=== PATIENT | female | born 1940 | race Caucasian/White ===

== ENCOUNTER 2019-02-08 10:03 | Inpatient (IN) | payer MEDICARE ==
--- NOTE | 2019-02-08 10:44 | ED ---
Abdominal Pain HPI - General Chief Complaint: Abdominal Pain Stated Complaint: Stomach pain Time Seen by Provider: 02/08/19 10:20 Source: patient, family, RN notes reviewed Mode of arrival: wheelchair Limitations: no limitations - History of Present Illness Initial Comments: 78 yo female history of hypertension diabetes presenting with 6 month history of generalized abdominal pain, fluid overload and mild dyspnea Patient has a general discomfort which is constant in nature throughout her entire abdomen. She also reports abdominal distention and bloating. She's had decreased appetite. She's had nausea without vomiting. She's had intermittent solid stool and diarrhea for the past 6 months. Denies any rectal bleeding. Denies generalized weight loss. Denies fever or chills. Denies chest pain. Denies flank pain or dysuria. - Related Data Home Medications Medication Instructions Recorded Confirmed Cholecalciferol (Vitamin D3) 2,000 unit PO DAILY 02/08/19 02/08/19 [Vitamin D3] Lisinopril [Zestril] 10 mg PO DAILY 02/08/19 02/08/19 Pioglitazone [Actos] 30 mg PO DAILY 02/08/19 02/08/19 Sertraline [Zoloft] 50 mg PO DAILY 02/08/19 02/08/19 metFORMIN HCL 1,000 mg PO BID 02/08/19 02/08/19 sitaGLIPtin PHOSPHATE [Januvia] 100 mg PO DAILY 02/08/19 02/08/19 Allergies Allergy/AdvReac Type Severity Reaction Status Date / Time No Known Allergies Allergy Verified 02/08/19 12:51 Review of Systems ROS Statement: Those systems with pertinent positive or pertinent negative responses have been documented in the HPI. ROS Other: All systems not noted in ROS Statement are negative. Past Medical History Past Medical History: Cancer, Diabetes Mellitus, Hypertension Additional Past Medical History / Comment(s): breast ca, History of Any Multi-Drug Resistant Organisms: None Reported Past Surgical History: Breast Surgery, Cholecystectomy Past Psychological History: Depression Smoking Status: Never smoker Past Alcohol Use History: None Reported Past Drug Use History: None Reported General Exam Limitations: no limitations General appearance: alert, in no apparent distress Head exam: Present: atraumatic, normocephalic Eye exam: Present: normal appearance, PERRL ENT exam: Present: normal exam, normal oropharynx Neck exam: Present: normal inspection. Absent: tenderness, meningismus Respiratory exam: Present: normal lung sounds bilaterally. Absent: respiratory distress, wheezes, rales, rhonchi Cardiovascular Exam: Present: tachycardia, irregular rhythm GI/Abdominal exam: Present: soft, distended, tenderness (Very mild generalized tenderness palpation). Absent: guarding, rebound Extremities exam: Present: pedal edema (1+ pedal bilaterally) Neurological exam: Present: alert, oriented X3, CN II-XII intact. Absent: motor sensory deficit Psychiatric exam: Present: normal affect, normal mood Skin exam: Present: warm, dry, intact. Absent: cyanosis, diaphoretic Course Vital Signs 02/08/19 10:11 Temperature 98.1 F Pulse Rate 112 H Respiratory 18 Rate Blood Pressure 141/66 O2 Sat by Pulse 98 Oximetry - Reevaluation(s) Reevaluation #1: 02/08/19 1028 EKG: Sinus tachycardia with PAC no ST segment elevation, rate of 122, MT interval 160, QRS duration 72, QTC 493 Medical Decision Making - Medical Decision Making 78 -year-old female with abdominal distention, peripheral edema, mild dyspnea. On exam patient does appear fluid overloaded. She has no focal abdominal tenderness. She has bilateral peripheral edema. Chest x-rays obtained which is consistent with fluid overload, bilateral effusions. CT the abdomen is performed which does show ascites, no other acute findings. Laboratory studies reveal hypomagnesemia, mild hypoalbuminemia. Patient will be admitted for diuresis, echo will be obtained to evaluate for cardiogenic edema and congestive heart failure. Patient and family agreeable with plan. Case discussed with admitting physician. - Lab Data Result diagrams: 02/08/19 11:02/08/19 11:03 Lab Results 02/08/19 02/08/19 02/08/19 Range/Units 11:03 11: 11:03 WBC 4.0 (3.8-10.6) k/uL RBC 4.59 (3.80-5.40) m/uL Hgb 11.4 (11.4-16.0) gm/dL Hct 36.2 (34.0-46.0) % MCV 78.9 L (80.0-100.0) fL MCH 24.9 L (25.0-35.0) pg MCHC 31.6 (31.0-37.0) g/dL RDW 15.2 (11.5-15.5) % Plt Count 101 L (150-450) k/uL Neutrophils % 76 % Lymphocytes % 13 % Monocytes % 8 % Eosinophils % 2 % Basophils % 0 % Neutrophils # 3.0 (1.3-7.7) k/uL Lymphocytes # 0.5 L (1.0-4.8) k/uL Monocytes # 0.3 (0-1.0) k/uL Eosinophils # 0.1 (0-0.7) k/uL Basophils # 0.0 (0-0.2) k/uL Hypochromasia Slight PT (9.0-12.0) sec INR (<1.2) APTT (22.0-30.0) sec Sodium 140 (137-145) mmol/L Potassium 3.6 (3.5-5.1) mmol/L Chloride 102 (98-107) mmol/L Carbon Dioxide 32 H (22-30) mmol/L Anion Gap 6 mmol/L BUN 9 (7-17) mg/dL Creatinine 0.57 (0.52-1.04) mg/dL Est GFR (CKD-EPI)AfAm >90 (>60 ml/min/1.73 sqM) Est GFR (CKD-EPI)NonAf >90 (>60 ml/min/1.73 sqM) Glucose 178 H (74-99) mg/dL Calcium 9.4 (8.4-10.2) mg/dL Magnesium 1.1 L (1.6-2.3) mg/dL Total Bilirubin 1.1 (0.2-1.3) mg/dL AST 30 (14-36) U/L ALT 28 (9-52) U/L Alkaline Phosphatase 63 (38-126) U/L Troponin I (0.000-0.034) ng/mL NT-Pro-B Natriuret Pep 778 pg/mL Total Protein 5.8 L (6.3-8.2) g/dL Albumin 3.2 L (3.5-5.0) g/dL Lipase 108 (23-300) U/L 02/08/19 02/08/19 Range/Units 11:03 11:03 WBC (3.8-10.6) k/uL RBC (3.80-5.40) m/uL Hgb (11.4-16.0) gm/dL Hct (34.0-46.0) % MCV (80.0-100.0) fL MCH (25.0-35.0) pg MCHC (31.0-37.0) g/dL RDW (11.5-15.5) % Plt Count (150-450) k/uL Neutrophils % % Lymphocytes % % Monocytes % % Eosinophils % % Basophils % % Neutrophils # (1.3-7.7) k/uL Lymphocytes # (1.0-4.8) k/uL Monocytes # (0-1.0) k/uL Eosinophils # (0-0.7) k/uL Basophils # (0-0.2) k/uL Hypochromasia PT 12.7 H (9.0-12.0) sec INR 1.2 H (<1.2) APTT 25.1 (22.0-30.0) sec Sodium (137-145) mmol/L Potassium (3.5-5.1) mmol/L Chloride (98-107) mmol/L Carbon Dioxide (22-30) mmol/L Anion Gap mmol/L BUN (7-17) mg/dL Creatinine (0.52-1.04) mg/dL Est GFR (CKD-EPI)AfAm (>60 ml/min/1.73 sqM) Est GFR (CKD-EPI)NonAf (>60 ml/min/1.73 sqM) Glucose (74-99) mg/dL Calcium (8.4-10.2) mg/dL Magnesium (1.6-2.3) mg/dL Total Bilirubin (0.2-1.3) mg/dL AST (14-36) U/L ALT (9-52) U/L Alkaline Phosphatase (38-126) U/L Troponin I <0.012 (0.000-0.034) ng/mL NT-Pro-B Natriuret Pep pg/mL Total Protein (6.3-8.2) g/dL Albumin (3.5-5.0) g/dL Lipase (23-300) U/L Disposition Clinical Impression: Abdominal pain, Liver cirrhosis, Fluid overload Disposition: ADMITTED IP TO THIS HOSP Condition: Stable Is patient prescribed a controlled substance at d/c from ED?: No Referrals: Garcia Snyder MD [Primary Care Provider] - 1-2 days Decision to Admit Reason: Admit from EC Decision Date: 02/08/19 Decision Time: 13:42
[2019-02-08 11:27] LABS: Basophils % (A) 0 %; Eosinophils # (A) 0.1 k/uL (0-0.7); Eosinophils % (A) 2 %; HCT 36.2 % (34.0-46.0); HGB 11.4 gm/dL (11.4-16.0); Hypochromasia Slight; Lymphocytes # (A) 0.5 k/uL (1.0-4.8); Lymphocytes % (A) 13 %; MCH 24.9 pg (25.0-35.0); MCHC 31.6 g/dL (31.0-37.0); MCV 78.9 fL (80.0-100.0); Monocytes # (A) 0.3 k/uL (0-1.0); Monocytes % (A) 8 %; Neutrophils % (A) 76 %; Platelet Count 101 k/uL (150-450); RBC 4.59 m/uL (3.80-5.40); RDW 15.2 % (11.5-15.5)
[2019-02-08 11:28] LABS: ALT 28 U/L (9-52); AST 30 U/L (14-36); African American GFR (CKD) >90 (>60 ml/min/1.73 sqM); Albumin 3.2 g/dL (3.5-5.0); Alkaline Phosphatase 63 U/L (38-126); Anion Gap 6 mmol/L; Blood Urea Nitrogen 9 mg/dL (7-17); Calcium 9.4 mg/dL (8.4-10.2); Carbon Dioxide 32 mmol/L (22-30); Chloride 102 mmol/L (98-107); Glucose 178 mg/dL (74-99); Magnesium 1.1 mg/dL (1.6-2.3); Potassium 3.6 mmol/L (3.5-5.1); Sodium 140 mmol/L (137-145); Total Bilirubin 1.1 mg/dL (0.2-1.3); Total Protein 5.8 g/dL (6.3-8.2)
--- NOTE | 2019-02-08 11:44 | XR ---
EXAMINATION TYPE: XR chest 2V DATE OF EXAM: 02/08/2019 HISTORY: Chest Pain. REFERENCE: NONE. FINDINGS: Heart size is upper limits of normal. There is bibasilar airspace disease. There are bilateral effusions, greater on the left than the righ t. IMPRESSION: 1. BORDERLINE CARDIOMEGALY. 2. BIBASILAR AIRSPACE DISEASE. 3. BILATERAL EFFUSIONS, GREATER ON THE LEFT THAN THE RIGHT.
[2019-02-08 11:51] LABS: INR 1.2 (<1.2); Partial Thromboplastin Time 25.1 sec (22.0-30.0); Prothrombin Time 12.7 sec (9.0-12.0)
[2019-02-08] MEDS: MAGNESIUM SULFATE-D5W PMX 1 GM in DEXTROSE/WATER 1 100ML.BAG IVPB SCH ×2 (12:59→14:09)
--- NOTE | 2019-02-08 12:59 | CT ---
EXAMINATION TYPE: CT abdomen pelvis w con DATE OF EXAM: 02/08/2019 REFERENCE: NONE HISTORY: gen. pain/distention HISTORY: General pain and distention CT DLP: 2005.6 mGy Automated exposure control for dose reduction was used. TECHNIQUE: Helical acquisition through the abdomen and pelvis was obtained following the oral ingesti on of without Oral Contrast and following intravenous administration of 100 mL of Isovue 300. The rosario a was reformatted in axial, coronal and sagittal projections. FINDINGS: There are bilateral pleural effusions, greater on the left than the right. There is relaxa tion atelectasis both lung bases, greater on the left than the right. The heart is mildly enlarged. T here is no pericardial fluid. There is coronary artery calcification as well as other vascular calcif ications. There is diffuse anasarca throughout the study but most marked in the lower abdomen and pelvis. There are umbilical varices. There are also gastrosplenic varices. There are small paraesophageal emiliano ices. There is moderate ascites. The gallbladder is been removed. The liver is nodule in keeping with cirrhosis. The spleen is upper l imits of normal in size measuring 14 cm the liver is normal in size. Both adrenal glands are normal. Both kidneys demonstrate function and appear morphologically normal. The pancreas is unremarkable. There is no significant retroperitoneal, iliac or inguinal adenopathy. The bladder is unremarkable. There are calcifications associated with the uterus. The ovaries are not seen with certainty. There is no significant diverticular change and there is no radiographic evidence of diverticulitis. The appendix is not seen with certainty. Small bowel loops are normal in caliber. No free air is seen. There is degenerative disc disease at L5-S1. There is mild facet arthropathy and hypertrophic spondyl osis in the lower dorsal spine. IMPRESSION: 1. EVIDENCE OF CIRRHOSIS AND MARKED ASCITES. 2. UMBILICAL VARICES WELL GASTROSPLENIC VARICES. 3. MILD CARDIOMEGALY. 4. BILATERAL PLEURAL EFFUSIONS, GREATER ON THE LEFT THAN THE RIGHT. 5. DIFFUSE ANASARCA. 6. DEGENERATIVE CHANGES WITHIN THE SPINE.
[2019-02-08] MEDS ORDERED: FUROSEMIDE 10 MG/ML 4 ML VIAL IV STA (13:18)
[2019-02-08] MEDS ORDERED: NALOXONE 0.4 MG/ML 1 ML VIAL IV PRN (13:38)
[2019-02-08] MEDS ORDERED: ASPIRIN 325 MG TAB PO STA (13:39)
--- NOTE | 2019-02-08 14:32 | ECHOF ---
Referral Reason:CHF MEASUREMENTS -------- HEIGHT: 167.6 cm WEIGHT: 104.3 kg BP: RVIDd: 3.5 cm (< 3.3) IVSd: 1.3 cm (0.6 - 1.1) LVIDd: 4.1 cm (3.9 - 5.3) LVPWd: 1.1 cm (0.6 - 1.1) IVSs: 2.0 cm LVIDs: 1.6 cm LVPWs: 1.6 cm Ao Diam: 2.9 cm (2.0 - 3.7) AV Cusp: 1.3 cm (1.5 - 2.6) LA Diam: 4.1 cm (2.7 - 3.8) MV EXCURSION: 7.495 mm (> 18.000) MV EF SLOPE: 48 mm/s (70 - 150) EPSS: 0.6 cm MV E Rajendra: 1.01 m/s MV DecT: 153 ms MV A Rajendra: 1.49 m/s MV E/A Ratio: 0.68 AV maxP.34 mmHg AV meanP.65 mmHg RAP: 5.00 mmHg RVSP: 46.31 mmHg FINDINGS -------- Resting tachycardia (HR>100bpm). This was a technically difficult study with suboptimal views. The left ventricular size is normal. There is mild concentric left ventricular hypertrophy. Overa ll left ventricular systolic function is normal with, an EF between 55 - 60 %. The right ventricle is mildly enlarged. The left atrium is mildly dilated. The right atrial size is normal. 5.0mg of Lumason was utilized for enhancement of images Aortic valve is trileaflet and is mildly thickened. There is mild aortic stenosis present. Peak/m anibal gradient across the Aortic Valve is 25.34mmHg / 14.65mmHg. The mitral valve was not well visualized. Mild mitral regurgitation is present. The tricuspid valve was not well visualized. Mild tricuspid regurgitation present. There is mild pulmonary hypertension. There is no pulmonic regurgitation present. The aortic root size is normal. IVC Not well visulized. There is no pericardial effusion. CONCLUSIONS -------- 1. Resting tachycardia (HR>100bpm). 2. This was a technically difficult study with suboptimal views. 3. The left ventricular size is normal. 4. There is mild concentric left ventricular hypertrophy. 5. Overall left ventricular systolic function is normal with, an EF between 55 - 60 %. 6. The right ventricle is mildly enlarged. 7. The left atrium is mildly dilated. 8. The right atrial size is normal. 9. 5.0mg of Lumason was utilized for enhancement of images 10. Aortic valve is trileaflet and is mildly thickened. 11. There is mild aortic stenosis present. 12. Peak/mean gradient across the Aortic Valve is 25.34mmHg / 14.65mmHg. 13. The mitral valve was not well visualized. 14. Mild mitral regurgitation is present. 15. The tricuspid valve was not well visualized. 16. Mild tricuspid regurgitation present. 17. There is mild pulmonary hypertension. 18. There is no pulmonic regurgitation present. 19. The aortic root size is normal. 20. IVC Not well visulized. 21. There is no pericardial effusion. DETAIL SERGEANT: Joelle Collins RDCS
[2019-02-08] MEDS ORDERED: Magnesium Replacement Protocol 1 EACH MISC MISCELLANE PRN (15:35)
[2019-02-08 16:59] LABS: Glucose,Whole Blood 161 mg/dL (75-99)
[2019-02-08] MEDS: metFORMIN 500 MG TAB PO SCH (17:45)
--- NOTE | 2019-02-08 19:34 | P.HPIM ---
History of Present Illness This is a pleasant 78 years old female with past medical history of diabetes mellitus, hypertension, breast cancer status post right breast lump removal. Presents because of abdominal pain, fluid overload and mild dyspnea, pt states she is coming because of worsening abd pain , central radiating on both sides , non specific, about 8/10 , now 2/10 in severity , associated with nausea but not vomiting , and some dyspnea , no fever she has regular bowel movement compared to yesterday which was more loose. pt denies chest pain or dyspnea pt has no known liver , kidney or heart disease before Vital showing tachycardia with heart rate 100 to 112, blood pressure 125/52, patient is afebrile and she is saturating 92 on room air. Labs showing unremarkable CBC, INR and BMP. Magnesium is low at 1.1 CT of the abdomen and pelvis: Anasarca with bilateral pleural effusion and ascites. Echo showed ejection fraction of 55-60%. EKG showed sinus tachycardia at [address]-T changes. Q-wave in the inferior leads III and aVF. Chest x-ray showed bilateral pleural effusion more on the left side Review of Systems CONSTITUTIONAL: No fever, no malaise, no fatigue. HEENT: No recent visual problems or hearing problems. Denied any sore throat. CARDIOVASCULAR: No orthopnea, PND, no palpitations, no syncope. PULMONARY: No shortness of breath, no cough, no hemoptysis. GASTROINTESTINAL: No diarrhea, no nausea, no vomiting, no abdominal pain. Normoactive bowel sounds. NEUROLOGICAL: No headaches, no weakness, no numbness. HEMATOLOGICAL: Denies any bleeding or petechiae. GENITOURINARY: Denies any burning micturition, frequency, or urgency. MUSCULOSKELETAL/RHEUMATOLOGICAL: Denies any joint pain, swelling, or any muscle pain. ENDOCRINE: Denies any polyuria or polydipsia. Past Medical History Past Medical History: Cancer, Diabetes Mellitus, Hypertension Additional Past Medical History / Comment(s): breast ca, History of Any Multi-Drug Resistant Organisms: None Reported Past Surgical History: Breast Surgery, Cholecystectomy Additional Past Surgical History / Comment(s): Right breast lump removal Past Anesthesia/Blood Transfusion Reactions: No Reported Reaction Past Psychological History: Depression Smoking Status: Never smoker Past Alcohol Use History: None Reported Past Drug Use History: None Reported - Past Family History Father Family Medical History: Cancer Additional Family Medical History / Comment(s): Colon cancer Brother(s) Family Medical History: Myocardial Infarction (HI) Additional Family Medical History / Comment(s): stents, another brother from an HI Medications and Allergies Home Medications Medication Instructions Recorded Confirmed Type Cholecalciferol (Vitamin D3) 2,000 unit PO DAILY 02/08/19 02/08/19 History [Vitamin D3] Lisinopril [Zestril] 10 mg PO DAILY 02/08/19 02/08/19 History Pioglitazone [Actos] 30 mg PO DAILY 02/08/19 02/08/19 History Sertraline [Zoloft] 50 mg PO DAILY 02/08/19 02/08/19 History metFORMIN HCL 1,000 mg PO BID 02/08/19 02/08/19 History sitaGLIPtin PHOSPHATE [Januvia] 100 mg PO DAILY 02/08/19 02/08/19 History Allergies Allergy/AdvReac Type Severity Reaction Status Date / Time No Known Allergies Allergy Verified 02/08/19 12:51 Physical Exam Vitals: Vital Signs Temp Pulse Resp BP Pulse Ox 02/08/19 14:00 100 18 125/52 92 L 02/08/19 13:30 106 H 18 108/51 94 L 02/08/19 13:00 105 H 18 160/67 91 L 02/08/19 12:30 104 H 20 162/69 92 L 02/08/19 10:11 98.1 F 112 H 18 141/66 98 Intake and Output 02/08/19 02/08/19 02/08/19 06:59 14:59 22:59 Other: Voiding Method Toilet Weight 100.561 kg GENERAL: The patient is alert and oriented x3, not in any acute distress. obese HEENT: Pupils are round and equally reacting to light. EOMI. No scleral icterus. No conjunctival pallor. Normocephalic, atraumatic. No pharyngeal erythema. No thyromegaly. CARDIOVASCULAR: S1 and S2 present. No murmurs, rubs, or gallops. PULMONARY: Chest is clear to auscultation, no wheezing or crackles. -ABDOMEN: Soft, mild RUQ tenderness, nondistended, normoactive bowel sounds. No palpable organomegaly. MUSCULOSKELETAL: No joint swelling or deformity. EXTREMITIES: No cyanosis, clubbing, or pedal edema. NEUROLOGICAL: Gross neurological examination did not reveal any focal deficits. SKIN: No rashes. No petechiae Results CBC & Chem 7: 02/08/19 11:03 02/08/19 11:03 Labs: Abnormal Lab Results - Last 24 Hours (Table) 02/08/19 02/08/19 02/08/19 Range/Units 11:03 11: 11:03 MCV 78.9 L (80.0-100.0) fL MCH 24.9 L (25.0-35.0) pg Plt Count 101 L (150-450) k/uL Lymphocytes # 0.5 L (1.0-4.8) k/uL PT 12.7 H (9.0-12.0) sec INR 1.2 H (<1.2) Carbon Dioxide 32 H (22-30) mmol/L Glucose 178 H (74-99) mg/dL Magnesium 1.1 L (1.6-2.3) mg/dL Total Protein 5.8 L (6.3-8.2) g/dL Albumin 3.2 L (3.5-5.0) g/dL Thrombosis Risk Factor Assmnt - Choose All That Apply Each Risk Factor Represents 3 Points: Age 75 years or older Other congenital or acquired thrombophilia - If yes, enter type in comment: No Thrombosis Risk Factor Assessment Total Risk Factor Score: 3 Thrombosis Risk Factor Assessment Level: Moderate Risk Assessment and Plan Assessment: Diffuse anasarca With bilateral pleural effusion, more on the left,moderate ascites Liver cirrhosis Hypomagnesemia Borderline Enlarged spleen diabetes mellitus Hypertension History of breast cancer status post lumpectomy Plan: This is a pleasant 78 years old female who presents with anasarca, with pleural effusion and ascites mostly secondary to liver cirrhosis with normal ejection fraction and creatinine. Continue with diuretics. Monitor electrolytes. Con sult GI team Labs and medication were reviewed.. Continue same treatment. Continue with symptomatic treatment. Resume home medication. Monitor lytes and vitals. DVT and GI prophylaxis. Further recommendations of the clinical course of the patient DVT prophylaxis: Subcutaneous heparin GI Prophylaxis: Pepcid PT/OT: Pending Prognosis is guarded
[2019-02-08] MEDS: FAMOTIDINE 20 MG/2 ML VIAL IV SCH (20:10)
[2019-02-08] MEDS: FUROSEMIDE 10 MG/ML 4 ML VIAL IV SCH (20:10)
[2019-02-08] MEDS: HEPARIN SODIUM,PORCINE 5,000 UNIT/ML 1 ML VIAL SQ SCH (20:10)
[2019-02-08 21:03] LABS: Glucose,Whole Blood 161 mg/dL (75-99)
[2019-02-09 06:03] LABS: Glucose,Whole Blood 149 mg/dL (75-99)
[2019-02-09] MEDS: metFORMIN 500 MG TAB PO SCH ×2 (06:32→16:52)
[2019-02-09 06:33] LABS: HCT 31.1 % (34.0-46.0); HGB 10.1 gm/dL (11.4-16.0); Hypochromasia Moderate; MCH 25.6 pg (25.0-35.0); MCHC 32.4 g/dL (31.0-37.0); MCV 79.1 fL (80.0-100.0); Mean Platelet Volume 6.8; RBC 3.93 m/uL (3.80-5.40); RDW 15.3 % (11.5-15.5); WBC 2.8 k/uL (3.8-10.6)
[2019-02-09 06:35] LABS: African American GFR (CKD) >90 (>60 ml/min/1.73 sqM); Anion Gap 4 mmol/L; Blood Urea Nitrogen 9 mg/dL (7-17); Calcium 8.6 mg/dL (8.4-10.2); Carbon Dioxide 36 mmol/L (22-30); Chloride 100 mmol/L (98-107); Glucose 146 mg/dL (74-99); Magnesium 1.3 mg/dL (1.6-2.3); Potassium 3.5 mmol/L (3.5-5.1); Sodium 140 mmol/L (137-145)
[2019-02-09 06:59] LABS: Eosinophils # (M) 0.08 k/uL (0-0.7); Lymphocytes # (M) 0.28 k/uL (1.0-4.8); Neutrophils % (M) 80 %; Nucleated Red Blood Cells 0 /100 WBC (0-0); Platelet Count 78 k/uL (150-450); Total Cells Counted 100
[2019-02-09] MEDS ORDERED: Magnesium Replacement Protocol 1 EACH MISC MISCELLANE PRN (07:35)
[2019-02-09] MEDS: MAGNESIUM SULFATE-D5W PMX 1 GM in DEXTROSE/WATER 1 100ML.BAG IVPB SCH ×3 (09:13→13:29)
[2019-02-09] MEDS: HEPARIN SODIUM,PORCINE 5,000 UNIT/ML 1 ML VIAL SQ SCH ×2 (09:14→20:18)
[2019-02-09] MEDS: CHOLECALCIFEROL 1,000 UNIT TAB PO SCH (09:14)
[2019-02-09] MEDS: LISINOPRIL 10 MG TAB PO SCH (09:14)
[2019-02-09] MEDS: FUROSEMIDE 10 MG/ML 4 ML VIAL IV SCH ×2 (09:14→20:18)
[2019-02-09] MEDS: FAMOTIDINE 20 MG/2 ML VIAL IV SCH ×2 (09:14→20:18)
[2019-02-09] MEDS: LINAGLIPTIN 5 MG TABLET PO SCH (09:14)
[2019-02-09] MEDS: PIOGLITAZONE 30 MG TAB PO SCH (09:14)
[2019-02-09] MEDS: SERTRALINE 50 MG TAB PO SCH (09:14)
[2019-02-09] MEDS ORDERED: POTASSIUM CHLORIDE ER 20 MEQ TAB.ER PO STA (10:14)
--- NOTE | 2019-02-09 11:31 | P.PN ---
Subjective This is a pleasant 78 years old female with past medical history of diabetes mellitus, hypertension, breast cancer status post right breast lump removal. Presents because of abdominal pain, fluid overload and mild dyspnea, pt states she is coming because of worsening abd pain , central radiating on both sides , non specific, about 8/10 , now 2/10 in severity , associated with nausea but not vomiting , and some dyspnea , no fever she has regular bowel movement compared to yesterday which was more loose. pt denies chest pain or dyspnea pt has no known liver , kidney or heart disease before Vital showing tachycardia with heart rate 100 to 112, blood pressure 125/52, patient is afebrile and she is saturating 92 on room air. Labs showing unremarkable CBC, INR and BMP. Magnesium is low at 1.1 CT of the abdomen and pelvis: Anasarca with bilateral pleural effusion and ascites. Echo showed ejection fraction of 55-60%. EKG showed sinus tachycardia at [address]-T changes. Q-wave in the inferior leads III and aVF. Chest x-ray showed bilateral pleural effusion more on the left side 02/09/2019 Patient is awake and oriented. No new complaints. No chest pain or dyspnea. She feels better and better presents with easier mobility. Her abdominal pain is improving, occasional nausea but no vomiting. Vitals are stable, her CBC showing mild pancytopenia with WBC of 2.8, hemoglobin 10.1, platelets at 78, magnesium still low with 1.3 which is being replaced, sugar is controlled and BMP is unremarkable. Discussed the case with GI team, plan to add spironolactone and paracentesis tomorrow. Patient was instructed to follow up with her PCP and GI within 1 week after discharge, she agrees however she does not want to follow up with her PCP Dr. Snyder and she wants to be switched to another PCP, several doctors were suggested Review of systems CONSTITUTIONAL: No fever, no malaise, no fatigue. HEENT: No recent visual problems or hearing problems. Denied any sore throat. CARDIOVASCULAR: No orthopnea, PND, no palpitations, no syncope. PULMONARY: No shortness of breath, no cough, no hemoptysis. GASTROINTESTINAL: No diarrhea, no nausea, no vomiting, no abdominal pain. Normoactive bowel sounds. NEUROLOGICAL: No headaches, no weakness, no numbness. HEMATOLOGICAL: Denies any bleeding or petechiae. GENITOURINARY: Denies any burning micturition, frequency, or urgency. MUSCULOSKELETAL/RHEUMATOLOGICAL: Denies any joint pain, swelling, or any muscle pain. ENDOCRINE: Denies any polyuria or polydipsia. Active Medications Generic Name Dose Route Start Last Admin Trade Name Freq PRN Reason Stop Dose Admin Cholecalciferol 2,000 unit 02/09/19 09:00 02/09/19 09:14 Vitamin D3 (25 Mcg = 1000 Iu) PO 2,000 unit DAILY ANUPAM Administration Famotidine 20 mg 02/08/19 21:00 02/09/19 09:14 Pepcid IV 20 mg Q12HR ANUPAM Administration Furosemide 40 mg 02/08/19 21:00 02/09/19 09:14 Lasix IV 40 mg Q12HR ANUPAM Administration Heparin Sodium (Porcine) 5,000 unit 02/08/19 21:00 02/09/19 09:14 Heparin SQ 5,000 unit Q12HR ANUPAM Administration Linagliptin 5 mg 02/09/19 09:00 02/09/19 09:14 Tradjenta PO 5 mg DAILY ANUPAM Administration Lisinopril 10 mg 02/09/19 09:00 02/09/19 09:14 Zestril PO 10 mg DAILY ANUPAM Administration Metformin HCl 1,000 mg 02/08/19 17:30 02/09/19 06:32 Glucophage PO 1,000 mg AC-BID ANUPAM Administration Miscellaneous Information 1 each 02/09/19 07:35 Magnesium Per Protocol MISCELLANE DAILY PRN Per Protocol Protocol Naloxone HCl 0.2 mg 02/08/19 13:38 Narcan IV Q2M PRN Opioid Reversal Pioglitazone HCl 30 mg 02/09/19 09:00 02/09/19 09:14 Actos PO 30 mg DAILY ANUPAM Administration Sertraline HCl 50 mg 02/09/19 09:00 02/09/19 09:14 Zoloft PO 50 mg DAILY ANUPAM Administration Objective - Vital Signs Vital signs: Vital Signs Temp 98.3 F 02/09/19 08:20 Pulse 96 02/09/19 08:20 Resp 16 02/09/19 08:20 BP 108/53 02/09/19 08:20 Pulse Ox 94 L 02/09/19 08:20 Intake & Output 02/08/19 02/09/19 02/09/19 18:59 06:59 18:59 Output Total 3400 Balance -3400 Weight 100.561 kg 93.9 kg Output: Urine 3400 Other: Voiding Method Toilet # Voids 1 2 # Bowel Movements 1 - Exam GENERAL: The patient is alert and oriented x3, not in any acute distress. obese HEENT: Pupils are round and equally reacting to light. EOMI. No scleral icterus. No conjunctival pallor. Normocephalic, atraumatic. No pharyngeal erythema. No thyromegaly. CARDIOVASCULAR: S1 and S2 present. No murmurs, rubs, or gallops. PULMONARY: Chest is clear to auscultation, no wheezing or crackles. -ABDOMEN: Soft, mild RUQ tenderness, nondistended, normoactive bowel sounds. No palpable organomegaly. MUSCULOSKELETAL: No joint swelling or deformity. -EXTREMITIES: No cyanosis, clubbing. Bilateral leg edema NEUROLOGICAL: Gross neurological examination did not reveal any focal deficits. SKIN: No rashes. No petechiae - Labs CBC & Chem 7: 02/09/19 05:46 02/09/19 05:46 Labs: Abnormal Lab Results - Last 24 Hours (Table) 02/08/19 02/08/19 02/08/19 Range/Units 11:03 11:03 11:03 WBC (3.8-10.6) k/uL Hgb (11.4-16.0) gm/dL Hct (34.0-46.0) % MCV 78.9 L (80.0-100.0) fL MCH 24.9 L (25.0-35.0) pg Plt Count 101 L (150-450) k/uL Lymphocytes # 0.5 L (1.0-4.8) k/uL Lymphocytes # (Manual) (1.0-4.8) k/uL PT 12.7 H (9.0-12.0) sec INR 1.2 H (<1.2) Carbon Dioxide 32 H (22-30) mmol/L Glucose 178 H (74-99) mg/dL POC Glucose (mg/dL) (75-99) mg/dL Magnesium 1.1 L (1.6-2.3) mg/dL Total Protein 5.8 L (6.3-8.2) g/dL Albumin 3.2 L (3.5-5.0) g/dL 02/08/19 02/08/19 02/09/19 Range/Units 16:57 20:32 05:46 WBC (3.8-10.6) k/uL Hgb (11.4-16.0) gm/dL Hct (34.0-46.0) % MCV (80.0-100.0) fL MCH (25.0-35.0) pg Plt Count (150-450) k/uL Lymphocytes # (1.0-4.8) k/uL Lymphocytes # (Manual) (1.0-4.8) k/uL PT (9.0-12.0) sec INR (<1.2) Carbon Dioxide 36 H (22-30) mmol/L Glucose 146 H (74-99) mg/dL POC Glucose (mg/dL) 161 H 161 H (75-99) mg/dL Magnesium 1.3 L (1.6-2.3) mg/dL Total Protein (6.3-8.2) g/dL Albumin (3.5-5.0) g/dL 02/09/19 02/09/19 Range/Units 05:46 06:02 WBC 2.8 L (3.8-10.6) k/uL Hgb 10.1 L (11.4-16.0) gm/dL Hct 31.1 L (34.0-46.0) % MCV 79.1 L (80.0-100.0) fL MCH (25.0-35.0) pg Plt Count 78 L (150-450) k/uL Lymphocytes # (1.0-4.8) k/uL Lymphocytes # (Manual) 0.28 L (1.0-4.8) k/uL PT (9.0-12.0) sec INR (<1.2) Carbon Dioxide (22-30) mmol/L Glucose (74-99) mg/dL POC Glucose (mg/dL) 149 H (75-99) mg/dL Magnesium (1.6-2.3) mg/dL Total Protein (6.3-8.2) g/dL Albumin (3.5-5.0) g/dL Assessment and Plan Assessment: Liver cirrhosis Diffuse anasarca With bilateral pleural effusion, more on the left,moderate ascites. Secondary to above Hypomagnesemia Borderline Enlarged spleen diabetes mellitus Hypertension History of breast cancer status post lumpectomy Plan: This is a pleasant 78 years old female who presents with anasarca, with pleural effusion and ascites mostly secondary to liver cirrhosis with normal ejection fraction and creatinine. Continue with diuretics. At spironolactone. Monitor electrolytes. Follow-up recommendation by GI team Labs and medication were reviewed.. Continue same treatment. Continue with symptomatic treatment. Resume home medication. Monitor lytes and vitals. DVT and GI prophylaxis. Further recommendations of the clinical course of the patient DVT prophylaxis: Subcutaneous heparin GI Prophylaxis: Pepcid PT/OT: Pending Prognosis is guarded
[2019-02-09 11:40] LABS: Glucose,Whole Blood 178 mg/dL (75-99)
[2019-02-09] MEDS: SPIRONOLACTONE 25 MG TAB PO SCH (13:30)
--- NOTE | 2019-02-09 13:30 | P.CONS ---
History of Present Illness - Reason for Consult Consult date: 02/09/19 Cirrhosis Requesting physician: Quentin Massey - Chief Complaint Abdominal pain - History of Present Illness 78-year-old female with medical history significant for diabetes mellitus, hypertension, prior right breast lumpectomy presents to the hospital due to complaints of abdominal pain. The patient reports abdominal pain which has been present with associated distention which is present for months now. However over the past few weeks this has increased. She describes symptoms of abdominal distention and fluid overload. She also reports associated shortness of breath. No fevers chills or other symptoms reported. She did have some associated nausea. No prior history of liver disease. She denies any excessive alcohol use. She does suffer from diabetes mellitus and hypertension as stated. Computed tomography scan of the abdomen on presentation was significant for cirrhosis, ascites as well as umbilical and gastrosplenic varices. Laboratory evaluation significant for hemoglobin 10.1 from 11.4 with microcytic indices, platelet count 70,000, WBC 2.8 with a total bilirubin 1.1, alkaline phosphatase 69, AST 30 and ALT 28. Currently she is lying in bed reporting improvement in abdominal symptoms after starting Lasix IV 40 mg twice daily. Review of Systems REVIEW OF SYSTEMS: CONSTITUTIONAL: Denies any fevers, chills, weight change or fatigue. CARDIOVASCULAR: Denies any chest pain, palpitations high or low blood pressures RESPIRATORY: Denies any hemoptysis or cough, but did have some shortness of breath associated with her abdominal distention. GENITOURINARY: No dysuria or hematuria. MUSCULOSKELETAL: No weakness reported. SKIN: Denies any new rashes or lesions, jaundice or pallor. PSYCHIATRIC: Denies any depression or anxiety. NEUROLOGY: Denies headache, denies any new focal deficits. EARS/NOSE/THROAT: No recent hearing change, congestion, nasal discharge or sore throat. EYES: No pain in eyes, discharge or change in vision. GASTROINTESTINAL: As per HPI. Past Medical History Past Medical History: Cancer, Diabetes Mellitus, Hypertension Additional Past Medical History / Comment(s): breast ca, History of Any Multi-Drug Resistant Organisms: None Reported Past Surgical History: Breast Surgery, Cholecystectomy Additional Past Surgical History / Comment(s): Right breast lump removal Past Anesthesia/Blood Transfusion Reactions: No Reported Reaction Past Psychological History: Depression Smoking Status: Never smoker Past Alcohol Use History: None Reported Past Drug Use History: None Reported - Past Family History Father Family Medical History: Cancer Additional Family Medical History / Comment(s): Colon cancer Brother(s) Family Medical History: Myocardial Infarction ([place]) Additional Family Medical History / Comment(s): stents, another brother from an [place] Medications and Allergies Home Medications Medication Instructions Recorded Confirmed Type Cholecalciferol (Vitamin D3) 2,000 unit PO DAILY 02/08/19 02/08/19 History [Vitamin D3] Lisinopril [Zestril] 10 mg PO DAILY 02/08/19 02/08/19 History Pioglitazone [Actos] 30 mg PO DAILY 02/08/19 02/08/19 History Sertraline [Zoloft] 50 mg PO DAILY 02/08/19 02/08/19 History metFORMIN HCL 1,000 mg PO BID 02/08/19 02/08/19 History sitaGLIPtin PHOSPHATE [Januvia] 100 mg PO DAILY 02/08/19 02/08/19 History Allergies Allergy/AdvReac Type Severity Reaction Status Date / Time No Known Allergies Allergy Verified 02/08/19 12:51 Physical Exam Vitals: Vital Signs Temp Pulse Pulse Resp BP BP BP 02/09/19 08:20 98.3 F 96 16 108/53 02/09/19 03:57 103 H 17 154/74 02/08/19 23:48 91 17 127/59 02/08/19 20:00 98.2 F 106 H 17 127/60 02/08/19 14:45 98.5 F 100 16 121/57 02/08/19 14:00 100 18 125/52 02/08/19 13:30 106 H 18 108/51 02/08/19 13:00 105 H 18 160/67 02/08/19 12:30 104 H 20 162/69 02/08/19 10:11 98.1 F 112 H 18 141/66 Pulse Ox 02/09/19 08:20 94 L 02/09/19 03:57 95 02/08/19 23:48 95 02/08/19 20:00 97 02/08/19 14:45 94 L 02/08/19 14:00 92 L 02/08/19 13:30 94 L 02/08/19 13:00 91 L 02/08/19 12:30 92 L 02/08/19 10:11 98 Intake and Output 02/08/19 02/09/19 02/09/19 22:59 06:59 14:59 Output Total 1200 2200 Balance -1200 -2200 Output: Urine 1200 2200 Other: # Voids 1 2 # Bowel Movements 1 Weight 93.9 kg On physical examination, patient appears comfortable in no apparent distress. HEAD: Normocephalic, atraumatic. EYES: No scleral icterus. No conjunctival injection. MOUTH: No lesions, tongue midline. NECK: Trachea midline, no gross abnormalities. CHEST: Clear to auscultation with no wheezing or rhonchi appreciated. HEART: S1-S2 appreciated. ABDOMEN: Soft, moderately distended with positive fluid wave. Bowel sounds are p ositive. No organomegaly. No guarding or rigidity. EXTREMITIES: No pedal edema. SKIN: No rashes, no jaundice. NEUROLOGIC: Alert and oriented x3. No focal deficits. Results CBC & Chem 7: 02/09/19 05:46 02/09/19 05:46 Labs: Abnormal Lab Results - Last 24 Hours (Table) 02/08/19 02/08/19 02/08/19 Range/Units 11:03 11:03 11:03 WBC (3.8-10.6) k/uL Hgb (11.4-16.0) gm/dL Hct (34.0-46.0) % MCV 78.9 L (80.0-100.0) fL MCH 24.9 L (25.0-35.0) pg Plt Count 101 L (150-450) k/uL Lymphocytes # 0.5 L (1.0-4.8) k/uL Lymphocytes # (Manual) (1.0-4.8) k/uL PT 12.7 H (9.0-12.0) sec INR 1.2 H (<1.2) Carbon Dioxide 32 H (22-30) mmol/L Glucose 178 H (74-99) mg/dL POC Glucose (mg/dL) (75-99) mg/dL Magnesium 1.1 L (1.6-2.3) mg/dL Total Protein 5.8 L (6.3-8.2) g/dL Albumin 3.2 L (3.5-5.0) g/dL 02/08/19 02/08/19 02/09/19 Range/Units 16:57 20:32 05:46 WBC (3.8-10.6) k/uL Hgb (11.4-16.0) gm/dL Hct (34.0-46.0) % MCV (80.0-100.0) fL MCH (25.0-35.0) pg Plt Count (150-450) k/uL Lymphocytes # (1.0-4.8) k/uL Lymphocytes # (Manual) (1.0-4.8) k/uL PT (9.0-12.0) sec INR (<1.2) Carbon Dioxide 36 H (22-30) mmol/L Glucose 146 H (74-99) mg/dL POC Glucose (mg/dL) 161 H 161 H (75-99) mg/dL Magnesium 1.3 L (1.6-2.3) mg/dL Total Protein (6.3-8.2) g/dL Albumin (3.5-5.0) g/dL 02/09/19 02/09/19 Range/Units 05:46 06:02 WBC 2.8 L (3.8-10.6) k/uL Hgb 10.1 L (11.4-16.0) gm/dL Hct 31.1 L (34.0-46.0) % MCV 79.1 L (80.0-100.0) fL MCH (25.0-35.0) pg Plt Count 78 L (150-450) k/uL Lymphocytes # (1.0-4.8) k/uL Lymphocytes # (Manual) 0.28 L (1.0-4.8) k/uL PT (9.0-12.0) sec INR (<1.2) Carbon Dioxide (22-30) mmol/L Glucose (74-99) mg/dL POC Glucose (mg/dL) 149 H (75-99) mg/dL Magnesium (1.6-2.3) mg/dL Total Protein (6.3-8.2) g/dL Albumin (3.5-5.0) g/dL CT scan - abdomen: report reviewed (Findings of ascites and cirrhosis on computed tomography scan abdomen) Assessment and Plan (1) Liver cirrhosis Narrative/Plan: 78-year-old female presenting due to abdominal pain with no findings of liver cirrhosis and ascites on computed tomography scan of the abdomen. No prior history of liver disease. No history of viral hepatitis or decompensated liver disease reported. The patient reports increasing abdominal distention over the past few months of unknown etiology. She is currently not on any home diuresis but has been started on Lasix 40 mg twice daily in the hospital. 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
[2019-02-09 14:02] VITALS: BMI 33.4
[2019-02-09 16:27] LABS: Glucose,Whole Blood 171 mg/dL (75-99)
[2019-02-09 20:38] LABS: Glucose,Whole Blood 154 mg/dL (75-99)
[2019-02-10 06:33] LABS: Glucose,Whole Blood 148 mg/dL (75-99)
[2019-02-10 06:43] LABS: Basophils % (A) 1 %; Eosinophils # (A) 0.1 k/uL (0-0.7); Eosinophils % (A) 3 %; HCT 33.3 % (34.0-46.0); HGB 10.5 gm/dL (11.4-16.0); Lymphocytes # (A) 0.6 k/uL (1.0-4.8); Lymphocytes % (A) 18 %; MCH 24.9 pg (25.0-35.0); MCHC 31.6 g/dL (31.0-37.0); MCV 78.8 fL (80.0-100.0); Mean Platelet Volume 7.8; Monocytes # (A) 0.3 k/uL (0-1.0); Monocytes % (A) 9 %; Neutrophils # (A) 2.3 k/uL (1.3-7.7); Neutrophils % (A) 67 %; RBC 4.23 m/uL (3.80-5.40); RDW 15.6 % (11.5-15.5); WBC 3.4 k/uL (3.8-10.6)
[2019-02-10] MEDS: metFORMIN 500 MG TAB PO SCH ×2 (06:43→17:17)
[2019-02-10 06:44] LABS: Platelet Count 97 k/uL (150-450)
[2019-02-10 06:54] LABS: African American GFR (CKD) >90 (>60 ml/min/1.73 sqM); Anion Gap 5 mmol/L; Blood Urea Nitrogen 12 mg/dL (7-17); Calcium 8.7 mg/dL (8.4-10.2); Carbon Dioxide 37 mmol/L (22-30); Chloride 98 mmol/L (98-107); Glucose 145 mg/dL (74-99); Magnesium 1.6 mg/dL (1.6-2.3); Potassium 3.8 mmol/L (3.5-5.1); Sodium 140 mmol/L (137-145)
--- NOTE | 2019-02-10 07:43 | P.PN ---
Subjective This is a pleasant 78 years old female with past medical history of diabetes mellitus, hypertension, breast cancer status post right breast lump removal. Presents because of abdominal pain, fluid overload and mild dyspnea, pt states she is coming because of worsening abd pain , central radiating on both sides , non specific, about 8/10 , now 2/10 in severity , associated with nausea but not vomiting , and some dyspnea , no fever she has regular bowel movement compared to yesterday which was more loose. pt denies chest pain or dyspnea pt has no known liver , kidney or heart disease before Vital showing tachycardia with heart rate 100 to 112, blood pressure 125/52, patient is afebrile and she is saturating 92 on room air. Labs showing unremarkable CBC, INR and BMP. Magnesium is low at 1.1 CT of the abdomen and pelvis: Anasarca with bilateral pleural effusion and ascites. Echo showed ejection fraction of 55-60%. EKG showed sinus tachycardia at [address]-T changes. Q-wave in the inferior leads III and aVF. Chest x-ray showed bilateral pleural effusion more on the left side 02/09/2019 Patient is awake and oriented. No new complaints. No chest pain or dyspnea. She feels better and better presents with easier mobility. Her abdominal pain is improving, occasional nausea but no vomiting. Vitals are stable, her CBC showing mild pancytopenia with WBC of 2.8, hemoglobin 10.1, platelets at 78, magnesium still low with 1.3 which is being replaced, sugar is controlled and BMP is unremarkable. Discussed the case with GI team, plan to add spironolactone and paracentesis tomorrow. Patient was instructed to follow up with her PCP and GI within 1 week after discharge, she agrees however she does not want to follow up with her PCP Dr. Snyder and she wants to be switched to another PCP, several doctors were suggested 02/10/2019 Patient is improving and she feels better with no more abdominal pain, her movement is better. She has better appetite. She is happy with her progress. Patient planned for thoracocentesis. Discussed with the patient the discharge plan and the need for close outpatient follow-up and she agrees. She wants to find new PCP Objective - Vital Signs Vital signs: Vital Signs Temp 98.3 F 02/10/19 03:18 Pulse 99 02/10/19 03:18 Resp 17 02/10/19 03:18 BP 130/72 02/10/19 03:18 Pulse Ox 94 L 02/10/19 03:18 Intake & Output 02/09/19 02/10/19 02/10/19 18:59 06:59 18:59 Intake Total 730 Output Total 1100 Balance 730 -1100 Weight 93.9 kg 94.2 kg Intake: Oral 730 Output: Urine 1100 Other: Voiding Method Toilet Toilet # Voids 4 # Bowel Movements 1 - Exam GENERAL: The patient is alert and oriented x3, not in any acute distress. obese HEENT: Pupils are round and equally reacting to light. EOMI. No scleral icterus. No conjunctival pallor. Normocephalic, atraumatic. No pharyngeal erythema. No thyromegaly. CARDIOVASCULAR: S1 and S2 present. No murmurs, rubs, or gallops. PULMONARY: Chest is clear to auscultation, no wheezing or crackles. -ABDOMEN: Soft, mild RUQ tenderness, nondistended, normoactive bowel sounds. No palpable organomegaly. MUSCULOSKELETAL: No joint swelling or deformity. -EXTREMITIES: No cyanosis, clubbing. Bilateral leg edema NEUROLOGICAL: Gross neurological examination did not reveal any focal deficits. SKIN: No rashes. No petechiae - Labs CBC & Chem 7: 02/10/19 05:52 02/10/19 05:52 Labs: Abnormal Lab Results - Last 24 Hours (Table) 02/09/19 02/09/19 02/09/19 Range/Units 11:39 16:26 20:32 WBC (3.8-10.6) k/uL Hgb (11.4-16.0) gm/dL Hct (34.0-46.0) % MCV (80.0-100.0) fL MCH (25.0-35.0) pg RDW (11.5-15.5) % Plt Count (150-450) k/uL Lymphocytes # (1.0-4.8) k/uL Carbon Dioxide (22-30) mmol/L Glucose (74-99) mg/dL POC Glucose (mg/dL) 178 H 171 H 154 H (75-99) mg/dL 02/10/19 02/10/19 02/10/19 Range/Units 05:52 05:52 06:24 WBC 3.4 L (3.8-10.6) k/uL Hgb 10.5 L (11.4-16.0) gm/dL Hct 33.3 L (34.0-46.0) % MCV 78.8 L (80.0-100.0) fL MCH 24.9 L (25.0-35.0) pg RDW 15.6 H (11.5-15.5) % Plt Count 97 L (150-450) k/uL Lymphocytes # 0.6 L (1.0-4.8) k/uL Carbon Dioxide 37 H (22-30) mmol/L Glucose 145 H (74-99) mg/dL POC Glucose (mg/dL) 148 H (75-99) mg/dL Assessment and Plan Assessment: Liver cirrhosis Diffuse anasarca With bilateral pleural effusion, more on the left,moderate ascites. Secondary to above Hypomagnesemia Borderline Enlarged spleen diabetes mellitus Hypertension History of breast cancer status post lumpectomy Plan: This is a pleasant 78 years old female who presents with anasarca, with pleural effusion and ascites mostly secondary to liver cirrhosis with normal ejection fraction and creatinine. Continue with diuretics. At spironolactone. Monitor electrolytes. Follow-up recommendation by GI team Labs and medication were reviewed.. Continue same treatment. Continue with symptomatic treatment. Resume home medication. Monitor lytes and vitals. DVT and GI prophylaxis. Further recommendations of the clinical course of the patient DVT prophylaxis: Subcutaneous heparin GI Prophylaxis: Pepcid PT/OT: Pending Prognosis is guarded
[2019-02-10] MEDS: HEPARIN SODIUM,PORCINE 5,000 UNIT/ML 1 ML VIAL SQ SCH ×2 (08:59→22:02)
[2019-02-10] MEDS: CHOLECALCIFEROL 1,000 UNIT TAB PO SCH (09:25)
[2019-02-10] MEDS: PIOGLITAZONE 30 MG TAB PO SCH (09:25)
[2019-02-10] MEDS: SERTRALINE 50 MG TAB PO SCH (09:26)
[2019-02-10] MEDS: SPIRONOLACTONE 25 MG TAB PO SCH (09:26)
[2019-02-10] MEDS: FAMOTIDINE 20 MG/2 ML VIAL IV SCH ×2 (09:26→22:02)
[2019-02-10] MEDS: LINAGLIPTIN 5 MG TABLET PO SCH (09:26)
[2019-02-10] MEDS: LISINOPRIL 10 MG TAB PO SCH (09:26)
[2019-02-10] MEDS: FUROSEMIDE 10 MG/ML 4 ML VIAL IV SCH ×2 (09:26→22:02)
[2019-02-10 11:46] LABS: Glucose,Whole Blood 174 mg/dL (75-99)
[2019-02-10 13:02] LABS: % Iron Saturation 6.08 (12.00-45.00); Alpha Fetoprotein, Tumor Mkr <2.5 ng/mL (0.0-7.9); Iron 22 ug/dL (50-170); Total Iron Binding Capacity 362 ug/dL (228-460)
[2019-02-10 13:16] LABS: Ceruloplasmin 24.4 mg/dL (20.0-60.0)
--- NOTE | 2019-02-10 15:43 | US ---
EXAMINATION TYPE: US paracentesis abd w/image DATE OF EXAM: 02/10/2019 COMPARISON: NONE HISTORY: Ascites. PROCEDURE: Maximal barrier technique was utilized. The skin overlying a suitable pocket of fluid was localized with ultrasound and the overlying skin was prepped and draped. Ultrasound was utilized with sterile technique. Lidocaine was used for local anesthesia and a skin asya made with a scalpel. Catheter was advanced under direct ultrasound guidance into a suitable pocket of fluid and approximately 4.2 liter s of serous fluid were removed. Catheter was withdrawn and hemostasis achieved. There is no immedia te complication; the patient is discharged in stable condition. IMPRESSION: STATUS POST ULTRASOUND GUIDED PARACENTESIS FOR PALLIATION OF ASCITES. THIS PROCEDURE WA S PERFORMED BY THE UNDERSIGNED. Specimen obtained for laboratory analysis.
[2019-02-10 16:04] LABS: Appearance,BF Clear; Color,BF Yellow; Nucleated Cells, Body Fluid 700 /uL; RBC, Body Fluid 130 /uL
[2019-02-10 16:05] LABS: Mononuclear WBC,Body Fluid 99 %; Polynuclear WBC,Body Fluid 1 %; Total Cells Counted,Body Fluid 100
[2019-02-10] MEDS ORDERED: POTASSIUM CHLORIDE ER 20 MEQ TAB.ER PO STA (16:44)
[2019-02-10 16:46] LABS: Glucose,Whole Blood 188 mg/dL (75-99)
[2019-02-10] MEDS ORDERED: MAGNESIUM SULFATE-D5W PMX 1 GM in DEXTROSE/WATER 1 100ML.BAG IVPB ONE (17:00)
[2019-02-10] MEDS ORDERED: CYANOCOBALAMIN 1,000 MCG/ML 1 ML VIAL IM ONE (17:00)
[2019-02-10 20:38] LABS: Glucose,Whole Blood 166 mg/dL (75-99)
[2019-02-10 22:17] VITALS: RESP 18
[2019-02-11 06:10] LABS: Glucose,Whole Blood 146 mg/dL (75-99)
[2019-02-11 06:21] LABS: Basophils % (A) 0 %; Eosinophils # (A) 0.1 k/uL (0-0.7); Eosinophils % (A) 2 %; HCT 31.9 % (34.0-46.0); HGB 10.2 gm/dL (11.4-16.0); Hypochromasia Slight; Lymphocytes # (A) 0.6 k/uL (1.0-4.8); Lymphocytes % (A) 22 %; MCH 25.4 pg (25.0-35.0); MCV 79.3 fL (80.0-100.0); Mean Platelet Volume 6.3; Monocytes # (A) 0.2 k/uL (0-1.0); Monocytes % (A) 9 %; Neutrophils # (A) 1.7 k/uL (1.3-7.7); Neutrophils % (A) 63 %; RBC 4.03 m/uL (3.80-5.40); RDW 15.2 % (11.5-15.5); WBC 2.7 k/uL (3.8-10.6)
[2019-02-11 06:22] LABS: Platelet Count 77 k/uL (150-450)
[2019-02-11 06:36] LABS: African American GFR (CKD) >90 (>60 ml/min/1.73 sqM); Anion Gap 5 mmol/L; Blood Urea Nitrogen 13 mg/dL (7-17); Calcium 8.3 mg/dL (8.4-10.2); Carbon Dioxide 37 mmol/L (22-30); Chloride 98 mmol/L (98-107); Glucose 138 mg/dL (74-99); Potassium 3.4 mmol/L (3.5-5.1); Sodium 140 mmol/L (137-145)
[2019-02-11] MEDS: metFORMIN 500 MG TAB PO SCH (06:56)
[2019-02-11 08:01] LABS: Protein, Total 4.9 g/dL (6.2-8.2)
[2019-02-11 08:22] LABS: Albumin, Fluid Source Ascites
[2019-02-11] MEDS: CHOLECALCIFEROL 1,000 UNIT TAB PO SCH (09:24)
[2019-02-11] MEDS: SERTRALINE 50 MG TAB PO SCH (09:24)
[2019-02-11] MEDS: LINAGLIPTIN 5 MG TABLET PO SCH (09:24)
[2019-02-11] MEDS: SPIRONOLACTONE 25 MG TAB PO SCH (09:24)
[2019-02-11] MEDS: LISINOPRIL 10 MG TAB PO SCH (09:24)
[2019-02-11] MEDS: FAMOTIDINE 20 MG/2 ML VIAL IV SCH (09:25)
[2019-02-11] MEDS: HEPARIN SODIUM,PORCINE 5,000 UNIT/ML 1 ML VIAL SQ SCH (09:25)
[2019-02-11] MEDS: PIOGLITAZONE 30 MG TAB PO SCH (09:25)
[2019-02-11] MEDS: FUROSEMIDE 10 MG/ML 4 ML VIAL IV SCH (09:25)
[2019-02-11 10:55] LABS: Albumin 2.59 g/dL (3.80-4.90)
[2019-02-11 11:21] VITALS: BP 117/60; PULSE 83; TEMP 98.2
--- NOTE | 2019-02-11 11:29 | P.PN ---
Subjective Progress Note Date: 02/10/19 Principal diagnosis: Decompensated cirrhosis Patient seen sitting bedside with . Status post paracentesis she is feeling less abdominal distention. Objective - Vital Signs Vital signs: Vital Signs Temp 98.5 F 02/10/19 20:00 Pulse 95 02/10/19 20:00 Resp 18 02/10/19 20:00 BP 117/57 02/10/19 20:00 Pulse Ox 96 02/10/19 20:00 Intake & Output 02/10/19 02/10/19 02/11/19 06:59 18:59 06:59 Intake Total 500 30 Output Total 1100 200 Balance -1100 500 -170 Weight 94.2 kg Intake: IV 30 Invasive Line 1 30 Oral 500 Output: Urine 1100 200 Other: Voiding Method Toilet Toilet # Voids 4 1 # Bowel Movements 1 - Exam On physical examination, patient appears comfortable in no apparent distress. HEAD: Normocephalic, atraumatic. EYES: No scleral icterus. No conjunctival injection. MOUTH: No lesions, tongue midline. NECK: Trachea midline, no gross abnormalities. CHEST: Decreased air entry bilaterally. ABDOMEN: Soft, obese. Bowel sounds are positive. No organomegaly. No guarding or rigidity. EXTREMITIES: No pedal edema. SKIN: No rashes, no jaundice. NEUROLOGIC: Alert and oriented x3. No focal deficits. - Labs CBC & Chem 7: 02/11/19 05:57 02/11/19 05:57 Labs: Abnormal Lab Results - Last 24 Hours (Table) 02/10/19 02/10/19 02/10/19 Range/Units 05:52 05:52 05:52 WBC 3.4 L (3.8-10.6) k/uL Hgb 10.5 L (11.4-16.0) gm/dL Hct 33.3 L (34.0-46.0) % MCV 78.8 L (80.0-100.0) fL MCH 24.9 L (25.0-35.0) pg RDW 15.6 H (11.5-15.5) % Plt Count 97 L (150-450) k/uL Lymphocytes # 0.6 L (1.0-4.8) k/uL Carbon Dioxide 37 H (22-30) mmol/L Glucose 145 H (74-99) mg/dL POC Glucose (mg/dL) (75-99) mg/dL Iron 22 L (50-170) ug/dL % Saturation 6.08 L (12.00-45.00) PEBBLES Screen POSITIVE H (NEGATIVE) 02/10/19 02/10/19 02/10/19 Range/Units 06:24 11:44 16:45 WBC (3.8-10.6) k/uL Hgb (11.4-16.0) gm/dL Hct (34.0-46.0) % MCV (80.0-100.0) fL MCH (25.0-35.0) pg RDW (11.5-15.5) % Plt Count (150-450) k/uL Lymphocytes # (1.0-4.8) k/uL Carbon Dioxide (22-30) mmol/L Glucose (74-99) mg/dL POC Glucose (mg/dL) 148 H 174 H 188 H (75-99) mg/dL Iron (50-170) ug/dL % Saturation (12.00-45.00) PEBBLES Screen (NEGATIVE) 02/10/19 Range/Units 20:37 WBC (3.8-10.6) k/uL Hgb (11.4-16.0) gm/dL Hct (34.0-46.0) % MCV (80.0-100.0) fL MCH (25.0-35.0) pg RDW (11.5-15.5) % Plt Count (150-450) k/uL Lymphocytes # (1.0-4.8) k/uL Carbon Dioxide (22-30) mmol/L Glucose (74-99) mg/dL POC Glucose (mg/dL) 166 H (75-99) mg/dL Iron (50-170) ug/dL % Saturation (12.00-45.00) PEBBLES Screen (NEGATIVE) Assessment and Plan (1) Liver cirrhosis Narrative/Plan: 78-year-old female presenting due to abdominal pain with no findings of liver cirrhosis and ascites on computed tomography scan of the abdomen. No prior history of liver disease. No history of viral hepatitis or decompensated liver disease reported. The patient reports increasing abdominal distention over the past few months of unknown etiology. She is currently not on any home diuresis but has been started on Lasix 40 mg twice daily in the hospital and Aldactone. Paracentesis significant for over 4 L of ascitic fluid. Fluid studies co nsistent with liver etiology of the ascites. Suspicion is for nonalcoholic steatohepatitis leading to cirrhosis. Current Visit: Yes Status: Acute Code(s): K74.60 - UNSPECIFIED CIRRHOSIS OF LIVER SNOMED Code(s): 90558767 (2) Abdominal pain Current Visit: Yes Status: Acute Code(s): R10.9 - UNSPECIFIED ABDOMINAL PAIN SNOMED Code(s): 83361443 (3) Fluid overload Current Visit: Yes Status: Acute Code(s): E87.70 - FLUID OVERLOAD, UNSPECIFIED SNOMED Code(s): 71461934 Plan: Supportive care Sodium restricted diet Lasix 40 mg twice a day Aldactone increased to 50 mg daily Would plan on discharge with Lasix 40 mg daily and Aldactone to 50 mg daily Paracentesis with fluid studies consistent with liver etiology of the ascites Will order full liver serology which has been negative to date Continue to monitor CBC, CMP and INR Follow-up in gastroenterology clinic after discharge Thank you for allowing us to participate in the care of this patient we will continue to follow
[2019-02-11 11:54] LABS: Glucose,Whole Blood 152 mg/dL (75-99)
[2019-02-11] MEDS ORDERED: CYANOCOBALAMIN 1,000 MCG/ML 1 ML VIAL IM ONE (12:00)
[2019-02-11 12:10] LABS: ANA Pattern Speckled
[2019-02-11] MEDS ORDERED: POTASSIUM CHLORIDE ER 20 MEQ TAB.ER PO STA (14:23)
--- NOTE | 2019-02-11 17:24 | P.CONS ---
History of Present Illness - Reason for Consult Consult date: 02/11/19 pancytopenia Requesting physician: Quentin E Sheet - Chief Complaint abd pain - History of Present Illness Mrs. Gordon is a very pleasant female patient who had seen Dr. Brooks back in January 2016 due to pancytopenia. Patient had no history of blood problems, she had a history of an early stage left breast cancer treated with lumpectomy and sentinel node biopsy in 1998 followed by radiation and tamoxifen, switched to Femara, discontinued in 2016 by her Surgeon. Patient had full workup for her pancytopenia including Carlos 2 status, epo levels, with no identif ied pathology, with observation recommended. She was seen again in 2017 as she did not follow-up, ultrasound of the liver and spleen was requested, she did not get it done when previously ordered, patient was referred to gastroenterology, she did not do that. In September 2017 ultrasound showed splenomegaly and probable varices suggestive of portal hypertension. Patient had remained stable overall, hemoglobin in the high 10/low 11 range, platelets ranging in the 70-90,000 range, white blood cells low normal with normal absolute neutrophil counts. She had not followed up since, patient was checked on an stated that she was going to be seeing a "Dr. Figueredo". Patient states she came to the hospital because of increased abdominal distention leading to early CT, she's had some weight loss over the last year, she denied any fevers, night sweats, lymph node swellings, difficulty swallowing, new or unusual cough, chest pain, shortness of breath, abdominal cramping, changes in bowel or bladder habits, swelling in the legs, bleeding, unusual bruising for new or unusual pain. On admission she was found to have ascites, she had this fluid removed with resolution of her abdominal complaints, her white blood cell count was 2.7, hemoglobin 10.2, platelet count 77,000, B12 was in the low 200 range and this is been supplemented, she was noted also to have iron deficiency. Patient states feeling very well after paracentesis, she ate almost all of her food, she is ready to go home. Review of Systems 14 point review of systems is negative except as stated in HPI Past Medical History Past Medical History: Cancer, Diabetes Mellitus, Hypertension Additional Past Medical History / Comment(s): breast ca, History of Any Multi-Drug Resistant Organisms: None Reported Past Surgical History: Breast Surgery, Cholecystectomy Additional Past Surgical History / Comment(s): Right breast lump removal Past Anesthesia/Blood Transfusion Reactions: No Reported Reaction Past Psychological History: Depression Smoking Status: Never smoker Past Alcohol Use History: None Reported Past Drug Use History: None Reported - Past Family History Father Family Medical History: Cancer Additional Family Medical History / Comment(s): Colon cancer Brother(s) Family Medical History: Myocardial Infarction (ID) Additional Family Medical History / Comment(s): stents, another brother from an ID Medications and Allergies Home Medications Medication Instructions Recorded Confirmed Type Cholecalciferol (Vitamin D3) 2,000 unit PO DAILY 02/08/19 02/08/19 History [Vitamin D3] Lisinopril [Zestril] 10 mg PO DAILY 02/08/19 02/08/19 History Pioglitazone [Actos] 30 mg PO DAILY 02/08/19 02/08/19 History Sertraline [Zoloft] 50 mg PO DAILY 02/08/19 02/08/19 History metFORMIN HCL 1,000 mg PO BID 02/08/19 02/08/19 History sitaGLIPtin PHOSPHATE [Januvia] 100 mg PO DAILY 02/08/19 02/08/19 History Cyanocobalamin [Vitamin B-12] 1,000 mcg PO DAILY #60 tab 02/11/19 Rx Famotidine [Pepcid] 20 mg PO DAILY #10 tablet 02/11/19 Rx Furosemide [Lasix] 40 mg PO DAILY #30 tablet 02/11/19 Rx Magnesium Oxide [Mag-Ox] 400 mg PO DAILY 7 Days #7 tablet 02/11/19 Rx Spironolactone [Aldactone] 50 mg PO DAILY #60 tab 02/11/19 Rx Allergies Allergy/AdvReac Type Severity Reaction Status Date / Time No Known Allergies Allergy Verified 02/08/19 12:51 Physical Exam Vitals: Vital Signs Temp Pulse Resp BP BP Pulse Ox 02/11/19 11:18 98.2 F 83 18 117/60 97 02/11/19 09:32 97.8 F 93 16 125/53 97 02/11/19 04:00 98.7 F 95 15 116/67 94 L 02/11/19 00:00 83 17 106/50 94 L 02/10/19 20:00 98.5 F 95 18 117/57 96 02/10/19 15:22 105 H 16 153/86 94 L 02/10/19 14:37 96 16 137/66 94 L 02/10/19 14:19 97 16 147/76 95 Intake and Output 02/10/19 02/11/19 02/11/19 22:59 06:59 14:59 Intake Total 280 20 462 Output Total 200 900 550 Balance 80 -880 -88 Intake: IV 30 20 Invasive Line 1 30 20 Oral 250 462 Output: Urine 200 900 550 Other: Voiding Method Toilet Toilet Toilet # Voids 1 1 1 Weight 88.5 kg - Constitutional General appearance: cooperative, no acute distress, obese - EENT Eyes: anicteric sclerae, edentulous, poor dentition ENT: hearing grossly normal, normal oropharynx - Neck Neck: no lymphadenopathy - Respiratory Respiratory: bilateral: CTA - Cardiovascular Rhythm: regular Heart sounds: normal: S1, S2 Abnormal Heart Sounds: no systolic murmur, no diastolic murmur, no rub, no S3 Gallop, no S4 Gallop, no click, no other leg Peripheral Edema: bilateral: None - Gastrointestinal General gastrointestinal: no absent bowel sounds, no decreased bowel sounds, no distended, no hepatomegaly, no hyperactive bowel sounds, normal bowel sounds, no organomegaly, no rigid, scaphoid, no soft, no splenomegaly, no tenderness, no umbilical hernia, no ventral hernia - Neurologic Neurologic: CNII-XII intact - Musculoskeletal Musculoskeletal: strength equal bilaterally - Psychiatric Psychiatric: A&O x's 3, appropriate affect, intact judgment & insight Results CBC & Chem 7: 02/11/19 05:57 02/11/19 05:57 Labs: Abnormal Lab Results - Last 24 Hours (Table) 02/10/19 02/10/19 02/10/19 Range/Units 05:52 16:45 20:37 WBC (3.8-10.6) k/uL Hgb (11.4-16.0) gm/dL Hct (34.0-46.0) % MCV (80.0-100.0) fL Plt Count (150-450) k/uL Lymphocytes # (1.0-4.8) k/uL Potassium (3.5-5.1) mmol/L Carbon Dioxide (22-30) mmol/L Glucose (74-99) mg/dL POC Glucose (mg/dL) 188 H 166 H (75-99) mg/dL Calcium (8.4-10.2) mg/dL Total Protein (PEP) 4.9 L (6.2-8.2) g/dL Albumin (PEP) 2.59 L (3.80-4.90) g/dL Gamma Globulins 0.60 L (0.70-1.50) g/dL 02/11/19 02/11/19 02/11/19 Range/Units 05:57 05:57 06:09 WBC 2.7 L (3.8-10.6) k/uL Hgb 10.2 L (11.4-16.0) gm/dL Hct 31.9 L (34.0-46.0) % MCV 79.3 L (80.0-100.0) fL Plt Count 77 L (150-450) k/uL Lymphocytes # 0.6 L (1.0-4.8) k/uL Potassium 3.4 L (3.5-5.1) mmol/L Carbon Dioxide 37 H (22-30) mmol/L Glucose 138 H (74-99) mg/dL POC Glucose (mg/dL) 146 H (75-99) mg/dL Calcium 8.3 L (8.4-10.2) mg/dL Total Protein (PEP) (6.2-8.2) g/dL Albumin (PEP) (3.80-4.90) g/dL Gamma Globulins (0.70-1.50) g/dL 02/11/19 Range/Units 11:52 WBC (3.8-10.6) k/uL Hgb (11.4-16.0) gm/dL Hct (34.0-46.0) % MCV (80.0-100.0) fL Plt Count (150-450) k/uL Lymphocytes # (1.0-4.8) k/uL Potassium (3.5-5.1) mmol/L Carbon Dioxide (22-30) mmol/L Glucose (74-99) mg/dL POC Glucose (mg/dL) 152 H (75-99) mg/dL Calcium (8.4-10.2) mg/dL Total Protein (PEP) (6.2-8.2) g/dL Albumin (PEP) (3.80-4.90) g/dL Gamma Globulins (0.70-1.50) g/dL Microbiology - Last 24 Hours (Table) 02/10/19 14:28 Gram Stain - Preliminary Peritoneal Fluid Body Fluid Culture - Preliminary 02/10/19 14:00 Anaerobic Culture - Preliminary Ascites Fluid US - abdomen: report reviewed Assessment and Plan (1) Pancytopenia Narrative/Plan: Previous workup and current workup is not suggestive of a paraproteinemia. She does have B12 and iron deficiency to be corrected. Patient also has non-alcoh olic cirrhosis of the liver that is likely causing splenic sequestration and some of her low counts as well. We will remain available for patient if further workup is needed after correction of other underlying conditions. She verbalized understanding Status: Acute Priority: High Code(s): D61.818 - OTHER PANCYTOPENIA SNOMED Code(s): 679220005 (2) Ascites Narrative/Plan: Status post paracentesis of greater than 4 L of fluid with significant relief to the patient. Cytology is pending. AFP level evaluated that is within normal limits Status: Acute Code(s): R18.8 - OTHER ASCITES SNOMED Code(s): 170896140 (3) Liver cirrhosis Narrative/Plan: Patient encouraged to continue appropriate follow-up with gastroenterology Status: Chronic Priority: High Code(s): K74.60 - UNSPECIFIED CIRRHOSIS OF LIVER SNOMED Code(s): 72010724 (4) Iron deficiency anemia Narrative/Plan: Did recommend the patient an OTC iron supplementation Status: Acute Priority: Medium Code(s): D50.9 - IRON DEFICIENCY ANEMIA, U NSPECIFIED SNOMED Code(s): 77615375
[2019-02-11] MEDS ORDERED: FAMOTIDINE 20 MG TAB PO SCH (21:00)
[2019-02-12] MEDS ORDERED: CYANOCOBALAMIN 500 MCG TAB PO SCH (09:00)
[2019-02-12] MEDS ORDERED: SPIRONOLACTONE 25 MG TAB PO SCH (09:00)
--- NOTE | 2019-02-18 22:11 | P.DS ---
Providers Date of admission: 02/08/19 13:38 Attending physician: Fab Garibay Consults: 02/08/19 15:40 Consult Physician Urgent Consulting Provider: Ophelia Ugarte Consult Reason/Comments: Cirrhosis with ascites and anasarca Do you want consulting provider notified?: Yes 02/11/19 10:33 Consult Physician Urgent Consulting Provider: Marco Brooks Consult Reason/Comments: pancytopenia Do you want consulting provider notified?: Yes Primary care physician: [facility] Hospital Course: Dx: Liver cirrhosis, new onset Diffuse anasarca With bilateral pleural effusion, more on the left,moderate ascites. Secondary to above Mild pancytopenia B12 deficiency Hypomagnesemia, improved Borderline Enlarged spleen diabetes mellitus Hypertension History of breast cancer status post lumpectomy Hospital course: This is a pleasant 78 years old female with past medical history of diabetes mellitus, hypertension, breast cancer status post right breast lump removal. Presents because of abdominal pain, fluid overload and mild dyspnea, pt states she is coming because of worsening abd pain and some dyspnea , no fever . Patient was found to have anasarca with ascites and some pleural effusion. Abdominal CT on admission showed liver cirrhosis. Mathematical Engineer evaluated the patient and patient was started on Lasix and Aldactone, also patient underwent paracentesis. Patient's symptoms are improved significantly with no more dyspnea or abdominal pain. Patient can move more easily and today she was smiling stating that " I could take off My socks again". Several blood tests were sent as workup for her liver cirrhosis ordered by plate colorer, including negative alpha-fetoprotein with 2.5 which is at reference range. Lipase is negative. However other blood tests like a ball mean PEEP, alpha-1 globulin and L4 to globulins and better globulins, gamma globulins and PEEP interpretation are pending. Ceruloplasmin is negative at 24.4. Lipase is negative. B12 is low at 276. Patient was given 2 doses of IM cyanocobalaime 1000 g, and started on oral vitamin B12. She has mild pancytopenia with WBC of 2.7, hemoglobin 10.2, platelets at 77 K. billboard poster helper evaluated pt ,but pt did not want to f/u with hematology service as outpt but rather she will talk to her pcp first. Prescription for vitamin B12 is provided for the patient and instructed to recheck her vitamin B12 and complete blood count with her doctor, risks , benefits and alterantive are explained for the pt Patient was cleared for discharge by plate colorer Problems and management plan were discussed with the patient and he verbalized understanding and acceptance. family was at bed side Patient was found stable and can be discharged home however he needs follow-up as an outpatient. Patient was instructed to follow up with PCP within one week and patient agrees. Also patient wants to switch her PCP to a new doctor in [place]. She agrees to see Dr. Hair as an outpatient.Patient agrees with the appointments made for her with GI team and she stated she will follow-up as well as with her PCP Dr. Hair, whom I discussed the case with including the above recommendation for recheck in B12 and GI referral and he kindly took note of these. Gen: patient is a AAOx3, no distress CVS: S1-S2, RRR, no murmur Lungs: B/L CTA, no wheezing Abdomen: soft, no distention, no tenderness, positive bowel sounds Extremity: no leg edema or induration Time spent more than 35 minutes Patient Condition at Discharge: Stable Plan - Discharge Summary Discharge Rx Participant: No New Discharge Prescriptions: New Famotidine [Pepcid] 20 mg PO DAILY #10 tablet Cyanocobalamin [Vitamin B-12] 1,000 mcg PO DAILY #60 tab Magnesium Oxide [Mag-Ox] 400 mg PO DAILY 7 Days #7 tablet Spironolactone [Aldactone] 50 mg PO DAILY #60 tab Furosemide [Lasix] 40 mg PO DAILY #30 tablet Continue sitaGLIPtin PHOSPHATE [Januvia] 100 mg PO DAILY Sertraline [Zoloft] 50 mg PO DAILY Pioglitazone [Actos] 30 mg PO DAILY Lisinopril [Zestril] 10 mg PO DAILY Cholecalciferol (Vitamin D3) [Vitamin D3] 2,000 unit PO DAILY metFORMIN HCL 1,000 mg PO BID Discharge Medication List Cholecalciferol (Vitamin D3) [Vitamin D3] 2,000 unit PO DAILY 02/08/19 [History] Lisinopril [Zestril] 10 mg PO DAILY 02/08/19 [History] Pioglitazone [Actos] 30 mg PO DAILY 02/08/19 [History] Sertraline [Zoloft] 50 mg PO DAILY 02/08/19 [History] metFORMIN HCL 1,000 mg PO BID 02/08/19 [History] sitaGLIPtin PHOSPHATE [Januvia] 100 mg PO DAILY 02/08/19 [History] Cyanocobalamin [Vitamin B-12] 1,000 mcg PO DAILY #60 tab 02/11/19 [Rx] Famotidine [Pepcid] 20 mg PO DAILY #10 tablet 02/11/19 [Rx] Furosemide [Lasix] 40 mg PO DAILY #30 tablet 02/11/19 [Rx] Magnesium Oxide [Mag-Ox] 400 mg PO DAILY 7 Days #7 tablet 02/11/19 [Rx] Spironolactone [Aldactone] 50 mg PO DAILY #60 tab 02/11/19 [Rx] Follow up Appointment(s)/Referral(s): Paola Duckworth MD [REFERRING] - 02/18/19 1:00 pm (please recheck your vitamin B12 and complete blood count with her doctor) Nikolay Ma MD [STAFF PHYSICIAN] - 03/06/19 10:00 am (Lacie Kennedy NP ) Patient Instructions/Handouts: Cirrhosis (DC) Activity/Diet/Wound Care/Special Instructions: Requires walker upon discharge for unsteady gait Discharge Disposition: HOME SELF-CARE
== END 2019-02-11 16:02 | disposition home or self-care (01) | DRG 433 ==
LOC: EC 10:03 → 3SCARD 13:38
PROVIDERS: ADMIT Hospitalist; ATTEND Hospitalist
PROC: 0W9G3ZX Drainage of Peritoneal Cavity, Percutaneous Approach, Diagnostic (ICD-10-PCS; principal; 2019-02-10)
DX: K74.60 Unspecified cirrhosis of liver (principal); R18.8 Other ascites; J91.8 Pleural effusion in other conditions classified elsewhere; D61.818 Other pancytopenia; E87.70 Fluid overload, unspecified; E88.09 Other disorders of plasma-protein metabolism, not elsewhere classified; E83.42 Hypomagnesemia; R16.1 Splenomegaly, not elsewhere classified; E11.9 Type 2 diabetes mellitus without complications; D50.9 Iron deficiency anemia, unspecified; F32.9 Major depressive disorder, single episode, unspecified; I10 Essential (primary) hypertension; E66.9 Obesity, unspecified; Z68.31 Body mass index [BMI] 31.0-31.9, adult; Z79.84 Long term (current) use of oral hypoglycemic drugs; Z79.899 Other long term (current) drug therapy; Z90.49 Acquired absence of other specified parts of digestive tract; Z90.12 Acquired absence of left breast and nipple; Z92.3 Personal history of irradiation; Z90.11 Acquired absence of right breast and nipple; Z92.21 Personal history of antineoplastic chemotherapy; Z71.3 Dietary counseling and surveillance; Z80.0 Family history of malignant neoplasm of digestive organs; Z82.49 Family history of ischemic heart disease and other diseases of the circulatory system
CPT/HCPCS: 36415; 49083; 71046; 74177; 80048; 80053; 82042; 82103; 82105; 82390; 82607; 82728; 83516; 83540; 83550; 83690; 83735; 83880; 84157; 84165; 84484; 85025; 85610; 85730; 86038; 86039; 86376; 87070; 87075; 87205; 88108; 88305; 88341; 88342; 89050; 93005; 93306; 96365; 96366; 96375; 99285

== ENCOUNTER 2019-03-20 12:26 | Day surgery (SDC) | payer MEDICARE ==
[2019-03-20 13:17] LABS: African American GFR (CKD) >90 (>60 ml/min/1.73 sqM); Non-African American GFR(CKD) 87 (>60 ml/min/1.73 sqM)
[2019-03-20 13:18] LABS: Mean Platelet Volume 8.8; Platelet Count 105 k/uL (150-450)
[2019-03-20 13:24] LABS: INR 1.2 (<1.2); Prothrombin Time 12.1 sec (9.0-12.0)
[2019-03-20 13:25] VITALS: TEMP 98.7
[2019-03-20 13:35] LABS: Glucose,Whole Blood 176 mg/dL (75-99)
[2019-03-20 16:04] VITALS: BP 144/76; PULSE 94; RESP 16
--- NOTE | 2019-03-21 07:45 | US ---
EXAMINATION TYPE: US paracentesis abd w/image DATE OF EXAM: 03/20/2019 COMPARISON: NONE HISTORY: Ascites. PROCEDURE: Maximal barrier technique was utilized. The skin overlying a suitable pocket of fluid was localized with ultrasound and the overlying skin was prepped and draped. Ultrasound was utilized with sterile technique. Lidocaine was used for local anesthesia and a skin asya made with a scalpel. Catheter was advanced under direct ultrasound guidance into a suitable pocket of fluid and approximately 4.1 liter s of serous fluid were removed. Catheter was withdrawn and hemostasis achieved. There is no immedia te complication; the patient is discharged in stable condition. IMPRESSION: STATUS POST ULTRASOUND GUIDED PARACENTESIS FOR PALLIATION OF ASCITES. THIS PROCEDURE WA S PERFORMED BY THE UNDERSIGNED.
== END 2019-03-20 15:55 | disposition home or self-care (01) ==
LOC: RADPROMAIN 12:26
PROVIDERS: ATTEND Family Medicine
DX: R18.8 Other ascites (principal); E11.9 Type 2 diabetes mellitus without complications
CPT/HCPCS: 36415; 49083; 82565; 85049; 85610

== ENCOUNTER 2019-04-15 09:20 | Emergency (ER) | payer MEDICARE ==
[2019-04-15] MEDS ORDERED: PANTOPRAZOLE 40 MG/10 ML VIAL IVP STA (09:47)
--- NOTE | 2019-04-15 09:52 | ED ---
General Adult HPI - General Chief complaint: Abdominal Pain Stated complaint: Abdominal distention Time Seen by Provider: 04/15/19 09:39 Source: patient, RN notes reviewed Mode of arrival: wheelchair Limitations: no limitations - History of Present Illness Initial comments: Patient is a pleasant 79-year-old female presenting to the emergency department with concerns for abdominal distention. Patient has known cirrhosis. Unclear why she developed cirrhosis. Patient is a nondrinker. Patient has had similar symptoms twice previously of ascites. Patient has been drinking twice. Symptoms started a couple of weeks ago. Patient has gained 10 pounds in the past week. Patient feels like her abdomen is full and distended. Patient does have some abdominal discomfort. Patient is tolerating oral intake. No constipation or diarrhea. No fevers. - Related Data Home Medications Medication Instructions Recorded Confirmed Cholecalciferol (Vitamin D3) 2,000 unit PO DAILY 02/08/19 04/15/19 [Vitamin D3] Lisinopril [Zestril] 10 mg PO DAILY 02/08/19 04/15/19 Pioglitazone [Actos] 30 mg PO DAILY 02/08/19 04/15/19 Sertraline [Zoloft] 50 mg PO DAILY 02/08/19 04/15/19 metFORMIN HCL 1,000 mg PO BID 02/08/19 04/15/19 sitaGLIPtin PHOSPHATE [Januvia] 100 mg PO DAILY 02/08/19 04/15/19 Spironolactone [Aldactone] 25 mg PO DAILY 04/15/19 04/15/19 Previous Rx's Medication Instructions Recorded Cyanocobalamin [Vitamin B-12] 1,000 mcg PO DAILY #60 tab 02/11/19 Furosemide [Lasix] 40 mg PO DAILY #30 tablet 02/11/19 Allergies Allergy/AdvReac Type Severity Reaction Status Date / Time No Known Allergies Allergy Verified 04/15/19 09:59 Review of Systems ROS Statement: Those systems with pertinent positive or pertinent negative responses have been documented in the HPI. ROS Other: All systems not noted in ROS Statement are negative. Constitutional: Denies: fever Eyes: Denies: eye pain ENT: Denies: ear pain Respiratory: Denies: cough, dyspnea Cardiovascular: Denies: chest pain Endocrine: Denies: fatigue Gastrointestinal: Reports: as per HPI Genitourinary: Denies: dysuria Musculoskeletal: Denies: back pain Skin: Denies: rash Neurological: Denies: weakness Past Medical History Past Medical History: Cancer, Diabetes Mellitus, Hypertension, Liver Disease, Skin Disorder Additional Past Medical History / Comment(s): breast ca left ,psorias, ascites History of Any Multi-Drug Resistant Organisms: None Reported Past Surgical History: Breast Surgery, Cholecystectomy Additional Past Surgical History / Comment(s): Right breast lump removal, para centesis Past Anesthesia/Blood Transfusion Reactions: No Reported Reaction Past Psychological History: Depression Smoking Status: Never smoker Past Alcohol Use History: None Reported Past Drug Use History: None Reported - Past Family History Father Family Medical History: Cancer Additional Family Medical History / Comment(s): Colon cancer Brother(s) Family Medical History: Myocardial Infarction ([place]) Additional Family Medical History / Comment(s): stents, another brother from an [place] General Exam Limitations: no limitations General appearance: alert, in no apparent distress Head exam: Present: normocephalic Eye exam: Present: normal appearance, PERRL ENT exam: Present: normal oropharynx Neck exam: Present: normal inspection Respiratory exam: Present: normal lung sounds bilaterally Cardiovascular Exam: Present: regular rate, normal rhythm GI/Abdominal exam: Present: soft, distended (Moderate distention), tenderness (Minimal diffuse discomfort), normal bowel sounds. Absent: guarding, rebound, rigid Extremities exam: Present: pedal edema (+1 bilateral). Absent: calf tenderness Neurological exam: Present: alert Psychiatric exam: Present: normal affect, normal mood Skin exam: Present: normal color Course Vital Signs 04/15/19 04/15/19 04/15/19 09:23 12:00 12:10 Temperature 97.9 F Pulse Rate 103 H 96 92 Pulse Rate [ Pulse Oximetery ] Respiratory 18 Rate Blood Pressure 116/54 125/54 123/58 Blood Pressure [Right Arm] O2 Sat by Pulse 97 97 98 Oximetry 04/15/19 04/15/19 04/15/19 12:30 13:00 13:45 Temperature 98.2 F Pulse Rate Pulse Rate [ 94 Pulse Oximetery ] Respiratory 14 Rate Blood Pressure 123/58 116/61 Blood Pressure 144/71 [Right Arm] O2 Sat by Pulse 98 94 L 98 Oximetry 04/15/19 04/15/19 04/15/19 14:08 14:20 14:32 Temperature Pulse Rate Pulse Rate [ 95 95 93 Pulse Oximetery ] Respiratory 14 14 15 Rate Blood Pressure Blood Pressure 133/65 131/71 134/67 [Right Arm] O2 Sat by Pulse 100 100 98 Oximetry 04/15/19 04/15/19 04/15/19 14:40 14:50 15:00 Temperature Pulse Rate Pulse Rate [ 92 91 92 Pulse Oximetery ] Respiratory 16 14 14 Rate Blood Pressure Blood Pressure 128/69 136/62 135/68 [Right Arm] O2 Sat by Pulse 98 98 99 Oximetry 04/15/19 04/15/19 04/15/19 15:10 15:17 15:30 Temperature Pulse Rate Pulse Rate [ 91 92 94 Pulse Oximetery ] Respiratory 16 16 16 Rate Blood Pressure Blood Pressure 123/64 125/65 115/63 [Right Arm] O2 Sat by Pulse 99 99 99 Oximetry 04/15/19 16:00 Temperature Pulse Rate Pulse Rate [ Pulse Oximetery ] Respiratory Rate Blood Pressure 131/56 Blood Pressure [Right Arm] O2 Sat by Pulse 98 Oximetry Medical Decision Making - Medical Decision Making Patient reevaluated and symptom-free following paracentesis. Patient requesting discharge. Patient is being given albumin hysterectomy by interventional radiology. - Lab Data Result diagrams: 04/15/19 10:20 04/15/19 10:20 Lab Results 04/15/19 04/15/19 04/15/19 Range/Units 10:20 10:20 10:20 WBC 3.4 L (3.8-10.6) k/uL RBC 4.03 (3.80-5.40) m/uL Hgb 10.4 L (11.4-16.0) gm/dL Hct 32.0 L (34.0-46.0) % MCV 79.3 L (80.0-100.0) fL MCH 25.8 (25.0-35.0) pg MCHC 32.5 (31.0-37.0) g/dL RDW 16.5 H (11.5-15.5) % Plt Count 97 L (150-450) k/uL Neutrophils % 72 % Lymphocytes % 15 % Monocytes % 9 % Eosinophils % 1 % Basophils % 0 % Neutrophils # 2.5 (1.3-7.7) k/uL Lymphocytes # 0.5 L (1.0-4.8) k/uL Monocytes # 0.3 (0-1.0) k/uL Eosinophils # 0.1 (0-0.7) k/uL Basophils # 0.0 (0-0.2) k/uL Manual Slide Review Performed Hypochromasia Slight Anisocytosis Slight Microcytosis Slight PT 12.4 H (9.0-12.0) sec INR 1.2 H (<1.2) APTT 24.4 (22.0-30.0) sec Sodium 137 (137-145) mmol/L Potassium 3.8 (3.5-5.1) mmol/L Chloride 96 L (98-107) mmol/L Carbon Dioxide 34 H (22-30) mmol/L Anion Gap 7 mmol/L BUN 16 (7-17) mg/dL Creatinine 0.84 (0.52-1.04) mg/dL Est GFR (CKD-EPI)AfAm 78 (>60 ml/min/1.73 sqM) Est GFR (CKD-EPI)NonAf 67 (>60 ml/min/1.73 sqM) Glucose 178 H (74-99) mg/dL Calcium 9.3 (8.4-10.2) mg/dL Total Bilirubin 1.2 (0.2-1.3) mg/dL AST 33 (14-36) U/L ALT 14 (4-34) U/L Alkaline Phosphatase 55 (38-126) U/L Total Protein 5.8 L (6.3-8.2) g/dL Albumin 3.1 L (3.5-5.0) g/dL Amylase <30 L (30-110) U/L Lipase 187 (23-300) U/L Urine Color Urine Appearance (Clear) Urine pH (5.0-8.0) Ur Specific Erwin (1.001-1.035) Urine Protein (Negative) Urine Glucose (UA) (Negative) Urine Ketones (Negative) Urine Blood (Negative) Urine Nitrite (Negative) Urine Bilirubin (Negative) Urine Urobilinogen (<2.0) mg/dL Ur Leukocyte Esterase (Negative) Urine WBC (0-5) /hpf Ur Squamous Epith Cells (0-4) /hpf Hyaline Casts (0-2) /lpf Urine Mucus (None) /hpf Hepatitis A IgM Ab 01/14/20 01/14/20 Range/Units 11:30 11:57 WBC (3.8-10.6) k/uL RBC (3.80-5.40) m/uL Hgb (11.4-16.0) gm/dL Hct (34.0-46.0) % MCV (80.0-100.0) fL MCH (25.0-35.0) pg MCHC (31.0-37.0) g/dL RDW (11.5-15.5) % Plt Count (150-450) k/uL Neutrophils % % Lymphocytes % % Monocytes % % Eosinophils % % Basophils % % Neutrophils # (1.3-7.7) k/uL Lymphocytes # (1.0-4.8) k/uL Monocytes # (0-1.0) k/uL Eosinophils # (0-0.7) k/uL Basophils # (0-0.2) k/uL Manual Slide Review Hypochromasia Anisocytosis Microcytosis PT (9.0-12.0) sec INR (<1.2) APTT (22.0-30.0) sec Sodium (137-145) mmol/L Potassium (3.5-5.1) mmol/L Chloride (98-107) mmol/L Carbon Dioxide (22-30) mmol/L Anion Gap mmol/L BUN (7-17) mg/dL Creatinine (0.52-1.04) mg/dL Est GFR (CKD-EPI)AfAm (>60 ml/min/1.73 sqM) Est GFR (CKD-EPI)NonAf (>60 ml/min/1.73 sqM) Glucose (74-99) mg/dL Calcium (8.4-10.2) mg/dL Total Bilirubin (0.2-1.3) mg/dL AST (14-36) U/L ALT (4-34) U/L Alkaline Phosphatase (38-126) U/L Total Protein (6.3-8.2) g/dL Albumin (3.5-5.0) g/dL Amylase (30-110) U/L Lipase (23-300) U/L Urine Color Yellow Urine Appearance Clear (Clear) Urine pH 8.0 (5.0-8.0) Ur Specific Erwin 1.010 (1.001-1.035) Urine Protein Negative (Negative) Urine Glucose (UA) Negative (Negative) Urine Ketones Negative (Negative) Urine Blood Negative (Negative) Urine Nitrite Negative (Negative) Urine Bilirubin Negative (Negative) Urine Urobilinogen 2.0 (<2.0) mg/dL Ur Leukocyte Esterase Trace H (Negative) Urine WBC 3 (0-5) /hpf Ur Squamous Epith Cells 6 H (0-4) /hpf Hyaline Casts 1 (0-2) /lpf Urine Mucus Rare H (None) /hpf Hepatitis A IgM Ab NEGATIVE - Radiology Data Radiology results: image reviewed (Abdominal x-ray shows possible underlying ascites. Postoperative change. Nonobstructive bowel gas pattern. Left pleural effusion.) Disposition Clinical Impression: Ascites Disposition: HOME SELF-CARE Condition: Stable Instructions (If sedation given, give patient instructions): Ascites (ED) Additional Instructions: Please follow-up with primary care physician and your gastrologist in the next day or 2 for recheck. Return for increased pain, fever, worsening or change in symptoms or other concerns. Is patient prescribed a controlled substance at d/c from ED?: No Referrals: Paola Duckworth MD [Primary Care Provider] - 1-2 days Time of Disposition: 16:22
[2019-04-15 11:02] LABS: ALT 14 U/L (4-34); AST 33 U/L (14-36); African American GFR (CKD) 78 (>60 ml/min/1.73 sqM); Albumin 3.1 g/dL (3.5-5.0); Alkaline Phosphatase 55 U/L (38-126); Amylase <30 U/L (30-110); Anion Gap 7 mmol/L; Blood Urea Nitrogen 16 mg/dL (7-17); Calcium 9.3 mg/dL (8.4-10.2); Carbon Dioxide 34 mmol/L (22-30); Chloride 96 mmol/L (98-107); Glucose 178 mg/dL (74-99); Non-African American GFR(CKD) 67 (>60 ml/min/1.73 sqM); Potassium 3.8 mmol/L (3.5-5.1); Sodium 137 mmol/L (137-145); Total Bilirubin 1.2 mg/dL (0.2-1.3); Total Protein 5.8 g/dL (6.3-8.2)
[2019-04-15 11:03] LABS: INR 1.2 (<1.2); Partial Thromboplastin Time 24.4 sec (22.0-30.0); Prothrombin Time 12.4 sec (9.0-12.0)
--- NOTE | 2019-04-15 11:06 | XR ---
KUB HISTORY: Abdominal pain Frontal KUB submitted on 2 images. Comparison to prior CT 02/08/2019 Left pleural effusion is again noted. Surgical clips are present in the right upper quadrant. Air-flu id levels are present without bowel distention. No evident pneumoperitoneum. No pathologic calcificat ion. Diffuse increased attenuation within the abdomen may be indicative of underlying ascites. Calcif ications in the pelvis may be vascular. impression: Left pleural effusion. Possible underlying ascites. Postop changes. Nonobstructive bowel gas pattern, follow-up as indicated.
[2019-04-15 11:18] LABS: Anisocytosis Slight; Basophils % (A) 0 %; Eosinophils # (A) 0.1 k/uL (0-0.7); Eosinophils % (A) 1 %; HGB 10.4 gm/dL (11.4-16.0); Hypochromasia Slight; Lymphocytes # (A) 0.5 k/uL (1.0-4.8); Lymphocytes % (A) 15 %; MCH 25.8 pg (25.0-35.0); MCHC 32.5 g/dL (31.0-37.0); MCV 79.3 fL (80.0-100.0); Mean Platelet Volume 8.4; Microcytosis Slight; Monocytes # (A) 0.3 k/uL (0-1.0); Monocytes % (A) 9 %; Neutrophils # (A) 2.5 k/uL (1.3-7.7); Neutrophils % (A) 72 %; RBC 4.03 m/uL (3.80-5.40); RDW 16.5 % (11.5-15.5); WBC 3.4 k/uL (3.8-10.6)
[2019-04-15 12:16] LABS: Appearance,Urine Clear (Clear); Bilirubin,Urine Negative (Negative); Blood,Urine Negative (Negative); Color,Urine Yellow; Glucose,Urine (UA) Negative (Negative); Hyaline Casts,Urine 1 /lpf (0-2); Ketones,Urine Negative (Negative); Leukocyte Esterase,Urine Trace (Negative); Mucus,Urine Rare /hpf; Nitrite,Urine Negative (Negative); Protein,Urine Negative (Negative); Squamous Epithelial Cell,Urine 6 /hpf (0-4); WBC,Urine 3 /hpf (0-5)
[2019-04-15 12:17] LABS: Platelet Count 97 k/uL (150-450)
[2019-04-15 12:43] LABS: Hepatitis A Antibody IgM NEGATIVE
[2019-04-15] MEDS: ALBUMIN HUMAN 25% 50 ML in EMPTY BAG 1 BAG IVPB SCH ×2 (16:03→16:49)
--- NOTE | 2019-04-15 16:22 | US ---
EXAMINATION TYPE: US paracentesis abd w/image DATE OF EXAM: 04/15/2019 COMPARISON: NONE HISTORY: Ascites. PROCEDURE: Maximal barrier technique was utilized. The skin overlying a suitable pocket of fluid was localized with ultrasound and the overlying skin was prepped and draped. Ultrasound was utilized with sterile technique. Lidocaine was used for local anesthesia and a skin asya made with a scalpel. Catheter was advanced under direct ultrasound guidance into a suitable pocket of fluid and approximately 4.6 liter s of serous fluid were removed. Catheter was withdrawn and hemostasis achieved. There is no immedia te complication; the patient is discharged in stable condition. IMPRESSION: STATUS POST ULTRASOUND GUIDED PARACENTESIS FOR PALLIATION OF ASCITES. THIS PROCEDURE WA S PERFORMED BY THE UNDERSIGNED.
[2019-04-15 17:58] VITALS: BP 123/56; PULSE 89; RESP 18; TEMP 98.7
[2019-04-15 20:12] LABS: Hepatitis B Core IgM Non-Reactive (Non-Reactive); Hepatitis B Surface Antigen Non-Reactive (Non-Reactive); Hepatitis C IgG Antibody Non-Reactive (Non-Reactive)
== END 2019-04-15 18:06 | disposition home or self-care (01) ==
LOC: EC 09:20
DX: R18.8 Other ascites (principal); R14.0 Abdominal distension (gaseous); R60.0 Localized edema; K74.60 Unspecified cirrhosis of liver; E11.9 Type 2 diabetes mellitus without complications; I10 Essential (primary) hypertension; F32.9 Major depressive disorder, single episode, unspecified; Z79.84 Long term (current) use of oral hypoglycemic drugs; Z79.899 Other long term (current) drug therapy; Z85.3 Personal history of malignant neoplasm of breast; Z90.49 Acquired absence of other specified parts of digestive tract; Z80.0 Family history of malignant neoplasm of digestive organs; Z98.890 Other specified postprocedural states
CPT/HCPCS: 36415; 80053; 80074; 82150; 83690; 85025; 85610; 85730; 81001; 74018; 49083; 99284; 96365; 96375; P9047; C9113

== ENCOUNTER 2019-05-21 05:27 | Inpatient (IN) | payer MEDICARE ==
[2019-05-21] MEDS ORDERED: ONDANSETRON ODT 4 MG TAB PO STA (06:11)
[2019-05-21] MEDS ORDERED: MORPHINE SULFATE 4 MG/ML SYRINGE IV STA (06:21)
[2019-05-21] MEDS ORDERED: SODIUM CHLORIDE 0.9% 500 ML 500 ML IV STA (06:32)
--- NOTE | 2019-05-21 06:33 | ED ---
General Adult HPI - General Chief complaint: Abdominal Pain Stated complaint: Fluid Retention Time Seen by Provider: 05/21/19 06:05 Source: patient, family, RN notes reviewed Mode of arrival: wheelchair Limitations: physical limitation - History of Present Illness Initial comments: 79-year-old female with a past medical history of hypertension, liver disease, diabetes mellitus, breast cancer, ascites presents to the emergency department for a chief complaint of abdominal pain. Patient states she feels she needs a paracentesis performed. Patient had an appointment for this Sunday but was having diarrhea so did not go to her appointment. Patient states the pain is getting worse. States it is now causing shortness of breath. Patient is also not having associated nausea vomiting. Patient has no other complaints at this time including shortness of breath, chest pain, headache, or visual changes. - Related Data Home Medications Medication Instructions Recorded Confirmed Cholecalciferol (Vitamin D3) 2,000 unit PO DAILY 02/08/19 05/21/19 [Vitamin D3] Lisinopril [Zestril] 10 mg PO DAILY 02/08/19 05/21/19 Pioglitazone [Actos] 30 mg PO DAILY 02/08/19 05/21/19 Sertraline [Zoloft] 50 mg PO DAILY 02/08/19 05/21/19 metFORMIN HCL 1,000 mg PO BID 02/08/19 05/21/19 sitaGLIPtin PHOSPHATE [Januvia] 100 mg PO DAILY 02/08/19 05/21/19 Spironolactone [Aldactone] 50 mg PO DAILY 04/15/19 05/21/19 Vitamin B Complex 1 cap PO DAILY 05/09/19 05/21/19 Previous Rx's Medication Instructions Recorded Cyanocobalamin [Vitamin B-12] 1,000 mcg PO DAILY #60 tab 02/11/19 Furosemide [Lasix] 40 mg PO DAILY #30 tablet 02/11/19 Allergies Allergy/AdvReac Type Severity Reaction Status Date / Time No Known Allergies Allergy Verified 05/21/19 08:16 Review of Systems ROS Statement: Those systems with pertinent positive or pertinent negative responses have been documented in the HPI. ROS Other: All systems not noted in ROS Statement are negative. Past Medical History Past Medical History: Cancer, Diabetes Mellitus, Hypertension, Liver Disease, Skin Disorder Additional Past Medical History / Comment(s): breast ca left ,psorias, ascites History of Any Multi-Drug Resistant Organisms: None Reported Past Surgical History: Breast Surgery, Cholecystectomy Additional Past Surgical History / Comment(s): Right breast lump removal, paracentesis Past Anesthesia/Blood Transfusion Reactions: No Reported Reaction Past Psychological History: Depression Smoking Status: Never smoker Past Alcohol Use History: None Reported Past Drug Use History: None Reported - Past Family History Father Family Medical History: Cancer Additional Family Medical History / Comment(s): Colon cancer Brother(s) Family Medical History: Myocardial Infarction ([place]) Additional Family Medical History / Comment(s): stents, another brother from an [place] General Exam Limitations: physical limitation Course Vital Signs 05/21/19 05/21/19 05:29 08:00 Temperature 98.1 F Pulse Rate 118 H 105 H Respiratory 20 16 Rate Blood Pressure 177/67 114/65 O2 Sat by Pulse 100 97 Oximetry EKG Findings - EKG Comments: EKG Findings:: Sinus tachycardia, multifocal atrial tachycardia, ventricular rate 109, HI 144, QTC 452 Medical Decision Making - Medical Decision Making Vitals are stable. Patient initially tachycardic this did improve somewhat. EKG shows evidence of multifocal atrial tachycardia with PACs. Also reviewed by Dr. Zamarripa. Patient is complaining of abdominal pain which feels consistent with previous ascites. Patient missed her appointment for a paracentesis 2 days ago because of diarrhea. Patient states she feels she needs a paracentesis at this time. Denies fevers or chills. Abdominal exam revealed very minimal generalized abdominal tenderness. No leukocytosis on CBC. Hemoglobin is stable as well as stable thrombocytopenia. CMP shows minimal elevation in creatinine, patient was given a 500 mL fluid bolus given history of recent diarrhea. X-ray KUB did show possible abdominal ascites without bowel obstruction. Chest x-ray revealed a probable small left pleural effusion on the basis of an increased basilar density. Dr. Zamarripa spoke with Dr. Garibay who will admit this patient. Interventional radiology will be consulted for paracentesis. - Lab Data Result diagrams: 05/21/19 06:56 05/21/19 06:56 Lab Results 05/21/19 05/21/19 Range/Units 06:56 06:56 WBC 3.5 L (3.8-10.6) k/uL RBC 4.35 (3.80-5.40) m/uL Hgb 10.8 L (11.4-16.0) gm/dL Hct 34.4 (34.0-46.0) % MCV 79.0 L (80.0-100.0) fL MCH 24.8 L (25.0-35.0) pg MCHC 31.4 (31.0-37.0) g/dL RDW 16.1 H (11.5-15.5) % Plt Count 91 L (150-450) k/uL Neutrophils % 80 % Lymphocytes % 10 % Monocytes % 7 % Eosinophils % 1 % Basophils % 0 % Neutrophils # 2.8 (1.3-7.7) k/uL Lymphocytes # 0.3 L (1.0-4.8) k/uL Monocytes # 0.3 (0-1.0) k/uL Eosinophils # 0.0 (0-0.7) k/uL Basophils # 0.0 (0-0.2) k/uL Manual Slide Review Performed Hypochromasia Slight Anisocytosis Slight Microcytosis Slight Sodium 139 (137-145) mmol/L Potassium 3.9 (3.5-5.1) mmol/L Chloride 100 (98-107) mmol/L Carbon Dioxide 25 (22-30) mmol/L Anion Gap 14 mmol/L BUN 21 H (7-17) mg/dL Creatinine 1.24 H (0.52-1.04) mg/dL Est GFR (CKD-EPI)AfAm 48 (>60 ml/min/1.73 sqM) Est GFR (CKD-EPI)NonAf 42 (>60 ml/min/1.73 sqM) Glucose 186 H (74-99) mg/dL Calcium 9.4 (8.4-10.2) mg/dL Total Bilirubin 1.4 H (0.2-1.3) mg/dL AST 30 (14-36) U/L ALT 15 (4-34) U/L Alkaline Phosphatase 56 (38-126) U/L Total Protein 6.6 (6.3-8.2) g/dL Albumin 3.6 (3.5-5.0) g/dL Amylase <30 L (30-110) U/L Lipase 229 (23-300) U/L Disposition Clinical Impression: Pancytopenia, Abdominal pain, Ascites, Fluid overload, Pleural effusion Disposition: ADMITTED IP TO THIS HOSP Condition: Fair Is patient prescribed a controlled substance at d/c from ED?: No Referrals: Paola Duckworth MD [Primary Care Provider] - 1-2 days Time of Disposition: 08:38
--- NOTE | 2019-05-21 06:37 | XR ---
EXAMINATION TYPE: XR KUB DATE OF EXAM: 05/21/2019 COMPARISON: 04/15/2019 HISTORY: Abdominal pain TECHNIQUE: 2 views upright FINDINGS: There is no sign of intestinal obstruction or pneumoperitoneum. Fecal pattern is normal. Th ere are clips from cholecystectomy. There is increased density over the abdomen that could relate to ascites. There are no pathologic calcifications over the kidneys. IMPRESSION: Possible abdominal ascites. No bowel obstruction. No significant change compared to last exam.
[2019-05-21 07:11] LABS: Anisocytosis Slight; Basophils % (A) 0 %; Eosinophils % (A) 1 %; HCT 34.4 % (34.0-46.0); HGB 10.8 gm/dL (11.4-16.0); Hypochromasia Slight; Lymphocytes # (A) 0.3 k/uL (1.0-4.8); Lymphocytes % (A) 10 %; MCH 24.8 pg (25.0-35.0); MCHC 31.4 g/dL (31.0-37.0); Mean Platelet Volume 8.3; Microcytosis Slight; Monocytes # (A) 0.3 k/uL (0-1.0); Monocytes % (A) 7 %; Neutrophils # (A) 2.8 k/uL (1.3-7.7); Neutrophils % (A) 80 %; RBC 4.35 m/uL (3.80-5.40); RDW 16.1 % (11.5-15.5); WBC 3.5 k/uL (3.8-10.6)
[2019-05-21 07:27] LABS: ALT 15 U/L (4-34); AST 30 U/L (14-36); African American GFR (CKD) 48 (>60 ml/min/1.73 sqM); Albumin 3.6 g/dL (3.5-5.0); Alkaline Phosphatase 56 U/L (38-126); Amylase <30 U/L (30-110); Anion Gap 14 mmol/L; Blood Urea Nitrogen 21 mg/dL (7-17); Calcium 9.4 mg/dL (8.4-10.2); Carbon Dioxide 25 mmol/L (22-30); Chloride 100 mmol/L (98-107); Glucose 186 mg/dL (74-99); Non-African American GFR(CKD) 42 (>60 ml/min/1.73 sqM); Potassium 3.9 mmol/L (3.5-5.1); Sodium 139 mmol/L (137-145); Total Bilirubin 1.4 mg/dL (0.2-1.3); Total Protein 6.6 g/dL (6.3-8.2)
[2019-05-21 08:10] LABS: Platelet Count 91 k/uL (150-450)
--- NOTE | 2019-05-21 08:11 | XR ---
EXAMINATION TYPE: XR chest 1V portable DATE OF EXAM: 05/21/2019 COMPARISON: Chest x-ray 02/08/2019 HISTORY: Fluid overload TECHNIQUE: Single frontal view of the chest is obtained. FINDINGS: There is persistent blunting the left costophrenic angle, improved visualization of the ri ght costophrenic angle. Patient is rotated. Heart size is likely stable. No evident pneumothorax. The re are overlying cardiac leads. Basilar increased density is noted. IMPRESSION: Rotated exam. Probable basilar atelectatic changes probable small left pleural effusion
[2019-05-21] MEDS ORDERED: NALOXONE 0.4 MG/ML 1 ML VIAL IV PRN (08:39)
[2019-05-21] MEDS ORDERED: ONDANSETRON 4 MG/2 ML VIAL IVP PRN (08:39)
[2019-05-21] MEDS ORDERED: HYDROmorphone 0.5 MG/0.5 ML SYRINGE IVP PRN (08:39)
[2019-05-21] MEDS ORDERED: SODIUM CHLORIDE 0.9% 1,000 ML IV SCH (08:45)
[2019-05-21] MEDS ORDERED: FUROSEMIDE 40 MG TAB PO SCH (09:00)
[2019-05-21] MEDS ORDERED: metFORMIN 500 MG TAB PO SCH (09:00)
[2019-05-21] MEDS ORDERED: LISINOPRIL 10 MG TAB PO SCH (09:00)
[2019-05-21] MEDS: SPIRONOLACTONE 25 MG TAB PO SCH (09:31)
[2019-05-21] MEDS: PIOGLITAZONE 30 MG TAB PO SCH (09:31)
[2019-05-21] MEDS: LINAGLIPTIN 5 MG TABLET PO SCH (09:31)
[2019-05-21] MEDS: SERTRALINE 50 MG TAB PO SCH (10:17)
[2019-05-21] MEDS ORDERED: traMADol 50 MG TAB PO PRN (10:36)
--- NOTE | 2019-05-21 11:02 | US ---
EXAMINATION TYPE: US abdomen limited DATE OF EXAM: 05/21/2019 COMPARISON: US CLINICAL HISTORY: Ascites. Ascites is noted in all 4 abdominal quadrants with largest ascites noted in LLQ = 7.1cm A/P. IMPRESSION: 1. Ascites
[2019-05-21] MEDS: PANTOPRAZOLE 40 MG/10 ML VIAL IVP SCH (12:30)
[2019-05-21 12:49] LABS: INR 1.4 (<1.2); Prothrombin Time 13.6 sec (9.0-12.0)
--- NOTE | 2019-05-21 14:57 | P.HPIM ---
History of Present Illness This is a pleasant 79-year-old female with known history of nonalcoholic cirrhosis given with complaints of increasing abdominal distention denied any abdominal pain but some pressure in the chest because of his had abdominal distention clinically patient didn't have significant ascites noted denied any significant abdominal pain no tenderness of and on exam my suspicion is low for spontaneous Bactrim bronchitis clinically. Although clinically there is no significant ascites upon doing an ultrasound patient appears to have significant ascites because of which I ordered an ultrasound-guided paracentesis meantime patient will be started on IV Lasix and Aldactone, patient's serum creatinine is bit elevated to 1.24 baseline is around 0.8 patient on 40 mg of oral Lasix at home along with Aldactone., Patient was extensively evaluated for etiology of cirrhosis was told because of the medications unsure which medication she is started about. There is a small left-sided pleural effusion on the chest x-ray Review of Systems REVIEW OF SYSTEMS: CONSTITUTIONAL: No fever, no malaise, no fatigue. HEENT: No recent visual problems or hearing problems. Denied any sore throat. CARDIOVASCULAR: No chest pain, orthopnea, PND, no palpitations, no syncope. PULMONARY: No shortness of breath, no cough, no hemoptysis. GASTROINTESTINAL: No diarrhea, no nausea, no vomiting. NEUROLOGICAL: No headaches, no weakness, no numbness. HEMATOLOGICAL: Denies any bleeding or petechiae. GENITOURINARY: Denies any burning micturition, frequency, or urgency. MUSCULOSKELETAL/RHEUMATOLOGICAL: Denies any joint pain, swelling, or any muscle pain. ENDOCRINE: Denies any polyuria or polydipsia. The rest of the 14-point review of systems is negative. Past Medical History Past Medical History: Cancer, Diabetes Mellitus, Hypertension, Liver Disease, Skin Disorder Additional Past Medical History / Comment(s): breast ca left ,psorias, ascites History of Any Multi-Drug Resistant Organisms: None Reported Past Surgical History: Breast Surgery, Cholecystectomy Additional Past Surgical History / Comment(s): Right breast lump removal, paracentesis Past Anesthesia/Blood Transfusion Reactions: No Reported Reaction Smoking Status: Never smoker - Past Family History Father Family Medical History: Cancer Additional Family Medical History / Comment(s): Colon cancer Brother(s) Family Medical History: Myocardial Infarction ([place]) Additional Family Medical History / Comment(s): stents, another brother from an [place] Medications and Allergies Home Medications Medication Instructions Recorded Confirmed Type Cholecalciferol (Vitamin D3) 2,000 unit PO DAILY 02/08/19 05/21/19 History [Vitamin D3] Lisinopril [Zestril] 10 mg PO DAILY 02/08/19 05/21/19 History Pioglitazone [Actos] 30 mg PO DAILY 02/08/19 05/21/19 History Sertraline [Zoloft] 50 mg PO DAILY 02/08/19 05/21/19 History metFORMIN HCL 1,000 mg PO BID 02/08/19 05/21/19 History sitaGLIPtin PHOSPHATE [Januvia] 100 mg PO DAILY 02/08/19 05/21/19 History Cyanocobalamin [Vitamin B-12] 1,000 mcg PO DAILY #60 tab 02/11/19 05/21/19 Rx Furosemide [Lasix] 40 mg PO DAILY #30 tablet 02/11/19 05/21/19 Rx Spironolactone [Aldactone] 50 mg PO DAILY 04/15/19 05/21/19 History Vitamin B Complex 1 cap PO DAILY 05/09/19 05/21/19 History Allergies Allergy/AdvReac Type Severity Reaction Status Date / Time No Known Allergies Allergy Verified 05/21/19 08:16 Physical Exam Vitals: Vital Signs Temp Pulse Resp BP Pulse Ox 05/21/19 14:44 18 05/21/19 11:13 16 97 05/21/19 10:00 16 97 05/21/19 09:00 16 97 05/21/19 08:00 105 H 16 114/65 97 05/21/19 05:29 98.1 F 118 H 20 177/67 100 Intake and Output 05/20/19 05/21/19 05/21/19 22:59 06:59 14:59 Other: Weight 89.811 kg 89.811 kg PHYSICAL EXAMINATION: GENERAL: The patient is alert and oriented x3, not in any acute distress. Well d eveloped, well nourished. HEENT: Pupils are round and equally reacting to light. EOMI. No scleral icterus. No conjunctival pallor. Normocephalic, atraumatic. No pharyngeal erythema. No thyromegaly. CARDIOVASCULAR: S1 and S2 present. No murmurs, rubs, or gallops. PULMONARY: Chest is clear to auscultation, no wheezing or crackles. ABDOMEN: Soft, distended with some shifting dullness but no significant ascites clinically MUSCULOSKELETAL: No joint swelling or deformity. EXTREMITIES: No cyanosis, clubbing, or pedal edema. NEUROLOGICAL: Gross neurological examination did not reveal any focal deficits. SKIN: No rashes. Results CBC & Chem 7: 05/21/19 06:56 05/21/19 06:56 Labs: Abnormal Lab Results - Last 24 Hours (Table) 05/21/19 05/21/19 05/21/19 Range/Units 06:56 06:56 06:56 WBC 3.5 L (3.8-10.6) k/uL Hgb 10.8 L (11.4-16.0) gm/dL MCV 79.0 L (80.0-100.0) fL MCH 24.8 L (25.0-35.0) pg RDW 16.1 H (11.5-15.5) % Plt Count 91 L (150-450) k/uL Lymphocytes # 0.3 L (1.0-4.8) k/uL PT 13.6 H (9.0-12.0) sec INR 1.4 H (<1.2) BUN 21 H (7-17) mg/dL Creatinine 1.24 H (0.52-1.04) mg/dL Glucose 186 H (74-99) mg/dL Total Bilirubin 1.4 H (0.2-1.3) mg/dL Amylase <30 L (30-110) U/L Assessment and Plan Plan: -Symptomatic ascites: Secondary to nonalcoholic cirrhosis, patient will be started on IV Lasix instead of oral and ultrasound-guided paracentesis will be ordered possibly of discharge tomorrow after the paracentesis and will decide on the dose of Lasix upon discharge. 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 linagliptan Will be continued patient will be on sliding scale insulin -Hypertension -Depression -Acute renal failure: Secondary to prerenal azotemia from cirrhosis and expecting this to improve with Lasix and gentle diuresis DVT prophylaxis with subcutaneous heparin
[2019-05-21] MEDS: HEPARIN SODIUM,PORCINE 5,000 UNIT/ML 1 ML VIAL SQ SCH ×3 (18:17→23:45)
[2019-05-21 21:51] LABS: Glucose,Whole Blood 145 mg/dL (75-99)
[2019-05-22 07:35] LABS: Glucose,Whole Blood 147 mg/dL (75-99)
[2019-05-22 08:45] LABS: Calcium 8.5 mg/dL (8.4-10.2); Potassium 4.2 mmol/L (3.5-5.1); Total Bilirubin 1.1 mg/dL (0.2-1.3); Total Protein 5.6 g/dL (6.3-8.2)
[2019-05-22] MEDS ORDERED: FUROSEMIDE 10 MG/ML 4 ML VIAL IV SCH (09:00)
[2019-05-22] MEDS: SPIRONOLACTONE 25 MG TAB PO SCH (09:29)
[2019-05-22] MEDS: PIOGLITAZONE 30 MG TAB PO SCH (09:29)
[2019-05-22] MEDS: LINAGLIPTIN 5 MG TABLET PO SCH (09:30)
[2019-05-22] MEDS: SERTRALINE 50 MG TAB PO SCH (09:30)
[2019-05-22] MEDS: PANTOPRAZOLE 40 MG/10 ML VIAL IVP SCH (12:14)
[2019-05-22 12:20] LABS: Glucose,Whole Blood 148 mg/dL (75-99)
--- NOTE | 2019-05-22 13:05 | US ---
EXAMINATION TYPE: US paracentesis abd w/image DATE OF EXAM: 05/22/2019 COMPARISON: NONE HISTORY: Ascites. PROCEDURE: Maximal barrier technique was utilized. The skin overlying a suitable pocket of fluid was localized with ultrasound and the overlying skin was prepped and draped. Ultrasound was utilized with sterile technique. Lidocaine was used for local anesthesia and a skin asya made with a scalpel. Catheter was advanced under direct ultrasound guidance into a suitable pocket of fluid and approximately 5.1 liter s of serous fluid were removed. Catheter was withdrawn and hemostasis achieved. There is no immedia te complication; the patient is discharged in stable condition. IMPRESSION: STATUS POST ULTRASOUND GUIDED PARACENTESIS FOR PALLIATION OF ASCITES. THIS PROCEDURE WA S PERFORMED BY THE UNDERSIGNED.
--- NOTE | 2019-05-22 14:00 | P.DS ---
Providers Date of admission: 05/21/19 08:39 Attending physician: Fab Garibay Primary care physician: Gucci Franco [facility] Course: 79-year-old female with known history of nonalcoholic cirrhosis given with complaints of increasing abdominal distention denied any abdominal pain but some pressure in the chest because of his had abdominal distention clinically patient didn't have significant ascites noted denied any significant abdominal pain no tenderness of and on exam my suspicion is low for spontaneous Bactrim bronchitis clinically. Although clinically there is no significant ascites upon doing an ultrasound patient appears to have significant ascites because of which I ordered an ultrasound-guided paracentesis meantime patient will be started on IV Lasix and Aldactone, patient's serum creatinine is bit elevated to 1.24 baseline is around 0.8 patient on 40 mg of oral Lasix at home along with Aldactone., Patient was extensively evaluated for etiology of cirrhosis was told because of the medications unsure which medication she is started about. There is a small left-sided pleural effusion on the chest x-ray. 05/22/2019 Patient underwent paracentesis with removal of around 5 L of fluid. And patient is feeling much better, patient's Lasix will be increased to 40 mg twice a day will cut down the dose of lisinopril because of hypotension patient is probably on lisinopril as nephro protective agent because of her diabetes mellitus. Metformin will be discontinued because of concerns of lactic acidosis because of her cirrhosis have blood sugars are okay without metformin. Patient will be given potassium supplementation along with Aldactone and repeat basic metabolic profile in 3 days. PHYSICAL EXAMINATION: GENERAL: The patient is alert and oriented x3, not in any acute distress. Well developed, well nourished. HEENT: Pupils are round and equally reacting to light. EOMI. No scleral icterus. No conjunctival pallor. Normocephalic, atraumatic. No pharyngeal erythema. No thyromegaly. CARDIOVASCULAR: S1 and S2 present. No murmurs, rubs, or gallops. PULMONARY: Chest is clear to auscultation, no wheezing or crackles. ABDOMEN: Soft, nontender, nondistended, significant improvement in ascites MUSCULOSKELETAL: No joint swelling or deformity. EXTREMITIES: No cyanosis, clubbing, or pedal edema. NEUROLOGICAL: Gross neurological examination did not reveal any focal deficits. SKIN: No rashes. Assessment and Plan Plan: -Symptomatic ascites: Secondary to nonalcoholic cirrhosis, status post paracentesis no evidence of for spontaneous bacterial peritonitis patient will be discharged with the above-mentioned the Thrombocytopenia: Secondary to cirrhosis and splenic sequestration and portal hypertension -Type 2 diabetes mellitus: Foreign will be discontinued because of cirrhosis. linagliptan Will be continued -Hypertension -Depression -Acute renal failure: Secondary to prerenal azotemia from cirrhosis Patient Condition at Discharge: Fair Plan - Discharge Summary Discharge Rx Participant: No New Discharge Prescriptions: Continue sitaGLIPtin PHOSPHATE [Januvia] 100 mg PO DAILY Sertraline [Zoloft] 50 mg PO DAILY Pioglitazone [Actos] 30 mg PO DAILY Cholecalciferol (Vitamin D3) [Vitamin D3] 2,000 unit PO DAILY Cyanocobalamin [Vitamin B-12] 1,000 mcg PO DAILY #60 tab Spironolactone [Aldactone] 50 mg PO DAILY Vitamin B Complex 1 cap PO DAILY Changed Furosemide [Lasix] 40 mg PO BID #30 tablet Lisinopril [Zestril] 5 mg PO DAILY #0 Discontinued metFORMIN HCL 1,000 mg PO BID Discharge Medication List Cholecalciferol (Vitamin D3) [Vitamin D3] 2,000 unit PO DAILY 02/08/19 [History] Pioglitazone [Actos] 30 mg PO DAILY 02/08/19 [History] Sertraline [Zoloft] 50 mg PO DAILY 02/08/19 [History] sitaGLIPtin PHOSPHATE [Januvia] 100 mg PO DAILY 02/08/19 [History] Cyanocobalamin [Vitamin B-12] 1,000 mcg PO DAILY #60 tab 02/11/19 [Rx] Spironolactone [Aldactone] 50 mg PO DAILY 04/15/19 [History] Vitamin B Complex 1 cap PO DAILY 05/09/19 [History] Furosemide [Lasix] 40 mg PO BID #30 tablet 05/22/19 [Rx] Lisinopril [Zestril] 5 mg PO DAILY #0 05/22/19 [Rx] Follow up Appointment(s)/Referral(s): Paola Duckworth MD [Primary Care Provider] - 3 Days Ambulatory/Diagnostic Orders: Basic Metabolic Panel [LAB.AMB] Time Frame: 3 Days, Location: None Selected Discharge Disposition: HOME SELF-CARE
[2019-05-22 15:50] VITALS: BP 107/57; PULSE 87; RESP 18; TEMP 98
[2019-05-23] MEDS ORDERED: PANTOPRAZOLE 40 MG TABLET PO SCH (07:30)
== END 2019-05-22 17:52 | disposition home or self-care (01) | DRG 433 ==
LOC: EC 05:27 → 5NMEDONC 08:39 → 6NMEDSUR 14:00
PROVIDERS: ADMIT Internal Medicine; ATTEND Internal Medicine
PROC: 0W9G3ZZ Drainage of Peritoneal Cavity, Percutaneous Approach (ICD-10-PCS; principal; 2019-05-22)
DX: K74.60 Unspecified cirrhosis of liver (principal); R18.8 Other ascites; N17.9 Acute kidney failure, unspecified; K76.6 Portal hypertension; E11.9 Type 2 diabetes mellitus without complications; I10 Essential (primary) hypertension; F32.9 Major depressive disorder, single episode, unspecified; D69.59 Other secondary thrombocytopenia; Z85.3 Personal history of malignant neoplasm of breast; Z82.49 Family history of ischemic heart disease and other diseases of the circulatory system; Z80.0 Family history of malignant neoplasm of digestive organs; Z79.899 Other long term (current) drug therapy; Z79.84 Long term (current) use of oral hypoglycemic drugs; Z90.49 Acquired absence of other specified parts of digestive tract; Z98.890 Other specified postprocedural states
CPT/HCPCS: 36415; 49083; 71045; 74018; 76705; 80053; 82140; 82150; 83690; 85025; 85610; 93005; 96361; 96374; 96375; 99285

== ENCOUNTER 2019-06-09 23:37 | Inpatient (IN) | payer MEDICARE ==
[2019-06-10] MEDS ORDERED: ONDANSETRON 4 MG/2 ML VIAL IVP STA
[2019-06-10] MEDS ORDERED: MORPHINE SULFATE 4 MG/ML SYRINGE IV STA
--- NOTE | 2019-06-10 00:06 | ED ---
General Adult HPI - General Chief complaint: Chest Pain Stated complaint: Abd pain Time Seen by Provider: 06/09/19 23:47 Source: patient, family, RN notes reviewed, old records reviewed Mode of arrival: ambulatory - History of Present Illness Initial comments: 79-year-old female with liver cirrhosis, recurrent ascites presenting for evaluation of dyspnea, chest discomfort, abdominal distention. She's had a poor appetite over the past several days. Pain complaints have been worsening over the past several days to one week. She's had some nausea and several episodes of vomiting. No known history of coronary artery disease. No history of DVT or PE. She has some mild bilateral lower extremity swelling. She states her last paracentesis was May 22. She's had increased abdominal distention since that time. - Related Data Home Medications Medication Instructions Recorded Confirmed Cholecalciferol (Vitamin D3) 2,000 unit PO DAILY 02/08/19 05/21/19 [Vitamin D3] Pioglitazone [Actos] 30 mg PO DAILY 02/08/19 05/21/19 Sertraline [Zoloft] 50 mg PO DAILY 02/08/19 05/21/19 sitaGLIPtin PHOSPHATE [Januvia] 100 mg PO DAILY 02/08/19 05/21/19 Spironolactone [Aldactone] 50 mg PO DAILY 04/15/19 05/21/19 Vitamin B Complex 1 cap PO DAILY 05/09/19 05/21/19 Previous Rx's Medication Instructions Recorded Cyanocobalamin [Vitamin B-12] 1,000 mcg PO DAILY #60 tab 02/11/19 Furosemide [Lasix] 40 mg PO BID #30 tablet 05/22/19 Lisinopril [Zestril] 5 mg PO DAILY #0 05/22/19 Allergies Allergy/AdvReac Type Severity Reaction Status Date / Time No Known Allergies Allergy Verified 06/09/19 23:47 Review of Systems ROS Statement: Those systems with pertinent positive or pertinent negative responses have been documented in the HPI. ROS Other: All systems not noted in ROS Statement are negative. Past Medical History Past Medical History: Cancer, Diabetes Mellitus, Hypertension, Liver Disease, Skin Disorder Additional Past Medical History / Comment(s): breast ca left ,psorias, ascites History of Any Multi-Drug Resistant Organisms: None Reported Past Surgical History: Breast Surgery, Cholecystectomy Additional Past Surgical History / Comment(s): Right breast lump removal, paracentesis Past Anesthesia/Blood Transfusion Reactions: No Reported Reaction Past Psychological History: Depression Smoking Status: Never smoker Past Alcohol Use History: None Reported Past Drug Use History: None Reported - Past Family History Father Family Medical History: Cancer Additional Family Medical History / Comment(s): Colon cancer Brother(s) Family Medical History: Myocardial Infarction ([place]) Additional Family Medical History / Comment(s): stents, another brother from an [place] General Exam General appearance: alert, in no apparent distress Head exam: Present: atraumatic, normocephalic Eye exam: Present: normal appearance, PERRL. Absent: scleral icterus ENT exam: Present: normal exam Neck exam: Present: normal inspection. Absent: tenderness, meningismus Respiratory exam: Present: decreased breath sounds. Absent: respiratory distress Cardiovascular Exam: Present: regular rate, normal rhythm, JVD GI/Abdominal exam: Present: soft, distended, tenderness (Minimal abdominal tenderness, diffuse). Absent: guarding, rebound Extremities exam: Present: pedal edema Neurological exam: Present: alert, oriented X3, CN II-XII intact. Absent: motor sensory deficit Psychiatric exam: Present: normal affect, normal mood Skin exam: Present: warm, dry, pallor. Absent: cyanosis, diaphoretic Course Vital Signs 06/09/19 06/10/19 06/10/19 23:42 00:30 01:30 Temperature 98.2 F Pulse Rate 96 87 91 Respiratory 21 18 17 Rate Blood Pressure 118/64 145/61 130/54 O2 Sat by Pulse 100 97 98 Oximetry EKG Findings - EKG Comments: EKG Findings:: EKG: Normal sinus rhythm, no ST segment elevation, rate of 90, AL interval 150, QRS duration 70, QTC 442 Medical Decision Making - Medical Decision Making 79-year-old female history of recurrent ascites requiring paracentesis, fluid overload secondary to liver cirrhosis. She is presenting with 1 week of increased abdominal distention and bloating. She's also had some mild chest discomfort over this week. Workup reveals EKG which is sinus rhythm with no ST segment elevation. Chest x-ray showing persistent left pleural effusion. She has mild anemia which is stable. No leukocytosis. Ammonia level is normal. She has an elevated BNP consistent with fluid overload purchase a minimal troponin elevation 0.05. Given her liver disease I suspect this is related to fluid overload rather than acute MA. This level will be trended. She will be admitted for symptom control, evaluation by interventional radiology regarding possible paracentesis. - Lab Data Result diagrams: 06/09/19 23:59 06/09/19 23:59 Lab Results 06/09/19 06/09/19 06/09/19 Range/Units 23:59 23:59 23:59 WBC 6.1 (3.8-10.6) k/uL RBC 4.43 (3.80-5.40) m/uL Hgb 11.2 L (11.4-16.0) gm/dL Hct 35.1 (34.0-46.0) % MCV 79.2 L (80.0-100.0) fL MCH 25.4 (25.0-35.0) pg MCHC 32.0 (31.0-37.0) g/dL RDW 16.3 H (11.5-15.5) % Plt Count 129 L (150-450) k/uL Neutrophils % 81 % Lymphocytes % 10 % Monocytes % 7 % Eosinophils % 1 % Basophils % 0 % Neutrophils # 4.9 (1.3-7.7) k/uL Lymphocytes # 0.6 L (1.0-4.8) k/uL Monocytes # 0.4 (0-1.0) k/uL Eosinophils # 0.1 (0-0.7) k/uL Basophils # 0.0 (0-0.2) k/uL Anisocytosis Slight Microcytosis Slight PT 12.1 H (9.0-12.0) sec INR 1.2 H (<1.2) APTT 24.1 (22.0-30.0) sec Sodium 132 L (137-145) mmol/L Potassium 5.1 (3.5-5.1) mmol/L Chloride 96 L (98-107) mmol/L Carbon Dioxide 27 (22-30) mmol/L Anion Gap 9 mmol/L BUN 33 H (7-17) mg/dL Creatinine 1.04 (0.52-1.04) mg/dL Est GFR (CKD-EPI)AfAm 60 (>60 ml/min/1.73 sqM) Est GFR (CKD-EPI)NonAf 52 (>60 ml/min/1.73 sqM) Glucose 339 H (74-99) mg/dL Calcium 9.3 (8.4-10.2) mg/dL Magnesium 1.6 (1.6-2.3) mg/dL Total Bilirubin 1.3 (0.2-1.3) mg/dL AST 26 (14-36) U/L ALT 18 (4-34) U/L Alkaline Phosphatase 75 (38-126) U/L Ammonia (<30) umol/L Troponin I (0.000-0.034) ng/mL NT-Pro-B Natriuret Pep pg/mL Total Protein 6.2 L (6.3-8.2) g/dL Albumin 3.3 L (3.5-5.0) g/dL Lipase 136 (23-300) U/L 06/09/19 06/09/19 06/09/19 Range/Units 23:59 23:59 23:59 WBC (3.8-10.6) k/uL RBC (3.80-5.40) m/uL Hgb (11.4-16.0) gm/dL Hct (34.0-46.0) % MCV (80.0-100.0) fL MCH (25.0-35.0) pg MCHC (31.0-37.0) g/dL RDW (11.5-15.5) % Plt Count (150-450) k/uL Neutrophils % % Lymphocytes % % Monocytes % % Eosinophils % % Basophils % % Neutrophils # (1.3-7.7) k/uL Lymphocytes # (1.0-4.8) k/uL Monocytes # (0-1.0) k/uL Eosinophils # (0-0.7) k/uL Basophils # (0-0.2) k/uL Anisocytosis Microcytosis PT (9.0-12.0) sec INR (<1.2) APTT (22.0-30.0) sec Sodium (137-145) mmol/L Potassium (3.5-5.1) mmol/L Chloride (98-107) mmol/L Carbon Dioxide (22-30) mmol/L Anion Gap mmol/L BUN (7-17) mg/dL Creatinine (0.52-1.04) mg/dL Est GFR (CKD-EPI)AfAm (>60 ml/min/1.73 sqM) Est GFR (CKD-EPI)NonAf (>60 ml/min/1.73 sqM) Glucose (74-99) mg/dL Calcium (8.4-10.2) mg/dL Magnesium (1.6-2.3) mg/dL Total Bilirubin (0.2-1.3) mg/dL AST (14-36) U/L ALT (4-34) U/L Alkaline Phosphatase (38-126) U/L Ammonia 12 (<30) umol/L Troponin I 0.050 H* (0.000-0.034) ng/mL NT-Pro-B Natriuret Pep 1870 pg/mL Total Protein (6.3-8.2) g/dL Albumin (3.5-5.0) g/dL Lipase (23-300) U/L Disposition Clinical Impression: Abdominal pain, Pleural effusion, Ascites, Liver cirrhosis Disposition: ADMITTED IP TO THIS [facility] Condition: Stable Is patient prescribed a controlled substance at d/c from ED?: No Decision to Admit Reason: Admit from EC Decision Date: 06/10/19 Decision Time: 00:53
[2019-06-10 00:25] LABS: Anisocytosis Slight; Basophils % (A) 0 %; Eosinophils # (A) 0.1 k/uL (0-0.7); Eosinophils % (A) 1 %; HCT 35.1 % (34.0-46.0); HGB 11.2 gm/dL (11.4-16.0); Lymphocytes # (A) 0.6 k/uL (1.0-4.8); Lymphocytes % (A) 10 %; MCH 25.4 pg (25.0-35.0); MCV 79.2 fL (80.0-100.0); Mean Platelet Volume 8.3; Microcytosis Slight; Monocytes # (A) 0.4 k/uL (0-1.0); Monocytes % (A) 7 %; Neutrophils # (A) 4.9 k/uL (1.3-7.7); Neutrophils % (A) 81 %; Platelet Count 129 k/uL (150-450); RBC 4.43 m/uL (3.80-5.40); RDW 16.3 % (11.5-15.5); WBC 6.1 k/uL (3.8-10.6)
[2019-06-10 00:36] LABS: Albumin 3.3 g/dL (3.5-5.0); Calcium 9.3 mg/dL (8.4-10.2); Magnesium 1.6 mg/dL (1.6-2.3); Potassium 5.1 mmol/L (3.5-5.1); Total Bilirubin 1.3 mg/dL (0.2-1.3); Total Protein 6.2 g/dL (6.3-8.2)
--- NOTE | 2019-06-10 00:37 | XR ---
EXAMINATION TYPE: XR chest 2V DATE OF EXAM: 06/10/2019 COMPARISON: 05/21/2019 HISTORY: Chest pain TECHNIQUE: 2 views FINDINGS: There is some blunting left costophrenic angle. Heart size is normal. There are no hilar ma sses. There are chest leads. Bony thorax is intact. IMPRESSION: Left pleural effusion and pleural diaphragmatic reaction unchanged compared to last exam. No heart failure seen. Small area of atelectasis right middle lobe. Unchanged.
[2019-06-10 00:39] LABS: INR 1.2 (<1.2); Partial Thromboplastin Time 24.1 sec (22.0-30.0); Prothrombin Time 12.1 sec (9.0-12.0)
[2019-06-10] MEDS ORDERED: NALOXONE 0.4 MG/ML 1 ML VIAL IV PRN (00:47)
[2019-06-10] MEDS ORDERED: ONDANSETRON 4 MG/2 ML VIAL IVP PRN (00:47)
[2019-06-10] MEDS ORDERED: HYDROmorphone 0.5 MG/0.5 ML SYRINGE IVP PRN (00:47)
[2019-06-10] MEDS ORDERED: INSULIN REGULAR 100 UNIT/ML VIAL IV ONE ×2 (00:50→05:38)
[2019-06-10 05:14] LABS: Glucose,Whole Blood 340 mg/dL (75-99)
[2019-06-10 06:17] LABS: Glucose,Whole Blood 298 mg/dL (75-99)
[2019-06-10] MEDS: SPIRONOLACTONE 25 MG TAB PO SCH (08:26)
[2019-06-10] MEDS: FUROSEMIDE 40 MG TAB PO SCH ×2 (08:26→21:21)
[2019-06-10] MEDS: LINAGLIPTIN 5 MG TABLET PO SCH (08:26)
[2019-06-10] MEDS: PANTOPRAZOLE 40 MG/10 ML VIAL IV SCH (08:26)
[2019-06-10] MEDS ORDERED: LISINOPRIL 10 MG TAB PO SCH (09:00)
--- NOTE | 2019-06-10 12:05 | US ---
EXAMINATION TYPE: US paracentesis abd w/image DATE OF EXAM: 06/10/2019 COMPARISON: NONE HISTORY: Ascites. PROCEDURE: Maximal barrier technique was utilized. The skin overlying a suitable pocket of fluid was localized with ultrasound and the overlying skin was prepped and draped. Ultrasound was utilized with sterile technique. Lidocaine was used for local anesthesia and a skin asya made with a scalpel. Catheter was advanced under direct ultrasound guidance into a suitable pocket of fluid and approximately 3.2 liter s of serous fluid were removed. Catheter was withdrawn and hemostasis achieved. There is no immedia te complication; the patient is discharged in stable condition. IMPRESSION: STATUS POST ULTRASOUND GUIDED PARACENTESIS FOR PALLIATION OF ASCITES. THIS PROCEDURE WA S PERFORMED BY THE UNDERSIGNED.
--- NOTE | 2019-06-10 15:20 | P.CRDCN ---
History of Present Illness History of present illness: HISTORY OF PRESENTING ILLNESS This is a pleasant 79-year-old female past medical history significant for liver cirrhosis, hypertension and diabetes mellitus. She denies prior hist ory of coronary artery disease and does not follow in the office with a deck hand. We have been asked to see in consultation for chest pain. Since January of last year she has been diagnosed with nonalcoholic liver cirrhosis and has undergone multiple therapeutic paracentesis. Over the previous week she has noticed an increase in abdominal distention associated with shortness of breath, chest pain, nausea and vomiting. She underwent a paracentesis this morning with removal of 3.2 L of serous fluid. In the past cytology has been obtained revealing liver as the source of her ascites with no malignancy. Since undergoing a paracentesis she states her symptoms have improved however are not completely gone. She still feels a little discomfort in the chest and abdomen associated with some mild nausea. She is seen and examined resting comfortably laying flat in bed with at the bedside in no acute distress. DIAGNOSTICS EKG reveals sinus mechanism heart rate of 90 with no acute ischemic changes. Chest xray left pleural effusion and pleural diaphragmatic reaction unchanged from previous exam, no heart failure noted. Laboratory reviewed, WBC 6.1, hemoglobin 11.2, platelets 129, sodium 132, potassium 5.1, creatinine 1.04, magnesium 1.6, troponin 0.050 and 0.038, NT proBNP 1870. Current cardiac medications include Lasix 40 mg twice a day, lisinopril 5 mg daily and Aldactone 50 mg daily. Most recent echocardiogram in January 2019 revealed preserved LV systolic function with ejection fraction 55-60% with mild aortic stenosis with a mean gradient 14 mmHg. REVIEW OF SYSTEMS At the time of my exam: CONSTITUTIONAL: Denies fever or chills. CARDIOVASCULAR: Denies chest pain, shortness of breath, orthopnea, PND or palpitations. RESPIRATORY: Denies cough. GASTROINTESTINAL: Denies abdominal pain, diarrhea, constipation, nausea or vomiting. MUSCULOSKELETAL: Denies myalgias. NEUROLOGIC: Denies numbness, tingling or weakness. ENDOCRINE: Denies fatigue, weight change, polydipsia or polyurina. GENITOURINARY: Denies burning, hematuria or urgency with micturation. HEMATOLOGIC: Denies history of anemia or bleeding. PHYSICAL EXAMINATION Blood pressure 118/50 heart rate 93 afebrile and maintaining oxygen saturation on room air. CONSTITUTIONAL: No apparent distress. HEENT: Head is normocephalic. Pupils are equal, round. Sclerae anicteric. Mucous membranes of the mouth are moist. No JVD. No carotid bruit. CHEST EXAMINATION: Lungs are clear to auscultation. No chest wall tenderness is noted on palpation or with deep breathing. HEART EXAMINATION: Regular rate and rhythm. S1, S2 heard. Systolic ejection murmur at the base, no gallops or rub. ABDOMEN: Soft, nontender. Positive bowel sounds. EXTREMITIES: 2+ peripheral pulses, no lower extremity edema and no calf tenderness. NEUROLOGIC EXAMINATION: Patient is awake, alert and oriented x3. ASSESSMENT Ascites secondary to liver cirrhosis Nonalcoholic liver cirrhosis Chest pain, atypical. Seems to be related to ascites. Has improved since paracentesis. Elevated troponin of unclear etiology, not indicative of an acute coronary event without typical rise and fall. Hypertension Diabetes mellitus Thrombocytopenia History of breast cancer status post lumpectomy PLAN Obtain third troponin. Repeat 2D echocardiogram and doppler study to assess cardiac structure and function. Troponin elevation of unclear etiology. Check lipid profile. We will continue to follow and make recommendations accordingly. Thank you kindly for this consultation. Nurse Practitioner note has been reviewed, I agree with a documented findings and plan of care. Patient was seen and examined. Past Medical History Past Medical History: Cancer, Diabetes Mellitus, Hypertension, Liver Disease Additional Past Medical History / Comment(s): Pt recently admitted to [facility] on 05/21/19 with symptomatic ascities/had paracentesis 5 L removed, thrombocytopenia 2ndary to cirrhosis/splenic sequestration and portal HTN. Other: Nonalcoholic cirrhosis-thought d/t rx, ascities/paracentesis, L breast cancer with lumpectomy, NIDDM type II, neuropathy bilateral legs/feet, History of Any Multi-Drug Resistant Organisms: None Reported Past Surgical History: Breast Surgery, Cholecystectomy Additional Past Surgical History / Comment(s): L breast lumpectomy for cancer, right breast lump removal-benign, paracentesis-several, Past Anesthesia/Blood Transfusion Reactions: No Reported Reaction Smoking Status: Never smoker - Past Family History Father Family Medical History: Cancer Additional Family Medical History / Comment(s): Colon cancer Brother(s) Family Medical History: Myocardial Infarction ([place]) Additional Family Medical History / Comment(s): One brother with stents, another brother from an [place] Mother Family Medical History: Neurologic Disorder Additional Family Medical History / Comment(s): Parkinsons Medications and Allergies Home Medications Medication Instructions Recorded Confirmed Type Cholecalciferol (Vitamin D3) 2,000 unit PO DAILY 02/08/19 06/10/19 History [Vitamin D3] Pioglitazone [Actos] 30 mg PO DAILY 02/08/19 06/10/19 History Sertraline [Zoloft] 50 mg PO DAILY 02/08/19 06/10/19 History sitaGLIPtin PHOSPHATE [Januvia] 100 mg PO DAILY 02/08/19 06/10/19 History Cyanocobalamin [Vitamin B-12] 1,000 mcg PO DAILY #60 tab 02/11/19 06/10/19 Rx Furosemide [Lasix] 40 mg PO BID #30 tablet 05/22/19 06/10/19 Rx Lisinopril [Zestril] 5 mg PO DAILY #0 05/22/19 06/10/19 Rx Niacin 2,000 mg PO DAILY 06/10/19 06/10/19 History Spironolactone 50 mg PO DAILY 06/10/19 06/10/19 History Allergies Allergy/AdvReac Type Severity Reaction Status Date / Time No Known Allergies Allergy Verified 06/10/19 10:16 Physical Exam Vitals: Vital Signs Temp Pulse Pulse Resp BP BP Pulse Ox 06/10/19 11:30 93 20 114/52 98 06/10/19 11:00 98 96 16 113/45 113/47 99 06/10/19 10:33 92 16 125/52 100 06/10/19 10:30 98 20 102/60 06/10/19 10:10 100 16 102/60 99 06/10/19 10:00 93 20 127/55 06/10/19 09:30 91 20 127/55 06/10/19 09:00 93 20 127/55 98 06/10/19 08:31 98.2 F 90 16 127/55 98 06/10/19 08:30 96 20 127/55 06/10/19 08:00 92 20 100/46 98 06/10/19 07:30 93 20 100/46 98 06/10/19 07:00 90 100/46 98 06/10/19 06:30 92 100/46 97 03/10/20 06:00 93 127/60 97 03/10/20 05:30 88 17 127/60 98 06/10/19 04:30 92 18 127/54 97 06/10/19 03:00 85 18 132/55 98 06/10/19 01:30 91 17 130/54 98 06/10/19 00:30 87 18 145/61 97 06/09/19 23:42 98.2 F 96 21 118/64 100 Intake and Output 06/09/19 06/10/19 06/10/19 22:59 06:59 14:59 Other: Weight 83.325 kg 83.325 kg Results 06/11/19 08:51 06/11/19 08:51 Cardiac Enzymes 06/09/19 06/09/19 06/10/19 Range/Units 23:59 23:59 06:30 AST 26 (14-36) U/L Troponin I 0.050 H* 0.038 H* (0.000-0.034) ng/mL Coagulation 06/09/19 Range/Units 23:59 PT 12.1 H (9.0-12.0) sec APTT 24.1 (22.0-30.0) sec CBC 06/09/19 Range/Units 23:59 WBC 6.1 (3.8-10.6) k/uL RBC 4.43 (3.80-5.40) m/uL Hgb 11.2 L (11.4-16.0) gm/dL Hct 35.1 (34.0-46.0) % Plt Count 129 L (150-450) k/uL Comprehensive Metabolic Panel 06/09/19 Range/Units 23:59 Sodium 132 L (137-145) mmol/L Potassium 5.1 (3.5-5.1) mmol/L Chloride 96 L (98-107) mmol/L Carbon Dioxide 27 (22-30) mmol/L BUN 33 H (7-17) mg/dL Creatinine 1.04 (0.52-1.04) mg/dL Glucose 339 H (74-99) mg/dL Calcium 9.3 (8.4-10.2) mg/dL AST 26 (14-36) U/L ALT 18 (4-34) U/L Alkaline Phosphatase 75 (38-126) U/L Total Protein 6.2 L (6.3-8.2) g/dL Albumin 3.3 L (3.5-5.0) g/dL Current Medications Generic Name Dose Route Start Last Admin Trade Name Freq PRN Reason Stop Dose Admin Furosemide 40 mg 06/10/19 09:00 06/10/19 08:26 Lasix PO 40 mg BID ANUPAM Administration Hydromorphone HCl 0.5 mg 06/10/19 00:47 Dilaudid IVP Q3HR PRN Moderate Pain Linagliptin 5 mg 06/10/19 09:00 06/10/19 08:26 Tradjenta PO 5 mg DAILY ANUPAM Administration Lisinopril 5 mg 06/11/19 09:00 Zestril PO DAILY ANUPAM Naloxone HCl 0.2 mg 06/10/19 00:47 Narcan IV Q2M PRN Opioid Reversal Ondansetron HCl 4 mg 06/10/19 00:47 06/10/19 05:11 Zofran IVP 4 mg Q8HR PRN Administration Nausea And Vomiting Pantoprazole Sodium 40 mg 06/10/19 09:00 06/10/19 08:26 Protonix IV 40 mg DAILY ANUPAM Administration Spironolactone 50 mg 06/10/19 09:00 06/10/19 08:26 Aldactone PO 50 mg DAILY ANUPAM Administration Intake and Output 06/09/19 06/10/19 06/10/19 22:59 06:59 14:59 Other: Weight 83.325 kg 83.325 kg Patient Weight 06/11/19 06:59 Weight 83.325 kg 06/09/19 23:59 06/09/19 23:59
[2019-06-10] MEDS ORDERED: REGADENOSON 0.4 MG/5 ML SYRINGE IV ONE (16:59)
[2019-06-10] MEDS ORDERED: TEMAZEPAM 15 MG CAP PO PRN (17:33)
[2019-06-10] MEDS ORDERED: ACETAMINOPHEN TAB 500 MG TAB PO PRN (17:33)
[2019-06-10] MEDS ORDERED: ALPRAZolam 0.25 MG TAB PO PRN (17:33)
--- NOTE | 2019-06-10 19:35 | HP ---
HISTORY AND PHYSICAL DATE OF SERVICE: 06/10/2019 CHIEF COMPLAINTS: Chest and abdominal pain. HISTORY OF PRESENT ILLNESS: This 79-year-old woman who had nonalcoholic cirrhosis of liver, history of diabetes, hypertension, history of chronic liver disease, history of thrombocytopenia, recurrent aspiration, being followed by Dr. Duckworth in the outpatient setting came to [facility] with complaints of abdominal distention, some chest pain. The patient also had some difficulty in breathing and the symptoms were worsening over the past several days. Patient had increasing ascites. Patient was evaluated and was found to have indeterminate troponin 0.05. Subsequently 0.038 and subsequently came back to high normal range at 0.029. Blood sugar is elevated. The patient underwent abdominal paracentesis by Interventional Radiology. About 3.2 L of serous fluid was removed. The patient being closely monitored at this time. There is no history of fever, rigors or chills. No history of headache, loss of consciousness, seizures. Cardiology has seen the patient and recommended a 2D echo with Doppler and continue monitoring also. Patient being closely monitored at this time. There is no history of headache, loss of consciousness, seizures at this time. PAST MEDICAL HISTORY: History of diabetes, hypertension, chronic liver disease, cirrhosis liver, splenic sequestration, alcoholic hepatic steatosis, breast surgery and depression. MEDICATIONS: Home medications are: 1. Niacin 2000 mg p.o. daily. 2. Aldactone 50 mg p.o. daily. 3. Vitamin D3 2000 daily. 4. Januvia 100 mg p.o. daily. 5. Zoloft 50 mg p.o. daily. 6. Actos 30 mg p.o. daily. 7. Zestril 5 mg p.o. daily. 8. Lasix 40 mg p.o. b.i.d. 9. B12 1000 mcg p.o. daily. ALLERGIES: None. FAMILY HISTORY: History of colon cancer in the family. SOCIAL HISTORY: No history of smoking. No history of alcohol intake. REVIEW OF SYSTEMS: ENT: Diminished vision. Diminished hearing. Cardiovascular system: As mentioned earlier. Respiration as mentioned earlier. GASTROINTESTINAL: As mentioned earlier. mentioned earlier. Nervous systems: No numbness or weakness. Allergies/Immunology: No asthma or hayfever. MUSCULOSKELETAL as mentioned earlier. Hematology/Oncology: No history of anemia. Endocrine: No history of diabetes or hypothyroidism. CONSTITUTIONAL: As mentioned earlier. DERMATOLOGY: Negative. RHEUMATOLOGY: Negative. PSYCHIATRY: As mentioned earlier. PHYSICAL EXAMINATION: The patient is alert, oriented x3. Pulse is 93, blood pressure 114/52 respiration 20, temperature 98.4, pulse ox 97% on room air. HEENT: Conjunctivae normal. Oral mucosa moist. NECK: No JVD. CARDIOVASCULAR: S1, S2 muffled. RESPIRATORY: Breath sounds diminished in the bases. Scattered rhonchi and crackles. ABDOMEN: Soft, obese. Ascites present. Nontender. No mass palpable. LEGS: No edema. No swelling. NERVOUS SYSTEM: Higher functions as mentioned earlier. Moves all four limbs. No focal motor or sensory deficits. SKIN: No ulcer, no rashes and no bleeding. JOINTS: No active deforming arthropathy. LAB STUDIES: Shows WBC 6.2, hemoglobin 11.2, platelets 129. Sodium 132, troponin noted. ASSESSMENT: 1. Ascites exacerbation secondary to non-alcoholic cirrhosis, status post abdominal paracentesis. 2. Chest discomfort with troponin 0.050. Rule out type 2 myocardial infarction or coronary disease. 3. Anemia, microcytic. 4. Mild coagulopathy secondary to chronic liver disease. 5. Hyponatremia. 6. Diabetes mellitus type 2 uncontrolled with hyperglycemia. 7. Obesity. 8. History of hypertension. 9. History of chronic liver disease. 10.History of thrombocytopenia. 11.History of left breast cancer with lumpectomy. 12.History of peripheral neuropathy. 13.History of breast surgery. 14.History of cholecystectomy. 15.History of depression. 16.FULL CODE. RECOMMENDATIONS AND DISCUSSION: In this 79-year-old woman who presented with multiple complex medical issues. We will monitor the patient closely. Continue the current medications, management and symptomatic treatment. Ascitic aspiration has been done. We will initiate diuretics closely. Otherwise cardiology is going to evaluate the elevated troponin. Two-D echo has been ordered. Prognosis guarded because of multiple complex medical issues. Further recommendations to follow. A copy of this dictation being forwarded to Dr. Duckworth who is the primary physician. MMODL / IJN: [id number] /
[2019-06-10 20:48] LABS: Glucose,Whole Blood 304 mg/dL (75-99)
[2019-06-10] MEDS ORDERED: SPIRONOLACTONE 25 MG TAB PO SCH (21:00)
[2019-06-10] MEDS: INSULIN ASPART (NovoLOG) 100 UNIT/ML VIAL SQ SCH (21:23)
[2019-06-10] MEDS: GABAPENTIN 100 MG CAP PO SCH (22:24)
[2019-06-11 04:27] LABS: Appearance,Urine Cloudy (Clear); Bacteria,Urine Moderate /hpf; Bilirubin,Urine Negative (Negative); Blood,Urine Small (Negative); Color,Urine Yellow; Glucose,Urine (UA) Negative (Negative); Hyaline Casts,Urine 265 /lpf (0-2); Ketones,Urine Negative (Negative); Leukocyte Esterase,Urine Large (Negative); Mucus,Urine Rare /hpf; Nitrite,Urine Negative (Negative); Protein,Urine Negative (Negative); RBC,Urine 4 /hpf (0-5); Specific Gravity,Urine 1.011 (1.001-1.035); Squamous Epithelial Cell,Urine 5 /hpf (0-4); Urobilinogen,Urine <2.0 mg/dL (<2.0); WBC,Urine 31 /hpf (0-5)
[2019-06-11] MEDS ORDERED: DIPYRIDAMOLE IV ONE (06:00)
[2019-06-11] MEDS ORDERED: AMINOPHYLLINE 500 MG/20 ML VIAL IV PRN (06:00)
[2019-06-11] MEDS ORDERED: CAFFEINE CITRATE 60 MG/3 ML VIAL IV PRN (06:00)
[2019-06-11] MEDS ORDERED: SODIUM CHLORIDE 0.9% IV ONE (06:00)
[2019-06-11 07:40] LABS: Glucose,Whole Blood 227 mg/dL (75-99)
[2019-06-11] MEDS: NIACIN TR 500 MG CAPLET PO SCH (08:39)
[2019-06-11] MEDS: CYANOCOBALAMIN 500 MCG TAB PO SCH (08:40)
[2019-06-11] MEDS: INSULIN ASPART (NovoLOG) 100 UNIT/ML VIAL SQ SCH ×4 (08:40→20:23)
[2019-06-11] MEDS: CHOLECALCIFEROL 1,000 UNIT TAB PO SCH (08:40)
[2019-06-11] MEDS: SPIRONOLACTONE 25 MG TAB PO SCH (08:40)
[2019-06-11] MEDS: GABAPENTIN 100 MG CAP PO SCH ×3 (08:40→20:54)
[2019-06-11] MEDS: FUROSEMIDE 40 MG TAB PO SCH ×2 (08:40→17:44)
[2019-06-11] MEDS: LINAGLIPTIN 5 MG TABLET PO SCH (08:40)
[2019-06-11] MEDS: PIOGLITAZONE 30 MG TAB PO SCH (08:40)
[2019-06-11] MEDS: PANTOPRAZOLE 40 MG/10 ML VIAL IV SCH (08:40)
[2019-06-11] MEDS: SERTRALINE 50 MG TAB PO SCH (08:42)
[2019-06-11] MEDS ORDERED: ASPIRIN 81 MG PO SCH (09:00)
[2019-06-11] MEDS ORDERED: LISINOPRIL 5 MG TAB PO SCH (09:00)
[2019-06-11 09:32] LABS: Anisocytosis Slight; Basophils % (A) 0 %; Eosinophils % (A) 1 %; Hypochromasia Slight; Lymphocytes % (A) 19 %; MCH 24.6 pg (25.0-35.0); MCV 81.9 fL (80.0-100.0); Mean Platelet Volume 8.1; Monocytes # (A) 0.4 k/uL (0-1.0); Monocytes % (A) 9 %; Neutrophils # (A) 3.3 k/uL (1.3-7.7); Neutrophils % (A) 68 %; Platelet Count 114 k/uL (150-450); RBC 4.88 m/uL (3.80-5.40); RDW 16.3 % (11.5-15.5); WBC 4.9 k/uL (3.8-10.6)
[2019-06-11 09:51] LABS: Calcium 9.4 mg/dL (8.4-10.2); Potassium 5.1 mmol/L (3.5-5.1)
--- NOTE | 2019-06-11 11:05 | ECHOF ---
Referral Reason:cp, elev trop MEASUREMENTS -------- HEIGHT: 165.1 cm WEIGHT: 83.0 kg BP: 113/67 RVIDd: 3.8 cm (< 3.3) IVSd: 1.2 cm (0.6 - 1.1) LVIDd: 4.4 cm (3.9 - 5.3) LVPWd: 1.3 cm (0.6 - 1.1) IVSs: 1.6 cm LVIDs: 2.9 cm LVPWs: 1.5 cm LA Diam: 4.0 cm (2.7 - 3.8) LAESV Index (A-L): 29.30 ml/m Ao Diam: 2.7 cm (2.0 - 3.7) AV Cusp: 1.7 cm (1.5 - 2.6) LA Diam: 4.1 cm (2.7 - 3.8) MV EXCURSION: 15.618 mm (> 18.000) MV EF SLOPE: 37 mm/s (70 - 150) EPSS: 0.6 cm MV E Rajendra: 0.94 m/s MV DecT: 234 ms MV A Rajendra: 1.49 m/s MV E/A Ratio: 0.63 AV maxP.10 mmHg AV meanP.61 mmHg RAP: 5.00 mmHg RVSP: 43.53 mmHg FINDINGS -------- Sinus rhythm. This was a technically adequate study. The left ventricular size is normal. There is mild concentric left ventricular hypertrophy. Overa ll left ventricular systolic function is normal with, an EF between 55 - 60 %. The diastolic fillin g pattern is normal for the age of the patient 18.79. The right ventricle is normal in size. The left atrial size is normal. LA is midly dilated 29-33ml/m2. The right atrial size is normal. There is mild aortic stenosis present. Peak/mean gradient across the Aortic Valve is 24.10mmHg / 11 .61mmHg. Mild mitral annular calcification present. Mild mitral regurgitation is present. Mild tricuspid regurgitation present. There is mild pulmonary hypertension. The right ventricular systolic pressure, as measured by Doppler, is 43.53mmHg. There is no pulmonic regurgitation present. The aortic root size is normal. There is no pericardial effusion. CONCLUSIONS -------- 1. Sinus rhythm. 2. This was a technically adequate study. 3. The left ventricular size is normal. 4. There is mild concentric left ventricular hypertrophy. 5. Overall left ventricular systolic function is normal with, an EF between 55 - 60 %. 6. The diastolic filling pattern is normal for the age of the patient 18.79 7. The right ventricle is normal in size. 8. The left atrial size is normal. 9. LA is midly dilated 29-33ml/m2. 10. The right atrial size is normal. 11. There is mild aortic stenosis present. 12. Peak/mean gradient across the Aortic Valve is 24.10mmHg / 11.61mmHg. 13. Mild mitral annular calcification present. 14. Mild mitral regurgitation is present. 15. Mild tricuspid regurgitation present. 16. There is mild pulmonary hypertension. 17. The right ventricular systolic pressure, as measured by Doppler, is 43.53mmHg. 18. There is no pulmonic regurgitation present. 19. The aortic root size is normal. 20. There is no pericardial effusion. RETAIL SALES ASSISTANT: Anisha Carmichael RDCS
--- NOTE | 2019-06-11 11:11 | NM ---
EXAMINATION TYPE: NM stress lexiscan cardiolite DATE OF EXAM: 06/11/2019 COMPARISON: NONE HISTORY: Elevated troponin, chest pain TECHNIQUE: After the intravenous administration of 9.8 mCi Tc 99m Sestamibi - Cardiolite resting SPE CT images acquired 55 minutes post injection. The patient received 0.4mg Lexiscan, 26 mCi Tc 99m Sestamibi - Stress images obtained 40 minutes post injection FINDINGS: Review of stress and rest SPECT images demonstrates decreased reaffirms of uptake along the lateral w all left ventricle extending to the anterior lateral and inferolateral and apical regions on stress a s compared to rest images, lateral wall uptake somewhat reduced even on rest images. Gated analysis shows normal wall motion with an estimated left ventricular ejection fraction of 69 %. IMPRESSION: Pharmacologically induced left ventricular myocardial ischemia, prior indeterminate age infarct may b e present along the lateral wall of the left ventricle, associated allan-infarct ischemia. Consider ec hocardiographic correlation for elevated ejection fraction.
[2019-06-11 11:44] LABS: Glucose,Whole Blood 184 mg/dL (75-99)
[2019-06-11] MEDS: SODIUM CHLORIDE 0.9% 250 ML IV SCH ×2 (12:41→13:22)
--- NOTE | 2019-06-11 12:47 | EST ---
EXERCISE STRESS AGE: 79 SEX: F HT: 5'6" WT: 183 PROTOCOL: Persantine Cardiolite Stress Test HEART RATE REST: 89 BLOOD PRESSURE REST: 135/57 MAXIMUM HEART RATE ACHIEVED: 89 MAXIMUM BLOOD PRESSURE: 135/57 85% MPHR: 122 100% MPHR: 143 INDICATIONS: Chest pain. CLINICAL INFORMATION: Baseline EKG shows sinus rhythm, normal axis, normal intervals. Patient was given intravenous Persantine as per protocol without chest pain or diagnostic ST-segment depression. CONCLUSION: 1. Negative stress test by EKG criteria. 2. Cardiolite portion of the stress test will be reported separately. MMODL / IJN: [id number] /
--- NOTE | 2019-06-11 14:00 | P.PN ---
Subjective HISTORY OF PRESENTING ILLNESS This is a pleasant 79-year-old female past medical history significant for liver cirrhosis, hypertension and diabetes mellitus. She denies prior history of coronary artery disease and does not follow in the office with a winch driver. She came to the hospital with symptoms of chest pain and recurrent ascites s/p thoracentesis. She had elevated troponins as well prompting us to order a stress test. Lexiscan stress test performed today revealed pharmocologically induced LV myocardial ischemia along the lateral wall extending to the anterior lateral and inferolateral apical regions. Blood pressure running on the low side at 88/47 heart rate 79 maintaining oxygen saturation on room air. Laboratory data reviewed, LDL 105, HDL 43, creatinine 1.43 with GFR 35, sodium 135, potassium 5.1. PHYSICAL EXAMINATION CONSTITUTIONAL: No apparent distress. HEENT: Head is normocephalic. Pupils are equal, round. Sclerae anicteric. Mucous membranes of the mouth are moist. No JVD. No carotid bruit. CHEST EXAMINATION: Lungs are clear to auscultation. No chest wall tenderness is noted on palpation or with deep breathing. HEART EXAMINATION: Regular rate and rhythm. S1, S2 heard. Systolic ejection murmur at the base, no gallops or rub. EXTREMITIES: 2+ peripheral pulses, no lower extremity edema and no calf tenderness. ASSESSMENT Ascites secondary to liver cirrhosis Nonalcoholic liver cirrhosis Chest pain, atypical. Seems to be related to ascites. Has improved since paracentesis. Elevated troponin of unclear etiology, not indicative of an acute coronary event. Lexiscan stress test abnormal. Hypertension Diabetes mellitus Thrombocytopenia History of breast cancer status post lumpectomy PLAN Recommend proceeding with coronary angiography to assess for coronary artery disease. I have discussed the risks, benefits and alternative therapies for the above-mentioned procedure and for both sedation/analgesia as well as necessary blood product administration, if indicated, as they pertain to this patient. The patient has indicated understanding and acceptance of the risks and procedures discussed. Questions have been answered appropriately. We will repeat the creatinine tomorrow morning. Nurse Practitioner note has been reviewed, I agree with a documented findings and plan of care. Patient was seen and examined. Objective - Vital Signs Vital signs: Vital Signs Temp 97.3 F L 06/11/19 12:20 Pulse 79 06/11/19 12:28 Resp 16 06/11/19 12:20 BP 88/47 06/11/19 12:28 Pulse Ox 99 06/11/19 12:28 Intake & Output 06/10/19 06/11/19 06/11/19 18:59 06:59 18:59 Intake Total 590 Balance 590 Weight 83.325 kg 83.32 kg Intake: Oral 590 Other: # Voids 4 # Bowel Movements 0 - Labs CBC & Chem 7: 06/11/19 08:51 06/11/19 08:51 Labs: Abnormal Lab Results - Last 24 Hours (Table) 06/10/19 06/11/19 06/11/19 Range/Units 20:47 03:59 07:17 MCH (25.0-35.0) pg MCHC (31.0-37.0) g/dL RDW (11.5-15.5) % Plt Count (150-450) k/uL Sodium (137-145) mmol/L BUN (7-17) mg/dL Creatinine (0.52-1.04) mg/dL Glucose (74-99) mg/dL POC Glucose (mg/dL) 304 H 227 H (75-99) mg/dL LDL Cholesterol, Calc (0-99) mg/dL Urine Appearance Cloudy H (Clear) Urine Blood Small H (Negative) Ur Leukocyte Esterase Large H (Negative) Urine WBC 31 H (0-5) /hpf Ur Squamous Epith Cells 5 H (0-4) /hpf Urine Bacteria Moderate H (None) /hpf Hyaline Casts 265 H (0-2) /lpf Urine Mucus Rare H (None) /hpf 06/11/19 06/11/19 06/11/19 Range/Units 08:51 08:51 11:30 MCH 24.6 L (25.0-35.0) pg MCHC 30.0 L (31.0-37.0) g/dL RDW 16.3 H (11.5-15.5) % Plt Count 114 L (150-450) k/uL Sodium 135 L (137-145) mmol/L BUN 39 H (7-17) mg/dL Creatinine 1.43 H (0.52-1.04) mg/dL Glucose 214 H (74-99) mg/dL POC Glucose (mg/dL) 184 H (75-99) mg/dL LDL Cholesterol, Calc 105 H (0-99) mg/dL Urine Appearance (Clear) Urine Blood (Negative) Ur Leukocyte Esterase (Negative) Urine WBC (0-5) /hpf Ur Squamous Epith Cells (0-4) /hpf Urine Bacteria (None) /hpf Hyaline Casts (0-2) /lpf Urine Mucus (None) /hpf
[2019-06-11] MEDS ORDERED: NITROGLYCERIN SL TABS 0.4 MG TAB SUBLINGUAL PRN (14:01)
[2019-06-11] MEDS ORDERED: SODIUM CHLORIDE 0.9% 1,000 ML in EMPTY BAG 1 BAG IV ONE (14:01)
[2019-06-11 17:11] LABS: Glucose,Whole Blood 228 mg/dL (75-99)
--- NOTE | 2019-06-11 19:29 | PN ---
PROGRESS NOTE DATE OF SERVICE: 06/11/2019 This 79-year-old woman who was admitted with chest pain and abdominal pain, had significant ascitic aspiration. Cardiology following the patient closely. Cardiology performed a Lexiscan stress test which showed induced left myocardial ischemia. Cardiology planning a stress test. Otherwise, lab sams, the patient is being closely monitored. Hemoglobin is 12 and creatinine is 1.43. PAST MEDICAL HISTORY: Reviewed. REVIEW OF SYSTEMS: Cardiovascular: As mentioned earlier. Respiratory: As mentioned earlier. GI as mentioned earlier. no dysuria. Nervous system: No numbness or weakness. CURRENT MEDICATIONS: Medications are reviewed and include: 1. Tylenol p.r.n. 2. Xanax 0.25 t.i.d. 3. Aminophylline 100 mg IV once. 4. Aspirin 320 mg once daily. 5. Aspirin 81 mg. 6. Caffeine. 7. Ceftin 1 g daily. 8. Vitamin B12 1000 mcg p.o. 9. Lasix 40 mg p.o. b.i.d. 10.Neurontin 100 mg p.o. t.i.d. 11.Dilaudid p.r.n. 12.Tradjenta. 13.Narcan. 14.Protonix. 15.Actos. 16.Zoloft. 17.Doses reviewed. PHYSICAL EXAMINATION: Alert and oriented x3. Pulse is 79. Blood pressure 91/52, respirations 20, temperature normal, pulse ox 99% on room air. HEENT: Conjunctivae normal. NECK: No JVD. CARDIOVASCULAR: S1, S2 muffled. RESPIRATION: Breath sounds diminished in the bases. Bilateral scattered rhonchi and crackles. ABDOMEN: Soft, obese, nontender. LEGS are no edema. No swelling. CENTRAL NERVOUS SYSTEM: No focal deficits. LABS: WBC 4.9, hemoglobin is 12, and platelets are 114. Sodium 135. UA noted. ASSESSMENT: 1. Ascites exacerbation secondary to known alcoholic cirrhosis, status post abdominal paracentesis and distention. 2. Chest pain with troponin 0.050, possibly acute non-ST segment elevation myocardial infarction with abnormal stress test for cardiac cath tomorrow. 3. Relative hypotension multifactorial. 4. Acute urinary tract infection, present on admission. 5. Anemia, microcytic. 6. Mild coagulopathy secondary to chronic liver disease, present on admission. 7. Hyponatremia. 8. Diabetes type 2 uncontrolled with hyperglycemia. 9. Obesity. 10.History of hypertension. 11.History of chronic liver disease. 12.History of thrombocytopenia. 13.History of left breast cancer with lumpectomy. 14.History of peripheral neuropathy. 15.History of breast surgery. 16.History of cholecystectomy. 17.History of depression. 18.FULL CODE. RECOMMENDATIONS AND DISCUSSION: Continue current medications, management and symptomatic treatment. Otherwise, I would recommend fluid bolus of 250.9 and adjust medications. Discussed with the patient. See orders for details. Otherwise, follow closely with Cardiology. Possible cardiac catheterization tomorrow. Monitor creatinine closely. Otherwise, prognosis guarded because of multiple complex medical issues. Further recommendations to follow. See orders for details. Continue with antibiotics for UTI. Cultures are pending. MMODL / IJN: [id number] / MTDD
[2019-06-11 19:58] LABS: Glucose,Whole Blood 308 mg/dL (75-99)
[2019-06-12] MEDS: LINAGLIPTIN 5 MG TABLET PO SCH (00:04)
[2019-06-12] MEDS: INSULIN ASPART (NovoLOG) 100 UNIT/ML VIAL SQ SCH ×4 (00:04→21:42)
[2019-06-12] MEDS: PIOGLITAZONE 30 MG TAB PO SCH (00:05)
[2019-06-12] MEDS ORDERED: ASPIRIN 325 MG TAB PO ONE (06:00)
[2019-06-12 07:22] LABS: Glucose,Whole Blood 205 mg/dL (75-99)
[2019-06-12] MEDS: CYANOCOBALAMIN 500 MCG TAB PO SCH (07:58)
[2019-06-12] MEDS: SPIRONOLACTONE 25 MG TAB PO SCH (07:59)
[2019-06-12] MEDS: CHOLECALCIFEROL 1,000 UNIT TAB PO SCH (07:59)
[2019-06-12] MEDS: GABAPENTIN 100 MG CAP PO SCH ×3 (07:59→21:43)
[2019-06-12] MEDS: FUROSEMIDE 40 MG TAB PO SCH (07:59)
[2019-06-12] MEDS: NIACIN TR 500 MG CAPLET PO SCH (07:59)
[2019-06-12] MEDS: SERTRALINE 50 MG TAB PO SCH (08:00)
[2019-06-12] MEDS: PANTOPRAZOLE 40 MG/10 ML VIAL IV SCH (08:00)
[2019-06-12 08:27] LABS: Basophils % (A) 0 %; Eosinophils # (A) 0.1 k/uL (0-0.7); Eosinophils % (A) 2 %; HCT 33.3 % (34.0-46.0); HGB 10.4 gm/dL (11.4-16.0); Hypochromasia Slight; Lymphocytes # (A) 0.8 k/uL (1.0-4.8); Lymphocytes % (A) 18 %; MCH 25.2 pg (25.0-35.0); MCHC 31.3 g/dL (31.0-37.0); MCV 80.6 fL (80.0-100.0); Mean Platelet Volume 8.6; Monocytes # (A) 0.3 k/uL (0-1.0); Monocytes % (A) 7 %; Neutrophils % (A) 71 %; RBC 4.13 m/uL (3.80-5.40); RDW 15.9 % (11.5-15.5); WBC 4.2 k/uL (3.8-10.6)
[2019-06-12 08:36] LABS: Glucose,Whole Blood 185 mg/dL (75-99)
[2019-06-12] MEDS ORDERED: HEPARIN SODIUM,PORCINE 5,000 UNIT/ML 1 ML VIAL IV PRN ×2 (08:38→12:17)
[2019-06-12] MEDS ORDERED: HEPARIN SODIUM,PORCINE 5,000 UNIT/ML 1 ML VIAL IV ONE ×2 (08:38→12:17)
[2019-06-12] MEDS ORDERED: HEPARIN SOD,PORK IN 0.45% NACL 25,000 UNIT in 0.45% NACL 1 250ML.BAG IV SCH (08:45)
[2019-06-12 09:02] LABS: Glucose,Whole Blood 203 mg/dL (75-99)
[2019-06-12 09:02] LABS: Platelet Count 84 k/uL (150-450)
[2019-06-12 09:04] LABS: Poikilocytosis (M) Present
[2019-06-12] MEDS ORDERED: METOPROLOL TARTRATE 50 MG TAB PO ONE (09:10)
--- NOTE | 2019-06-12 09:21 | P.PN ---
Subjective HISTORY OF PRESENTING ILLNESS This is a pleasant 79-year-old female past medical history significant for liver cirrhosis, hypertension and diabetes mellitus. 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 She came to the hospital with symptoms of chest pain and recurrent ascites s/p thoracentesis. This morning the nurse noted her heart rate and blood pressure were abnormal, 72/44 heart rate 136. EKG requested revealed atrial fibrillation with rapid ventricular rate. She is seen and examined laying flat resting comfortably in bed. She states she can feel her heart racing with some associated discomfort in the chest. She denies shortness of breath, dizziness, nausea, vomiting or diaphoresis. Laboratory data reviewed, WBC 4.2, hgb 10.4, plt 84, creatinine 1.85. Currently maintained on aspirin 81 m gdaily, lasix 40 mg daily and aldactone 50 mg daily. PHYSICAL EXAMINATION CONSTITUTIONAL: No apparent distress. Generalized pallor. HEENT: Head is normocephalic. Pupils are equal, round. Sclerae anicteric. Mucous membranes of the mouth are moist. No JVD. No carotid bruit. CHEST EXAMINATION: Lungs are clear to auscultation. No chest wall tenderness is noted on palpation or with deep breathing. HEART EXAMINATION: Irregular rate and rhythm, tachycardic. S1, S2 heard. Systolic ejection murmur at the base, no gallops or rub. EXTREMITIES: Faint peripheral pulses, no lower extremity edema and no calf tenderness. ASSESSMENT New onset paroxysmal atrial fibrillation with rapid ventricular response Acute kidney injury Ascites secondary to liver cirrhosis Nonalcoholic liver cirrhosis Chest pain, atypical. Seems to be related to ascites. Has improved since paracentesis. Elevated troponin of unclear etiology, not indicative of an acute coronary event. Lexiscan stress test abnormal. Hypertension Diabetes mellitus Thrombocytopenia History of breast cancer status post lumpectomy PLAN Transfer the patient to higher level of care. Give lopressor 50 mg PO now for heart rate, will hold on IV infusions at this point for low blood pressures. Check PT/INR/PTT. Hold on heparin infusion currently until clotting studies come back and evaluation by GI for dropping platelets and history of liver disease. Cardiac catheterization will be cancelled at this time pending clinical course. Further recommendations to follow based on clinical course. Nurse Practitioner note has been reviewed, I agree with a documented findings and plan of care. Patient was seen and examined. Objective - Vital Signs Vital signs: Vital Signs Temp 97.7 F 06/12/19 05:00 Pulse 136 H 06/12/19 07:51 Resp 18 06/12/19 05:00 BP 72/44 06/12/19 07:51 Pulse Ox 98 06/12/19 05:00 Intake & Output 06/11/19 06/12/19 06/12/19 18:59 06:59 18:59 Intake Total 50 666.56 Balance 50 666.56 Weight 83.32 kg Intake: Intake, IV Titration 50 666.56 Amount Sodium Chloride 0.9% 1, 666.56 000 ml In Empty Bag 1 bag @ 1 ML/KG/HR 83.32 mls/ hr IV .Q12H1M ONE Rx#: [id number] 1 gm In 50 Sodium Chloride 0.9% 50 ml @ 100 mls/hr IVPB Q24HR ANUPAM Rx#:[id number] Other: # Voids 2 # Bowel Movements 1 - Labs CBC & Chem 7: 06/12/19 07:31 06/12/19 07:31 Labs: Abnormal Lab Results - Last 24 Hours (Table) 06/11/19 06/11/19 06/11/19 Range/Units 08:51 08:51 11:30 Hgb (11.4-16.0) gm/dL Hct (34.0-46.0) % MCH 24.6 L (25.0-35.0) pg MCHC 30.0 L (31.0-37.0) g/dL RDW 16.3 H (11.5-15.5) % Plt Count 114 L (150-450) k/uL Lymphocytes # (1.0-4.8) k/uL Sodium 135 L (137-145) mmol/L BUN 39 H (7-17) mg/dL Creatinine 1.43 H (0.52-1.04) mg/dL Glucose 214 H (74-99) mg/dL POC Glucose (mg/dL) 184 H (75-99) mg/dL LDL Cholesterol, Calc 105 H (0-99) mg/dL 06/11/19 06/11/19 06/12/19 Range/Units 17:08 19:57 07:21 Hgb (11.4-16.0) gm/dL Hct (34.0-46.0) % MCH (25.0-35.0) pg MCHC (31.0-37.0) g/dL RDW (11.5-15.5) % Plt Count (150-450) k/uL Lymphocytes # (1.0-4.8) k/uL Sodium (137-145) mmol/L BUN (7-17) mg/dL Creatinine (0.52-1.04) mg/dL Glucose (74-99) mg/dL POC Glucose (mg/dL) 228 H 308 H 205 H (75-99) mg/dL LDL Cholesterol, Calc (0-99) mg/dL 06/12/19 06/12/19 06/12/19 Range/Units 07:31 07:31 08:35 Hgb 10.4 L (11.4-16.0) gm/dL Hct 33.3 L (34.0-46.0) % MCH (25.0-35.0) pg MCHC (31.0-37.0) g/dL RDW 15.9 H (11.5-15.5) % Plt Count 84 L (150-450) k/uL Lymphocytes # 0.8 L (1.0-4.8) k/uL Sodium (137-145) mmol/L BUN (7-17) mg/dL Creatinine 1.85 H (0.52-1.04) mg/dL Glucose (74-99) mg/dL POC Glucose (mg/dL) 185 H (75-99) mg/dL LDL Cholesterol, Calc (0-99) mg/dL 06/12/19 Range/Units 09:01 Hgb (11.4-16.0) gm/dL Hct (34.0-46.0) % MCH (25.0-35.0) pg MCHC (31.0-37.0) g/dL RDW (11.5-15.5) % Plt Count (150-450) k/uL Lymphocytes # (1.0-4.8) k/uL Sodium (137-145) mmol/L BUN (7-17) mg/dL Creatinine (0.52-1.04) mg/dL Glucose (74-99) mg/dL POC Glucose (mg/dL) 203 H (75-99) mg/dL LDL Cholesterol, Calc (0-99) mg/dL
[2019-06-12] MEDS ORDERED: METOPROLOL TARTRATE 5 MG/5 ML VIAL IVP ONE ×2 (09:22→15:11)
[2019-06-12] MEDS ORDERED: SODIUM CHLORIDE 0.9% 1,000 ML IV ONE (09:25)
[2019-06-12 10:52] LABS: Magnesium 1.6 mg/dL (1.6-2.3); Potassium 4.7 mmol/L (3.5-5.1)
[2019-06-12 10:57] LABS: INR 1.3 (<1.2); Partial Thromboplastin Time 24.8 sec (22.0-30.0); Prothrombin Time 12.7 sec (9.0-12.0)
[2019-06-12 12:06] LABS: Appearance,Urine Clear (Clear); Bilirubin,Urine Negative (Negative); Blood,Urine Negative (Negative); Color,Urine Yellow; Glucose,Urine (UA) Negative (Negative); Ketones,Urine Negative (Negative); Leukocyte Esterase,Urine Negative (Negative); Nitrite,Urine Negative (Negative); Protein,Urine Negative (Negative); Specific Gravity,Urine 1.011 (1.001-1.035); Urobilinogen,Urine <2.0 mg/dL (<2.0)
[2019-06-12 12:23] LABS: Glucose,Whole Blood 185 mg/dL (75-99)
[2019-06-12] MEDS: SODIUM CHLORIDE 0.9% 1,000 ML IV SCH ×2 (12:25→23:46)
[2019-06-12] MEDS: HEPARIN SOD,PORK IN 0.45% NACL 25,000 UNIT in 0.45% NACL 1 250ML.BAG IV SCH (13:00)
[2019-06-12] MEDS: NOREPINEPHRINE 4 MG in SODIUM CHLORIDE 0.9% 250 ML IV SCH ×2 (13:02→23:45)
[2019-06-12] MEDS ORDERED: Magnesium Replacement Protocol 1 EACH MISC MISCELLANE PRN (13:56)
[2019-06-12] MEDS ORDERED: PIOGLITAZONE 30 MG TAB PO ONE (14:02)
[2019-06-12] MEDS ORDERED: LINAGLIPTIN 5 MG TABLET PO ONE (14:06)
[2019-06-12] MEDS: MAGNESIUM SULFATE-D5W PMX 1 GM in DEXTROSE/WATER 1 100ML.BAG IVPB SCH ×2 (14:59→16:27)
--- NOTE | 2019-06-12 15:40 | XR ---
EXAMINATION TYPE: XR chest 1V portable DATE OF EXAM: 06/12/2019 COMPARISON: 06/10/2019 HISTORY: Shortness of breath TECHNIQUE: Single frontal view of the chest is obtained. FINDINGS: There is an interstitial pattern with bilateral consolidation and small effusion. Postsurg ical changes left axilla. Arthropathy of the shoulder. No sizable pneumothorax. IMPRESSION: 1. I lateral infiltrate and small effusion. Correlate for mild venous congestion versus pneumonia.
--- NOTE | 2019-06-12 16:43 | PN ---
PROGRESS NOTE DATE OF SERVICE: 06/12/2019 This 79-year-old woman who was admitted with significant ascites also had chest pain. The patient had an abnormal stress test. The patient was slated to have cardiac catheterization today, but the patient apparently developed palpitations and atrial fibrillation with a fast ventricular rate, probably related to hypotension. The patient was transferred to ICU after fluid boluses. The patient was started on Levophed drip at this time. The troponin level was found to be 0.050 and 0.029. Past medical history reviewed. REVIEW OF SYSTEMS: CARDIOVASCULAR SYSTEM: As mentioned earlier. RESPIRATORY SYSTEM: As mentioned earlier. GI: As mentioned earlier. : No dysuria or retention. NERVOUS SYSTEM: No numbness, weakness. CURRENT MEDICATIONS: Reviewed. They include: 1. Tylenol p.r.n. 2. Xanax 0.25 t.i.d. p.r.n. 3. Aspirin 81 mg daily. 4. Rocephin 1 gram daily. 5. Vitamin D3. 6. Vitamin B12 1000 mcg p.o. daily. 7. Lasix 40 mg p.o. daily. 8. Neurontin 100 mg p.o. t.i.d. 9. Heparin b.i.d. 10.Dilaudid 0.5 mg q.6 p.r.n. 11.Narcan. 12.Niacin. 13.Nitrostat. 14.Levophed drip. 15.Zofran. 16.Protonix. 17.Actos. 18.Aldactone. 19.Restoril. Doses are reviewed. PHYSICAL EXAMINATION: Patient is alert, oriented x3. Pulse is 118, irregular, blood pressure 107/85, respiration 12, temperature normal, pulse ox 97% on room air. HEENT: Conjunctivae normal. NECK: No jugular venous distention. CARDIOVASCULAR SYSTEM: S1, S2 irregular. RESPIRATORY SYSTEM: Breath sounds diminished at the bases. A few scattered rhonchi. No crackles. ABDOMEN: Soft, obese, non-tender. LEGS: No edema. No swelling. O NERVOUS SYSTEM: Diffusely weak. LABS: Labs at this time show WBC 4.2, hemoglobin 10.4. sodium 133. Chest x-ray is not available. ASSESSMENT: 1. Ascites exacerbation secondary to non-alcoholic cirrhosis, status post abdominal paracentesis and distention. 2. Chest pain with troponin 0.050, possibly acute zje-GR-yelmzwn-elevation myocardial infarction, with abnormal stress test. 3. Relative hypotension, multifactorial. Hypotension is possibly cardiogenic shock. 4. Atrial fibrillation with a fast ventricular rate. 5. Acute urinary tract infection, present on admission. 6. Anemia, microcytic. 7. Chronic coagulopathy secondary to chronic liver disease, present on admission. 8. Hyponatremia. 9. Diabetes mellitus, type 2, uncontrolled, with hyperglycemia. 10.Obesity. 11.Hypertension. 12.Chronic liver disease. 13.Thrombocytopenia. 14.History of left breast cancer with lumpectomy. 15.History of peripheral neuropathy. 16.History of breast surgery. 17.History of cholecystectomy. 18.History of depression. 19.FULL CODE. RECOMMENDATIONS AND DISCUSSION: In this 79-year-old woman who presented with multiple medical issues we will continue to monitor, continue with IV fluids, continue with empiric antibiotics, continue with heparin. Closely follow with Cardiology. Guarded prognosis. Further recommendations to follow. We will also consult Dr. Baldwin for ICU management as well. Guarded prognosis. See orders for further details. Gastroenterology also has been consulted. MMODL / IJN: [id number] / [id number]
[2019-06-12] MEDS ORDERED: ALBUMIN HUMAN 5% 250 ML in EMPTY BAG 1 BAG IVPB ONE ×2 (16:54→20:00)
--- NOTE | 2019-06-12 17:09 | P.CNPUL ---
History of Present Illness Consult date: 06/12/19 Chief complaint: Hypotension History of present illness: This is a 79-year-old female patient with known history of nonalcoholic liver cirrhosis. The patient also has history of diabetes and hypertension. She has had previous paracentesis on several occasions for abdominal distention and ascites. The patient came into the hospital and the patient was noted to have increased abdominal distention associated with some shortness of breath. She also had some limited chest pain. No nausea or vomiting. She underwent a paracentesis for a total of 3.2 L of ascitic fluid was removed and it was not sent for any cultures. The patient subsequently improved and she was doing well. Her troponins were positive at 0.5. The patient was given a cardiac stress test that came back positive for reversible ischemia and based on that and based on the positive stress test, the patient was being planned for a cardiac catheterization. Earlier this morning the patient went into atrial fibrillation with RVR. Her blood pressure dropped and she got transferred to the intensive care unit. Upon arrival her systolic blood pressure was in the 60s. The patient was started on IV fluids bolus and she was given 1.5 L. Subsequently she was given 2.5 mg of IV Lopressor. This afternoon she converted back to normal sinus rhythm. She is currently in normal sinus rhythm with a rate of 61. She is on IV heparin. She is doing well without any chest pain. She is on norepinephrine infusion running at 0.09 g per KG per minute. Her most recent blood pressure 95/44. Note that her creatinine came up to 1.8 and the patient is producing urine output in the order of 30 mL an hour. No abdominal distention. Chest x-ray shows some cardiomegaly. Echo of the heart showed EF of around 55-60%. Resume cardiac structures were all within normal limits. The patient had mild aortic stenosis. The right ventricular systolic pressure was 43. Review of Systems Constitutional: Reports fatigue, Reports weakness Eyes: denies as per HPI, denies blurred vision, denies bulging eye, denies decre ased vision, denies diplopia, denies discharge, denies dry eye, denies irritation, denies itching, denies pain, denies photophobia, denies loss of peripheral vision, denies loss of vision, denies tunnel vision/blind spots Ears: deny: decreased hearing, ear discharge, earache, tinnitus Ears, nose, mouth and throat: Denies headache, Denies sore throat Breasts: absent: as per HPI, change in shape, gynecomastia, masses, nipple discharge, pain, skin changes, swelling Cardiovascular: Reports decreased exercise tolerance, Reports dyspnea on exertion, Denies chest pain, Denies shortness of breath Respiratory: Reports as per HPI, Reports dyspnea Gastrointestinal: Reports bloating Genitourinary: Reports as per HPI Menstruation: Reports as per HPI Musculoskeletal: Reports as per HPI Musculoskeletal: absent: ankle pain, ankle stiffness, ankle swelling Psychiatric: Reports as per HPI Endocrine: Reports as per HPI, Reports flushing Hematologic/Lymphatic: Reports as per HPI Allergic/Immunologic: Reports as per HPI Past Medical History Past Medical History: Cancer, Diabetes Mellitus, Hypertension, Liver Disease Additional Past Medical History / Comment(s): Pt recently admitted to 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 Other: Nonalcoholic cirrhosis-thought d/t rx, ascities/paracentesis, L breast cancer with lumpectomy, NIDDM type II, neuropathy bilateral legs/feet, History of Any Multi-Drug Resistant Organisms: None Reported Past Surgical History: Breast Surgery, Cholecystectomy Additional Past Surgical History / Comment(s): L breast lumpectomy for cancer, right breast lump removal-benign, paracentesis-several, Past Anesthesia/Blood Transfusion Reactions: No Reported Reaction Smoking Status: Never smoker - Past Family History Father Family Medical History: Cancer Additional Family Medical History / Comment(s): Colon cancer Brother(s) Family Medical History: Myocardial Infarction (MA) Additional Family Medical History / Comment(s): One brother with stents, another brother from an MA Mother Family Medical History: Neurologic Disorder Additional Family Medical History / Comment(s): Parkinsons Medications and Allergies Home Medications Medication Instructions Recorded Confirmed Type Cholecalciferol (Vitamin D3) 2,000 unit PO DAILY 02/08/19 06/10/19 History [Vitamin D3] Pioglitazone [Actos] 30 mg PO DAILY 02/08/19 06/10/19 History Sertraline [Zoloft] 50 mg PO DAILY 02/08/19 06/10/19 History sitaGLIPtin PHOSPHATE [Januvia] 100 mg PO DAILY 02/08/19 06/10/19 History Cyanocobalamin [Vitamin B-12] 1,000 mcg PO DAILY #60 tab 02/11/19 06/10/19 Rx Furosemide [Lasix] 40 mg PO BID #30 tablet 05/22/19 06/10/19 Rx Lisinopril [Zestril] 5 mg PO DAILY #0 05/22/19 06/10/19 Rx Niacin 2,000 mg PO DAILY 06/10/19 06/10/19 History Spironolactone 50 mg PO DAILY 06/10/19 06/10/19 History Allergies Allergy/AdvReac Type Severity Reaction Status Date / Time No Known Allergies Allergy Verified 06/10/19 10:16 Physical Exam Vitals: Vital Signs Temp Pulse Pulse Resp BP BP BP 06/12/19 16:15 63 17 76/35 06/12/19 16:00 114 H 14 87/57 06/12/19 15:45 125 H 21 76/53 06/12/19 15:30 17 80/45 06/12/19 15:15 125 H 16 82/51 06/12/19 15:00 120 H 18 73/34 06/12/19 14:45 107 H 14 85/54 06/12/19 14:30 118 H 12 107/85 06/12/19 14:15 122 H 12 87/61 06/12/19 14:00 110 H 18 88/64 06/12/19 13:45 124 H 14 99/58 06/12/19 13:30 102 H 18 84/68 06/12/19 13:15 121 H 13 67/53 06/12/19 13:00 123 H 15 82/55 06/12/19 12:45 128 H 23 76/55 06/12/19 12:30 123 H 18 81/59 06/12/19 12:15 108 H 24 94/59 06/12/19 12:00 97.1 F L 110 H 19 84/58 06/12/19 11:45 123 H 22 81/56 06/12/19 11:30 114 H 14 84/58 06/12/19 11:15 108 H 13 86/59 06/12/19 11:00 117 H 12 94/53 06/12/19 10:45 125 H 15 94/64 06/12/19 10:30 130 H 12 93/57 06/12/19 10:15 111 H 12 84/57 06/12/19 10:00 120 H 15 89/50 06/12/19 09:45 113 H 12 76/44 06/12/19 09:30 124 H 17 79/39 06/12/19 09:15 97.6 F 141 H 21 109/89 06/12/19 07:51 136 H 72/44 06/12/19 05:00 97.7 F 85 18 103/59 06/11/19 19:37 97.6 F 94 12 98/47 Pulse Ox 06/12/19 16:15 92 L 06/12/19 16:00 98 06/12/19 15:45 99 06/12/19 15:30 100 06/12/19 15:15 97 06/12/19 15:00 98 06/12/19 14:45 94 L 06/12/19 14:30 97 06/12/19 14:15 98 06/12/19 14:00 99 06/12/19 13:45 99 06/12/19 13:30 99 06/12/19 13:15 98 06/12/19 13:00 98 06/12/19 12:45 97 06/12/19 12:30 99 06/12/19 12:15 100 06/12/19 12:00 98 06/12/19 11:45 98 06/12/19 11:30 99 06/12/19 11:15 98 06/12/19 11:00 100 06/12/19 10:45 99 06/12/19 10:30 99 06/12/19 10:15 98 06/12/19 10:00 96 06/12/19 09:45 98 06/12/19 09:30 97 06/12/19 09:15 97 06/12/19 07:51 06/12/19 05:00 98 06/11/19 19:37 100 Intake and Output 06/12/19 06/12/19 06/12/19 06:59 14:59 22:59 Intake Total 666.56 1420 419.627 Output Total 265 60 Balance 666.56 1155 359.627 Intake: IV 1300 250 Magnesium Sulfate-D5w Pmx 100 1 gm In Dextrose/Water 1 100ml.bag @ 100 mls/hr IVPB Q1H [facility] Rx#: [id number] Sodium Chloride 0.9% 1, 300 150 000 ml @ 75 mls/hr IV . [id number] [facility] Rx#:[id number] Sodium Chloride 0.9% 1, 1000 000 ml @ 999 mls/hr IV . Q1H1M [facility] Rx#:[id number] Intake, IV Titration 666.56 49.627 Amount Norepinephrine 4 mg In 49.627 Sodium Chloride 0.9% 250 ml @ 0.05 MCG/KG/MIN 15. 872 mls/hr IV .Q16H1M [facility] Rx#:[id number] Sodium Chloride 0.9% 1, 666.56 000 ml In Empty Bag 1 bag @ 1 ML/KG/HR 83.32 mls/ hr IV .Q12H1M [facility] Rx#: [id number] Oral 120 120 Output: Urine 265 60 Other: Voiding Method Indwelling Catheter Indwelling Catheter Gen. appearance, comfortable likely distress Head exam was generally normal. There was no scleral icterus or corneal arcus. M ucous membranes were moist. Neck was supple and without jugular venous distension, thyromegaly, or carotid bruits. Carotids were easily palpable bilaterally. There was no adenopathy. Lungs sounds are diminished in lung bases bilaterally. Cardiac exam revealed the PMI to be normally situated and sized. The rhythm was regular and no extrasystoles were noted during several minutes of auscultation. The first and second heart sounds were normal and physiologic splitting of the second heart sound was noted. There were no murmurs, rubs, clicks, or gallops. Abdomen is nondistended. There may be some minimal ascites. No direct tenderness or rebound tenderness or guarding. Extremities revealed trace edema and there is no cyanosis or clubbing. Neurologically the patient is awake and alert and is no focal neurological deficit. Results - Laboratory Findings CBC and BMP: 06/12/19 07:31 06/12/19 10:20 PT/INR, D-dimer PT 12.7 sec (9.0-12.0) H 06/12/19 10:20 INR 1.3 (<1.2) H 06/12/19 10:20 Abnormal lab findings: Abnormal Labs 03/09/20 03/09/20 03/09/20 23:59 23:59 23:59 Hgb 11.2 L Hct MCV 79.2 L MCH MCHC RDW 16.3 H Plt Count 129 L Lymphocytes # 0.6 L PT 12.1 H INR 1.2 H Sodium 132 L Chloride 96 L BUN 33 H Creatinine Glucose 339 H POC Glucose (mg/dL) Calcium Troponin I Total Protein 6.2 L Albumin 3.3 L LDL Cholesterol, Calc Urine Appearance Urine Blood Ur Leukocyte Esterase Urine WBC Ur Squamous Epith Cells Urine Bacteria Hyaline Casts Urine Mucus 06/09/19 06/10/19 06/10/19 23:59 05:09 06:16 Hgb Hct MCV MCH MCHC RDW Plt Count Lymphocytes # PT INR Sodium Chloride BUN Creatinine Glucose POC Glucose (mg/dL) 340 H 298 H Calcium Troponin I 0.050 H* Total Protein Albumin LDL Cholesterol, Calc Urine Appearance Urine Blood Ur Leukocyte Esterase Urine WBC Ur Squamous Epith Cells Urine Bacteria Hyaline Casts Urine Mucus 06/10/19 06/10/19 06/11/19 06:30 20:47 03:59 Hgb Hct MCV MCH MCHC RDW Plt Count Lymphocytes # PT INR Sodium Chloride BUN Creatinine Glucose POC Glucose (mg/dL) 304 H Calcium Troponin I 0.038 H* Total Protein Albumin LDL Cholesterol, Calc Urine Appearance Cloudy H Urine Blood Small H Ur Leukocyte Esterase Large H Urine WBC 31 H Ur Squamous Epith Cells 5 H Urine Bacteria Moderate H Hyaline Casts 265 H Urine Mucus Rare H 06/11/19 06/11/19 06/11/19 07:17 08:51 08:51 Hgb Hct MCV MCH 24.6 L MCHC 30.0 L RDW 16.3 H Plt Count 114 L Lymphocytes # PT INR Sodium 135 L Chloride BUN 39 H Creatinine 1.43 H Glucose 214 H POC Glucose (mg/dL) 227 H Calcium Troponin I Total Protein Albumin LDL Cholesterol, Calc 105 H Urine Appearance Urine Blood Ur Leukocyte Esterase Urine WBC Ur Squamous Epith Cells Urine Bacteria Hyaline Casts Urine Mucus 06/11/19 06/11/19 06/11/19 11:30 17:08 19:57 Hgb Hct MCV MCH MCHC RDW Plt Count Lymphocytes # PT INR Sodium Chloride BUN Creatinine Glucose POC Glucose (mg/dL) 184 H 228 H 308 H Calcium Troponin I Total Protein Albumin LDL Cholesterol, Calc Urine Appearance Urine Blood Ur Leukocyte Esterase Urine WBC Ur Squamous Epith Cells Urine Bacteria Hyaline Casts Urine Mucus 06/12/19 06/12/19 06/12/19 07:21 07:31 07:31 Hgb 10.4 L Hct 33.3 L MCV MCH MCHC RDW 15.9 H Plt Count 84 L Lymphocytes # 0.8 L PT INR Sodium Chloride BUN Creatinine 1.85 H Glucose POC Glucose (mg/dL) 205 H Calcium Troponin I Total Protein Albumin LDL Cholesterol, Calc Urine Appearance Urine Blood Ur Leukocyte Esterase Urine WBC Ur Squamous Epith Cells Urine Bacteria Hyaline Casts Urine Mucus 06/12/19 06/12/19 06/12/19 08:35 09:01 10:20 Hgb Hct MCV MCH MCHC RDW Plt Count Lymphocytes # PT 12.7 H INR 1.3 H Sodium Chloride BUN Creatinine Glucose POC Glucose (mg/dL) 185 H 203 H Calcium Troponin I Total Protein Albumin LDL Cholesterol, Calc Urine Appearance Urine Blood Ur Leukocyte Esterase Urine WBC Ur Squamous Epith Cells Urine Bacteria Hyaline Casts Urine Mucus 06/12/19 06/12/19 10:20 12:22 Hgb Hct MCV MCH MCHC RDW Plt Count Lymphocytes # PT INR Sodium 133 L Chloride BUN 44 H Creatinine 1.86 H Glucose 184 H POC Glucose (mg/dL) 185 H Calcium 8.0 L Troponin I Total Protein Albumin LDL Cholesterol, Calc Urine Appearance Urine Blood Ur Leukocyte Esterase Urine WBC Ur Squamous Epith Cells Urine Bacteria Hyaline Casts Urine Mucus - Diagnostic Findings Chest x-ray: image reviewed Assessment and Plan Plan: 1 acute hypotension accompanied by Smitha. susan RVR, currently converted back to normal sinus rhythm and the patient's blood pressure remains low and the patient's pressor dependent on norepinephrine infusion at 0.09 g per KG per minute. She does have abnormal stress test with induced left ventricular myocardial ischemia involving the lateral wall. Consider underlying coronary artery disease. 2 nonalcoholic liver cirrhosis and the patient is status post large volume paracentesis last paracentesis being done 06/10/2019 3 paroxysmal atrial fibrillation currently in normal sinus rhythm and the patient is on IV heparin 4 positive troponins. An underlying positive stress test about underlying coronary artery disease 5 liver cirrhosis with splenic sequestration and portal hypertension and mild coagulopathy 6 diabetes mellitus type 2 7 peripheral neuropathy 8 history of breast cancer with a previous lumpectomy on the left 9 mild thrombocytopenia 10 acute kidney injury, probably related to hypotension/large volume para centesis. Consider prerenal azotemia. The patient is nonoliguric at this point in time. Plan Give the patient 5% albumin 1 if needed 2 and monitor the blood pressure in the urine output and gradually wean off pressors Considered an arterial line for blood pressure monitoring Continue IV Rocephin Monitor the cardiac rhythm and echocardiogram has been noted IV heparin Monitor hematologic profile including the platelets Cardiac catheterization later stage, once the patient's renal function st abilizes. For now we'll going to hydrate this patient with normal state rate of 75 mL an hour. We'll also give IV albumin. Keep the patient ICU for further monitoring. We'll continue to follow.
[2019-06-12 17:26] LABS: Glucose,Whole Blood 316 mg/dL (75-99)
[2019-06-12] MEDS: METOPROLOL TARTRATE 25 MG TAB PO SCH ×2 (17:48→21:43)
[2019-06-12 21:37] LABS: Glucose,Whole Blood 201 mg/dL (75-99)
[2019-06-13] MEDS: NOREPINEPHRINE 4 MG in SODIUM CHLORIDE 0.9% 250 ML IV SCH ×3 (05:00→19:04)
[2019-06-13 05:07] LABS: Anisocytosis Slight; Basophils % (A) 0 %; Eosinophils # (A) 0.2 k/uL (0-0.7); Eosinophils % (A) 2 %; HCT 31.7 % (34.0-46.0); HGB 9.9 gm/dL (11.4-16.0); Hypochromasia Slight; Lymphocytes # (A) 1.5 k/uL (1.0-4.8); Lymphocytes % (A) 15 %; MCH 25.6 pg (25.0-35.0); MCHC 31.2 g/dL (31.0-37.0); Mean Platelet Volume 9.4; Monocytes % (A) 10 %; Neutrophils # (A) 7.4 k/uL (1.3-7.7); Neutrophils % (A) 71 %; RBC 3.87 m/uL (3.80-5.40); RDW 16.5 % (11.5-15.5); WBC 10.4 k/uL (3.8-10.6)
[2019-06-13 05:14] LABS: Platelet Count 181 k/uL (150-450)
[2019-06-13 05:38] LABS: Potassium 5.1 mmol/L (3.5-5.1)
--- NOTE | 2019-06-13 06:29 | CONS ---
CONSULTATION DATE OF DICTATION: 06/12/2019 REASON FOR CONSULTATION: Anemia and history of liver cirrhosis. HISTORY OF PRESENT ILLNESS: The patient is a 79-year-old pleasant white female with history of nonalcoholic liver cirrhosis diagnosed 6 months ago, longstanding history of diabetes mellitus and hypertension was admitted to the hospital because of abdominal distention and ascites as well as shortness of breath. She underwent large volume paracentesis 2 days ago and approximately 3.2 L of fluid was removed. In the meantime while in the hospital, she had slightly elevated troponin and hence she underwent a cardiac evaluation and had a stress test that showed positive for reversible ischemia and hence she is going for a cardiac catheterization tomorrow. In the meantime, she developed A Fib with rapid RVR and became hypotensive transferred to the intensive care unit. We are consulted to evaluate and recommendation regarding starting her on IV heparin. In the meantime, the patient denies any GI symptoms. She reports no abdominal pain. She denies any nausea, vomiting. No rectal bleeding. No melena. No prior history of EGD or colonoscopy in the past. Currently, she remains hemodynamically stable. PAST MEDICAL HISTORY: Past medical history is significant for longstanding history of diabetes mellitus, hypertension, liver cirrhosis diagnosed 6 months ago with ascites, status post large volume paracentesis 3 days ago, neuropathy, history of breast cancer. PAST SURGICAL HISTORY: Breast surgery, cholecystectomy, and paracentesis. MEDICATIONS: Medications at home include vitamin D3, Actos, Zoloft, Januvia, vitamin B12, Lasix, Zestril, Niacin, spironolactone. ALLERGIES: None. SOCIAL HISTORY: No smoking. No alcohol use. FAMILY HISTORY: Unremarkable. REVIEW OF SYSTEMS: CARDIOPULMONARY: Complains of some shortness of breath, but no chest pain. GENITOURINARY: No dysuria or hematuria. MUSCULOSKELETAL: Unremarkable. SKIN: Unremarkable. ENDOCRINE: Unremarkable. PSYCHIATRIC: History of anxiety. NEUROLOGY: Unremarkable. ENT/VISION: Unremarkable. CONSTITUTIONAL: No recent weight loss. No fever, chills, night sweats. PHYSICAL EXAMINATION: On physical examination, she appears comfortable in no apparent distress. Vital signs are stable. Blood pressure is a 107/85, pulse rate 63 and afebrile. HEENT: Examination unremarkable. Conjunctivae pink. Sclerae anicteric. Oral cavity, no lesions. NECK: No JVD or lymph node enlargement. CHEST: Clear to auscultation. HEART: Regular rate and rhythm. ABDOMEN: Soft. There was no free fluid noted. The liver and spleen were not palpable. EXTREMITIES: No pedal edema. SKIN: No rashes. NEURO: She is awake, alert, oriented x3. No focal deficits. LABS: Labs done today, WBC 4.2, hemoglobin 10.4, platelets are 84,000. At the time of admission to the hospital, hemoglobin was 11.2. INR is 1.3. AST and ALT 26 and 18 respectively. T-bilirubin and alkaline phosphatase are normal. Troponin was 0.050. IMPRESSION: 1. Non-alcoholic cirrhosis of the liver diagnosed a few months ago when she presented with new onset ascites. She is status post large volume paracentesis 3 days ago and doing much better. She has decompensated liver disease with preserved function. 2. Mild anemia, but clinically no evidence of active gastrointestinal bleed, most likely anemia is explained with of chronic underlying liver disease. 3. Atrial fibrillation with rapid ventricular response and hypotension. Patient presently in the ICU being monitored closely. 4. Mild elevation of troponin with reversible cardiac ischemia on recent stress test. Cardiology is evaluating the patient and for possible cardiac catheterization tomorrow. 5. Diabetes mellitus. 6. Hypertension. RECOMMENDATION: 1. Since there is no evidence of active bleeding, there is no contraindication to start her on anticoagulation with IV heparin. 2. Monitor CBC on a close basis. 3. If she has any evidence of active bleeding, will consider an endoscopy intervention at that time. For now, we will follow her closely and monitor her labs on a daily basis. Thank you for this consultation. MMODL / IJN: [id number] /
[2019-06-13 07:02] LABS: Glucose,Whole Blood 221 mg/dL (75-99)
[2019-06-13] MEDS: INSULIN ASPART (NovoLOG) 100 UNIT/ML VIAL SQ SCH ×5 (07:28→21:09)
[2019-06-13] MEDS: CHOLECALCIFEROL 1,000 UNIT TAB PO SCH (09:27)
[2019-06-13] MEDS: GABAPENTIN 100 MG CAP PO SCH ×3 (09:27→21:11)
[2019-06-13] MEDS: ASPIRIN 81 MG PO SCH (09:27)
[2019-06-13] MEDS: CYANOCOBALAMIN 500 MCG TAB PO SCH (09:27)
[2019-06-13] MEDS: PANTOPRAZOLE 40 MG/10 ML VIAL IV SCH (09:28)
[2019-06-13] MEDS: METOPROLOL TARTRATE 25 MG TAB PO SCH ×2 (09:28→21:12)
[2019-06-13] MEDS: NIACIN TR 500 MG CAPLET PO SCH (09:28)
[2019-06-13] MEDS: SERTRALINE 50 MG TAB PO SCH (09:29)
--- NOTE | 2019-06-13 09:30 | PCN ---
PROCEDURE NOTE PREOPERATIVE DIAGNOSIS: Hypovolemic, hypotension. POSTOPERATIVE DIAGNOSIS: Hypovolemic, hypotension. LEFT RADIAL ARTERIAL LINE PLACEMENT: Indications: Hemodynamic monitoring. A time-out was completed verifying correct patient, procedure, site, positioning, and implant(s) or special equipment if applicable. Tyler's test was performed to ensure adequate perfusion. The patient's left wrist was prepped and draped in sterile fashion. 1% Lidocaine was used to anesthetize the area. An 18G Arrow arterial line was introduced into the left radial artery. The catheter was threaded over the guide wire and the needle was removed with appropriate pulsatile blood return. Blood loss was minimal. The catheter was then sutured in place to the skin and a sterile dressing applied. Perfusion to the extremity distal to the point of catheter insertion was checked and found to be adequate. The patient tolerated the procedure well. The patient was awake for the procedure. The area was numbed with 1% lidocaine. The radial line was placed without any difficulty. Good waveform was noted. Line was sutured in place, flushed, sterile dressing was applied. MMODL / IJN: [id number] /
[2019-06-13] MEDS ORDERED: ALBUMIN HUMAN 5% 250 ML in EMPTY BAG 1 BAG IVPB ONE (10:23)
--- NOTE | 2019-06-13 10:26 | P.PN ---
Subjective Progress Note Date: 06/13/19 Principal diagnosis: Hypotension, A. fib RVR This is a 79-year-old female patient with known history of nonalcoholic liver cirrhosis. The patient also has history of diabetes and hypertension. She has had previous paracentesis on several occasions for abdominal distention and ascites. The patient came into the hospital and the patient was noted to have increased abdominal distention associated with some shortness of breath. She also had some limited chest pain. No nausea or vomiting. She underwent a paracentesis for a total of 3.2 L of ascitic fluid was removed and it was not sent for any cultures. The patient subsequently improved and she was doing well. Her troponins were positive at 0.5. The patient was given a cardiac stress test that came back positive for reversible ischemia and based on that and based on the positive stress test, the patient was being planned for a cardiac catheterization. Earlier this morning the patient went into atrial fibrillation with RVR. Her blood pressure dropped and she got transferred to the intensive care unit. Upon arrival her systolic blood pressure was in the 60s. The patient was started on IV fluids bolus and she was given 1.5 L. Subsequently she was given 2.5 mg of IV Lopressor. This afternoon she converted back to normal sinus rhythm. She is currently in normal sinus rhythm with a rate of 61. She is on IV heparin. She is doing well without any chest pain. She is on norepinephrine infusion running at 0.09 g per KG per minute. Her most recent blood pressure 95/44. Note that her creatinine came up to 1.8 and the patient is producing urine output in the order of 30 mL an hour. No abdominal distention. Chest x-ray shows some cardiomegaly. Echo of the heart showed EF of around 55-60%. Resume cardiac structures were all within normal limits. The patient had mild aortic stenosis. The right ventricular systolic pressure was 43. The patient is seen today in the intensive care unit. She is currently awake and alert in no acute distress. She remains hypotensive however. She is on norepinephrine at 0.16 mcg/kg/m. 0.9 normal saline at 75 ML's per hour. Heparin drip per weight base protocol. Currently in sinus rhythm. Maintaining O2 saturations in the 90s on 2 L/m per nasal cannula. White count 10.4. Hemoglobin 9.9. Platelet count 181,000. Sodium 129. Potassium 5.1. Bicarb 19. Creatinine 2.03. TSH 1.12. Objective - Vital Signs Vital signs: Vital Signs Temp 99.1 F 06/13/19 08:00 Pulse 67 06/13/19 10:00 Resp 18 06/13/19 10:00 BP 79/44 06/13/19 09:45 Pulse Ox 92 L 06/13/19 10:00 Intake & Output 06/12/19 06/13/19 06/13/19 18:59 06:59 18:59 Intake Total 2514.627 1662.773 601.896 Output Total 400 355 255 Balance 2114.627 1307.773 346.896 Weight 84.4 kg Intake: IV 1745 900 340 Magnesium Sulfate-D5w Pmx 200 1 gm In Dextrose/Water 1 100ml.bag @ 100 mls/hr IVPB Q1H [facility]UP[facility] Rx#: [id number] Sodium Chloride 0.9% 1, 545 900 290 000 ml @ 75 mls/hr IV . [id number] [facility]UPAM Rx#:[id number] Sodium Chloride 0.9% 1, 1000 000 ml @ 999 mls/hr IV . Q1H1M ONE Rx#:[id number] cefTRIAXone 1 gm In 50 Sodium Chloride 0.9% 50 ml @ 100 mls/hr IVPB Q24HR ANUPAM Rx#:[id number] Intake, IV Titration 49.627 512.773 261.896 Amount Heparin Sod,Pork in 0.45% 67.986 NaCl 25,000 unit In 0.45 % NaCl 1 250ml.bag @ 12 UNITS/KG/HR 9.998 mls/hr IV .Q24H ANUPAM Rx#: [id number] Norepinephrine 4 mg In 49.627 444.787 261.896 Sodium Chloride 0.9% 250 ml @ 0.05 MCG/KG/MIN 15. 872 mls/hr IV .Q16H1M [facility] Rx#:[id number] Oral 720 250 Output: Urine 400 355 255 Other: Voiding Method Indwelling Catheter Indwelling Catheter Indwelling Catheter ABP, PAP, CO, CI - Last Documented Arterial Blood Pressure 89/36 - Exam GENERAL EXAM: Alert, pleasant 79 yold female, on 2 L nasal cannula, comfortable in no apparent distress. HEAD: Normocephalic. EYES: Normal reaction of pupils, equal size. NOSE: Clear with pink turbinates. THROAT: No erythema or exudates. NECK: No masses, no JVD. CHEST: No chest wall deformity. LUNGS: Equal air entry with crackles in the bases. CVS: S1 and S2 normal with no audible murmur, regular rhythm. ABDOMEN: Soft, normal bowel sounds, no guarding or rigidity. SPINE: No scoliosis or deformity SKIN: No rashes CENTRAL NERVOUS SYSTEM: No focal deficits, tone is normal in all 4 extremities. EXTREMITIES: There is no peripheral edema. No clubbing, no cyanosis. Peripheral pulses are intact. - Labs CBC & Chem 7: 06/13/19 04:55 06/13/19 04:55 Labs: Abnormal Lab Results - Last 24 Hours (Table) 06/12/19 06/12/19 06/12/19 Range/Units 10:20 10:20 12:22 Hgb (11.4-16.0) gm/dL Hct (34.0-46.0) % RDW (11.5-15.5) % PT 12.7 H (9.0-12.0) sec INR 1.3 H (<1.2) APTT (22.0-30.0) sec Sodium 133 L (137-145) mmol/L Carbon Dioxide (22-30) mmol/L BUN 44 H (7-17) mg/dL Creatinine 1.86 H (0.52-1.04) mg/dL Glucose 184 H (74-99) mg/dL POC Glucose (mg/dL) 185 H (75-99) mg/dL Calcium 8.0 L (8.4-10.2) mg/dL 06/12/19 06/12/19 06/12/19 Range/Units 17:24 19:00 21:35 Hgb (11.4-16.0) gm/dL Hct (34.0-46.0) % RDW (11.5-15.5) % PT (9.0-12.0) sec INR (<1.2) APTT 164.2 H* (22.0-30.0) sec Sodium (137-145) mmol/L Carbon Dioxide (22-30) mmol/L BUN (7-17) mg/dL Creatinine (0.52-1.04) mg/dL Glucose (74-99) mg/dL POC Glucose (mg/dL) 316 H 201 H (75-99) mg/dL Calcium (8.4-10.2) mg/dL 06/13/19 06/13/19 06/13/19 Range/Units 04:55 04:55 04:55 Hgb 9.9 L (11.4-16.0) gm/dL Hct 31.7 L (34.0-46.0) % RDW 16.5 H (11.5-15.5) % PT (9.0-12.0) sec INR (<1.2) APTT 59.4 H (22.0-30.0) sec Sodium 129 L (137-145) mmol/L Carbon Dioxide 19 L (22-30) mmol/L BUN 48 H (7-17) mg/dL Creatinine 2.03 H (0.52-1.04) mg/dL Glucose 201 H (74-99) mg/dL POC Glucose (mg/dL) (75-99) mg/dL Calcium 8.0 L (8.4-10.2) mg/dL 06/13/19 Range/Units 07:00 Hgb (11.4-16.0) gm/dL Hct (34.0-46.0) % RDW (11.5-15.5) % PT (9.0-12.0) sec INR (<1.2) APTT (22.0-30.0) sec Sodium (137-145) mmol/L Carbon Dioxide (22-30) mmol/L BUN (7-17) mg/dL Creatinine (0.52-1.04) mg/dL Glucose (74-99) mg/dL POC Glucose (mg/dL) 221 H (75-99) mg/dL Calcium (8.4-10.2) mg/dL Assessment and Plan Assessment: 1 acute hypotension accompanied by A. fib RVR, currently converted back to normal sinus rhythm and the patient's blood pressure remains low and the patient's pressor dependent on norepinephrine infusion at 0.16 g per KG per minute. She does have abnormal stress test with induced left ventricular myocardial ischemia involving the lateral wall. Consider underlying coronary artery disease. 2 nonalcoholic liver cirrhosis and the patient is status post large volume paracentesis last paracentesis being done 06/10/2019 3 paroxysmal atrial fibrillation currently in normal sinus rhythm and the patient is on IV heparin 4 positive troponins. An underlying positive stress test about underlying coronary artery disease 5 liver cirrhosis with splenic sequestration and portal hypertension and mild coagulopathy 6 diabetes mellitus type 2 7 peripheral neuropathy 8 history of breast cancer with a previous lumpectomy on the left 9 mild thrombocytopenia 10 acute kidney injury, probably related to hypotension/large volume paracentesis. Consider prerenal azotemia. The patient is nonoliguric at this point in time. Plan The patient was seen and evaluated by Dr. Baldwin. DC Lasix and aldactone Give albumin x 1 Continue 0.9 saline at 75 mls/hr Continue heparin drip for now Continue to monitor blood pressure Continue ICU I, the cosigning physician, performed a history & physical examination of the patient. Lungs sounds with crackles in the bases. Maintaining good O2 saturations in the 90s on 2L/min per nasal canula. I discussed the assessment and plan of care with my nurse practitioner, Yulisa Vicente. I attest to the above note as dictated by her.
[2019-06-13] MEDS: SPIRONOLACTONE 25 MG TAB PO SCH (10:39)
[2019-06-13] MEDS: PIOGLITAZONE 30 MG TAB PO SCH (10:39)
[2019-06-13 12:15] LABS: Glucose,Whole Blood 213 mg/dL (75-99)
[2019-06-13] MEDS: HEPARIN SOD,PORK IN 0.45% NACL 25,000 UNIT in 0.45% NACL 1 250ML.BAG IV SCH ×2 (12:31→21:06)
[2019-06-13] MEDS: SODIUM CHLORIDE 0.9% 1,000 ML IV SCH (12:31)
--- NOTE | 2019-06-13 16:39 | PN ---
PROGRESS NOTE Mrs. Gordon is a 79-year-old female who has recurrent ascites, has been undergoing repeat paracentesis, was admitted after the paracentesis because of symptoms of chest discomfort and had mild troponin elevation. She had a stress test that was abnormal and was scheduled to undergo a cardiac catheterization when she had evidence of atrial fibrillation with rapid ventricular response and hypotension. The patient has a history of non-alcoholic liver cirrhosis. She is back in sinus mechanism at this time. She denies any symptoms of chest discomfort. She denies any dizziness or palpitations. She denies any nausea. She continues to be at this time on aspirin 81 mg daily. She is on IV heparin, Tradjenta, metoprolol tartrate 25 mg twice a day, Actos, sertraline, spironolactone. PHYSICAL EXAMINATION: Blood pressure running in the 100s with heart rate in the 60s. LUNGS: Clear. HEART: Regular rate and rhythm. S1, S2. No S3 with systolic murmur and diastolic murmur. ABDOMEN: Soft, mild tenderness. No organomegaly. EXTREMITIES: No edema. LAB DATA: Revealed BUN and creatinine 48 and 2.03, worse than yesterday, hemoglobin is 9.9. IMPRESSION: 1. Paroxysmal atrial fibrillation, back in sinus mechanism. 2. Mild troponin elevation with abnormal myocardial perfusion imaging. 3. Recurrent ascites. 4. Renal failure, worsening. 5. Non-alcoholic liver cirrhosis. 6. Diabetes mellitus. 7. Thrombocytopenia. RECOMMENDATIONS: From the cardiac standpoint, will continue on the present therapy. The decision will need to be made regarding prior anticoagulation and that depends on her progress and the need for further intervention. At this time, no indication for cardiac catheterization in view of the worsening renal function. MMODL / IJN: [id number] /
[2019-06-13 17:00] LABS: Glucose,Whole Blood 237 mg/dL (75-99)
--- NOTE | 2019-06-13 17:39 | PN ---
PROGRESS NOTE DATE OF DICTATION: 06/13/2019 This patient is a 79-year-old pleasant white female with liver cirrhosis and portal hypertension with ascites who underwent large-volume paracentesis 4 few days ago. She was transferred to the intensive care unit because of hypotension and atrial fibrillation with RVR. She is on Levophed for continued hypotension. She denies any symptoms. She reports no abdominal pain, reports no nausea, vomiting. Denies any rectal bleeding or melena. PHYSICAL EXAMINATION: She appears comfortable. No apparent distress. VITAL SIGNS: Stable. Blood pressure is 79/44, pulse rate 67, temperature 99.1. HEENT examination unremarkable. Conjunctivae pink. Sclerae anicteric. Oral cavity no lesions. NECK: No JVD or lymph node enlargement. CHEST: Clear to auscultation. HEART: Regular rate and rhythm. ABDOMEN: Soft. There was no fluid noted. No shifting dullness seen. EXTREMITIES: No pedal edema. SKIN: No rashes. NEUROLOGIC: She is alert and oriented x3. No focal deficits. LABS: Labs from today show WBC 10.4, hemoglobin 9.9, platelets 181,000. BUN 48, creatinine 2.03. Sodium 129, potassium 5.1, CO2 102 and chloride 19. IMPRESSION: 1. Cirrhosis of the liver secondary to nonalcoholic liver disease with portal hypertension and gradual decompensation. 2. Ascites, status post paracentesis 3 weeks ago. 3. Hypertension secondary to atrial fibrillation and rapid ventricular response. Remains on Levophed. 4. History of diabetes mellitus. 5. Elevated BUN and creatinine secondary to acute kidney injury. RECOMMENDATIONS: 1. Continue management as per ICU. 2. Agree with holding off on diuretics for now. 3. Monitor labs on a daily basis. 4. Will follow with you closely. Thank you for this consultation. MMODL / IJN: [id number] /
[2019-06-13] MEDS ORDERED: INSULIN DETEMIR (LEVEMIR) 100 UNIT/ML SYR SQ SCH (21:00)
[2019-06-13 21:02] LABS: Glucose,Whole Blood 257 mg/dL (75-99)
--- NOTE | 2019-06-13 21:45 | PN ---
PROGRESS NOTE DATE OF SERVICE: 06/13/2019 This 79-year-old woman who was admitted with ascites, acute exacerbation, also had abdominal paracentesis. Subsequently patient developed relative hypotension multifactorial with cardiogenic shock. The patient also had atrial fibrillation with fast ventricular rate. The patient is still on a small dose of Levophed. The patient being closely monitored by Cardiology at this time. Gastroenterology also following the patient closely. The patient was given IV Lopressor also. Past medical history reviewed. The current sodium is 129, hemoglobin is 9.9. PAST MEDICAL HISTORY: Reviewed. REVIEW OF SYSTEMS: Cardiovascular system is as mentioned earlier. RESPIRATORY: As mentioned earlier. GI: As mentioned earlier. no dysuria. NERVOUS SYSTEM: No numbness or weakness. CURRENT MEDICATIONS: Reviewed and include: 1. Tylenol p.r.n. 2. Xanax 0.5 t.i.d. 3. Aspirin 81 mg. 4. Rocephin 1 g daily. 5. Folic acid. 6. Vitamin B1. 7. Neurontin. 8. Heparin. 9. Dilaudid 0.5 mg q.3 p.r.n. 10.NovoLog scale. 11.Levemir. 12.Lopressor 25 mg p.o. b.i.d. 13.Narcan. 14.Nitrostat. 15.Actos. 16.Aldactone. 17.Restoril. PHYSICAL EXAMINATION: On physical exam, the patient alert and oriented times three. Pulse 69 and regular, blood pressure 88/33, respiration 20. Temperature normal. Pulse ox 94% on room air. HEENT: Conjunctivae normal. NECK: No JVD. CARDIOVASCULAR: S1, S2 muffled. RESPIRATIONS: Breath sounds diminished in the bases. A few scattered rhonchi and crackles. ABDOMEN: Soft, minimal ascites. LEGS no edema. No swelling. CENTRAL NERVOUS SYSTEM: Higher functions as mentioned earlier. Moves all 4 limbs. No focal motor or sensory deficits. LYMPHATICS: No lymph nodes palpable in the neck, axillae or groin. SKIN: No ulcer, rashes or bleeding. JOINTS: No active deforming arthropathy. LAB: Labs are at this time WBC 10.3, hemoglobin 10.9, APTT noted. Creatinine is 2.03. The baseline was normal. ASSESSMENT: 1. Ascites, acute exacerbation with secondary to nonalcoholic cirrhosis, status post abdominal paracentesis and distention. 2. Chest pain with troponin 0.050 possible acute ooz-WT-fwvitat-elevation myocardial infarction with abnormal stress test. 3. Relative hypotension multifactorial hypotension, possible cardiogenic shock. 4. Atrial fibrillation with fast ventricular rate. 5. Acute renal failure with acute tubular necrosis and prerenal factors. 6. Acute urinary tract infection present on admission. 7. Anemia, microcytic of undetermined etiology. 8. Chronic coagulopathy secondary to chronic liver disease, present on admission. 9. Hyponatremia, possibly SIADH. 10.Diabetes mellitus type 2, uncontrolled with hyperglycemia. 11.Obesity. 12.Hypertension. 13.Chronic liver disease. 14.Thrombocytopenia. 15.History of left breast cancer with lumpectomy. 16.History of peripheral neuropathy. 17.History of breast surgery. 18.History of cholecystectomy. 19.History of depression. 20.FULL CODE. RECOMMENDATIONS AND DISCUSSION: In this 79-year-old woman who presented with multiple complex medical issues, we will monitor the patient closely, continue the current medications, management and symptomatic treatment. The patient has multiple medical issues as mentioned earlier. The cardiac rhythm is normal sinus rhythm but still the patient is hypotensive and the most recent chest x-rays not available. I will repeat a chest x-ray tomorrow morning and follow with multiple consultants. Avoid nephrotoxic medications. Albumin has been given. The patient is on IV heparin as well. 2D echo with Doppler this admission was reviewed which showed ejection fraction about 50-60 percent and multiple mild valvular abnormalities also. Once again, the prognosis guarded because of multiple complex medical issues. Closely follow with Cardiology and multiple other consultants and continue to monitor. Further recommendations to follow. MMODL / IJN: [id number] /
[2019-06-14] MEDS: NOREPINEPHRINE 4 MG in SODIUM CHLORIDE 0.9% 250 ML IV SCH ×5 (02:04→19:10)
[2019-06-14] MEDS: SODIUM CHLORIDE 0.9% 1,000 ML IV SCH ×2 (03:46→12:20)
[2019-06-14 05:25] LABS: Anisocytosis Slight; Basophils % (A) 0 %; Eosinophils # (A) 0.2 k/uL (0-0.7); Eosinophils % (A) 2 %; HCT 33.4 % (34.0-46.0); HGB 10.2 gm/dL (11.4-16.0); Hypochromasia Slight; Lymphocytes # (A) 1.5 k/uL (1.0-4.8); Lymphocytes % (A) 14 %; MCH 25.3 pg (25.0-35.0); MCHC 30.4 g/dL (31.0-37.0); MCV 83.1 fL (80.0-100.0); Monocytes # (A) 0.9 k/uL (0-1.0); Monocytes % (A) 8 %; Neutrophils % (A) 73 %; Platelet Count 178 k/uL (150-450); RBC 4.01 m/uL (3.80-5.40); RDW 16.7 % (11.5-15.5); WBC 10.9 k/uL (3.8-10.6)
[2019-06-14 06:33] LABS: Calcium 8.1 mg/dL (8.4-10.2); Potassium 5.2 mmol/L (3.5-5.1)
[2019-06-14 06:49] LABS: Glucose,Whole Blood 266 mg/dL (75-99)
[2019-06-14] MEDS: INSULIN ASPART (NovoLOG) 100 UNIT/ML VIAL SQ SCH ×3 (07:09→12:09)
--- NOTE | 2019-06-14 08:26 | XR ---
EXAMINATION TYPE: XR chest 1V portable DATE OF EXAM: 06/14/2019 COMPARISON: 06/12/2019 HISTORY: Congestive heart failure and shortness of breath TECHNIQUE: Single frontal view of the chest is obtained. FINDINGS: Cardia mediastinal silhouette is enlarged. There is worsening central pulmonary vascular c ongestion and small bilateral layering pleural effusions with associated bibasilar airspace disease. No acute osseous pathology seen. Diffuse osseous demineralization. Surgical clips in the left breast/ axilla. IMPRESSION: Worsening fluid overload likely on the basis of decompensated congestive heart failure w ith new small pleural effusions.
[2019-06-14] MEDS: ASPIRIN 81 MG PO SCH (08:28)
[2019-06-14] MEDS: CHOLECALCIFEROL 1,000 UNIT TAB PO SCH (08:28)
[2019-06-14] MEDS: CYANOCOBALAMIN 500 MCG TAB PO SCH (08:29)
[2019-06-14] MEDS: GABAPENTIN 100 MG CAP PO SCH ×3 (08:30→21:20)
[2019-06-14] MEDS: SPIRONOLACTONE 25 MG TAB PO SCH (08:33)
[2019-06-14] MEDS: PIOGLITAZONE 30 MG TAB PO SCH (08:34)
[2019-06-14] MEDS: NIACIN TR 500 MG CAPLET PO SCH (08:34)
[2019-06-14] MEDS: SERTRALINE 50 MG TAB PO SCH (08:34)
[2019-06-14] MEDS: METOPROLOL TARTRATE 25 MG TAB PO SCH ×2 (08:35→21:20)
[2019-06-14] MEDS: PANTOPRAZOLE 40 MG/10 ML VIAL IV SCH (08:35)
--- NOTE | 2019-06-14 10:45 | PN ---
PROGRESS NOTE DATE OF SERVICE: June 14, 2019 Patient is a 79-year-old pleasant white female with history of non alcoholic cirrhosis of the liver and ascites who was admitted to the hospital and underwent paracentesis. While in the hospital, developed atrial fibrillation and hypertension and has been in the intensive care unit since. She is doing much better and remains on Levophed. Overall feeling good. She denies any symptoms. She reports no abdominal pain. No abdominal distention. On a regular diet tolerating well. She remains on IV heparin. PHYSICAL EXAMINATION: She appears comfortable. No apparent distress. VITAL SIGNS: Stable. Blood pressure is 93/34, pulse rate 73, and afebrile. HEENT: Examination unremarkable, conjunctivae are pink, sclerae anicteric. Oral cavity no lesions. NECK: No JVD or lymph node enlargement. CHEST: Clear to auscultation. HEART: Regular rate and rhythm. ABDOMEN: Soft. Bowel sounds are positive. No organomegaly. EXTREMITIES: No pedal edema. SKIN no rashes. NEURO: She is alert and oriented x3. No focal deficits. LABS: Labs from today: WBC 10.9, hemoglobin 10.2, platelets normal. Basic metabolic panel showed BUN of 48, creatinine 1.93. IMPRESSION: 1. Nonalcoholic cirrhosis of the liver with gradual decompensation. 2. Ascites requiring paracentesis every 3-4 weeks, last one was done 5 days ago and 3.1 L removed. Presently on low dose of diuretics. BUN and creatinine are 48 and 1.93 respectively. 3. Chronic kidney disease. 4. Atrial fibrillation with RVR, which is controlled. 5. Hypertension, on Levophed. RECOMMENDATION: 1. Continue with ICU management. 2. Continue with low-dose diuretics. 3. Monitor labs on a daily basis. 4. We will follow with you. Thank you for this consultation. MMODL / IJN: [id number] /
[2019-06-14 11:56] LABS: Glucose,Whole Blood 336 mg/dL (75-99)
[2019-06-14] MEDS ORDERED: INSULIN ASPART (NovoLOG) 100 UNIT/ML VIAL SQ SCH (12:30)
--- NOTE | 2019-06-14 13:30 | PN ---
PROGRESS NOTE This patient has a history of nonalcoholic cirrhosis of the liver. Patient developed atrial fibrillation with a rapid ventricular rate as well as progressive renal failure. Patient had some abnormal troponin and initial plan was to undergo cardiac catheterization, but because of the patient's worsening renal function at present, medical treatment is recommended. The patient is lying comfortably in bed. No respiratory distress is noted. Her respiratory rate is 28, blood pressure is 113/48 mmHg. First and second heart sounds are normal. Lungs are clear to auscultation and percussion. Patient's creatinine is 1.93. We will continue the current medications, and if it is okay with the GI service, we will start the patient on the Coumadin. MMODL / IJN: [id number] /
--- NOTE | 2019-06-14 16:16 | P.PN ---
Subjective Progress Note Date: 06/14/19 This is a 79-year-old female patient with known history of nonalcoholic liver cirrhosis. The patient also has history of diabetes and hypertension. She has had previous paracentesis on several occasions for abdominal distention and ascites. The patient came into the hospital and the patient was noted to have increased abdominal distention associated with some shortness of breath. She also had some limited chest pain. No nausea or vomiting. She underwent a paracentesis for a total of 3.2 L of ascitic fluid was removed and it was not sent for any cultures. The patient subsequently improved and she was doing well. Her troponins were positive at 0.5. The patient was given a cardiac stress test that came back positive for reversible ischemia and based on that and based on the positive stress test, the patient was being planned for a cardiac catheterization. Earlier this morning the patient went into atrial fibrillation with RVR. Her blood pressure dropped and she got transferred to [facility] intensive care unit. Upon arrival her systolic blood pressure was in the 60s. The patient was started on IV fluids bolus and she was given 1.5 L. Subsequently she was given 2.5 mg of IV Lopressor. This afternoon she converted back to normal sinus rhythm. She is currently in normal sinus rhythm with a rate of 61. She is on IV heparin. She is doing well without any chest pain. She is on norepinephrine infusion running at 0.09 g per KG per minute. Her most recent blood pressure 95/44. Note that her creatinine came up to 1.8 and the patient is producing urine output in the order of 30 mL an hour. No abdominal distention. Chest x-ray shows some cardiomegaly. Echo of the heart showed EF of around 55-60%. Resume cardiac structures were all within normal limits. The patient had mild aortic stenosis. The right ventricular systolic pressure was 43. The patient is seen today in the intensive care unit. She is currently awake and alert in no acute distress. She remains hypotensive however. She is on norepinephrine at 0.16 mcg/kg/m. 0.9 normal saline at 75 ML's per hour. Heparin drip per weight base protocol. Currently in sinus rhythm. Maintaining O2 saturations in the 90s on 2 L/m per nasal cannula. White count 10.4. Hemoglobin 9.9. Platelet count 181,000. Sodium 129. Potassium 5.1. Bicarb 19. Creatinine 2.03. TSH 1.12. On 06/14/2019 on seeing the patient for a follow-up. This is a follow-up this being done in the intensive care unit. The patient is looking quite comfortable. No altered mentation. His resting comfortably in bed. No tachy cardia. Her cardiac rhythm remains sinus. Nevertheless, the patient remains profoundly hypotensive. She is requiring pressors and currently norepinephrine infusion is running at 0.2 mcg/kg per minute. The exact cause is not clear. She is afebrile. No significant leukocytosis. No nausea vomiting. No abdominal distention. No diarrhea. No respiratory distress. She has an art line catheter and the blood pressure is being monitored for an outlying catheter for now. She is on empiric antibiotic coverage with IV Rocephin. Her white cell count is at 10.9. He has a 48 with a creatinine of 1.9. She received a total of 3 5% albumin for hemodynamic support. TPN is a 48 with a creatinine of 1.9. The serum cortisols at 13. No other significant issues for now. She is resting comfortably in bed. No signs of any encephalopathy. As stated cardiac rhythm is sinus and her LV ejection fraction is 55-60%. Objective - Vital Signs Vital signs: Vital Signs Temp 98.2 F 06/14/19 12:00 Pulse 60 06/14/19 15:00 Resp 20 06/14/19 15:00 BP 113/48 06/14/19 12:00 Pulse Ox 98 06/14/19 15:00 Intake & Output 06/13/19 06/14/19 06/14/19 18:59 06:59 18:59 Intake Total 2447.052 9287.107 0763.000 Output Total 505 440 595 Balance 1363.928 8152.398 1113.000 Weight 90.2 kg Intake: IV 1190 900 800 Albumin Human 5% 250 ml 250 In Empty Bag 1 bag @ 250 mls/hr IVPB ONCE ONE Rx#: [id number] Sodium Chloride 0.9% 1, 890 900 750 000 ml @ 75 mls/hr IV . [id number] [facility] Rx#:[id number] cefTRIAXone 1 gm In 50 50 Sodium Chloride 0.9% 50 ml @ 100 mls/hr IVPB Q24HR [facility] Rx#:[id number] Intake, IV Titration 537.052 641.398 508.000 Amount Heparin Sod,Pork in 0.45% 109.235 64.366 NaCl 25,000 unit In 0.45 % NaCl 1 250ml.bag @ 12 UNITS/KG/HR 9.998 mls/hr IV .Q24H [facility] Rx#: [id number] Norepinephrine 4 mg In 427.817 577.032 508.000 Sodium Chloride 0.9% 250 ml @ 0.05 MCG/KG/MIN 15. 872 mls/hr IV .Q16H1M [facility] Rx#:[id number] Oral 720 400 Output: Urine 505 440 595 Other: Voiding Method Indwelling Catheter Indwelling Catheter Indwelling Catheter # Voids 2 ABP, PAP, CO, CI - Last Documented Arterial Blood Pressure 99/34 - Exam GENERAL EXAM: Alert, pleasant 79 yold female, on 2 L nasal cannula, comfortable in no apparent distress. HEAD: Normocephalic. EYES: Normal reaction of pupils, equal size. NOSE: Clear with pink turbinates. THROAT: No erythema or exudates. NECK: No masses, no JVD. CHEST: No chest wall deformity. LUNGS: Equal air entry with crackles in the bases. CVS: S1 and S2 normal with no audible murmur, regular rhythm. ABDOMEN: Soft, normal bowel sounds, no guarding or rigidity. SPINE: No scoliosis or deformity SKIN: No rashes CENTRAL NERVOUS SYSTEM: No focal deficits, tone is normal in all 4 extremities. EXTREMITIES: There is no peripheral edema. - Labs CBC & Chem 7: 06/14/19 05:00 06/14/19 05:00 Labs: Abnormal Lab Results - Last 24 Hours (Table) 06/13/19 06/13/19 06/14/19 Range/Units 16:59 21:00 05:00 WBC 10.9 H (3.8-10.6) k/uL Hgb 10.2 L (11.4-16.0) gm/dL Hct 33.4 L (34.0-46.0) % MCHC 30.4 L (31.0-37.0) g/dL RDW 16.7 H (11.5-15.5) % Neutrophils # 8.0 H (1.3-7.7) k/uL APTT (22.0-30.0) sec Sodium (137-145) mmol/L Potassium (3.5-5.1) mmol/L Carbon Dioxide (22-30) mmol/L BUN (7-17) mg/dL Creatinine (0.52-1.04) mg/dL Glucose (74-99) mg/dL POC Glucose (mg/dL) 237 H 257 H (75-99) mg/dL Calcium (8.4-10.2) mg/dL 06/14/19 06/14/19 06/14/19 Range/Units 05:00 05:00 06:47 WBC (3.8-10.6) k/uL Hgb (11.4-16.0) gm/dL Hct (34.0-46.0) % MCHC (31.0-37.0) g/dL RDW (11.5-15.5) % Neutrophils # (1.3-7.7) k/uL APTT 67.9 H (22.0-30.0) sec Sodium 130 L (137-145) mmol/L Potassium 5.2 H (3.5-5.1) mmol/L Carbon Dioxide 18 L (22-30) mmol/L BUN 48 H (7-17) mg/dL Creatinine 1.93 H (0.52-1.04) mg/dL Glucose 251 H (74-99) mg/dL POC Glucose (mg/dL) 266 H (75-99) mg/dL Calcium 8.1 L (8.4-10.2) mg/dL 06/14/19 Range/Units 11:54 WBC (3.8-10.6) k/uL Hgb (11.4-16.0) gm/dL Hct (34.0-46.0) % MCHC (31.0-37.0) g/dL RDW (11.5-15.5) % Neutrophils # (1.3-7.7) k/uL APTT (22.0-30.0) sec Sodium (137-145) mmol/L Potassium (3.5-5.1) mmol/L Carbon Dioxide (22-30) mmol/L BUN (7-17) mg/dL Creatinine (0.52-1.04) mg/dL Glucose (74-99) mg/dL POC Glucose (mg/dL) 336 H (75-99) mg/dL Calcium (8.4-10.2) mg/dL Assessment and Plan Plan: 1 acute hypotension accompanied by Kiarra davis RVR, currently converted back to normal sinus rhythm and the patient's blood pressure remains low and the patient's pressor dependent on norepinephrine infusion at 0.20 g per KG per mi nute. She does have abnormal stress test with induced left ventricular myocardial ischemia involving the lateral wall. Consider underlying coronary artery disease. The patient continues to be pressor dependent. On today's evaluation she is still requiring high doses of pressors. She was given IV fluids and albumin and had improvement in the urine output. Nevertheless, there has been slowly recovering her blood pressure response. No clear signs of septicemia. Serum cortisol that 13. As such, consider low vascular tone/sepsis underlying to hypotension. Not sure if this is a cardiogenic source despite her having some abnormal stress test. LV ejection fraction is preserved. 2 nonalcoholic liver cirrhosis and the patient is status post large volume paracentesis last paracentesis being done 06/10/2019 3 paroxysmal atrial fibrillation currently in normal sinus rhythm and the patient is on IV heparin 4 positive troponins. An underlying positive stress test about underlying coronary artery disease 5 liver cirrhosis with splenic sequestration and portal hypertension and mild coagulopathy 6 diabetes mellitus type 2 7 peripheral neuropathy 8 history of breast cancer with a previous lumpectomy on the left 9 mild thrombocytopenia 10 acute kidney injury, probably related to hypotension/large volume paracentesis. Consider prerenal azotemia. The patient is nonoliguric at this point in time. Plan We'll try to achieve a lower norepinephrine infusion rate while maintaining a me an arterial pressure above 65 Continue pressors Continue empiric antibiotic coverage May need to repeat an echocardiogram the next 24-48 hours if she patient remains hypotensive Continue IV heparin Incidental triple-lumen catheter for IV access and pressors and CVP monitoring Monitor the renal function. We'll continue to follow. The patient be kept in ICU as long as she is pressor dependent.
[2019-06-14 16:40] LABS: Glucose,Whole Blood 318 mg/dL (75-99)
[2019-06-14] MEDS ORDERED: INSULIN REGULAR BOLUS (FROM DRIP BAG) IV PRN (16:58)
[2019-06-14 17:21] LABS: Glucose,Whole Blood 310 mg/dL (75-99)
[2019-06-14] MEDS ORDERED: ALBUMIN HUMAN 5% 250 ML in EMPTY BAG 1 BAG IVPB ONE ×2 (17:45→18:45)
[2019-06-14] MEDS: INSULIN REGULAR 100 UNIT in SODIUM CHLORIDE 0.9% 100 ML IV SCH (17:47)
[2019-06-14 18:37] LABS: Glucose,Whole Blood 290 mg/dL (75-99)
[2019-06-14 19:04] LABS: Glucose,Whole Blood 279 mg/dL (75-99)
[2019-06-14 20:04] LABS: Glucose,Whole Blood 272 mg/dL (75-99)
--- NOTE | 2019-06-14 20:24 | PN ---
PROGRESS NOTE DATE OF SERVICE: 06/14/2019 This 79-year-old woman is admitted with ascites also had multiple other medical problems including chest pain, atrial fibrillation, hypotension. The patient is needing Levophed small dose at this time. The random cortisol level is about 13 around which is done on the mid noon and mid day. The patient is also having fluctuating blood sugars more than 300 which has not been well controlled with insulin periodic injections. PAST MEDICAL HISTORY: Reviewed. REVIEW OF SYSTEMS: Cardiovascular system: No angina or palpitations. Respiratory: As mentioned earlier. GI: As mentioned earlier. : No dysuria. CENTRAL NERVOUS SYSTEM: No numbness or weakness. CURRENT MEDICATIONS: Reviewed and include: 1. Tylenol p.r.n. 2. Xanax 0.5 t.i.d. 3. Aspirin 81 mg. 4. Rocephin 1 g. 5. Vitamin B12. 6. Neurontin 100 mg q.h.s. 7. Heparin 5000 subcu b.i.d. 8. Heparin drip. 9. Humulin-N. 10.Lopressor. 11.Narcan. 12.Nitrostat. 13.Levophed. 14.Zofran. 15.Protonix. 16.Actos. 17.Zoloft. 18.Aldactone. 19.Restoril. PHYSICAL EXAM: Patient is alert, oriented times three. Pulse 62. Blood pressure 112/30, respirations 16, temp 98 degrees, pulse ox 97% on 2 L. HEENT: Conjunctivae normal. NECK: No JVD. CARDIOVASCULAR: S1, S2 muffled. RESPIRATION: Breath sounds diminished in the bases. A few scattered rhonchi. No crackles. ABDOMEN: Soft, nontender. LEGS no edema. No swelling. CENTRAL NERVOUS SYSTEM: No focal deficits. LABS: WBC 10.9, hemoglobin 10.2, and platelets are 178. Sodium 130, potassium 5.2, creatinine is 1.9, glucose noted, 251, 263, 336 and 318. Cortisol is 13. ASSESSMENT: 1. Ascites, acute exacerbation secondary to nonalcoholic cirrhosis of the liver, status post abdominal paracentesis on presentation. 2. Chest pain with troponin 0.050, possible acute nwn-IA-rcwrmcs-elevation myocardial infarction with abnormal stress test. 3. Relative hypotension multifactorial possibly cardiogenic shock as well. 4. Atrial fibrillation with fast ventricular rate. 5. Persistent hypotension on Levophed. 6. Acute renal failure, acute tubular necrosis and prerenal factors. 7. Acute urinary tract infection present on admission. 8. Anemia, microcytic anemia undetermined etiology. 9. Diabetes mellitus type 2, uncontrolled with hyperglycemia. 10.Chronic mild coagulopathy secondary to chronic liver disease possibly. 11.Severe hyponatremia, possibly Syndrome of inappropriate antidiuretic hormone. 12.Diabetes mellitus type 2, uncontrolled with hyperglycemia. 13.Obesity. 14.Hypertension. 15.Chronic liver disease. 16.Thrombocytopenia. 17.History of left breast cancer with lumpectomy. 18.History of peripheral neuropathy. 19.History of breast surgery. 20.History of cholecystectomy. 21.History of depression. 22.FULL CODE. RECOMMENDATIONS AND DISCUSSION: Recommend to continue current medications, continue to monitor. Symptomatic treatment. Otherwise, at this time, I recommend continue with current medications. I would recommend to use insulin drip to control the blood sugars. I would also recommend continue the Levophed and I would add Florinef to the current regimen for the persistent hypotension. The prognosis guarded because of multiple complex medical issues and further recommendations to follow. We will continue to monitor. The heart rate is better controlled and currently remains in sinus rhythm at this time. MMODL / IJN: [id number] / CHALO
[2019-06-14] MEDS ORDERED: INSULIN DETEMIR (LEVEMIR) 100 UNIT/ML SYR SQ SCH (21:00)
[2019-06-14 21:05] LABS: Glucose,Whole Blood 229 mg/dL (75-99)
[2019-06-14] MEDS: FLUDROCORTISONE 0.1 MG TAB PO SCH (21:21)
[2019-06-14 22:15] LABS: Glucose,Whole Blood 187 mg/dL (75-99)
[2019-06-14 22:58] LABS: Glucose,Whole Blood 224 mg/dL (75-99)
[2019-06-14 23:55] LABS: Glucose,Whole Blood 191 mg/dL (75-99)
[2019-06-15] MEDS: NOREPINEPHRINE 4 MG in SODIUM CHLORIDE 0.9% 250 ML IV SCH ×5 (00:10→20:10)
[2019-06-15 01:12] LABS: Glucose,Whole Blood 168 mg/dL (75-99)
[2019-06-15 01:59] LABS: Glucose,Whole Blood 171 mg/dL (75-99)
[2019-06-15 03:03] LABS: Glucose,Whole Blood 181 mg/dL (75-99)
[2019-06-15 03:52] LABS: Glucose,Whole Blood 168 mg/dL (75-99)
[2019-06-15 04:55] LABS: Glucose,Whole Blood 166 mg/dL (75-99)
[2019-06-15 05:01] LABS: Anisocytosis Slight; Basophils % (A) 0 %; Eosinophils # (A) 0.1 k/uL (0-0.7); Eosinophils % (A) 2 %; HCT 29.9 % (34.0-46.0); HGB 9.1 gm/dL (11.4-16.0); Hypochromasia Marked; Lymphocytes # (A) 0.9 k/uL (1.0-4.8); Lymphocytes % (A) 13 %; MCH 25.1 pg (25.0-35.0); MCHC 30.3 g/dL (31.0-37.0); MCV 82.9 fL (80.0-100.0); Mean Platelet Volume 8.8; Monocytes # (A) 0.5 k/uL (0-1.0); Monocytes % (A) 7 %; Neutrophils # (A) 5.3 k/uL (1.3-7.7); Neutrophils % (A) 76 %; Platelet Count 102 k/uL (150-450); RDW 16.7 % (11.5-15.5); WBC 6.9 k/uL (3.8-10.6)
[2019-06-15 05:09] LABS: Polychromasia Present
[2019-06-15] MEDS: INSULIN REGULAR 100 UNIT in SODIUM CHLORIDE 0.9% 100 ML IV SCH ×2 (05:26→22:54)
[2019-06-15 05:38] LABS: Calcium 8.1 mg/dL (8.4-10.2); Potassium 4.8 mmol/L (3.5-5.1)
[2019-06-15 06:09] LABS: Glucose,Whole Blood 186 mg/dL (75-99)
[2019-06-15] MEDS: HEPARIN SOD,PORK IN 0.45% NACL 25,000 UNIT in 0.45% NACL 1 250ML.BAG IV SCH (06:27)
[2019-06-15 07:11] LABS: Glucose,Whole Blood 182 mg/dL (75-99)
[2019-06-15 08:00] LABS: Glucose,Whole Blood 178 mg/dL (75-99)
[2019-06-15] MEDS ORDERED: SODIUM BICARB 8.4% 50 ML SYR (1 MEQ/ML) IV STA (08:21)
[2019-06-15 08:49] LABS: Glucose,Whole Blood 179 mg/dL (75-99)
[2019-06-15] MEDS: PANTOPRAZOLE 40 MG/10 ML VIAL IV SCH (08:57)
[2019-06-15] MEDS: NIACIN TR 500 MG CAPLET PO SCH (08:58)
[2019-06-15] MEDS: PIOGLITAZONE 30 MG TAB PO SCH (08:58)
[2019-06-15] MEDS: SPIRONOLACTONE 25 MG TAB PO SCH (08:58)
[2019-06-15] MEDS: CYANOCOBALAMIN 500 MCG TAB PO SCH (08:59)
[2019-06-15] MEDS: GABAPENTIN 100 MG CAP PO SCH ×3 (08:59→21:30)
[2019-06-15] MEDS: FLUDROCORTISONE 0.1 MG TAB PO SCH ×2 (08:59→21:30)
[2019-06-15] MEDS: CHOLECALCIFEROL 1,000 UNIT TAB PO SCH (08:59)
[2019-06-15] MEDS: METOPROLOL TARTRATE 25 MG TAB PO SCH ×2 (08:59→21:30)
[2019-06-15] MEDS: ASPIRIN 81 MG PO SCH (08:59)
[2019-06-15] MEDS: SERTRALINE 50 MG TAB PO SCH (08:59)
[2019-06-15 09:25] LABS: Lactic Acid, Venous 1.7 mmol/L (0.7-2.0)
[2019-06-15 09:26] LABS: ALT 13 U/L (4-34); AST 23 U/L (14-36)
--- NOTE | 2019-06-15 09:39 | P.NPCON ---
History of Present Illness - Reason for Consult Consult date: 06/15/19 acute renal failure - Chief Complaint Cirrhosis with acute kidney injury - History of Present Illness This is 79-year-old female seen in consultation because of acute kidney injury and chronic kidney disease. Her creatinine on admission on 06/09/2019 was 1.04. She had a ascites tap done on 06/10/2019, creatinine the next day was 1.43, dated 06/11/2019. Urinalysis showed on 06/11/2019 showed a negative protein small blood and large leukocyte esterase with 31 WBCs and moderate bacteria although she was asymptomatic. She does have Recinos catheter Her blood pressure post-tap was stable for a few hours but the day after the procedure on 06/11/2019 been down to the 70s and 80s for a few hours. She maintains her urine output but the last few hours has been little less than before he did have urine output is in the range of 700 mL to 1 L per day She known with nonalcoholic cirrhosis, presented with the chest discomfort abdominal distention and shortness of breath. Cardiology has seen her and her troponin was slightly high at 0.5 a stress test was performed and no diagnosis of acute PA has been made yet. Her chest x-ray shows some perihilar infiltrate and possibility of CHF. She is currently on levo fed and IV normal saline. Urine output has been maintained around 700 to a liter range per 24 hours. Her blood pressures and vital signs are stable on levo fed. She is awake alert oriented comfortable warm to touch. She is known with diabetes mellitus, history of breast cancer on the left psoriasis hypertension atrial fibrillation and remains in atrial fibrillation currently. Her previous tap was in May. Currently She denies any chest pain, has a minimal cough. No abdominal pain no dysuria frequency. No fever chills. Past Medical History Past Medical History: Cancer, Diabetes Mellitus, Hypertension, Liver Disease Additional Past Medical History / Comment(s): Pt recently admitted to [facility] on with symptomatic ascities/had paracentesis 5 L removed, thrombocytopenia 2ndary to cirrhosis/splenic sequestration and portal HTN. Other: Nonalcoholic cirrhosis-thought d/t rx, ascities/paracentesis, L breast cancer with lumpectomy, NIDDM type II, neuropathy bilateral legs/feet, History of Any Multi-Drug Resistant Organisms: None Reported Past Surgical History: Breast Surgery, Cholecystectomy Additional Past Surgical History / Comment(s): L breast lumpectomy for cancer, right breast lump removal-benign, paracentesis-several, Past Anesthesia/Blood Transfusion Reactions: No Reported Reaction Smoking Status: Never smoker - Past Family History Father Family Medical History: Cancer Additional Family Medical History / Comment(s): Colon cancer Brother(s) Family Medical History: Myocardial Infarction (PA) Additional Family Medical History / Comment(s): One brother with stents, another brother from an PA Mother Family Medical History: Neurologic Disorder Additional Family Medical History / Comment(s): Parkinsons Medications and Allergies Home Medications Medication Instructions Recorded Confirmed Type Cholecalciferol (Vitamin D3) 2,000 unit PO DAILY 02/08/19 06/10/19 History [Vitamin D3] Pioglitazone [Actos] 30 mg PO DAILY 02/08/19 06/10/19 History Sertraline [Zoloft] 50 mg PO DAILY 02/08/19 06/10/19 History sitaGLIPtin PHOSPHATE [Januvia] 100 mg PO DAILY 02/08/19 06/10/19 History Cyanocobalamin [Vitamin B-12] 1,000 mcg PO DAILY #60 tab 02/11/19 06/10/19 Rx Furosemide [Lasix] 40 mg PO BID #30 tablet 05/22/19 06/10/19 Rx Lisinopril [Zestril] 5 mg PO DAILY #0 05/22/19 06/10/19 Rx Niacin 2,000 mg PO DAILY 06/10/19 06/10/19 History Spironolactone 50 mg PO DAILY 06/10/19 06/10/19 History Allergies Allergy/AdvReac Type Severity Reaction Status Date / Time No Known Allergies Allergy Verified 06/10/19 10:16 Physical Exam Vitals: Vital Signs Temp Pulse Resp BP Pulse Ox 06/15/19 07:00 81 16 96 06/15/19 06:30 80 19 96 06/15/19 06:00 79 18 96 06/15/19 05:30 80 18 95 06/15/19 05:00 80 20 113/48 96 06/15/19 04:30 78 18 96 06/15/19 04:00 98.2 F 74 19 97 06/15/19 03:30 74 19 97 06/15/19 03:00 71 20 97 06/15/19 02:30 72 19 98 06/15/19 02:00 73 20 96 06/15/19 01:30 71 18 98 06/15/19 01:00 68 17 99 06/15/19 00:30 66 16 99 06/15/19 00:14 65 16 100 06/15/19 00:00 98 F 66 17 100 06/14/19 23:30 66 18 100 06/14/19 23:00 66 16 100 06/14/19 22:30 65 17 100 06/14/19 22:00 67 20 99 06/14/19 21:30 67 18 99 06/14/19 21:00 67 17 100 06/14/19 20:30 70 19 06/14/19 20:00 98.7 F 70 17 99 06/14/19 19:30 68 13 113/48 100 06/14/19 19:00 68 16 99 06/14/19 18:00 63 23 98 06/14/19 17:00 62 16 99 06/14/19 16:00 98.0 F 62 19 96 06/14/19 15:00 60 20 98 06/14/19 14:00 61 16 100 06/14/19 13:00 60 14 06/14/19 12:00 98.2 F 60 18 113/48 97 06/14/19 11:00 65 15 113/48 97 06/14/19 10:00 71 31 H 113/48 97 Intake and Output 06/14/19 06/15/19 06/15/19 22:59 06:59 14:59 Intake Total 2007.217 1007.609 335.254 Output Total 560 300 25 Balance 1447.217 707.609 310.254 Intake: IV 675 525 75 Sodium Chloride 0.9% 1, 675 525 75 000 ml @ 75 mls/hr IV . [id number] Rx#:[id number] Intake, IV Titration 1092.217 482.609 260.254 Amount Albumin Human 5% 250 ml 250 In Empty Bag 1 bag @ 250 mls/hr IVPB ONCE ONE Rx#: [id number] Albumin Human 5% 250 ml 250 In Empty Bag 1 bag @ 250 mls/hr IVPB ONCE ONE Rx#: [id number] Heparin Sod,Pork in 0.45% 152.105 90.363 NaCl 25,000 unit In 0.45 % NaCl 1 250ml.bag @ 12 UNITS/KG/HR 9.998 mls/hr IV .Q24H [facility] Rx#: [id number] Insulin Regular 100 unit 38.114 40.855 16.665 In Sodium Chloride 0.9% 100 ml @ Per Protocol IV .Q0M [facility] Rx#:[id number] Norepinephrine 4 mg In 401.998 351.391 243.589 Sodium Chloride 0.9% 250 ml @ 0.05 MCG/KG/MIN 15. 872 mls/hr IV .Q16H1M [facility] Rx#:[id number] Oral 240 Output: Urine 560 300 25 Other: Voiding Method Indwelling Catheter Indwelling Catheter Weight 93.6 kg ABP, PAP, CO, CI - Last 8 Hours Arterial Blood Pressure 117/46 Arterial Blood Pressure 113/46 Arterial Blood Pressure 109/45 Arterial Blood Pressure 114/46 Arterial Blood Pressure 119/46 Arterial Blood Pressure 118/46 Arterial Blood Pressure 114/42 Arterial Blood Pressure 118/44 Arterial Blood Pressure 108/41 Arterial Blood Pressure 103/42 Arterial Blood Pressure 119/41 Arterial Blood Pressure 114/37 On examination she is awake alert oriented comfortable She is on levo fed currently HEENT exam no JVP neck is supple no facial asymmetry should not jaundice clinically Heart sounds are unremarkable except for atrial fibrillation Lungs are clear to auscultation, good air entry bilaterally. Abdomen is soft nontender, no organomegaly ascites noted currently clinically Extremity exam was trace edema here Neurologically awake alert oriented Results - Lab Results Most recent lab results Calcium 8.1 mg/dL (8.4-10.2) L 06/15/19 04:35 Magnesium 2.0 mg/dL (1.6-2.3) 06/13/19 04:55 06/15/19 04:35 06/15/19 04:35 Assessment and Plan Assessment: Impression 1. Acute kidney injury secondary to low blood pressure in the 70s on 06/11/2019. Cause of this low blood pressure is not clear. It happened a few hours after it 3.2 L She may possibly explain it still. Troponin was slightly high at 0.5 but cardiology does not feel she had an PA. No clear-cut evidence of sepsis except a chest x-ray shows some perihilar infiltrate. Although it is read as CHF acting it's more likely not as in spite of being given IV fluid she is not deteriorating. 2. Hypotension cause not very clear normal TSH and cortisol. Echocardiogram does not show any pericardial tap and not or effusion and ejection fraction is maintained there is mild pulmonary hypertension with a right ventricular pressure of 43. Rule out sepsis 3. Pyuria rule out acute interstitial nephritis although doubt it. 3. Possibility of hepatorenal syndrome is still considered although unlikely given normal liver function tests, bilirubin is 1.3, but the ammonia level is significantly elevated at 158 although clinically she is not in encephalopathy. 4. New onset of metabolic acidosis with non-gap. This is from acute kidney injury. 5. Rule out sepsis as a cause of the low blood pressure Recommendation 1. Agree with the IV fluids. We'll give a bolus of 500 mL over 2 hours, and watch how she does careful monitoring for discharge failure 2. Check BNP. 3. Check urine sodium and creatinine. 4. Check urinalysis again and a urine culture 5. Check lactic acid and cover for any possible pneumonia. 6. If she does not respond we may have to treat her as hepatorenal syndrome in the next few hours. 7. Treat acidosis she can be started on by mouth bicarb 650 4 times a day
[2019-06-15] MEDS ORDERED: SODIUM CHLORIDE 0.9% 1,000 ML IV ONE (09:45)
[2019-06-15] MEDS: SODIUM BICARBONATE TAB 650 MG TAB PO SCH ×4 (09:57→21:31)
--- NOTE | 2019-06-15 10:41 | PN ---
PROGRESS NOTE DATE OF SERVICE: 06/15/2019 The patient is a 79 -year-old white female admitted to the hospital with history of non- alcoholic cirrhosis of the liver, with portal alcohol portal hypertension and ascites who was admitted to the hospital with abdominal distention and subsequently developed atrial fibrillation with RVR and hypertension and since then has been in the intensive care unit. She is doing much better. She denies any abdominal pain. No abdominal distention. No nausea, vomiting. PHYSICAL EXAMINATION: Appears comfortable. No apparent distress. VITAL SIGNS: Stable. Blood pressure 171/46, pulse 81, temperature 98.2. HEENT examination unremarkable. Conjunctivae pink. Sclerae anicteric. Oral cavity no lesions. NECK: No JVD or lymph node enlargement. CHEST: Clear to auscultation. HEART: Regular rate and rhythm. ABDOMEN: Obese, but it was very soft, nontender, nondistended. Liver and spleen were not palpable. Bowel sounds are positive. No organomegaly. EXTREMITIES: No pedal edema. SKIN: No rashes. NEURO: She is alert and oriented x3. No focal deficits. LABS: Today WBC 6.9, hemoglobin 9.1, platelets 102. Basic metabolic panel showed a BUN of 47 and creatinine 1.98. 60.1. IMPRESSION: 1. Non-alcoholic cirrhosis of the liver with portal hypertension and ascites status post large volume paracentesis five days ago. The patient remains stable. 2. Atrial fibrillation with RVR and hypotension still remains in the intensive care unit and being monitored closely. Remains on IV heparin drip. 3. Chronic kidney disease with stable BUN and creatinine. RECOMMENDATION: 1. Continue management as per ICU. 2. Continue low-dose diuretics. 3. We will monitor her closely. Thank you for this consultation. MMODL / IJN: [id number] /
[2019-06-15] MEDS: DEXTROSE 5% IN WATER 1,000 ML with SODIUM BICARB (1 MEQ/ML) 150 ML IV SCH (10:42)
[2019-06-15 10:56] LABS: Glucose,Whole Blood 137 mg/dL (75-99)
--- NOTE | 2019-06-15 11:05 | P.PN ---
Subjective Progress Note Date: 06/15/19 This is a 79-year-old female patient with known history of nonalcoholic liver cirrhosis. The patient also has history of diabetes and hypertension. She has had previous paracentesis on several occasions for abdominal distention and ascites. The patient came into the hospital and the patient was noted to have increased abdominal distention associated with some shortness of breath. She also had some limited chest pain. No nausea or vomiting. She underwent a paracentesis for a total of 3.2 L of ascitic fluid was removed and it was not sent for any cultures. The patient subsequently improved and she was doing well. Her troponins were positive at 0.5. The patient was given a cardiac stress test that came back positive for reversible ischemia and based on that and based on the positive stress test, the patient was being planned for a cardiac catheterization. Earlier this morning the patient went into atrial fibrillation with RVR. Her blood pressure dropped and she got transferred to [facility] intensive care unit. Upon arrival her systolic blood pressure was in the 60s. The patient was started on IV fluids bolus and she was given 1.5 L. Subsequently she was given 2.5 mg of IV Lopressor. This afternoon she converted back to normal sinus rhythm. She is currently in normal sinus rhythm with a rate of 61. She is on IV heparin. She is doing well without any chest pain. She is on norepinephrine infusion running at 0.09 g per KG per minute. Her most recent blood pressure 95/44. Note that her creatinine came up to 1.8 and the patient is producing urine output in the order of 30 mL an hour. No abdominal distention. Chest x-ray shows some cardiomegaly. Echo of the heart showed EF of around 55-60%. Resume cardiac structures were all within normal limits. The patient had mild aortic stenosis. The right ventricular systolic pressure was 43. The patient is seen today in the intensive care unit. She is currently awake and alert in no acute distress. She remains hypotensive however. She is on norepinephrine at 0.16 mcg/kg/m. 0.9 normal saline at 75 ML's per hour. Heparin drip per weight base protocol. Currently in sinus rhythm. Maintaining O2 saturations in the 90s on 2 L/m per nasal cannula. White count 10.4. Hemoglobin 9.9. Platelet count 181,000. Sodium 129. Potassium 5.1. Bicarb 19. Creatinine 2.03. TSH 1.12. On 06/14/2019 on seeing the patient for a follow-up. This is a follow-up this being done in the intensive care unit. The patient is looking quite comfortable. No altered mentation. His resting comfortably in bed. No tachy cardia. Her cardiac rhythm remains sinus. Nevertheless, the patient remains profoundly hypotensive. She is requiring pressors and currently norepinephrine infusion is running at 0.2 mcg/kg per minute. The exact cause is not clear. She is afebrile. No significant leukocytosis. No nausea vomiting. No abdominal distention. No diarrhea. No respiratory distress. She has an art line catheter and the blood pressure is being monitored for an outlying catheter for now. She is on empiric antibiotic coverage with IV Rocephin. Her white cell count is at 10.9. He has a 48 with a creatinine of 1.9. She received a total of 3 5% albumin for hemodynamic support. TPN is a 48 with a creatinine of 1.9. The serum cortisols at 13. No other significant issues for now. She is resting comfortably in bed. No signs of any encephalopathy. As stated cardiac rhythm is sinus and her LV ejection fraction is 55-60%. This patient is being seen in follow-up on 06/15/2019. The patient is laying down comfortably in bed. No significant complaints. The ongoing hypotension is still a concern. The patient has been requiring pressors at the higher dose of norepinephrine infusion at 20 g per KG per minute. The patient is also having a lower urine output. She has been in a positive fluid balance of at least 7-8 L over the past 48 hours. She was given IV albumin on multiple occasions in the urine output remains low. Her creatinine is up to 1.9. She also has developed a non-anion gap metabolic acidosis. Based on that, I requested a nephrology consultation. She was on empiric antibiotic coverage with IV Rocephin. There is being continued for now. Based on the ongoing changes, I started the patient on bicarb drip. I give the patient himself sodium bicarb when I requested the patient to be seen by nephrology. A triple lumen catheter be established today. She remains normal sinus rhythm. No fever. No chills. No abdominal distention. No nausea. No vomiting. No diarrhea. No abdominal pain. No other significant events overnight. Note that the patient has a lactic acid level from today of 1.7. ProBNP level is 5250. AST and ALT are both within normal limits and ammonia level is at 158. Serum cortisols at 18. Objective - Vital Signs Vital signs: Vital Signs Temp 98.6 F 06/15/19 08:00 Pulse 123 H 06/15/19 10:30 Resp 18 06/15/19 10:30 BP 113/48 06/15/19 10:30 Pulse Ox 96 06/15/19 10:30 Intake & Output 06/14/19 06/15/19 06/15/19 18:59 06:59 18:59 Intake Total 2684.652 1888.174 780.694 Output Total 720 640 75 Balance 3920.485 5918.174 705.694 Weight 93.6 kg Intake: IV 950 900 275 Sodium Chloride 0.9% 1, 900 900 225 000 ml @ 75 mls/hr IV . [id number] ANUPAM Rx#:[id number] cefTRIAXone 1 gm In 50 50 Sodium Chloride 0.9% 50 ml @ 100 mls/hr IVPB Q24HR ANUPAM Rx#:[id number] Intake, IV Titration 1094.652 988.174 385.694 Amount Albumin Human 5% 250 ml 250 In Empty Bag 1 bag @ 250 mls/hr IVPB ONCE ONE Rx#: [id number] Albumin Human 5% 250 ml 250 In Empty Bag 1 bag @ 250 mls/hr IVPB ONCE ONE Rx#: [id number] Heparin Sod,Pork in 0.45% 152.105 90.363 NaCl 25,000 unit In 0.45 % NaCl 1 250ml.bag @ 12 UNITS/KG/HR 9.998 mls/hr IV .Q24H ANUPAM Rx#: [id number] Insulin Regular 100 unit 5.717 73.252 26.765 In Sodium Chloride 0.9% 100 ml @ Per Protocol IV .Q0M ANUPAM Rx#:[id number] Norepinephrine 4 mg In 686.830 574.559 358.929 Sodium Chloride 0.9% 250 ml @ 0.05 MCG/KG/MIN 15. 872 mls/hr IV .Q16H1M ANUPAM Rx#:[id number] Oral 640 120 Output: Urine 720 640 75 Other: Voiding Method Indwelling Catheter Indwelling Catheter Indwelling Catheter # Voids 2 ABP, PAP, CO, CI - Last Documented Arterial Blood Pressure 114/53 - Exam GENERAL EXAM: Alert, pleasant 79 yold female, on 2 L nasal cannula, comfortable in no apparent distress. HEAD: Normocephalic. EYES: Normal reaction of pupils, equal size. NOSE: Clear with pink turbinates. THROAT: No erythema or exudates. NECK: No masses, no JVD. CHEST: No chest wall deformity. LUNGS: Equal air entry with crackles in the bases. CVS: S1 and S2 normal with no audible murmur, regular rhythm. ABDOMEN: Soft, normal bowel sounds, no guarding or rigidity. SPINE: No scoliosis or deformity SKIN: No rashes CENTRAL NERVOUS SYSTEM: No focal deficits, tone is normal in all 4 extremities. EXTREMITIES: There is no peripheral edema. - Labs CBC & Chem 7: 06/15/19 04:35 06/15/19 04:35 Labs: Abnormal Lab Results - Last 24 Hours (Table) 06/14/19 06/14/19 06/14/19 Range/Units 11:54 16:20 16:38 RBC (3.80-5.40) m/uL Hgb (11.4-16.0) gm/dL Hct (34.0-46.0) % MCHC (31.0-37.0) g/dL RDW (11.5-15.5) % Plt Count (150-450) k/uL Lymphocytes # (1.0-4.8) k/uL APTT 180.1 H* (22.0-30.0) sec Sodium (137-145) mmol/L Chloride (98-107) mmol/L Carbon Dioxide (22-30) mmol/L BUN (7-17) mg/dL Creatinine (0.52-1.04) mg/dL Glucose (74-99) mg/dL POC Glucose (mg/dL) 336 H 318 H (75-99) mg/dL Calcium (8.4-10.2) mg/dL Ammonia (<30) umol/L 06/14/19 06/14/19 06/14/19 Range/Units 17:20 17:25 18:36 RBC (3.80-5.40) m/uL Hgb (11.4-16.0) gm/dL Hct (34.0-46.0) % MCHC (31.0-37.0) g/dL RDW (11.5-15.5) % Plt Count (150-450) k/uL Lymphocytes # (1.0-4.8) k/uL APTT 62.4 H (22.0-30.0) sec Sodium (137-145) mmol/L Chloride (98-107) mmol/L Carbon Dioxide (22-30) mmol/L BUN (7-17) mg/dL Creatinine (0.52-1.04) mg/dL Glucose (74-99) mg/dL POC Glucose (mg/dL) 310 H 290 H (75-99) mg/dL Calcium (8.4-10.2) mg/dL Ammonia (<30) umol/L 06/14/19 06/14/19 06/14/19 Range/Units 19:04 20:02 21:04 RBC (3.80-5.40) m/uL Hgb (11.4-16.0) gm/dL Hct (34.0-46.0) % MCHC (31.0-37.0) g/dL RDW (11.5-15.5) % Plt Count (150-450) k/uL Lymphocytes # (1.0-4.8) k/uL APTT (22.0-30.0) sec Sodium (137-145) mmol/L Chloride (98-107) mmol/L Carbon Dioxide (22-30) mmol/L BUN (7-17) mg/dL Creatinine (0.52-1.04) mg/dL Glucose (74-99) mg/dL POC Glucose (mg/dL) 279 H 272 H 229 H (75-99) mg/dL Calcium (8.4-10.2) mg/dL Ammonia (<30) umol/L 06/14/19 06/14/19 06/14/19 Range/Units 22:03 22:56 23:54 RBC (3.80-5.40) m/uL Hgb (11.4-16.0) gm/dL Hct (34.0-46.0) % MCHC (31.0-37.0) g/dL RDW (11.5-15.5) % Plt Count (150-450) k/uL Lymphocytes # (1.0-4.8) k/uL APTT (22.0-30.0) sec Sodium (137-145) mmol/L Chloride (98-107) mmol/L Carbon Dioxide (22-30) mmol/L BUN (7-17) mg/dL Creatinine (0.52-1.04) mg/dL Glucose (74-99) mg/dL POC Glucose (mg/dL) 187 H 224 H 191 H (75-99) mg/dL Calcium (8.4-10.2) mg/dL Ammonia (<30) umol/L 06/15/19 06/15/19 06/15/19 Range/Units 01:10 01:57 03:01 RBC (3.80-5.40) m/uL Hgb (11.4-16.0) gm/dL Hct (34.0-46.0) % MCHC (31.0-37.0) g/dL RDW (11.5-15.5) % Plt Count (150-450) k/uL Lymphocytes # (1.0-4.8) k/uL APTT (22.0-30.0) sec Sodium (137-145) mmol/L Chloride (98-107) mmol/L Carbon Dioxide (22-30) mmol/L BUN (7-17) mg/dL Creatinine (0.52-1.04) mg/dL Glucose (74-99) mg/dL POC Glucose (mg/dL) 168 H 171 H 181 H (75-99) mg/dL Calcium (8.4-10.2) mg/dL Ammonia (<30) umol/L 06/15/19 06/15/19 06/15/19 Range/Units 03:50 04:35 04:35 RBC 3.60 L (3.80-5.40) m/uL Hgb 9.1 L (11.4-16.0) gm/dL Hct 29.9 L (34.0-46.0) % MCHC 30.3 L (31.0-37.0) g/dL RDW 16.7 H (11.5-15.5) % Plt Count 102 L (150-450) k/uL Lymphocytes # 0.9 L (1.0-4.8) k/uL APTT (22.0-30.0) sec Sodium 134 L (137-145) mmol/L Chloride 111 H (98-107) mmol/L Carbon Dioxide 15 L (22-30) mmol/L BUN 47 H (7-17) mg/dL Creatinine 1.98 H (0.52-1.04) mg/dL Glucose 174 H (74-99) mg/dL POC Glucose (mg/dL) 168 H (75-99) mg/dL Calcium 8.1 L (8.4-10.2) mg/dL Ammonia (<30) umol/L 06/15/19 06/15/19 06/15/19 Range/Units 04:35 04:53 06:08 RBC (3.80-5.40) m/uL Hgb (11.4-16.0) gm/dL Hct (34.0-46.0) % MCHC (31.0-37.0) g/dL RDW (11.5-15.5) % Plt Count (150-450) k/uL Lymphocytes # (1.0-4.8) k/uL APTT 60.1 H (22.0-30.0) sec Sodium (137-145) mmol/L Chloride (98-107) mmol/L Carbon Dioxide (22-30) mmol/L BUN (7-17) mg/dL Creatinine (0.52-1.04) mg/dL Glucose (74-99) mg/dL POC Glucose (mg/dL) 166 H 186 H (75-99) mg/dL Calcium (8.4-10.2) mg/dL Ammonia (<30) umol/L 06/15/19 06/15/19 06/15/19 Range/Units 07:10 07:59 08:45 RBC (3.80-5.40) m/uL Hgb (11.4-16.0) gm/dL Hct (34.0-46.0) % MCHC (31.0-37.0) g/dL RDW (11.5-15.5) % Plt Count (150-450) k/uL Lymphocytes # (1.0-4.8) k/uL APTT (22.0-30.0) sec Sodium (137-145) mmol/L Chloride (98-107) mmol/L Carbon Dioxide (22-30) mmol/L BUN (7-17) mg/dL Creatinine (0.52-1.04) mg/dL Glucose (74-99) mg/dL POC Glucose (mg/dL) 182 H 178 H (75-99) mg/dL Calcium (8.4-10.2) mg/dL Ammonia 158 H (<30) umol/L 06/15/19 06/15/19 Range/Units 08:47 10:54 RBC (3.80-5.40) m/uL Hgb (11.4-16.0) gm/dL Hct (34.0-46.0) % MCHC (31.0-37.0) g/dL RDW (11.5-15.5) % Plt Count (150-450) k/uL Lymphocytes # (1.0-4.8) k/uL APTT (22.0-30.0) sec Sodium (137-145) mmol/L Chloride (98-107) mmol/L Carbon Dioxide (22-30) mmol/L BUN (7-17) mg/dL Creatinine (0.52-1.04) mg/dL Glucose (74-99) mg/dL POC Glucose (mg/dL) 179 H 137 H (75-99) mg/dL Calcium (8.4-10.2) mg/dL Ammonia (<30) umol/L Assessment and Plan Plan: 1 acute hypotension in a patient remains pressor dependent. Lactic acid level is nonelevated. White cell count is at 6.9. Cortisol level is within normal limits. Cultures of been all negative. Echocardiogram at shown a preserved LV function. As such, the cause of her hypotension is not clear to me at this point in time. No evidence of any pericardial effusion. No significant ascites. No significant pulmonary hypertension. 2 nonalcoholic liver cirrhosis and the patient is status post large volume paracentesis last paracentesis being done 06/10/2019 3 paroxysmal atrial fibrillation currently in normal sinus rhythm and the patient is on IV heparin 4 positive troponins. An underlying positive stress test about underlying coronary artery disease 5 liver cirrhosis with splenic sequestration and portal hypertension and mild coagulopathy 6 diabetes mellitus type 2 7 peripheral neuropathy 8 history of breast cancer with a previous lumpectomy on the left 9 mild thrombocytopenia 10 acute kidney injury, probably related to hypotension/large volume paracent esis. Consider prerenal azotemia. Rule out underlying hepatorenal syndrome. The patient continues to be hypotensive which is probably not helping with her acute kidney injury. The patient is pressor dependent. I asked nephrology to evaluate the patient and the patient was getting into a volume overload situation. We have been giving her IV albumin. Nephrology saw the patient and she'll be given boluses of half a liter saline over 2 hours and she'll be monitored. Urine sodium and creatinine is still pending for now. Urine cultures are also pending for now. Lactic acid level was nonelevated. 11 fluids retention with a component of non-anion gap metabolic acidosis and the patient will be started on sodium bicarb infusion Plan We'll try to achieve a lower norepinephrine infusion rate while maintaining a mean arterial pressure above 65 Continue pressors We'll insert a triple lumen catheter and will monitor the CVP. Continue IV heparin Monitor the renal function. Check the urine sodium and creatinine Put the patient on lactulose 10 mL on a daily basis orally Continue the Florinef Put the patient a bicarb drip We'll continue to follow. The patient be kept in ICU as long as she is pressor dependent.
[2019-06-15] MEDS: LACTULOSE 20 GM/30 ML CUP PO SCH (11:57)
[2019-06-15 12:13] LABS: Glucose,Whole Blood 169 mg/dL (75-99)
[2019-06-15 12:26] LABS: Appearance,Urine Clear (Clear); Bilirubin,Urine Negative (Negative); Blood,Urine Negative (Negative); Color,Urine Yellow; Glucose,Urine (UA) Negative (Negative); Hyaline Casts,Urine 33 /lpf (0-2); Ketones,Urine Trace (Negative); Leukocyte Esterase,Urine Trace (Negative); Mucus,Urine Rare /hpf; Nitrite,Urine Negative (Negative); PH, Urine 5.5 (5.0-8.0); Protein,Urine 1+ (Negative); RBC,Urine 1 /hpf (0-5); Specific Gravity,Urine 1.016 (1.001-1.035); Urobilinogen,Urine <2.0 mg/dL (<2.0); WBC,Urine 3 /hpf (0-5)
[2019-06-15 15:22] LABS: Glucose,Whole Blood 162 mg/dL (75-99)
[2019-06-15 16:00] LABS: Glucose,Whole Blood 193 mg/dL (75-99)
--- NOTE | 2019-06-15 17:18 | PN ---
PROGRESS NOTE DATE OF SERVICE: 06/15/2019 This 78-year-old woman admitted with multiple medical problems including chest pain, also had ascites on admission. The patient also had hypertension, atrial fibrillation. Patient is on Levophed support. The patient being closely monitored at this time. Multiple consultants are following the patient closely. The patient is on IV heparin. The 2D echo showed an ejection fraction 55-60 percent with multiple valvular abnormalities. Patient being closely monitored. PAST MEDICAL HISTORY: Reviewed. REVIEW OF SYMPTOMS: Cardiovascular: No angina or palpitations. Respiration as mentioned earlier. GI: As mentioned earlier. : No dysuria or retention. CENTRAL NERVOUS SYSTEM: No numbness or weakness. CURRENT MEDICATIONS: Reviewed and include: 1. Tylenol p.r.n. 2. Xanax 0.5 t.i.d. 3. Aspirin 81 mg daily. 4. Rocephin 1 g daily. 5. Vitamin B12. 6. Florinef 0.2 b.i.d. 7. Neurontin 100 mg b.i.d. 8. Heparin. 9. Dilaudid. 10.Cephulac. 11.Lopressor 25 b.i.d. 12.Niacin. 13.Nitrostat. 14.Zofran. 15.Protonix. 16.Actos. PHYSICAL EXAMINATION: Alert and oriented times three. Pulse is 112. Blood pressure 139/40, respirations 17, temperature is normal. Pulse ox 97% on 2 L. HEENT: Conjunctivae normal. NECK: No JVD. CARDIOVASCULAR: S1, S2 muffled. RESPIRATORY: Breath sounds diminished in the bases. Bilateral scattered rhonchi and crackles. ABDOMEN is soft, nontender. LEGS are no edema, no swelling. CENTRAL NERVOUS SYSTEM: No focal deficits. LAB STUDIES: APTT noted. WBC 10.9, sodium 130, potassium 5.2. Creatinine 1.93. ASSESSMENT: 1. Ascites, acute exacerbation secondary to nonalcoholic cirrhosis of the liver status post abdominal paracentesis, present on admission. 2. Chest pain with troponin 0.050 possible acute ixl-XL-tliahar-elevation myocardial infarction with abnormal stress test. 3. Relative hypotension, multifactorial possibly cardiogenic shock as well. 4. Atrial fibrillation fast ventricular rate, paroxysmal. 5. Persistent hypotension on Levophed. 6. Acute renal failure, acute tubular necrosis and prerenal factors. 7. Acute urinary tract infection present on admission. 8. Anemia, microcytic anemia of undetermined etiology. 9. Diabetes mellitus type 2, uncontrolled with hyperglycemia. 10.Chronic mild coagulopathy secondary to chronic liver disease, possibly. 11.Severe hyponatremia, possibly Syndrome of inappropriate antidiuretic hormone. 12.Diabetes mellitus type 2, uncontrolled with hyperglycemia. 13.Mild metabolic acidosis. 14.Obesity. 15.Hypertension. 16.Chronic liver disease. 17.Thrombocytopenia. 18.History of left breast cancer with lumpectomy. 19.History of peripheral neuropathy. 20.History of breast surgery. 21.History of cholecystectomy. 22.History of depression. 23.FULL CODE. RECOMMENDATIONS AND DISCUSSION: Recommend to continue current medications, management, and symptomatic treatment. Otherwise, at this time, I recommend continue with current medications, continue with Levophed support. Closely follow with Cardiology. The patient is on empiric antibiotics as well. The most recent cultures are negative so far. Otherwise, we will continue to monitor. The patient is also on beta blockers. Monitor blood sugars closely. The patient also has some bicarb drip also. Otherwise the prognosis guarded because of multiple complex medical issues. Further recommendations to follow. See orders for details. Discussed with the patient who understands and agrees. MMODL / IJN: [id number] / CHALO
[2019-06-15 17:58] LABS: Glucose,Whole Blood 225 mg/dL (75-99)
[2019-06-15 18:54] LABS: Glucose,Whole Blood 162 mg/dL (75-99)
[2019-06-15 20:21] LABS: Glucose,Whole Blood 193 mg/dL (75-99)
[2019-06-15 21:08] LABS: Glucose,Whole Blood 215 mg/dL (75-99)
[2019-06-15 22:05] LABS: Glucose,Whole Blood 197 mg/dL (75-99)
[2019-06-15 22:57] LABS: Glucose,Whole Blood 176 mg/dL (75-99)
[2019-06-16 00:09] LABS: Glucose,Whole Blood 181 mg/dL (75-99)
[2019-06-16 00:59] LABS: Glucose,Whole Blood 174 mg/dL (75-99)
[2019-06-16 01:54] LABS: Glucose,Whole Blood 175 mg/dL (75-99)
[2019-06-16] MEDS: DEXTROSE 5% IN WATER 1,000 ML with SODIUM BICARB (1 MEQ/ML) 150 ML IV SCH (01:54)
[2019-06-16 02:59] LABS: Glucose,Whole Blood 239 mg/dL (75-99)
[2019-06-16 04:11] LABS: Glucose,Whole Blood 177 mg/dL (75-99)
[2019-06-16 04:54] LABS: Glucose,Whole Blood 165 mg/dL (75-99)
[2019-06-16 05:34] LABS: Anisocytosis Slight; Basophils % (A) 1 %; Eosinophils # (A) 0.1 k/uL (0-0.7); Eosinophils % (A) 2 %; Hypochromasia Slight; Lymphocytes # (A) 0.5 k/uL (1.0-4.8); Lymphocytes % (A) 12 %; MCH 25.5 pg (25.0-35.0); MCV 82.2 fL (80.0-100.0); Mean Platelet Volume 10.6; Monocytes # (A) 0.3 k/uL (0-1.0); Monocytes % (A) 7 %; Neutrophils # (A) 3.6 k/uL (1.3-7.7); Neutrophils % (A) 77 %; RBC 3.53 m/uL (3.80-5.40); RDW 17.5 % (11.5-15.5); WBC 4.7 k/uL (3.8-10.6)
[2019-06-16 05:46] LABS: Calcium 8.1 mg/dL (8.4-10.2); Potassium 3.6 mmol/L (3.5-5.1)
[2019-06-16 05:55] LABS: Platelet Count 68 k/uL (150-450)
[2019-06-16 06:06] LABS: Glucose,Whole Blood 165 mg/dL (75-99)
[2019-06-16 06:59] LABS: Glucose,Whole Blood 166 mg/dL (75-99)
--- NOTE | 2019-06-16 07:23 | XR ---
EXAMINATION TYPE: XR chest 1V portable DATE OF EXAM: 06/16/2019 COMPARISON: 06/14/2019 HISTORY: Shortness of breath FINDINGS: There are bilateral pleural effusions with cardiomegaly and bibasilar infiltrate. There is a diffuse interstitial pattern. Biapical pleural thickening. Arthropathy of the shoulders. Postsurgical change along the left axilla. IMPRESSION: 1. Stable findings most typical of CHF.
[2019-06-16] MEDS: CHOLECALCIFEROL 1,000 UNIT TAB PO SCH (08:03)
[2019-06-16] MEDS: SPIRONOLACTONE 25 MG TAB PO SCH (08:03)
[2019-06-16] MEDS: ASPIRIN 81 MG PO SCH (08:03)
[2019-06-16] MEDS: CYANOCOBALAMIN 500 MCG TAB PO SCH (08:03)
[2019-06-16] MEDS: FLUDROCORTISONE 0.1 MG TAB PO SCH ×2 (08:03→20:24)
[2019-06-16] MEDS: PANTOPRAZOLE 40 MG/10 ML VIAL IV SCH (08:04)
[2019-06-16] MEDS: GABAPENTIN 100 MG CAP PO SCH ×3 (08:04→20:24)
[2019-06-16] MEDS: LACTULOSE 20 GM/30 ML CUP PO SCH (08:04)
[2019-06-16] MEDS: METOPROLOL TARTRATE 25 MG TAB PO SCH ×2 (08:04→20:32)
[2019-06-16] MEDS: PIOGLITAZONE 30 MG TAB PO SCH (08:05)
[2019-06-16] MEDS: NIACIN TR 500 MG CAPLET PO SCH (08:05)
[2019-06-16] MEDS: SERTRALINE 50 MG TAB PO SCH (08:05)
[2019-06-16] MEDS: SODIUM BICARBONATE TAB 650 MG TAB PO SCH ×4 (08:07→20:24)
--- NOTE | 2019-06-16 08:22 | P.PN ---
Subjective Patient is seen in follow for acute kidney injury. Renal function is improved. She is currently maintained on normal saline at 75 mL an hour. Urine output about 40-50 mL an hour. Not on vasopressors at this time. Vital signs are stable. General: The patient appeared well nourished and normally developed. HEENT: Head exam is unremarkable. Neck is without jugular venous distension. LUNGS: Lungs are clear to auscultation and percussion. Breath sounds decreased. HEART: Rate and Rhythm are regular. First and second heart sounds normal. No mu rmurs, rubs or gallops. ABDOMEN: Bowel sounds present. Nontender. EXTREMITITES: Trace edema. Objective - Vital Signs Vital signs: Vital Signs Temp 97.9 F 06/16/19 04:00 Pulse 68 06/16/19 07:00 Resp 13 06/16/19 07:00 BP 113/48 06/15/19 21:30 Pulse Ox 97 06/16/19 07:00 Intake & Output 06/15/19 06/16/19 06/16/19 18:59 06:59 18:59 Intake Total 2744.942 1365.216 153.41 Output Total 450 515 45 Balance 2294.942 850.216 108.41 Weight 96.5 kg Intake: IV 275 825 75 Dextrose 5% in Water 1, 825 75 000 ml @ 75 mls/hr IV . [id number] ANUPAM with Sodium Bicarb (1 Meq/ml) 150 ml Rx#:[id number] Sodium Chloride 0.9% 1, 225 000 ml @ 75 mls/hr IV . [id number] ANUPAM Rx#:[id number] cefTRIAXone 1 gm In 50 Sodium Chloride 0.9% 50 ml @ 100 mls/hr IVPB Q24HR ANUPAM Rx#:[id number] Intake, IV Titration 1989.942 290.216 78.41 Amount Dextrose 5% in Water 1, 675 75 000 ml @ 75 mls/hr IV . [id number] ANUPAM with Sodium Bicarb (1 Meq/ml) 150 ml Rx#:[id number] Insulin Regular 100 unit 63.353 62.208 In Sodium Chloride 0.9% 100 ml @ Per Protocol IV .Q0M ANUPAM Rx#:[id number] Norepinephrine 4 mg In 751.589 153.008 78.41 Sodium Chloride 0.9% 250 ml @ 0.05 MCG/KG/MIN 15. 872 mls/hr IV .Q16H1M [facility] Rx#:[id number] Sodium Chloride 0.9% 1, 500 000 ml @ 500 mls/hr IV . Q2H ONE Rx#:[id number] Oral 480 250 Output: Urine 450 515 45 Other: Voiding Method Indwelling Catheter Indwelling Catheter # Bowel Movements 1 ABP, PAP, CO, CI - Last Documented Arterial Blood Pressure 145/44 - Labs CBC & Chem 7: 06/16/19 05:20 06/16/19 05:20 Labs: Abnormal Lab Results - Last 24 Hours (Table) 06/15/19 06/15/19 06/15/19 Range/Units 08:45 08:47 10:54 RBC (3.80-5.40) m/uL Hgb (11.4-16.0) gm/dL Hct (34.0-46.0) % RDW (11.5-15.5) % Plt Count (150-450) k/uL Lymphocytes # (1.0-4.8) k/uL APTT (22.0-30.0) sec Sodium (137-145) mmol/L Chloride (98-107) mmol/L Carbon Dioxide (22-30) mmol/L BUN (7-17) mg/dL Creatinine (0.52-1.04) mg/dL Glucose (74-99) mg/dL POC Glucose (mg/dL) 179 H 137 H (75-99) mg/dL Calcium (8.4-10.2) mg/dL Ammonia 158 H (<30) umol/L Urine Protein (Negative) Urine Ketones (Negative) Ur Leukocyte Esterase (Negative) Hyaline Casts (0-2) /lpf Urine Mucus (None) /hpf 06/15/19 06/15/19 06/15/19 Range/Units 12:00 12:12 15:20 RBC (3.80-5.40) m/uL Hgb (11.4-16.0) gm/dL Hct (34.0-46.0) % RDW (11.5-15.5) % Plt Count (150-450) k/uL Lymphocytes # (1.0-4.8) k/uL APTT (22.0-30.0) sec Sodium (137-145) mmol/L Chloride (98-107) mmol/L Carbon Dioxide (22-30) mmol/L BUN (7-17) mg/dL Creatinine (0.52-1.04) mg/dL Glucose (74-99) mg/dL POC Glucose (mg/dL) 169 H 162 H (75-99) mg/dL Calcium (8.4-10.2) mg/dL Ammonia (<30) umol/L Urine Protein 1+ H (Negative) Urine Ketones Trace H (Negative) Ur Leukocyte Esterase Trace H (Negative) Hyaline Casts 33 H (0-2) /lpf Urine Mucus Rare H (None) /hpf 06/15/19 06/15/19 06/15/19 Range/Units 15:57 17:57 18:53 RBC (3.80-5.40) m/uL Hgb (11.4-16.0) gm/dL Hct (34.0-46.0) % RDW (11.5-15.5) % Plt Count (150-450) k/uL Lymphocytes # (1.0-4.8) k/uL APTT (22.0-30.0) sec Sodium (137-145) mmol/L Chloride (98-107) mmol/L Carbon Dioxide (22-30) mmol/L BUN (7-17) mg/dL Creatinine (0.52-1.04) mg/dL Glucose (74-99) mg/dL POC Glucose (mg/dL) 193 H 225 H 162 H (75-99) mg/dL Calcium (8.4-10.2) mg/dL Ammonia (<30) umol/L Urine Protein (Negative) Urine Ketones (Negative) Ur Leukocyte Esterase (Negative) Hyaline Casts (0-2) /lpf Urine Mucus (None) /hpf 06/15/19 06/15/19 06/15/19 Range/Units 20:20 21:06 22:04 RBC (3.80-5.40) m/uL Hgb (11.4-16.0) gm/dL Hct (34.0-46.0) % RDW (11.5-15.5) % Plt Count (150-450) k/uL Lymphocytes # (1.0-4.8) k/uL APTT (22.0-30.0) sec Sodium (137-145) mmol/L Chloride (98-107) mmol/L Carbon Dioxide (22-30) mmol/L BUN (7-17) mg/dL Creatinine (0.52-1.04) mg/dL Glucose (74-99) mg/dL POC Glucose (mg/dL) 193 H 215 H 197 H (75-99) mg/dL Calcium (8.4-10.2) mg/dL Ammonia (<30) umol/L Urine Protein (Negative) Urine Ketones (Negative) Ur Leukocyte Esterase (Negative) Hyaline Casts (0-2) /lpf Urine Mucus (None) /hpf 06/15/19 06/16/19 06/16/19 Range/Units 22:56 00:07 00:58 RBC (3.80-5.40) m/uL Hgb (11.4-16.0) gm/dL Hct (34.0-46.0) % RDW (11.5-15.5) % Plt Count (150-450) k/uL Lymphocytes # (1.0-4.8) k/uL APTT (22.0-30.0) sec Sodium (137-145) mmol/L Chloride (98-107) mmol/L Carbon Dioxide (22-30) mmol/L BUN (7-17) mg/dL Creatinine (0.52-1.04) mg/dL Glucose (74-99) mg/dL POC Glucose (mg/dL) 176 H 181 H 174 H (75-99) mg/dL Calcium (8.4-10.2) mg/dL Ammonia (<30) umol/L Urine Protein (Negative) Urine Ketones (Negative) Ur Leukocyte Esterase (Negative) Hyaline Casts (0-2) /lpf Urine Mucus (None) /hpf 06/16/19 06/16/19 06/16/19 Range/Units 01:52 02:57 04:09 RBC (3.80-5.40) m/uL Hgb (11.4-16.0) gm/dL Hct (34.0-46.0) % RDW (11.5-15.5) % Plt Count (150-450) k/uL Lymphocytes # (1.0-4.8) k/uL APTT (22.0-30.0) sec Sodium (137-145) mmol/L Chloride (98-107) mmol/L Carbon Dioxide (22-30) mmol/L BUN (7-17) mg/dL Creatinine (0.52-1.04) mg/dL Glucose (74-99) mg/dL POC Glucose (mg/dL) 175 H 239 H 177 H (75-99) mg/dL Calcium (8.4-10.2) mg/dL Ammonia (<30) umol/L Urine Protein (Negative) Urine Ketones (Negative) Ur Leukocyte Esterase (Negative) Hyaline Casts (0-2) /lpf Urine Mucus (None) /hpf 06/16/19 06/16/19 06/16/19 Range/Units 04:53 05:20 05:20 RBC 3.53 L (3.80-5.40) m/uL Hgb 9.0 L (11.4-16.0) gm/dL Hct 29.0 L (34.0-46.0) % RDW 17.5 H (11.5-15.5) % Plt Count 68 L (150-450) k/uL Lymphocytes # 0.5 L (1.0-4.8) k/uL APTT (22.0-30.0) sec Sodium 136 L (137-145) mmol/L Chloride 108 H (98-107) mmol/L Carbon Dioxide 21 L (22-30) mmol/L BUN 43 H (7-17) mg/dL Creatinine 1.52 H (0.52-1.04) mg/dL Glucose 166 H (74-99) mg/dL POC Glucose (mg/dL) 165 H (75-99) mg/dL Calcium 8.1 L (8.4-10.2) mg/dL Ammonia (<30) umol/L Urine Protein (Negative) Urine Ketones (Negative) Ur Leukocyte Esterase (Negative) Hyaline Casts (0-2) /lpf Urine Mucus (None) /hpf 06/16/19 06/16/19 06/16/19 Range/Units 05:20 05:20 06:04 RBC (3.80-5.40) m/uL Hgb (11.4-16.0) gm/dL Hct (34.0-46.0) % RDW (11.5-15.5) % Plt Count (150-450) k/uL Lymphocytes # (1.0-4.8) k/uL APTT 55.6 H (22.0-30.0) sec Sodium (137-145) mmol/L Chloride (98-107) mmol/L Carbon Dioxide (22-30) mmol/L BUN (7-17) mg/dL Creatinine (0.52-1.04) mg/dL Glucose (74-99) mg/dL POC Glucose (mg/dL) 165 H (75-99) mg/dL Calcium (8.4-10.2) mg/dL Ammonia 58 H (<30) umol/L Urine Protein (Negative) Urine Ketones (Negative) Ur Leukocyte Esterase (Negative) Hyaline Casts (0-2) /lpf Urine Mucus (None) /hpf 06/16/19 Range/Units 06:58 RBC (3.80-5.40) m/uL Hgb (11.4-16.0) gm/dL Hct (34.0-46.0) % RDW (11.5-15.5) % Plt Count (150-450) k/uL Lymphocytes # (1.0-4.8) k/uL APTT (22.0-30.0) sec Sodium (137-145) mmol/L Chloride (98-107) mmol/L Carbon Dioxide (22-30) mmol/L BUN (7-17) mg/dL Creatinine (0.52-1.04) mg/dL Glucose (74-99) mg/dL POC Glucose (mg/dL) 166 H (75-99) mg/dL Calcium (8.4-10.2) mg/dL Ammonia (<30) umol/L Urine Protein (Negative) Urine Ketones (Negative) Ur Leukocyte Esterase (Negative) Hyaline Casts (0-2) /lpf Urine Mucus (None) /hpf Microbiology - Last 24 Hours (Table) 06/15/19 12:00 Urine Culture - Preliminary Urine,Catheterized Assessment and Plan Plan: Assessment: 1. Acute kidney injury secondary to ATN secondary to hypotension and hemodynamic instability. Renal function better. Creatinine 1.52 today. 2. Metabolic acidosis secondary to acute kidney injury. Status post bicarb drip. 3. 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 4. A. fib with RVR currently on heparin drip. Plan: Decrease rate of normal saline to 50 mL an hour - plan to Hep-Lock tomorrow. Encouraged oral intake. Avoid nephrotoxins. Maintain oral sodium bicarbonate. Continue Aldactone.
[2019-06-16 08:54] LABS: Glucose,Whole Blood 159 mg/dL (75-99)
[2019-06-16] MEDS: SODIUM CHLORIDE 0.9% 1,000 ML IV SCH (09:39)
--- NOTE | 2019-06-16 10:57 | P.PN ---
Subjective Progress Note Date: 06/16/19 Principal diagnosis: Hypotension, most likely secondary to hypovolemia and possible non-ST elevation myocardial infarction. This is a 79-year-old female patient with known history of nonalcoholic liver cirrhosis. The patient also has history of diabetes and hypertension. She has had previous paracentesis on several occasions for abdominal distention and ascites. The patient came into the hospital and the patient was noted to have increased abdominal distention associated with some shortness of breath. She also had some limited chest pain. No nausea or vomiting. She underwent a paracentesis for a total of 3.2 L of ascitic fluid was removed and it was not sent for any cultures. The patient subsequently improved and she was doing well. Her troponins were positive at 0.5. The patient was given a cardiac stress test that came back positive for reversible ischemia and based on that and based on the positive stress test, the patient was being planned for a cardiac catheterization. Earlier this morning the patient went into atrial fibrillation with RVR. Her blood pressure dropped and she got transferred to the intensive care unit. Upon arrival her systolic blood pressure was in the 60s. The patient was started on IV fluids bolus and she was given 1.5 L. Subsequently she was given 2.5 mg of IV Lopressor. This afternoon she converted back to normal sinus rhythm. She is currently in normal sinus rhythm with a rate of 61. She is on IV heparin. She is doing well without any chest pain. She is on norepinephrine infusion running at 0.09 g per KG per minute. Her most recent blood pressure 95/44. Note that her creatinine came up to 1.8 and the patient is producing urine output in the order of 30 mL an hour. No abdominal distention. Chest x-ray shows some cardiomegaly. Echo of the heart showed EF of around 55-60%. Resume cardiac structures were all within normal limits. The patient had mild aortic stenosis. The right ventricular systolic pressure was 43. The patient is seen today in the intensive care unit. She is currently awake and alert in no acute distress. She remains hypotensive however. She is on norepinephrine at 0.16 mcg/kg/m. 0.9 normal saline at 75 ML's per hour. Heparin drip per weight base protocol. Currently in sinus rhythm. Maintaining O2 saturations in the 90s on 2 L/m per nasal cannula. White count 10.4. Hemoglobin 9.9. Platelet count 181,000. Sodium 129. Potassium 5.1. Bicarb 19. Creatinine 2.03. TSH 1.12. On 06/14/2019 on seeing the patient for a follow-up. This is a follow-up this being done in the intensive care unit. The patient is looking quite comfortable. No altered mentation. His resting comfortably in bed. No tachycardia. Her cardiac rhythm remains sinus. Nevertheless, the patient remains profoundly hypotensive. She is requiring pressors and currently norepin ephrine infusion is running at 0.2 mcg/kg per minute. The exact cause is not clear. She is afebrile. No significant leukocytosis. No nausea vomiting. No abdominal distention. No diarrhea. No respiratory distress. She has an art line catheter and the blood pressure is being monitored for an outlying catheter for now. She is on empiric antibiotic coverage with IV Rocephin. Her white cell count is at 10.9. He has a 48 with a creatinine of 1.9. She received a total of 3 5% albumin for hemodynamic support. TPN is a 48 with a creatinine of 1.9. The serum cortisols at 13. No other significant issues for now. She is resting comfortably in bed. No signs of any encephalopathy. As stated cardiac rhythm is sinus and her LV ejection fraction is 55-60%. This patient is being seen in follow-up on 06/15/2019. The patient is laying down comfortably in bed. No significant complaints. The ongoing hypotension is still a concern. The patient has been requiring pressors at the higher dose of norepinephrine infusion at 20 g per KG per minute. The patient is also having a lower urine output. She has been in a positive fluid balance of at least 7-8 L over the past 48 hours. She was given IV albumin on multiple occasions in the urine output remains low. Her creatinine is up to 1.9. She also has developed a non-anion gap metabolic acidosis. Based on that, I requested a nephrology consultation. She was on empiric antibiotic coverage with IV Rocephin. There is being continued for now. Based on the ongoing changes, I started the patient on bicarb drip. I give the patient himself sodium bicarb when I requested the patient to be seen by nephrology. A triple lumen catheter be established today. She remains normal sinus rhythm. No fever. No chills. No abdominal dis tention. No nausea. No vomiting. No diarrhea. No abdominal pain. No other significant events overnight. Note that the patient has a lactic acid level from today of 1.7. ProBNP level is 5250. AST and ALT are both within normal limits and ammonia level is at 158. Serum cortisols at 18. Reevaluated today on 06/16/19, patient is resting in bed, very comfortable, in no distress, remains relatively hypotensive requiring norepinephrine at 0.03 mcg/kg/m. Mean arterial pressure is ranging between 60 and 65. Patient received albumin. And she is off IV bicarb, presently on oral bicarb. Patient denies being in any distress. And I plan to continue the tapering of the norepinephrine, I believe her hypotension is mostly secondary to high volume paracentesis. So it is probably hypovolemic in nature. Labs today showed relatively normal CBC and normal electrolytes BUN is 43 creatinine is 1.52, improving compared to creatinine of 1.98 yesterday. Ammonia level remains high, patient remains on lactulose. Objective - Vital Signs Vital signs: Vital Signs Temp 97.4 F L 06/16/19 08:00 Pulse 67 06/16/19 09:00 Resp 17 06/16/19 09:00 BP 113/48 06/15/19 21:30 Pulse Ox 96 06/16/19 08:00 Intake & Output 06/15/19 06/16/19 06/16/19 18:59 06:59 18:59 Intake Total 2744.942 1365.216 611.124 Output Total 450 515 120 Balance 2294.942 850.216 491.124 Weight 96.5 kg Intake: IV 275 825 275 Dextrose 5% in Water 1, 825 225 000 ml @ 75 mls/hr IV . [id number] ANUPAM with Sodium Bicarb (1 Meq/ml) 150 ml Rx#:[id number] Sodium Chloride 0.9% 1, 225 000 ml @ 75 mls/hr IV . [id number] [facility] Rx#:[id number] cefTRIAXone 1 gm In 50 50 Sodium Chloride 0.9% 50 ml @ 100 mls/hr IVPB Q24HR [facility] Rx#:[id number] Intake, IV Titration 1989.942 290.216 336.124 Amount Dextrose 5% in Water 1, 675 75 000 ml @ 75 mls/hr IV . [id number] ANUPAM with Sodium Bicarb (1 Meq/ml) 150 ml Rx#:[id number] Heparin Sod,Pork in 0.45% 206.347 NaCl 25,000 unit In 0.45 % NaCl 1 250ml.bag @ 12 UNITS/KG/HR 9.998 mls/hr IV .Q24H [facility] Rx#: [id number] Insulin Regular 100 unit 63.353 62.208 28.785 In Sodium Chloride 0.9% 100 ml @ Per Protocol IV .Q0M [facility] Rx#:[id number] Norepinephrine 4 mg In 751.589 153.008 100.992 Sodium Chloride 0.9% 250 ml @ 0.05 MCG/KG/MIN 15. 872 mls/hr IV .Q16H1M [facility] Rx#:[id number] Sodium Chloride 0.9% 1, 500 000 ml @ 500 mls/hr IV . Q2H ONE Rx#:[id number] Oral 480 250 Output: Urine 450 515 120 Other: Voiding Method Indwelling Catheter Indwelling Catheter Indwelling Catheter # Bowel Movements 1 ABP, PAP, CO, CI - Last Documented Arterial Blood Pressure 149/54 - Exam GENERAL EXAM: Revealed 79-year-old female on room air, in no distress. HEENT: PERRLA, EOMI, neck, dry mucous membranes. Throat is clear. CHEST: No chest wall deformity. LUNGS: Diminished breath sounds at the bases no crackles or rhonchi or wheezes. CVS: S1 and S2 normal with no audible murmur, regular rhythm. ABDOMEN: Obese, Soft, normal bowel sounds, no guarding or rigidity. SPINE: No scoliosis or deformity SKIN: No rashes CENTRAL NERVOUS SYSTEM: Alert and oriented 3, no gross focal neurologic deficits. EXTREMITIES: There is no peripheral edema. Psychiatric: Normal mood, affect and normal mental status examination. - Labs CBC & Chem 7: 06/16/19 05:20 06/16/19 05:20 Labs: Abnormal Lab Results - Last 24 Hours (Table) 06/15/19 06/15/19 06/15/19 Range/Units 10:54 12:00 12:12 RBC (3.80-5.40) m/uL Hgb (11.4-16.0) gm/dL Hct (34.0-46.0) % RDW (11.5-15.5) % Plt Count (150-450) k/uL Lymphocytes # (1.0-4.8) k/uL APTT (22.0-30.0) sec Sodium (137-145) mmol/L Chloride (98-107) mmol/L Carbon Dioxide (22-30) mmol/L BUN (7-17) mg/dL Creatinine (0.52-1.04) mg/dL Glucose (74-99) mg/dL POC Glucose (mg/dL) 137 H 169 H (75-99) mg/dL Calcium (8.4-10.2) mg/dL Ammonia (<30) umol/L Urine Protein 1+ H (Negative) Urine Ketones Trace H (Negative) Ur Leukocyte Esterase Trace H (Negative) Hyaline Casts 33 H (0-2) /lpf Urine Mucus Rare H (None) /hpf 06/15/19 06/15/19 06/15/19 Range/Units 15:20 15:57 17:57 RBC (3.80-5.40) m/uL Hgb (11.4-16.0) gm/dL Hct (34.0-46.0) % RDW (11.5-15.5) % Plt Count (150-450) k/uL Lymphocytes # (1.0-4.8) k/uL APTT (22.0-30.0) sec Sodium (137-145) mmol/L Chloride (98-107) mmol/L Carbon Dioxide (22-30) mmol/L BUN (7-17) mg/dL Creatinine (0.52-1.04) mg/dL Glucose (74-99) mg/dL POC Glucose (mg/dL) 162 H 193 H 225 H (75-99) mg/dL Calcium (8.4-10.2) mg/dL Ammonia (<30) umol/L Urine Protein (Negative) Urine Ketones (Negative) Ur Leukocyte Esterase (Negative) Hyaline Casts (0-2) /lpf Urine Mucus (None) /hpf 06/15/19 06/15/19 06/15/19 Range/Units 18:53 20:20 21:06 RBC (3.80-5.40) m/uL Hgb (11.4-16.0) gm/dL Hct (34.0-46.0) % RDW (11.5-15.5) % Plt Count (150-450) k/uL Lymphocytes # (1.0-4.8) k/uL APTT (22.0-30.0) sec Sodium (137-145) mmol/L Chloride (98-107) mmol/L Carbon Dioxide (22-30) mmol/L BUN (7-17) mg/dL Creatinine (0.52-1.04) mg/dL Glucose (74-99) mg/dL POC Glucose (mg/dL) 162 H 193 H 215 H (75-99) mg/dL Calcium (8.4-10.2) mg/dL Ammonia (<30) umol/L Urine Protein (Negative) Urine Ketones (Negative) Ur Leukocyte Esterase (Negative) Hyaline Casts (0-2) /lpf Urine Mucus (None) /hpf 06/15/19 06/15/19 06/16/19 Range/Units 22:04 22:56 00:07 RBC (3.80-5.40) m/uL Hgb (11.4-16.0) gm/dL Hct (34.0-46.0) % RDW (11.5-15.5) % Plt Count (150-450) k/uL Lymphocytes # (1.0-4.8) k/uL APTT (22.0-30.0) sec Sodium (137-145) mmol/L Chloride (98-107) mmol/L Carbon Dioxide (22-30) mmol/L BUN (7-17) mg/dL Creatinine (0.52-1.04) mg/dL Glucose (74-99) mg/dL POC Glucose (mg/dL) 197 H 176 H 181 H (75-99) mg/dL Calcium (8.4-10.2) mg/dL Ammonia (<30) umol/L Urine Protein (Negative) Urine Ketones (Negative) Ur Leukocyte Esterase (Negative) Hyaline Casts (0-2) /lpf Urine Mucus (None) /hpf 06/16/19 06/16/19 06/16/19 Range/Units 00:58 01:52 02:57 RBC (3.80-5.40) m/uL Hgb (11.4-16.0) gm/dL Hct (34.0-46.0) % RDW (11.5-15.5) % Plt Count (150-450) k/uL Lymphocytes # (1.0-4.8) k/uL APTT (22.0-30.0) sec Sodium (137-145) mmol/L Chloride (98-107) mmol/L Carbon Dioxide (22-30) mmol/L BUN (7-17) mg/dL Creatinine (0.52-1.04) mg/dL Glucose (74-99) mg/dL POC Glucose (mg/dL) 174 H 175 H 239 H (75-99) mg/dL Calcium (8.4-10.2) mg/dL Ammonia (<30) umol/L Urine Protein (Negative) Urine Ketones (Negative) Ur Leukocyte Esterase (Negative) Hyaline Casts (0-2) /lpf Urine Mucus (None) /hpf 06/16/19 06/16/19 06/16/19 Range/Units 04:09 04:53 05:20 RBC 3.53 L (3.80-5.40) m/uL Hgb 9.0 L (11.4-16.0) gm/dL Hct 29.0 L (34.0-46.0) % RDW 17.5 H (11.5-15.5) % Plt Count 68 L (150-450) k/uL Lymphocytes # 0.5 L (1.0-4.8) k/uL APTT (22.0-30.0) sec Sodium (137-145) mmol/L Chloride (98-107) mmol/L Carbon Dioxide (22-30) mmol/L BUN (7-17) mg/dL Creatinine (0.52-1.04) mg/dL Glucose (74-99) mg/dL POC Glucose (mg/dL) 177 H 165 H (75-99) mg/dL Calcium (8.4-10.2) mg/dL Ammonia (<30) umol/L Urine Protein (Negative) Urine Ketones (Negative) Ur Leukocyte Esterase (Negative) Hyaline Casts (0-2) /lpf Urine Mucus (None) /hpf 06/16/19 06/16/19 06/16/19 Range/Units 05:20 05:20 05:20 RBC (3.80-5.40) m/uL Hgb (11.4-16.0) gm/dL Hct (34.0-46.0) % RDW (11.5-15.5) % Plt Count (150-450) k/uL Lymphocytes # (1.0-4.8) k/uL APTT 55.6 H (22.0-30.0) sec Sodium 136 L (137-145) mmol/L Chloride 108 H (98-107) mmol/L Carbon Dioxide 21 L (22-30) mmol/L BUN 43 H (7-17) mg/dL Creatinine 1.52 H (0.52-1.04) mg/dL Glucose 166 H (74-99) mg/dL POC Glucose (mg/dL) (75-99) mg/dL Calcium 8.1 L (8.4-10.2) mg/dL Ammonia 58 H (<30) umol/L Urine Protein (Negative) Urine Ketones (Negative) Ur Leukocyte Esterase (Negative) Hyaline Casts (0-2) /lpf Urine Mucus (None) /hpf 06/16/19 06/16/19 06/16/19 Range/Units 06:04 06:58 08:53 RBC (3.80-5.40) m/uL Hgb (11.4-16.0) gm/dL Hct (34.0-46.0) % RDW (11.5-15.5) % Plt Count (150-450) k/uL Lymphocytes # (1.0-4.8) k/uL APTT (22.0-30.0) sec Sodium (137-145) mmol/L Chloride (98-107) mmol/L Carbon Dioxide (22-30) mmol/L BUN (7-17) mg/dL Creatinine (0.52-1.04) mg/dL Glucose (74-99) mg/dL POC Glucose (mg/dL) 165 H 166 H 159 H (75-99) mg/dL Calcium (8.4-10.2) mg/dL Ammonia (<30) umol/L Urine Protein (Negative) Urine Ketones (Negative) Ur Leukocyte Esterase (Negative) Hyaline Casts (0-2) /lpf Urine Mucus (None) /hpf Microbiology - Last 24 Hours (Table) 06/15/19 12:00 Urine Culture - Preliminary Urine,Catheterized Assessment and Plan Assessment: Impression: Hypertension, most likely hypovolemic in nature. Related to high volume paracentesis. Nonalcoholic liver cirrhosis, status post high-volume paracentesis on 06/10/19. Paroxysmal atrial fibrillation presently in normal sinus rhythm. Positive troponins, possible non-ST elevation myocardial infarction. Liver cirrhosis and portal hypertension with mild coagulopathy. Type 2 diabetes. History of breast cancer and previous left lumpectomy Peripheral neuropathy recommended 2 diabetes. Acute kidney injury most likely secondary to hypotension and acute tubular necrosis. Improving slowly. Recommendation: Titrate norepinephrine gradually and possibly discontinue. Continue IV heparin. Continue lactulose. Continue Florinef. Continue oral bicarb. We will continue to monitor in the ICU as long as she is on norepinephrine, possibly transfer out of the ICU in the next 24 hours was norepinephrine is discontinued. We'll continue to follow. Time with Patient: Less than 30
[2019-06-16 10:59] LABS: Glucose,Whole Blood 175 mg/dL (75-99)
[2019-06-16 11:53] LABS: Glucose,Whole Blood 162 mg/dL (75-99)
[2019-06-16] MEDS: INSULIN REGULAR 100 UNIT in SODIUM CHLORIDE 0.9% 100 ML IV SCH (13:02)
[2019-06-16 13:09] LABS: Glucose,Whole Blood 119 mg/dL (75-99)
[2019-06-16 14:05] LABS: Glucose,Whole Blood 113 mg/dL (75-99)
[2019-06-16 16:34] LABS: Glucose,Whole Blood 203 mg/dL (75-99)
[2019-06-16] MEDS: INSULIN ASPART (NovoLOG) 100 UNIT/ML VIAL SQ SCH ×3 (16:45→20:30)
--- NOTE | 2019-06-16 19:22 | PN ---
PROGRESS NOTE DATE OF SERVICE: 06/16/2019 This 79-year-old woman is admitted with ascites also had multiple other medical problems including chest pain, acute non ST elevation myocardial infarction, relative hypotension, atrial fibrillation, fast ventricular rate. The patient is off Levophed drip at this time. maintained at 60. The most recent chest x-ray was reviewed personally by me showed fluid overload. The patient is being closely monitored at this time. The patient's BNP was elevated 5250 and the most recent 2D echocardiogram done a few days ago showed ejection fraction about 50-60 percent and multiple valvular abnormalities. No chest pain. No palpitations. PAST MEDICAL HISTORY: Reviewed. REVIEW OF SYSTEMS: Cardiovascular system: As mentioned earlier. RESPIRATORY: As mentioned earlier. GI: No nausea or vomiting. no dysuria. Nervous system: No numbness or weakness. CURRENT MEDICATIONS: Reviewed and include: 1. Tylenol p.r.n. 2. Xanax 0.5 t.i.d. 3. Eliquis 5 mg p.o. b.i.d. 4. Aspirin 81 mg daily. 5. Rocephin 1 g daily. 6. Vitamin D3 2000 daily. 7. Vitamin B12 1000 mg at bedtime. 8. Florinef 0.2 b.i.d. 9. Neurontin 100 mg p.o. t.i.d. 10.Dilaudid 0.5 q.3 p.r.n. 11.NovoLog scale. 12.Levemir 30 units subcu b.i.d. 13.Cephulac 10 mg p.o. daily. 14.Tradjenta 5 mg p.o. daily. 15.Lopressor. 16.Narcan. 17.Niacin. 18.Nitrostat. 19.Levophed. 20.Protonix. 21.Actos. 22.Zoloft. 23.Aldactone. 24.Restoril. PHYSICAL EXAM: Patient is alert, oriented x3. Pulse is 66, blood pressure 123/64, respirations 16, temp is normal. Pulse ox 98% on room air. HEENT: Conjunctivae normal. NECK: No JVD. CARDIOVASCULAR: S1, S2 muffled. RESPIRATIONS: Breath sounds diminished in the bases, a few scattered rhonchi and crackles. ABDOMEN: Soft, nontender. LEGS: No edema. No swelling. CENTRAL NERVOUS SYSTEM: No focal deficits. LABS: WBC is 4.7, hemoglobin 9, otherwise sodium is 136, creatinine is 1.52, slightly improved. Serum cortisol is 13 and 18. ASSESSMENT: 1. Chest pain with troponin 0.050 possible acute pkm-LT-mcnncdr-elevation myocardial infarction with abnormal stress test. 2. Relative hypotension multifactorial possibly cardiogenic shock as well. 3. Atrial fibrillation with fast ventricular rate paroxysmal. 4. Persistent hypotension on Levophed. 5. Congestive heart failure, acute exacerbation, acute on chronic diastolic dysfunction, ejection fraction 55-60. 6. Acute renal failure, acute tubular necrosis with prerenal factors. 7. Acute urinary tract infection present on admission. 8. Anemia, microcytic anemia undetermined etiology. 9. Ascites, acute exacerbation secondary to nonalcoholic cirrhosis of the liver status post abdominal paracentesis, present on admission. 10.Anemia, microcytic anemia of undetermined etiology. 11.Diabetes mellitus type 2 uncontrolled with hyperglycemia. 12.Chronic mild coagulopathy secondary to chronic liver disease possibly. 13.Severe hyponatremia, present on admission. 14.Diabetes mellitus type 2, uncontrolled with hyperglycemia. 15.Mild metabolic acidosis. 16.Obesity. 17.Hypertension. 18.History of chronic liver disease. 19.Thrombocytopenia. 20.History of left breast cancer with lumpectomy. 21.History of peripheral neuropathy. 22.History of breast surgery. 23.History of cholecystectomy. 24.History of depression. 25.FULL CODE. RECOMMENDATIONS AND DISCUSSION: Recommend to continue current medications, continue with monitoring, symptomatic treatment. We will monitor the fluid and electrolyte balance closely. Otherwise continue to monitor the blood pressure. Otherwise, I would also recommend continue with current medications. I will monitor the fluid and electrolytes balance closely. If the patient is getting short of breath, I would recommend Lasix 40 mg 1 dose p.r.n. Otherwise, continue the antibiotics. Otherwise continue to monitor. Prognosis guarded. Further recommendations to follow. Wean off the Levophed. Monitor blood sugars closely and see orders. MMODL / IJN: [id number] / MTDD
[2019-06-16 20:20] LABS: Glucose,Whole Blood 242 mg/dL (75-99)
[2019-06-16] MEDS: APIXABAN 5 MG TAB PO SCH (20:24)
[2019-06-16] MEDS: INSULIN DETEMIR (LEVEMIR) 100 UNIT/ML SYR SQ SCH (20:25)
[2019-06-17 04:53] LABS: Calcium 8.2 mg/dL (8.4-10.2); Potassium 3.8 mmol/L (3.5-5.1)
[2019-06-17 05:16] LABS: Anisocytosis Slight; Basophils % (A) 0 %; Eosinophils # (A) 0.1 k/uL (0-0.7); Eosinophils % (A) 3 %; HCT 29.5 % (34.0-46.0); HGB 9.1 gm/dL (11.4-16.0); Hypochromasia Slight; Lymphocytes # (A) 0.5 k/uL (1.0-4.8); Lymphocytes % (A) 14 %; MCH 25.1 pg (25.0-35.0); MCHC 30.9 g/dL (31.0-37.0); MCV 81.3 fL (80.0-100.0); Mean Platelet Volume 9.3; Monocytes # (A) 0.2 k/uL (0-1.0); Monocytes % (A) 6 %; Neutrophils # (A) 2.7 k/uL (1.3-7.7); Neutrophils % (A) 74 %; RBC 3.63 m/uL (3.80-5.40); RDW 17.6 % (11.5-15.5); WBC 3.6 k/uL (3.8-10.6)
[2019-06-17] MEDS ORDERED: Potassium Replacement Protocol 1 EACH MISC MISCELLANE PRN (05:18)
[2019-06-17 05:19] LABS: Platelet Count 63 k/uL (150-450)
[2019-06-17] MEDS ORDERED: POTASSIUM CHLORIDE ER 20 MEQ TAB.ER PO SCH (06:00)
[2019-06-17 06:23] LABS: Glucose,Whole Blood 181 mg/dL (75-99)
[2019-06-17] MEDS: INSULIN ASPART (NovoLOG) 100 UNIT/ML VIAL SQ SCH ×7 (06:55→20:34)
--- NOTE | 2019-06-17 08:07 | XR ---
EXAMINATION TYPE: XR chest 1V portable DATE OF EXAM: 06/17/2019 COMPARISON: Prior chest 06/16/2019 HISTORY: Ascites, abnormal chest x-ray, congestive heart failure TECHNIQUE: Single frontal view of the chest is obtained. FINDINGS: Pleural parenchymal changes are similar to prior exam. Patient is rotated. Heart is enlarg ed. Left hemidiaphragm, portion of the right hemidiaphragm are obscured. Central vascularity and inte rstitium are increased. Postop change noted in the left axilla. IMPRESSION: Correlate for volume overload, congestive heart failure with pleural effusions. Pneumoni a not excluded.
[2019-06-17 08:23] LABS: Glucose,Whole Blood 185 mg/dL (75-99)
[2019-06-17] MEDS: GABAPENTIN 100 MG CAP PO SCH ×3 (08:24→21:18)
[2019-06-17] MEDS: CHOLECALCIFEROL 1,000 UNIT TAB PO SCH (08:24)
[2019-06-17] MEDS: CYANOCOBALAMIN 500 MCG TAB PO SCH (08:24)
[2019-06-17] MEDS: NIACIN TR 500 MG CAPLET PO SCH (08:24)
[2019-06-17] MEDS: SERTRALINE 50 MG TAB PO SCH (08:24)
[2019-06-17] MEDS: SODIUM BICARBONATE TAB 650 MG TAB PO SCH ×4 (08:24→21:18)
[2019-06-17] MEDS: INSULIN DETEMIR (LEVEMIR) 100 UNIT/ML SYR SQ SCH ×2 (08:24→20:35)
[2019-06-17] MEDS: PIOGLITAZONE 30 MG TAB PO SCH (08:25)
[2019-06-17] MEDS: PANTOPRAZOLE 40 MG/10 ML VIAL IV SCH (08:25)
[2019-06-17] MEDS: LINAGLIPTIN 5 MG TABLET PO SCH (08:25)
[2019-06-17] MEDS: SPIRONOLACTONE 25 MG TAB PO SCH ×3 (08:25→20:34)
[2019-06-17] MEDS: ASPIRIN 81 MG PO SCH (08:25)
[2019-06-17] MEDS: FLUDROCORTISONE 0.1 MG TAB PO SCH ×2 (08:25→20:34)
[2019-06-17] MEDS: METOPROLOL TARTRATE 12.5 MG TAB PO SCH ×2 (08:25→20:34)
[2019-06-17] MEDS: APIXABAN 5 MG TAB PO SCH ×2 (08:25→20:33)
[2019-06-17] MEDS ORDERED: FUROSEMIDE 10 MG/ML 4 ML VIAL IV STA (08:56)
--- NOTE | 2019-06-17 08:56 | P.PN ---
Subjective Patient is seen in follow for acute kidney injury. Renal function is improved. She is currently maintained on normal saline at 50 mL an hour. Urine output about 40-60 mL an hour. Not on vasopressors at this time. Oral intake is gradually improving. Vital signs are stable. General: The patient appeared well nourished and normally developed. HEENT: Head exam is unremarkable. Neck is without jugular venous distension. LUNGS: Lungs are clear to auscultation and percussion. Breath sounds decreased. HEART: Rate and Rhythm are regular. First and second heart sounds normal. No murmurs, rubs or gallops. ABDOMEN: Bowel sounds present. Nontender. EXTREMITITES: 1+ edema. Objective - Vital Signs Vital signs: Vital Signs Temp 98.0 F 06/17/19 08:00 Pulse 78 06/17/19 08:00 Resp 17 06/17/19 08:00 BP 113/48 06/17/19 05:00 Pulse Ox 94 L 06/17/19 08:00 Intake & Output 06/16/19 06/17/19 06/17/19 18:59 06:59 18:59 Intake Total 8336.563 1338 350 Output Total 570 795 120 Balance 489.178 205 230 Weight 97.3 kg Intake: IV 700 550 150 0.9 @ 50 500 550 100 Dextrose 5% in Water 1, 150 000 ml @ 75 mls/hr IV . [id number] ANUPAM with Sodium Bicarb (1 Meq/ml) 150 ml Rx#:[id number] cefTRIAXone 1 gm In 50 50 Sodium Chloride 0.9% 50 ml @ 100 mls/hr IVPB Q24HR ANUPAM Rx#:[id number] Intake, IV Titration 359.178 Amount Heparin Sod,Pork in 0.45% 206.347 NaCl 25,000 unit In 0.45 % NaCl 1 250ml.bag @ 12 UNITS/KG/HR 9.998 mls/hr IV .Q24H ANUPAM Rx#: [id number] Insulin Regular 100 unit 51.839 In Sodium Chloride 0.9% 100 ml @ Per Protocol IV .Q0M ANUPAM Rx#:[id number] Norepinephrine 4 mg In 100.992 Sodium Chloride 0.9% 250 ml @ 0.05 MCG/KG/MIN 15. 872 mls/hr IV .Q16H1M ANUPAM Rx#:[id number] Oral 450 200 Output: Urine 570 795 120 Other: Voiding Method Indwelling Catheter Indwelling Catheter Indwelling Catheter ABP, PAP, CO, CI - Last Documented Arterial Blood Pressure 132/45 - Labs CBC & Chem 7: 06/17/19 04:30 06/17/19 04:30 Labs: Abnormal Lab Results - Last 24 Hours (Table) 06/16/19 06/16/19 06/16/19 Range/Units 08:53 10:58 11:51 WBC (3.8-10.6) k/uL RBC (3.80-5.40) m/uL Hgb (11.4-16.0) gm/dL Hct (34.0-46.0) % MCHC (31.0-37.0) g/dL RDW (11.5-15.5) % Plt Count (150-450) k/uL Lymphocytes # (1.0-4.8) k/uL Chloride (98-107) mmol/L Carbon Dioxide (22-30) mmol/L BUN (7-17) mg/dL Creatinine (0.52-1.04) mg/dL Glucose (74-99) mg/dL POC Glucose (mg/dL) 159 H 175 H 162 H (75-99) mg/dL Calcium (8.4-10.2) mg/dL 06/16/19 06/16/19 06/16/19 Range/Units 13:07 14:03 16:32 WBC (3.8-10.6) k/uL RBC (3.80-5.40) m/uL Hgb (11.4-16.0) gm/dL Hct (34.0-46.0) % MCHC (31.0-37.0) g/dL RDW (11.5-15.5) % Plt Count (150-450) k/uL Lymphocytes # (1.0-4.8) k/uL Chloride (98-107) mmol/L Carbon Dioxide (22-30) mmol/L BUN (7-17) mg/dL Creatinine (0.52-1.04) mg/dL Glucose (74-99) mg/dL POC Glucose (mg/dL) 119 H 113 H 203 H (75-99) mg/dL Calcium (8.4-10.2) mg/dL 06/16/19 06/17/19 06/17/19 Range/Units 20:19 04:30 04:30 WBC 3.6 L (3.8-10.6) k/uL RBC 3.63 L (3.80-5.40) m/uL Hgb 9.1 L (11.4-16.0) gm/dL Hct 29.5 L (34.0-46.0) % MCHC 30.9 L (31.0-37.0) g/dL RDW 17.6 H (11.5-15.5) % Plt Count 63 L (150-450) k/uL Lymphocytes # 0.5 L (1.0-4.8) k/uL Chloride 109 H (98-107) mmol/L Carbon Dioxide 21 L (22-30) mmol/L BUN 38 H (7-17) mg/dL Creatinine 1.25 H (0.52-1.04) mg/dL Glucose 192 H (74-99) mg/dL POC Glucose (mg/dL) 242 H (75-99) mg/dL Calcium 8.2 L (8.4-10.2) mg/dL 06/17/19 06/17/19 Range/Units 06:21 08:22 WBC (3.8-10.6) k/uL RBC (3.80-5.40) m/uL Hgb (11.4-16.0) gm/dL Hct (34.0-46.0) % MCHC (31.0-37.0) g/dL RDW (11.5-15.5) % Plt Count (150-450) k/uL Lymphocytes # (1.0-4.8) k/uL Chloride (98-107) mmol/L Carbon Dioxide (22-30) mmol/L BUN (7-17) mg/dL Creatinine (0.52-1.04) mg/dL Glucose (74-99) mg/dL POC Glucose (mg/dL) 181 H 185 H (75-99) mg/dL Calcium (8.4-10.2) mg/dL Microbiology - Last 24 Hours (Table) 06/15/19 12:00 Urine Culture - Final Urine,Catheterized 06/15/19 16:00 Blood Culture - Preliminary Blood No Growth after 24 hours Assessment and Plan Plan: Assessment: 1. Acute kidney injury secondary to ATN secondary to hypotension and hemodynamic instability. Renal function better. Creatinine 1.25 today. 2. Metabolic acidosis secondary to acute kidney injury. Status post bicarb drip. Now on oral bicarbonate. Stable. 3. 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 4. A. fib with RVR maintained on Lopressor. 5. Volume overload. Plan: Hep-Lock IV fluids. Encouraged oral intake. Avoid nephrotoxins. Maintain oral sodium bicarbonate. Increase Aldactone to 50 mg twice daily. Lasix 40 mg IV once today.
[2019-06-17] MEDS: LACTULOSE 20 GM/30 ML CUP PO SCH (09:21)
[2019-06-17 11:37] VITALS: BMI 34.6
--- NOTE | 2019-06-17 11:46 | P.PN ---
Subjective Progress Note Date: 06/17/19 Principal diagnosis: Hypotension, most likely secondary to hypovolemia and possible non-ST elevation myocardial infarction. This is a 79-year-old female patient with known history of nonalcoholic liver cirrhosis. The patient also has history of diabetes and hypertension. She has had previous paracentesis on several occasions for abdominal distention and ascites. The patient came into the hospital and the patient was noted to have increased abdominal distention associated with some shortness of breath. She also had some limited chest pain. No nausea or vomiting. She underwent a paracentesis for a total of 3.2 L of ascitic fluid was removed and it was not sent for any cultures. The patient subsequently improved and she was doing well. Her troponins were positive at 0.5. The patient was given a cardiac stress test that came back positive for reversible ischemia and based on that and based on the positive stress test, the patient was being planned for a cardiac catheterization. Earlier this morning the patient went into atrial fibrillation with RVR. Her blood pressure dropped and she got transferred to the intensive care unit. Upon arrival her systolic blood pressure was in the 60s. The patient was started on IV fluids bolus and she was given 1.5 L. Subsequently she was given 2.5 mg of IV Lopressor. This afternoon she converted back to normal sinus rhythm. She is currently in normal sinus rhythm with a rate of 61. She is on IV heparin. She is doing well without any chest pain. She is on norepinephrine infusion running at 0.09 g per KG per minute. Her most recent blood pressure 95/44. Note that her creatinine came up to 1.8 and the patient is producing urine output in the order of 30 mL an hour. No abdominal distention. Chest x-ray shows some cardiomegaly. Echo of the heart showed EF of around 55-60%. Resume cardiac structures were all within normal limits. The patient had mild aortic stenosis. The right ventricular systolic pressure was 43. The patient is seen today in the intensive care unit. She is currently awake and alert in no acute distress. She remains hypotensive however. She is on norepinephrine at 0.16 mcg/kg/m. 0.9 normal saline at 75 ML's per hour. Heparin drip per weight base protocol. Currently in sinus rhythm. Maintaining O2 saturations in the 90s on 2 L/m per nasal cannula. White count 10.4. Hemoglobin 9.9. Platelet count 181,000. Sodium 129. Potassium 5.1. Bicarb 19. Creatinine 2.03. TSH 1.12. On 06/14/2019 on seeing the patient for a follow-up. This is a follow-up this being done in the intensive care unit. The patient is looking quite comfortable. No altered mentation. His resting comfortably in bed. No tachycardia. Her cardiac rhythm remains sinus. Nevertheless, the patient remains profoundly hypotensive. She is requiring pressors and currently norepin ephrine infusion is running at 0.2 mcg/kg per minute. The exact cause is not clear. She is afebrile. No significant leukocytosis. No nausea vomiting. No abdominal distention. No diarrhea. No respiratory distress. She has an art line catheter and the blood pressure is being monitored for an outlying catheter for now. She is on empiric antibiotic coverage with IV Rocephin. Her white cell count is at 10.9. He has a 48 with a creatinine of 1.9. She received a total of 3 5% albumin for hemodynamic support. TPN is a 48 with a creatinine of 1.9. The serum cortisols at 13. No other significant issues for now. She is resting comfortably in bed. No signs of any encephalopathy. As stated cardiac rhythm is sinus and her LV ejection fraction is 55-60%. This patient is being seen in follow-up on 06/15/2019. The patient is laying down comfortably in bed. No significant complaints. The ongoing hypotension is still a concern. The patient has been requiring pressors at the higher dose of norepinephrine infusion at 20 g per KG per minute. The patient is also having a lower urine output. She has been in a positive fluid balance of at least 7-8 L over the past 48 hours. She was given IV albumin on multiple occasions in the urine output remains low. Her creatinine is up to 1.9. She also has developed a non-anion gap metabolic acidosis. Based on that, I requested a nephrology consultation. She was on empiric antibiotic coverage with IV Rocephin. There is being continued for now. Based on the ongoing changes, I started the patient on bicarb drip. I give the patient himself sodium bicarb when I requested the patient to be seen by nephrology. A triple lumen catheter be established today. She remains normal sinus rhythm. No fever. No chills. No abdominal dis tention. No nausea. No vomiting. No diarrhea. No abdominal pain. No other significant events overnight. Note that the patient has a lactic acid level from today of 1.7. ProBNP level is 5250. AST and ALT are both within normal limits and ammonia level is at 158. Serum cortisols at 18. Reevaluated today on 06/16/19, patient is resting in bed, very comfortable, in no distress, remains relatively hypotensive requiring norepinephrine at 0.03 mcg/kg/m. Mean arterial pressure is ranging between 60 and 65. Patient received albumin. And she is off IV bicarb, presently on oral bicarb. Patient denies being in any distress. And I plan to continue the tapering of the norepinephrine, I believe her hypotension is mostly secondary to high volume paracentesis. So it is probably hypovolemic in nature. Labs today showed relatively normal CBC and normal electrolytes BUN is 43 creatinine is 1.52, improving compared to creatinine of 1.98 yesterday. Ammonia level remains high, patient remains on lactulose. Reevaluated today on 06/17/19, patient is off norepinephrine, she is hemodynamically stable, feeling much better, denies any shortness of breath cough or wheezing. She is still on diuretics, still on lactulose, all labs including CBC and basic metabolic profile were reviewed, creatinine is 1.25 today. Improving. Objective - Vital Signs Vital signs: Vital Signs Temp 98.0 F 06/17/19 08:00 Pulse 70 06/17/19 10:00 Resp 17 06/17/19 10:00 BP 113/48 06/17/19 05:00 Pulse Ox 94 L 06/17/19 08:00 Intake & Output 06/16/19 06/17/19 06/17/19 18:59 06:59 18:59 Intake Total 1496.992 7703 350 Output Total 570 795 455 Balance 489.178 205 -105 Weight 97.3 kg 97.3 kg Intake: IV 700 550 150 0.9 @ 50 500 550 100 Dextrose 5% in Water 1, 150 000 ml @ 75 mls/hr IV . [id number] ANUPAM with Sodium Bicarb (1 Meq/ml) 150 ml Rx#:[id number] cefTRIAXone 1 gm In 50 50 Sodium Chloride 0.9% 50 ml @ 100 mls/hr IVPB Q24HR ANUPAM Rx#:[id number] Intake, IV Titration 359.178 Amount Heparin Sod,Pork in 0.45% 206.347 NaCl 25,000 unit In 0.45 % NaCl 1 250ml.bag @ 12 UNITS/KG/HR 9.998 mls/hr IV .Q24H ANUPAM Rx#: [id number] Insulin Regular 100 unit 51.839 In Sodium Chloride 0.9% 100 ml @ Per Protocol IV .Q0M ANUPAM Rx#:[id number] Norepinephrine 4 mg In 100.992 Sodium Chloride 0.9% 250 ml @ 0.05 MCG/KG/MIN 15. 872 mls/hr IV .Q16H1M ANUPAM Rx#:[id number] Oral 450 200 Output: Urine 570 795 455 Other: Voiding Method Indwelling Catheter Indwelling Catheter Indwelling Catheter ABP, PAP, CO, CI - Last Documented Arterial Blood Pressure 137/44 - Exam GENERAL EXAM: Revealed 79-year-old female on room air, in no distress. HEENT: PERRLA, EOMI, neck, dry mucous membranes. Throat is clear. CHEST: No chest wall deformity. LUNGS: Diminished breath sounds at the bases no crackles or rhonchi or wheezes. CVS: S1 and S2 normal with no audible murmur, regular rhythm. ABDOMEN: Obese, Soft, normal bowel sounds, no guarding or rigidity. SPINE: No scoliosis or deformity SKIN: No rashes CENTRAL NERVOUS SYSTEM: Alert and oriented 3, no gross focal neurologic deficits. EXTREMITIES: There is no peripheral edema. Psychiatric: Normal mood, affect and normal mental status examination. - Labs CBC & Chem 7: 06/17/19 04:30 06/17/19 04:30 Labs: Abnormal Lab Results - Last 24 Hours (Table) 06/16/19 06/16/19 06/16/19 Range/Units 11:51 13:07 14:03 WBC (3.8-10.6) k/uL RBC (3.80-5.40) m/uL Hgb (11.4-16.0) gm/dL Hct (34.0-46.0) % MCHC (31.0-37.0) g/dL RDW (11.5-15.5) % Plt Count (150-450) k/uL Lymphocytes # (1.0-4.8) k/uL Chloride (98-107) mmol/L Carbon Dioxide (22-30) mmol/L BUN (7-17) mg/dL Creatinine (0.52-1.04) mg/dL Glucose (74-99) mg/dL POC Glucose (mg/dL) 162 H 119 H 113 H (75-99) mg/dL Calcium (8.4-10.2) mg/dL Ammonia (<30) umol/L 06/16/19 06/16/19 06/17/19 Range/Units 16:32 20:19 04:30 WBC 3.6 L (3.8-10.6) k/uL RBC 3.63 L (3.80-5.40) m/uL Hgb 9.1 L (11.4-16.0) gm/dL Hct 29.5 L (34.0-46.0) % MCHC 30.9 L (31.0-37.0) g/dL RDW 17.6 H (11.5-15.5) % Plt Count 63 L (150-450) k/uL Lymphocytes # 0.5 L (1.0-4.8) k/uL Chloride (98-107) mmol/L Carbon Dioxide (22-30) mmol/L BUN (7-17) mg/dL Creatinine (0.52-1.04) mg/dL Glucose (74-99) mg/dL POC Glucose (mg/dL) 203 H 242 H (75-99) mg/dL Calcium (8.4-10.2) mg/dL Ammonia (<30) umol/L 06/17/19 06/17/19 06/17/19 Range/Units 04:30 06:21 08:19 WBC (3.8-10.6) k/uL RBC (3.80-5.40) m/uL Hgb (11.4-16.0) gm/dL Hct (34.0-46.0) % MCHC (31.0-37.0) g/dL RDW (11.5-15.5) % Plt Count (150-450) k/uL Lymphocytes # (1.0-4.8) k/uL Chloride 109 H (98-107) mmol/L Carbon Dioxide 21 L (22-30) mmol/L BUN 38 H (7-17) mg/dL Creatinine 1.25 H (0.52-1.04) mg/dL Glucose 192 H (74-99) mg/dL POC Glucose (mg/dL) 181 H (75-99) mg/dL Calcium 8.2 L (8.4-10.2) mg/dL Ammonia 68 H (<30) umol/L 06/17/19 Range/Units 08:22 WBC (3.8-10.6) k/uL RBC (3.80-5.40) m/uL Hgb (11.4-16.0) gm/dL Hct (34.0-46.0) % MCHC (31.0-37.0) g/dL RDW (11.5-15.5) % Plt Count (150-450) k/uL Lymphocytes # (1.0-4.8) k/uL Chloride (98-107) mmol/L Carbon Dioxide (22-30) mmol/L BUN (7-17) mg/dL Creatinine (0.52-1.04) mg/dL Glucose (74-99) mg/dL POC Glucose (mg/dL) 185 H (75-99) mg/dL Calcium (8.4-10.2) mg/dL Ammonia (<30) umol/L Microbiology - Last 24 Hours (Table) 06/15/19 12:00 Urine Culture - Final Urine,Catheterized 06/15/19 16:00 Blood Culture - Preliminary Blood No Growth after 24 hours Assessment and Plan Assessment: Impression: Hypotension, most likely hypovolemic in nature. Related to high volume paracentesis. Resolved. Nonalcoholic liver cirrhosis, status post high-volume paracentesis on 06/10/19. Paroxysmal atrial fibrillation presently in normal sinus rhythm. Positive troponins, possible non-ST elevation myocardial infarction. Liver cirrhosis and portal hypertension with mild coagulopathy. Type 2 diabetes. History of breast cancer and previous left lumpectomy Peripheral neuropathy recommended 2 diabetes. Acute kidney injury most likely secondary to hypotension and acute tubular necrosis. Improving slowly. Recommendation: Patient is now off norepinephrine. Continue IV heparin. Continue lactulose. Continue Florinef. Continue oral bicarb. Transfer patient out of the ICU to a regular medical floor We'll continue to follow. Time with Patient: Less than 30
[2019-06-17 12:04] LABS: Glucose,Whole Blood 135 mg/dL (75-99)
--- NOTE | 2019-06-17 12:31 | PN ---
PROGRESS NOTE DATE OF DICTATION: 06/17/2019 The patient is a 79-year-old pleasant white female who remains in the intensive care unit with A Fib RVR and hypotension on pressors. She is doing much better. She is off Levophed since yesterday. She remains hemodynamically stable. She has a history of nonalcoholic cirrhosis of the liver with portal hypertension and ascites. Large volume paracentesis done a week ago and . Overall, she is doing much better. She has no abdominal pain. She complains of some lower extremity swelling. Denies any nausea, vomiting, rectal bleeding or melena. PHYSICAL EXAMINATION: On physical examination, appears comfortable. Blood pressure is 113/48, pulse is 70, temperature 98. HEENT EXAMINATION: Unremarkable. Conjunctivae pink. Sclerae anicteric. Oral cavity, no lesions. NECK: No JVD or lymph node enlargement. CHEST: Clear to auscultation. HEART: Regular rate and rhythm. ABDOMEN: Soft. There was no free fluid noted. EXTREMITIES: Trace pedal edema. SKIN: No rashes. NEURO: She is alert and oriented x3. No focal deficits. LABS: Labs from today: WBC 3.6, hemoglobin 9.1, platelets 63,000. BUN is 38, creatinine 1.25. IMPRESSION: 1. Atrial fibrillation with rapid ventricular response and hypotension, resolved. 2. Cirrhosis of the liver with portal hypertension and ascites, status post large volume paracentesis done on June 09 and 3 L of fluid removed, now stable. No recurrence of ascites. 3. Longstanding history of diabetes mellitus. 4. Acute kidney injury, gradually improving. 5. Atrial fibrillation on IV heparin. RECOMMENDATIONS: 1. Continue current management as per ICU. 2. We will monitor her closely. 3. Thank you for this consultation. MMODL / IJN: [id number] /
[2019-06-17] MEDS: FUROSEMIDE 40 MG TAB PO SCH (17:13)
[2019-06-17 17:34] LABS: Glucose,Whole Blood 131 mg/dL (75-99)
--- NOTE | 2019-06-17 19:42 | PN ---
PROGRESS NOTE DATE OF SERVICE: 06/17/2019 This 79-year-old woman who was admitted with chest pain and elevated troponin, also had abnormal stress test. Patient also had hypotension with cardiac shock and multiple other medical problems also. The patient also has afib with fast ventricular rate. Patient being closely monitored. Blood pressure is improved at this time. The patient is off Levophed, but however the creatinine is elevated at 1.25 and the patient also had mild pancytopenia with WBC 3.6, hemoglobin 9.1, and platelets 63. Most recent chest x-ray which was done today which was personally reviewed by me showed evidence of significant for CHF. Patient is being closely monitored at this time. PAST MEDICAL HISTORY: Reviewed. REVIEW OF SYMPTOMS: Cardiovascular: As mentioned earlier. Respiratory: As mentioned earlier. GI: As mentioned earlier. no dysuria. Nervous systems: As mentioned earlier. MEDICATIONS: Current medications are reviewed and include: 1. Tylenol 500 mg p.o. q.6h p.r.n. 2. Xanax 0.5 t.i.d. 3. Eliquis 5 mg b.i.d. 4. Aspirin 81. 5. Rocephin 1 g daily. 6. Vitamin D3 2000. 7. B12 1000 mg. 8. Florinef 0.2 b.i.d. 9. Neurontin 100 mg p.o. t.i.d. 10.Dilaudid. 11.Levemir. 12.Tradjenta. 13.Replacement protocols. 14.Zofran. 15.Protonix. 16.Actos. 17.Aldactone. 18.Restoril. PHYSICAL EXAM: Patient is alert, oriented x3. Pulse 78. Blood pressure 125/50. Respirations 18. Temperature 97.8, pulse ox 92% on room air. HEENT: Conjunctivae normal. NECK: No JVD. CARDIOVASCULAR: S1, S2 muffled. RESPIRATORY: Breath sounds diminished in the bases. A few scattered rhonchi and crackles. ABDOMEN: Soft, nontender. LEGS are no edema. No swelling. CENTRAL NERVOUS SYSTEM: No focal deficits. LABS: At this time shows creatinine is 1.25, BUN is 38, WBC 3.2, hemoglobin 9.1, platelets 63. ASSESSMENT: 1. Chest pain with troponin 0.050 possible acute [id number]-elevation myocardial infarction with abnormal stress test. 2. Relative hypotension multifactorial possibly cardiogenic shock as well. 3. Possible congestive heart failure acute exacerbation. 4. Atrial fibrillation with fast ventricular rate, paroxysmal. 5. Persistent hypotension on Levophed. 6. Congestive heart failure, acute exacerbation with acute on chronic diastolic dysfunction ejection fraction 50-60 percent. 7. Acute renal failure, acute tubular necrosis with prerenal factors. 8. Acute urinary tract infection present on admission. 9. Anemia, microcytic anemia undetermined etiology. 10.Ascites, acute exacerbation secondary to nonalcoholic cirrhosis of liver, status post abdominal paracentesis, present on admission. 11.Anemia, microcytic anemia of undetermined etiology. 12.Diabetes mellitus type 2, uncontrolled with hyperglycemia. 13.Chronic mild coagulopathy secondary to chronic liver disease, possibly. 14.Severe hyponatremia, present on admission. 15.Diabetes mellitus type 2, uncontrolled with hyperglycemia. 16.Mild metabolic acidosis. 17.Obesity. 18.Hypertension. 19.History of chronic liver disease. 20.History of thrombocytopenia. 21.History of left breast cancer with lumpectomy. 22.History of peripheral neuropathy. 23.History of breast surgery. 24.History of cholecystectomy. 25.History of depression. 26.Elevated ammonia. 27.FULL CODE. RECOMMENDATIONS AND DISCUSSION DISCUSSION: In this 79-year-old woman who presented with multiple complex medical issues, we will monitor the patient closely. The blood pressure is definitely improved, but however the patient has significant changes in the chest x-ray suggestive of CHF. Lasix IV [address] dose [address] given [address] Tomlinson. We will continue to monitor. The patient might possibly require Lasix on a daily basis. Monitor the renal functions closely. Avoid nephrotoxic medications. Continue the broad-spectrum IV antibiotics and continue with apixaban and as far as diabetes is concerned, the patient has significant elevated blood sugars and the patient has to be given IV insulin drip, but currently on 30 units twice daily of Levemir. The blood sugar appears to be fairly controlled along with Tradjenta. Otherwise, continue the rest of medications. Overall prognosis as mentioned earlier, extremely guarded because of multiple complex comorbidities and we will continue to monitor. The patient is also on Aldactone, started on a small dose of Aldactone. Also we will monitor the potassium very closely. Otherwise discussed with the patient who understands and agrees. MMODL / IJN: [id number] /
[2019-06-17 19:58] LABS: Glucose,Whole Blood 118 mg/dL (75-99)
[2019-06-18 06:56] LABS: Glucose,Whole Blood 151 mg/dL (75-99)
[2019-06-18 08:25] LABS: Calcium 8.6 mg/dL (8.4-10.2); Magnesium 1.4 mg/dL (1.6-2.3); Potassium 4.1 mmol/L (3.5-5.1)
[2019-06-18] MEDS: METOPROLOL TARTRATE 12.5 MG TAB PO SCH ×2 (08:40→21:05)
[2019-06-18] MEDS: GABAPENTIN 100 MG CAP PO SCH ×3 (08:40→21:06)
[2019-06-18] MEDS: APIXABAN 5 MG TAB PO SCH ×2 (08:40→21:06)
[2019-06-18] MEDS: CYANOCOBALAMIN 500 MCG TAB PO SCH (08:40)
[2019-06-18] MEDS: SPIRONOLACTONE 25 MG TAB PO SCH ×2 (08:40→21:05)
[2019-06-18] MEDS: SODIUM BICARBONATE TAB 650 MG TAB PO SCH ×4 (08:40→21:06)
[2019-06-18] MEDS: SERTRALINE 50 MG TAB PO SCH (08:40)
[2019-06-18] MEDS: ASPIRIN 81 MG PO SCH (08:40)
[2019-06-18] MEDS: PANTOPRAZOLE 40 MG/10 ML VIAL IV SCH (08:41)
[2019-06-18] MEDS: LACTULOSE 20 GM/30 ML CUP PO SCH (08:41)
[2019-06-18] MEDS: INSULIN ASPART (NovoLOG) 100 UNIT/ML VIAL SQ SCH ×7 (08:43→21:06)
[2019-06-18] MEDS: INSULIN DETEMIR (LEVEMIR) 100 UNIT/ML SYR SQ SCH ×2 (08:48→21:06)
[2019-06-18] MEDS: PIOGLITAZONE 30 MG TAB PO SCH (08:49)
[2019-06-18] MEDS: NIACIN TR 500 MG CAPLET PO SCH (08:49)
[2019-06-18] MEDS: LINAGLIPTIN 5 MG TABLET PO SCH (08:49)
[2019-06-18] MEDS: FLUDROCORTISONE 0.1 MG TAB PO SCH ×2 (08:49→21:08)
--- NOTE | 2019-06-18 09:22 | P.PN ---
Subjective Patient is seen in follow for acute kidney injury. Renal function is fairly stable. She is off IV fluids and is maintained on Aldactone. She received a dose of IV Lasix yesterday. Denies chest pain or shortness of breath. No vomiting or diarrhea. Vital signs are stable. General: The patient appeared well nourished and normally developed. HEENT: Head exam is unremarkable. Neck is without jugular venous distension. LUNGS: Lungs are clear to auscultation and percussion. Breath sounds decreased. HEART: Rate and Rhythm are regular. First and second heart sounds normal. No murmurs, rubs or gallops. ABDOMEN: Bowel sounds present. Nontender. EXTREMITITES: 1+ edema. Objective - Vital Signs Vital signs: Vital Signs Temp 97.9 F 06/18/19 04:58 Pulse 89 06/18/19 04:58 Resp 16 06/18/19 04:58 BP 116/61 06/18/19 04:58 Pulse Ox 95 06/18/19 04:58 Intake & Output 06/17/19 06/18/19 06/18/19 18:59 06:59 18:59 Intake Total 500 1180 Output Total 855 Balance -355 1180 Weight 97.3 kg Intake: IV 150 0.9 @ 50 100 cefTRIAXone 1 gm In 50 Sodium Chloride 0.9% 50 ml @ 100 mls/hr IVPB Q24HR [facility] Rx#:[id number] Oral 350 1180 Output: Urine 855 Other: Voiding Method Indwelling Catheter # Voids 2 3 ABP, PAP, CO, CI - Last Documented Arterial Blood Pressure 137/44 - Labs CBC & Chem 7: 06/17/19 04:30 06/18/19 06:57 Labs: Abnormal Lab Results - Last 24 Hours (Table) 06/17/19 06/17/19 06/17/19 Range/Units 12:02 17:28 19:57 Chloride (98-107) mmol/L Carbon Dioxide (22-30) mmol/L BUN (7-17) mg/dL Creatinine (0.52-1.04) mg/dL Glucose (74-99) mg/dL POC Glucose (mg/dL) 135 H 131 H 118 H (75-99) mg/dL Magnesium (1.6-2.3) mg/dL 06/18/19 06/18/19 Range/Units 06:54 06:57 Chloride 109 H (98-107) mmol/L Carbon Dioxide 19 L (22-30) mmol/L BUN 36 H (7-17) mg/dL Creatinine 1.33 H (0.52-1.04) mg/dL Glucose 144 H (74-99) mg/dL POC Glucose (mg/dL) 151 H (75-99) mg/dL Magnesium 1.4 L (1.6-2.3) mg/dL Microbiology - Last 24 Hours (Table) 06/15/19 16:00 Blood Culture - Preliminary Blood No Growth after 48 hours Assessment and Plan Plan: Assessment: 1. Acute kidney injury secondary to ATN secondary to hypotension and hemodynamic instability. Renal function fairly stable. 2. Metabolic acidosis secondary to acute kidney injury. Status post bicarb drip. Maintained on oral bicarbonate. 3. 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 4. A. fib with RVR maintained on Lopressor. 5. Volume overload. 6. Hypomagnesemia secondary to diuresis. Plan: Maintain Aldactone. Start Lasix 40 mg orally once daily. Replace magnesium. 2 g IV today. Encouraged oral intake. Avoid nephrotoxins. Maintain oral sodium bicarbonate. Repeat electrolytes in the morning.
--- NOTE | 2019-06-18 10:13 | XR ---
EXAMINATION TYPE: XR chest 1V portable DATE OF EXAM: 06/18/2019 COMPARISON: Prior chest x-ray 06/17/2019 HISTORY: Ascites, abnormal chest x-ray TECHNIQUE: Single frontal view of the chest is obtained. FINDINGS: The left hemidiaphragm remains obscured, interval improved visualization of the right lilliam diaphragm. Surgical clips present left axilla. Heart is obscured but thought to be enlarged. Central vascularity is increased, no evident pneumothorax. Lung volumes are low. Aorta is dense. IMPRESSION: Possible left lower lobe atelectasis versus edema or pneumonia and associated effusion. There is some improvement in aeration at the right lung base.
[2019-06-18] MEDS: MAGNESIUM SULFATE-D5W PMX 1 GM in DEXTROSE/WATER 1 100ML.BAG IVPB SCH ×2 (10:54→13:10)
[2019-06-18] MEDS: FUROSEMIDE 40 MG TAB PO SCH (10:54)
[2019-06-18 11:30] LABS: Glucose,Whole Blood 106 mg/dL (75-99)
--- NOTE | 2019-06-18 12:55 | PN ---
PROGRESS NOTE DATE OF SERVICE: 06/18/2019 Patient is a 79-year-old pleasant white female admitted to the hospital with ascites secondary to nonalcoholic cirrhosis of the liver and portal hypertension. While in the hospital developed atrial fibrillation, hypertension, and was transferred to the intensive care unit, has been on IV heparin. She was transferred to the floor last night. Presently on Eliquis that was started today. Patient denies any symptoms. No abdominal distention. No lower extremity swelling. No abdominal pain. PHYSICAL EXAMINATION: Appears comfortable. Vital signs are stable. Blood pressure is 95/35, pulse 81, temperature 98. HEENT: Examination unremarkable, conjunctivae are pink, sclerae nonicteric, oral cavity no lesions. NECK: No JVD or lymph node enlargement. CHEST: Clear to auscultation. HEART: Regular rate and rhythm. ABDOMEN: Soft, nontender. There was no free fluid noted. EXTREMITIES: No pedal edema. SKIN: No rashes. NEURO: She is alert and oriented x3. No focal deficits. LABS: The BUN is 36, creatinine 1.33, hemoglobin 9.1, platelets 63,000 and WBC 3.6. IMPRESSION: 1. Nonalcoholic cirrhosis of the liver with portal hypertension, ascites, had paracentesis a week ago, 3 L of fluid was removed. Now, she is stable. 2. Pancytopenia secondary to portal hypertension/hypersplenism. 3. Atrial fibrillation on Eliquis. 4. Mild increase in BUN, creatinine. RECOMMENDATION: 1. Continue with Aldactone 50 mg twice daily and Lasix 40 mg daily. 2. Low-salt diet. 3. Monitor CBC daily. 4. Patient was advised to follow up in the office in 2-3 weeks following discharge from the hospital. Thank you for this consultation. MMODL / IJN: [id number] /
[2019-06-18] MEDS: NOREPINEPHRINE 4 MG in SODIUM CHLORIDE 0.9% 250 ML IV SCH (13:38)
[2019-06-18] MEDS: CHOLECALCIFEROL 1,000 UNIT TAB PO SCH (13:41)
--- NOTE | 2019-06-18 14:33 | CDI ---
Documentation Clarification Form Date: 06/18/2019 01:53:19 PM From: Sue Cartagena Admit Date: 06/11/2019 01:50:00 PM Patient Name: Paula Gordon Visit Number: [id number] Discharge Date: ATTENTION: The Clinical Documentation Specialists (CDI) and [facility] Coding Staff appreciate your assistance in clarifying documentation. Please respond to the clarification below the line at the bottom and electronically sign. The CDI & [facility] Coding staff will review the response and follow-up if needed. Please note: Queries are made part of the Legal Health Record. If you have any questions, please contact the author of this message via ITS. Dr. Marquez Tomlinson CKD is documented in the Nephrology Consult 06/15/19 History/Risk Factors: 79-year-old female presents to the ED with evaluation of dyspnea, chest discomfort and abdominal distention with nausea and vomiting. Medical history includes nonalcoholic cirrhosis of the liver, DM, HTN, chronic liver disease. Patients Historical BUN 9, CR 0.57, GFR >90 - found in [facility] 02/08/2019 Clinical Indicators: Current BUN 36, CR 1.33, GFR 39 - found in [facility] 06/18/2019 Treatment: Lasix IV d/cd 06/10, 06/10 1,000mls @ 83.32 mls/hr iv Q 12 Hs, 06/11 0.9ns 1,000mls @ 999 mls/hr Iv Q 1 H, 06/14 0.9ns 75cchr dcd 06/15, 06/14 1,000mls @ 500mls/hr iv Q 13hr yolis, 06/14 Sodium bicarbonate po qid Per Nephrology Consult 06/14 This is a 79-year-old female seen in consultation because of acute injury and chronic kidney disease. In order to capture the severity of condition, please clarify the stage of the CKD, if known: CKD Ruled Out CKD Stage 1 (GFR > 90) CKD Stage 2 (GFR 60-89) CKD Stage 3 (GFR 30-59) Other, please specify Unable to determine (Last Revision: May 2019) no ckd MTDD
[2019-06-18 16:56] LABS: Glucose,Whole Blood 142 mg/dL (75-99)
[2019-06-18 19:49] LABS: Glucose,Whole Blood 144 mg/dL (75-99)
[2019-06-18 21:05] VITALS: RESP 16
--- NOTE | 2019-06-18 21:08 | P.PN ---
Subjective This is a pleasant 79 years old female with multiple medical problems presented with recurrent ascites and related to her liver disease and cirrhosis, she underwent large volume paracentesis were 3 L of fluid were removed on 06/09 followed by drop in blood pressure, patient is been followed closely by pulmonary/critical care team and nephrology team and her blood pressure is more stable currently and this morning was 95/55-116/61, with heart rate 89-110, cardiology were following the patient and cardiac cath could not be done because of worsening renal function, patient has been followed also by dry lumber grader her creatinine is still slightly elevated at 1.33, compared to 1.43 upon admission, patient is followed by Dr. johnston the dry lumber grader who recommended Lasix 40 mg by mouth daily with replacing electrolytes. as per staff ,cardiology team has cleared pt for discharge pt has copay for eliquis of $47.00 per sw and pt agrees to pay it Objective - Vital Signs Vital signs: Vital Signs Temp 98 F 06/18/19 11:45 Pulse 110 H 06/18/19 16:00 Resp 18 06/18/19 16:00 BP 95/55 06/18/19 11:45 Pulse Ox 95 06/18/19 11:45 Intake & Output 06/18/19 06/18/19 06/19/19 06:59 18:59 06:59 Intake Total 1180 400 Balance 1180 400 Intake: IV 400 0.9 @ 50 400 Oral 1180 Other: Voiding Method Indwelling Catheter # Voids 3 ABP, PAP, CO, CI - Last Documented Arterial Blood Pressure 137/44 - Exam GENERAL: The patient is alert and oriented x3, not in any acute distress. Well developed, well nourished. HEENT: Pupils are round and equally reacting to light. EOMI. No scleral icterus. No conjunctival pallor. Normocephalic, atraumatic. No pharyngeal erythema. No thyromegaly. CARDIOVASCULAR: S1 and S2 present. No murmurs, rubs, or gallops. PULMONARY: Chest is clear to auscultation, no wheezing or crackles. ABDOMEN: Soft, nontender, nondistended, normoactive bowel sounds. No palpable organomegaly. MUSCULOSKELETAL: No joint swelling or deformity. EXTREMITIES: No cyanosis, clubbing, or pedal edema. NEUROLOGICAL: Gross neurological examination did not reveal any focal deficits. SKIN: No rashes. - Labs CBC & Chem 7: 06/17/19 04:30 06/18/19 06:57 Labs: Abnormal Lab Results - Last 24 Hours (Table) 06/18/19 06/18/19 06/18/19 Range/Units 06:54 06:57 11:29 Chloride 109 H (98-107) mmol/L Carbon Dioxide 19 L (22-30) mmol/L BUN 36 H (7-17) mg/dL Creatinine 1.33 H (0.52-1.04) mg/dL Glucose 144 H (74-99) mg/dL POC Glucose (mg/dL) 151 H 106 H (75-99) mg/dL Magnesium 1.4 L (1.6-2.3) mg/dL 06/18/19 06/18/19 Range/Units 16:55 19:48 Chloride (98-107) mmol/L Carbon Dioxide (22-30) mmol/L BUN (7-17) mg/dL Creatinine (0.52-1.04) mg/dL Glucose (74-99) mg/dL POC Glucose (mg/dL) 142 H 144 H (75-99) mg/dL Magnesium (1.6-2.3) mg/dL Microbiology - Last 24 Hours (Table) 06/15/19 16:00 Blood Culture - Preliminary Blood No Growth after 72 hours Assessment and Plan Assessment: Possible non-STEMI with elevated troponin with abnormal stress test Hypovolemia secondary to large volume paracentesis were 3 L were removed on 06/09 Paroxysmal atrial fibrillation Recurrent ascites and cirrhosis Chronic congestive heart failure, was suspicious exacerbation, improved Acute urinary tract infection, present on admission Acute renal failure, improved Type 2 diabetes mellitus Obesity Hypertension Chronic liver disease Chronic thrombocytopenia Plan: this is a pleasant 79 yo F who presents with hypotension, ascitis, and NSTEMI, pt is been followed by several consultants including cardiology pulmonary , nephrology and GI team , pt is doing well clinically , cardiology already cleared pt for discharge and to c/w medical management, sugar is controlled , c/w ceftriaxone pt feels she can go home , c/w aspirin Labs and medication were reviewed.. Continue same treatment. Continue with symptomatic treatment. Resume home medication. Monitor lytes and vitals. DVT and GI prophylaxis. Further recommendations of the clinical course of the patient DVT prophylaxis: eliquis GI Prophylaxis: Ppi possible dc in 24-48 hrs
[2019-06-19 07:05] LABS: Glucose,Whole Blood 68 mg/dL (75-99)
[2019-06-19] MEDS: INSULIN ASPART (NovoLOG) 100 UNIT/ML VIAL SQ SCH ×5 (07:06→21:09)
[2019-06-19 07:20] LABS: Glucose,Whole Blood 63 mg/dL (75-99)
[2019-06-19 07:44] LABS: Glucose,Whole Blood 74 mg/dL (75-99)
[2019-06-19 07:54] LABS: Calcium 8.9 mg/dL (8.4-10.2); Magnesium 1.7 mg/dL (1.6-2.3); Potassium 3.8 mmol/L (3.5-5.1)
[2019-06-19] MEDS: LACTULOSE 20 GM/30 ML CUP PO SCH (08:06)
[2019-06-19] MEDS: APIXABAN 5 MG TAB PO SCH ×2 (08:07→21:09)
[2019-06-19] MEDS: METOPROLOL TARTRATE 12.5 MG TAB PO SCH ×2 (08:07→21:10)
[2019-06-19] MEDS: FLUDROCORTISONE 0.1 MG TAB PO SCH ×2 (08:07→22:23)
[2019-06-19] MEDS: GABAPENTIN 100 MG CAP PO SCH ×3 (08:08→21:10)
[2019-06-19] MEDS: CYANOCOBALAMIN 500 MCG TAB PO SCH (08:08)
[2019-06-19] MEDS: SPIRONOLACTONE 25 MG TAB PO SCH ×2 (08:08→22:22)
[2019-06-19] MEDS: SERTRALINE 50 MG TAB PO SCH (08:09)
[2019-06-19] MEDS: LINAGLIPTIN 5 MG TABLET PO SCH (08:09)
[2019-06-19] MEDS: ASPIRIN 81 MG PO SCH (08:09)
[2019-06-19] MEDS: PIOGLITAZONE 30 MG TAB PO SCH (08:09)
[2019-06-19] MEDS: PANTOPRAZOLE 40 MG TABLET PO SCH (08:09)
[2019-06-19] MEDS: FUROSEMIDE 40 MG TAB PO SCH (08:09)
[2019-06-19] MEDS: CHOLECALCIFEROL 1,000 UNIT TAB PO SCH (08:09)
[2019-06-19] MEDS: NIACIN TR 500 MG CAPLET PO SCH (08:10)
[2019-06-19] MEDS: SODIUM BICARBONATE TAB 650 MG TAB PO SCH ×4 (08:10→21:09)
[2019-06-19] MEDS ORDERED: INSULIN DETEMIR (LEVEMIR) 100 UNIT/ML SYR SQ SCH (09:00)
--- NOTE | 2019-06-19 09:05 | P.PN ---
Subjective Patient is seen in follow for acute kidney injury. Renal function is fairly stable. She is off IV fluids and is maintained on Aldactone and Lasix. Denies chest pain or shortness of breath. No vomiting or diarrhea. Good urine output. Vital signs are stable. General: The patient appeared well nourished and normally developed. HEENT: Head exam is unremarkable. Neck is without jugular venous distension. LUNGS: Lungs are clear to auscultation and percussion. Breath sounds decreased. HEART: Rate and Rhythm are regular. First and second heart sounds normal. No murmurs, rubs or gallops. ABDOMEN: Bowel sounds present. Nontender. EXTREMITITES: 1+ edema. Objective - Vital Signs Vital signs: Vital Signs Temp 98.1 F 06/19/19 05:00 Pulse 80 06/19/19 05:00 Resp 16 06/19/19 05:00 BP 101/56 06/19/19 05:00 Pulse Ox 97 06/19/19 05:00 Intake & Output 06/18/19 06/19/19 06/19/19 18:59 06:59 18:59 Intake Total 400 290 Balance 400 290 Intake: IV 400 0.9 @ 50 400 Oral 290 Other: Voiding Method Indwelling Catheter Toilet # Voids 2 # Bowel Movements 1 ABP, PAP, CO, CI - Last Documented Arterial Blood Pressure 137/44 - Labs CBC & Chem 7: 06/17/19 04:30 06/19/19 07:06 Labs: Abnormal Lab Results - Last 24 Hours (Table) 06/18/19 06/18/19 06/18/19 Range/Units 11:29 16:55 19:48 Chloride (98-107) mmol/L Carbon Dioxide (22-30) mmol/L BUN (7-17) mg/dL Creatinine (0.52-1.04) mg/dL Glucose (74-99) mg/dL POC Glucose (mg/dL) 106 H 142 H 144 H (75-99) mg/dL 06/19/19 06/19/19 06/19/19 Range/Units 07:02 07:06 07:19 Chloride 110 H (98-107) mmol/L Carbon Dioxide 21 L (22-30) mmol/L BUN 38 H (7-17) mg/dL Creatinine 1.36 H (0.52-1.04) mg/dL Glucose 68 L (74-99) mg/dL POC Glucose (mg/dL) 68 L 63 L (75-99) mg/dL 06/19/19 Range/Units 07:33 Chloride (98-107) mmol/L Carbon Dioxide (22-30) mmol/L BUN (7-17) mg/dL Creatinine (0.52-1.04) mg/dL Glucose (74-99) mg/dL POC Glucose (mg/dL) 74 L (75-99) mg/dL Microbiology - Last 24 Hours (Table) 06/15/19 16:00 Blood Culture - Preliminary Blood No Growth after 72 hours Assessment and Plan Plan: Assessment: 1. Acute kidney injury secondary to ATN secondary to hypotension and h emodynamic instability. Renal function fairly stable. 2. Metabolic acidosis secondary to acute kidney injury. Status post bicarb drip. Maintained on oral bicarbonate. 3. 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 4. A. fib with RVR maintained on Lopressor. 5. Volume overload. 6. Hypomagnesemia secondary to diuresis.improved post replacement. Plan: Maintain Aldactone. Continue Lasix 40 mg orally once daily. Encouraged oral intake. Avoid nephrotoxins. Maintain oral sodium bicarbonate. Repeat electrolytes in the morning. Add oral magnesium oxide.
[2019-06-19] MEDS: MAGNESIUM OXIDE 400 MG TAB PO SCH (09:43)
--- NOTE | 2019-06-19 10:02 | P.PN ---
Subjective This is a pleasant 79 years old female with multiple medical problems presented with recurrent ascites and related to her liver disease and cirrhosis, she underwent large volume paracentesis were 3 L of fluid were removed on 06/09 followed by drop in blood pressure, patient is been followed closely by pulmonary/critical care team and nephrology team and her blood pressure is more stable currently and this morning was 95/55-116/61, with heart rate 89-110, cardiology were following the patient and cardiac cath could not be done because of worsening renal function, patient has been followed also by sociology research assistant her creatinine is still slightly elevated at 1.33, compared to 1.43 upon admission, patient is followed by Dr. johnston the sociology research assistant who recommended Lasix 40 mg by mouth daily with replacing electrolytes. as per staff ,cardiology team has cleared pt for discharge pt has copay for eliquis of $47.00 per sw and pt agrees to pay it 06/19/2019 Patient is clinically stable and well, no more dizziness or hypotension, no other symptoms. However patient this morning had low sugar at 63-68, her insulin was held. On withdrawing the diabetes management with the patient she states that she was taking only pills and she was not taking insulin before, patient is not sure if she can handle insulin at home and thinks that her will help her, during this hospitalization she was started on Levemir 30 units twice daily and 5 units of insulin with meals, we held in all insulin and continuing with her medication of Alona Glickstein 5 mg daily (at home she was taking Januvia/sitagliptin 100 mg daily) and Actos 30 mg daily (home med), we will start sulfonylureas if her sugar was up again. We'll keep her in the hospital today to monitor his sugar especially in view of her renal function impairment Objective - Vital Signs Vital signs: Vital Signs Temp 98.1 F 06/19/19 05:00 Pulse 80 06/19/19 05:00 Resp 16 06/19/19 05:00 BP 101/56 06/19/19 05:00 Pulse Ox 97 06/19/19 05:00 Intake & Output 06/18/19 06/19/19 06/19/19 18:59 06:59 18:59 Intake Total 400 290 Balance 400 290 Intake: IV 400 0.9 @ 50 400 Oral 290 Other: Voiding Method Indwelling Catheter Toilet # Voids 2 # Bowel Movements 1 ABP, PAP, CO, CI - Last Documented Arterial Blood Pressure 137/44 - Exam GENERAL: The patient is alert and oriented x3, not in any acute distress. Well developed, well nourished. HEENT: Pupils are round and equally reacting to light. EOMI. No scleral icterus. No conjunctival pallor. Normocephalic, atraumatic. No pharyngeal erythema. No thyromegaly. CARDIOVASCULAR: S1 and S2 present. No murmurs, rubs, or gallops. PULMONARY: Chest is clear to auscultation, no wheezing or crackles. ABDOMEN: Soft, nontender, nondistended, normoactive bowel sounds. No palpable o rganomegaly. MUSCULOSKELETAL: No joint swelling or deformity. EXTREMITIES: No cyanosis, clubbing, or pedal edema. NEUROLOGICAL: Gross neurological examination did not reveal any focal deficits. SKIN: No rashes. - Labs CBC & Chem 7: 06/17/19 04:30 06/19/19 07:06 Labs: Abnormal Lab Results - Last 24 Hours (Table) 06/18/19 06/18/19 06/18/19 Range/Units 11:29 16:55 19:48 Chloride (98-107) mmol/L Carbon Dioxide (22-30) mmol/L BUN (7-17) mg/dL Creatinine (0.52-1.04) mg/dL Glucose (74-99) mg/dL POC Glucose (mg/dL) 106 H 142 H 144 H (75-99) mg/dL 06/19/19 06/19/19 06/19/19 Range/Units 07:02 07:06 07:19 Chloride 110 H (98-107) mmol/L Carbon Dioxide 21 L (22-30) mmol/L BUN 38 H (7-17) mg/dL Creatinine 1.36 H (0.52-1.04) mg/dL Glucose 68 L (74-99) mg/dL POC Glucose (mg/dL) 68 L 63 L (75-99) mg/dL 06/19/19 Range/Units 07:33 Chloride (98-107) mmol/L Carbon Dioxide (22-30) mmol/L BUN (7-17) mg/dL Creatinine (0.52-1.04) mg/dL Glucose (74-99) mg/dL POC Glucose (mg/dL) 74 L (75-99) mg/dL Microbiology - Last 24 Hours (Table) 06/15/19 16:00 Blood Culture - Preliminary Blood No Growth after 72 hours Assessment and Plan Assessment: Possible non-STEMI with elevated troponin with abnormal stress test, car diologist opted for outpatient management Hypovolemia secondary to large volume paracentesis were 3 L were removed on 06/09 Paroxysmal atrial fibrillation Recurrent ascites and cirrhosis Chronic congestive heart failure, was suspicious exacerbation, improved Acute urinary tract infection, present on admission Acute renal failure, improved Type 2 diabetes mellitus Obesity Hypertension Chronic liver disease Chronic thrombocytopenia Plan: this is a pleasant 79 yo F who presents with hypotension, ascitis, and NSTEMI, pt is been followed by several consultants including cardiology pulmonary , nephrology and GI team , pt is doing well clinically , cardiology already clear ed pt for discharge and to c/w medical management, sugar is controlled , c/w ceftriaxone for today and DC tomorrow We'll keep the patient to monitor sugar was up and her insulin and continue with her diabetes medicine pt feels she can go home , c/w aspirin Labs and medication were reviewed.. Continue same treatment. Continue with symptomatic treatment. Resume home medication. Monitor lytes and vitals. DVT and GI prophylaxis. Further recommendations of the clinical course of the patient DVT prophylaxis: eliquis GI Prophylaxis: Ppi possible dc in 24-48 hrs
[2019-06-19 11:48] LABS: Glucose,Whole Blood 139 mg/dL (75-99)
[2019-06-19 16:58] LABS: Glucose,Whole Blood 285 mg/dL (75-99)
[2019-06-19] MEDS ORDERED: GLIMEPIRIDE 2 MG TAB PO SCH (17:15)
[2019-06-19] MEDS: GLIMEPIRIDE 2 MG TAB PO SCH (18:19)
[2019-06-19 20:05] LABS: Glucose,Whole Blood 315 mg/dL (75-99)
[2019-06-19 21:51] LABS: Glucose,Whole Blood 253 mg/dL (75-99)
[2019-06-19] MEDS ORDERED: GLIMEPIRIDE 2 MG TAB PO ONE (22:00)
[2019-06-20 02:48] LABS: Glucose,Whole Blood 204 mg/dL (75-99)
[2019-06-20 05:51] VITALS: BP 100/40; PULSE 61; TEMP 99
[2019-06-20 06:57] LABS: Glucose,Whole Blood 179 mg/dL (75-99)
[2019-06-20] MEDS: INSULIN ASPART (NovoLOG) 100 UNIT/ML VIAL SQ SCH ×2 (08:13→12:23)
[2019-06-20] MEDS: APIXABAN 5 MG TAB PO SCH (08:25)
[2019-06-20] MEDS: MAGNESIUM OXIDE 400 MG TAB PO SCH (08:25)
[2019-06-20] MEDS: METOPROLOL TARTRATE 12.5 MG TAB PO SCH (08:25)
[2019-06-20] MEDS: PANTOPRAZOLE 40 MG TABLET PO SCH (08:25)
[2019-06-20] MEDS: CHOLECALCIFEROL 1,000 UNIT TAB PO SCH (08:25)
[2019-06-20] MEDS: SODIUM BICARBONATE TAB 650 MG TAB PO SCH ×2 (08:25→12:45)
[2019-06-20] MEDS: GABAPENTIN 100 MG CAP PO SCH (08:25)
[2019-06-20] MEDS: SERTRALINE 50 MG TAB PO SCH (08:25)
[2019-06-20] MEDS: FUROSEMIDE 40 MG TAB PO SCH (08:25)
[2019-06-20] MEDS: SPIRONOLACTONE 25 MG TAB PO SCH (08:26)
[2019-06-20] MEDS: CYANOCOBALAMIN 500 MCG TAB PO SCH (08:26)
[2019-06-20] MEDS: ASPIRIN 81 MG PO SCH (08:26)
[2019-06-20] MEDS: LACTULOSE 20 GM/30 ML CUP PO SCH (08:27)
[2019-06-20] MEDS: GLIMEPIRIDE 2 MG TAB PO SCH (08:28)
[2019-06-20] MEDS: FLUDROCORTISONE 0.1 MG TAB PO SCH (08:29)
[2019-06-20] MEDS: NIACIN TR 500 MG CAPLET PO SCH (08:30)
[2019-06-20] MEDS: PIOGLITAZONE 30 MG TAB PO SCH (08:30)
[2019-06-20] MEDS: LINAGLIPTIN 5 MG TABLET PO SCH (08:30)
--- NOTE | 2019-06-20 09:48 | P.DS ---
Providers Date of admission: 06/11/19 13:50 Attending physician: Quentin Massey MD Consults: 06/10/19 06:10 Consult Physician Urgent Consulting Provider: Garrett Gonsalves Consult Reason/Comments: elevated troponoin with chest pain Do you want consulting provider notified?: Yes 06/12/19 09:25 Consult Physician Stat Consulting Provider: Kristen Baldwin Consult Reason/Comments: ICU management Do you want consulting provider notified?: Already Contacted 06/15/19 08:14 Consult Physician Routine Consulting Provider: Guerita Valentine Consult Reason/Comments: Renal failure Do you want consulting provider notified?: Yes Primary care physician: Gucci Guevara Hospital Course: Diagnoses: Possible non-STEMI with elevated troponin with abnormal stress test Hypovolemia secondary to large volume paracentesis were 3 L were removed on 06/09 Paroxysmal atrial fibrillation Recurrent ascites and cirrhosis Chronic congestive heart failure, was suspicious exacerbation, improved Acute urinary tract infection, present on admission Acute renal failure, improved Type 2 diabetes mellitus Obesity Hypertension Chronic liver disease Chronic thrombocytopenia Hospital course: This is a pleasant 79 years old female with multiple medical problems presented with recurrent ascites and related to her liver disease and cirrhosis, she underwent large volume paracentesis were 3 L of fluid were removed on 06/09 follo wed by drop in blood pressure, patient is been followed closely by pulmonary/critical care team and nephrology team and her blood pressure is more stable currently and this morning was 100/40-105/61, with heart rate 80s cardiology were following the patient and cardiac cath could not be done because of worsening renal function, eventually teacher's assistant recommended to continue with medical treatment and cleared her for discharge to follow up as an outpatient for further management and reevaluation. patient has been followed also by coffee plantation worker her creatinine is still slightly elevated at 1.33, compared to 1.43 upon admission, patient is followed by Dr. Tomlinson the coffee plantation worker who recommended Lasix 40 mg by mouth daily with replacing electrolytes. Patient pressure was uncontrolled and she was placed on insulin however patient preferred to suture 2 pills as she was not using insulin before and it might be difficult for her, so MRI was admitted, and her blood pressure is better controlled this morning or 204, 179 Patient states she has glucometer at home and she was instructed to check her sugar 4 times a day before each meal and at bedtime, keep the results in a logic book and bring continue your doctor's appointment, call 911 on come to emergency room if her sugar is less than 70 or more than 400 and she agrees On the day of discharge patient denies chest pain or dyspnea, she regular bowel movement no urinary complaints Patient has been cleared by all consultants including cardiology, pulmonary, nephrology and GI team Problems and management plan were discussed with the patient and he verbalized understanding and acceptance Patient was found stable and can be discharged home however he needs follow-up as an outpatient. Patient was instructed to follow up with PCP Dr. Hair within one week and patient agrees. Also patient was instructed to follow up with Dr. Valentine the coffee plantation worker, Dr. Shanel Hannon the railcar brake operator and Dr. Baldwin the salvage laborer in 2 weeks and she agrees. Also patient was instructed to follow up with teacher's assistant Dr. Madan mancini in 1-2 weeks and she agrees. Gen: patient is a AAOx3, no distress CVS: S1-S2, RRR, no murmur Lungs: B/L CTA, no wheezing Abdomen: soft, no distention, no tenderness, positive bowel sounds Extremity: no leg edema or induration Time spent more than 35 minutes Patient Condition at Discharge: Stable Plan - Discharge Summary Discharge Rx Participant: No New Discharge Prescriptions: No Action sitaGLIPtin PHOSPHATE [Januvia] 100 mg PO DAILY Sertraline [Zoloft] 50 mg PO DAILY Pioglitazone [Actos] 30 mg PO DAILY Cholecalciferol (Vitamin D3) [Vitamin D3] 2,000 unit PO DAILY Cyanocobalamin [Vitamin B-12] 1,000 mcg PO DAILY #60 tab Furosemide [Lasix] 40 mg PO BID #30 tablet Lisinopril [Zestril] 5 mg PO DAILY #0 Spironolactone 50 mg PO DAILY Niacin 2,000 mg PO DAILY Discharge Medication List Cholecalciferol (Vitamin D3) [Vitamin D3] 2,000 unit PO DAILY 02/08/19 [History] Pioglitazone [Actos] 30 mg PO DAILY 02/08/19 [History] Sertraline [Zoloft] 50 mg PO DAILY 02/08/19 [History] sitaGLIPtin PHOSPHATE [Januvia] 100 mg PO DAILY 02/08/19 [History] Cyanocobalamin [Vitamin B-12] 1,000 mcg PO DAILY #60 tab 02/11/19 [Rx] Furosemide [Lasix] 40 mg PO BID #30 tablet 05/22/19 [Rx] Lisinopril [Zestril] 5 mg PO DAILY #0 05/22/19 [Rx] Niacin 2,000 mg PO DAILY 06/10/19 [History] Spironolactone 50 mg PO DAILY 06/10/19 [History] Follow up Appointment(s)/Referral(s): Guerita Valentine MD [STAFF PHYSICIAN] - 2 Weeks Paola Duckworth MD [Primary Care Provider] - 1-2 days Ophelia Ugarte MD [STAFF PHYSICIAN] - 2 Weeks Shane Ugarte MD [STAFF PHYSICIAN] - 1 Week Kristen Baldwin MD [STAFF PHYSICIAN] - 2 Weeks Patient Instructions/Handouts: Non-diabetic Hypoglycemia (DC), Non-diabetic Hypoglycemia (GEN), How to Check your Blood Sugar (DC), How to Check your Blood Sugar (GEN) Activity/Diet/Wound Care/Special Instructions: Emelyn paredes in [facility]. Heart healthy diabetic diet, 16 kcal per day Activity is limited till you see your doctor We recommend to check your sugar 4 times a day, before each meal and at bedtime and keep the results in a log book and bring it to your doctor at your appointment ... call 911 on come to emergency room if her sugar is less than 70 or more than 400. Discharge Disposition: HOME SELF-CARE
[2019-06-20 10:42] LABS: Glucose,Whole Blood 245 mg/dL (75-99)
--- NOTE | 2019-06-20 11:01 | P.PN ---
Subjective Patient is seen in follow for acute kidney injury. Renal function is fairly stable. She is off IV fluids and is maintained on Aldactone and Lasix. Denies chest pain or shortness of breath. No vomiting or diarrhea. Good urine output. Vital signs are stable. General: The patient appeared well nourished and normally developed. HEENT: Head exam is unremarkable. Neck is without jugular venous distension. LUNGS: Lungs are clear to auscultation and percussion. Breath sounds decreased. HEART: Rate and Rhythm are regular. First and second heart sounds normal. No murmurs, rubs or gallops. ABDOMEN: Bowel sounds present. Nontender. EXTREMITITES: 1+ edema. Objective - Vital Signs Vital signs: Vital Signs Temp 99.0 F 06/20/19 05:00 Pulse 61 06/20/19 05:00 Resp 16 06/20/19 05:00 BP 100/40 06/20/19 05:00 Pulse Ox 96 06/20/19 05:00 Intake & Output 06/19/19 06/20/19 06/20/19 18:59 06:59 18:59 Intake Total 150 Balance 150 Intake: Oral 150 Other: Voiding Method Toilet Toilet # Voids 3 3 ABP, PAP, CO, CI - Last Documented Arterial Blood Pressure 137/44 - Labs CBC & Chem 7: 06/17/19 04:30 06/19/19 07:06 Labs: Abnormal Lab Results - Last 24 Hours (Table) 06/19/19 06/19/19 06/19/19 Range/Units 11:33 16:56 20:03 POC Glucose (mg/dL) 139 H 285 H 315 H (75-99) mg/dL 06/19/19 06/20/19 06/20/19 Range/Units 21:48 02:37 06:55 POC Glucose (mg/dL) 253 H 204 H 179 H (75-99) mg/dL 06/20/19 Range/Units 10:42 POC Glucose (mg/dL) 245 H (75-99) mg/dL Microbiology - Last 24 Hours (Table) 06/15/19 16:00 Blood Culture - Preliminary Blood No Growth after 96 hours Assessment and Plan Plan: Assessment: 1. Acute kidney injury secondary to ATN secondary to hypotension and hemodynamic instability. Renal function fairly stable. 2. Metabolic acidosis secondary to acute kidney injury. Status post bicarb drip. Maintained on oral bicarbonate. 3. 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 4. A. fib with RVR maintained on Lopressor. 5. Volume overload. 6. Hypomagnesemia secondary to diuresis. Improved post replacement. Maintained on oral magnesium oxide. Plan: Maintain Aldactone. Continue Lasix 40 mg orally once daily. I will give her an additional dose of Lasix 40 mg IV once prior to discharge. Encouraged oral intake. Avoid nephrotoxins. Stable to be discharged home from nephrology standpoint. Repeat BMP and magnesium level 2-3 days postdischarge. Follow up outpatient in the next 1-2 weeks.
[2019-06-20] MEDS ORDERED: FUROSEMIDE 10 MG/ML 4 ML VIAL IV STA (12:15)
== END 2019-06-20 14:03 | disposition home or self-care (01) | DRG 280 ==
LOC: EC 23:37 → 6NMEDSUR 06-10 00:48 → 5NMEDONC 06-10 13:33 → OBSVTOIN 06-11 13:50 → 2SICU 06-12 08:54 → 5NMEDONC 06-17 14:33
PROVIDERS: ADMIT Internal Medicine; ATTEND Internal Medicine
PROC: 03HY32Z Insertion of Monitoring Device into Upper Artery, Percutaneous Approach (ICD-10-PCS; principal; 2019-06-13)
PROC: 4A133B1 Monitoring of Arterial Pressure, Peripheral, Percutaneous Approach (ICD-10-PCS; principal; 2019-06-13)
PROC: 4A133J1 Monitoring of Arterial Pulse, Peripheral, Percutaneous Approach (ICD-10-PCS; principal; 2019-06-13)
PROC: 0W9G3ZZ Drainage of Peritoneal Cavity, Percutaneous Approach (ICD-10-PCS; 2019-06-13)
DX: I21.4 Non-ST elevation (NSTEMI) myocardial infarction (principal); N17.0 Acute kidney failure with tubular necrosis; R57.0 Cardiogenic shock; I50.33 Acute on chronic diastolic (congestive) heart failure; D68.4 Acquired coagulation factor deficiency; E87.1 Hypo-osmolality and hyponatremia; K76.6 Portal hypertension; E87.2 Acidosis; N39.0 Urinary tract infection, site not specified; R18.8 Other ascites; D61.818 Other pancytopenia; D69.6 Thrombocytopenia, unspecified; I48.0 Paroxysmal atrial fibrillation; E86.1 Hypovolemia; I11.0 Hypertensive heart disease with heart failure; K75.81 Nonalcoholic steatohepatitis (NASH); E11.65 Type 2 diabetes mellitus with hyperglycemia; E11.42 Type 2 diabetes mellitus with diabetic polyneuropathy; E83.42 Hypomagnesemia; T50.2X5A Adverse effect of carbonic-anhydrase inhibitors, benzothiadiazides and other diuretics, initial encounter; I35.0 Nonrheumatic aortic (valve) stenosis; I25.10 Atherosclerotic heart disease of native coronary artery without angina pectoris; D50.9 Iron deficiency anemia, unspecified; F32.9 Major depressive disorder, single episode, unspecified; L40.9 Psoriasis, unspecified; D73.1 Hypersplenism; Z68.34 Body mass index [BMI] 34.0-34.9, adult; E66.9 Obesity, unspecified; H91.90 Unspecified hearing loss, unspecified ear; Z79.84 Long term (current) use of oral hypoglycemic drugs; Z79.899 Other long term (current) drug therapy; Z71.3 Dietary counseling and surveillance; Z85.3 Personal history of malignant neoplasm of breast; Z90.49 Acquired absence of other specified parts of digestive tract; Z80.0 Family history of malignant neoplasm of digestive organs; Z82.49 Family history of ischemic heart disease and other diseases of the circulatory system; Z82.0 Family history of epilepsy and other diseases of the nervous system
CPT/HCPCS: 36415; 49083; 71045; 71046; 78452; 80048; 80053; 80061; 81001; 81003; 82140; 82533; 82565; 82570; 83605; 83690; 83735; 83880; 83935; 84300; 84443; 84450; 84460; 84484; 85025; 85610; 85730; 87040; 87086; 93005; 93017; 93306; 96374; 96375; 96376; 99285

== ENCOUNTER 2019-07-01 07:30 | Inpatient (IN) | payer MEDICARE ==
[2019-07-01] MEDS ORDERED: SODIUM CHLORIDE 0.9% 1,000 ML IV STA (07:34)
--- NOTE | 2019-07-01 07:49 | ED ---
Weakness HPI - General Chief complaint: Weakness Stated complaint: weakness Time Seen by Provider: 07/01/19 07:34 Source: patient, EMS, RN notes reviewed, old records reviewed Mode of arrival: EMS Limitations: no limitations - History of Present Illness Initial comments: This is a 79-year-old female with a history of recent admission to the hospital for about 10 days who was brought in by EMS today because of frequent falling she fell apparently this morning fell yesterday she even fell today she got out of the hospital in her face she evaluated since then. She normally is on her left to get into bed and out of bed. She does not use walking such as walkers or cane.. She does state that she's been eating and drinking enough fluids has no focal weakness per paramedics she did demonstrate bruising to her face no overt neck pain. She was unable to get herself up today. MD Complaint: generalized weakness - Related Data Home Medications Medication Instructions Recorded Confirmed Cholecalciferol (Vitamin D3) 2,000 unit PO DAILY 02/08/19 06/10/19 [Vitamin D3] Pioglitazone [Actos] 30 mg PO DAILY 02/08/19 06/10/19 Sertraline [Zoloft] 50 mg PO DAILY 02/08/19 06/10/19 sitaGLIPtin PHOSPHATE [Januvia] 100 mg PO DAILY 02/08/19 06/10/19 Niacin 2,000 mg PO DAILY 06/10/19 06/10/19 Spironolactone 50 mg PO DAILY 06/10/19 06/10/19 Previous Rx's Medication Instructions Recorded Cyanocobalamin [Vitamin B-12] 1,000 mcg PO DAILY #60 tab 02/11/19 Acetaminophen Tab [Tylenol] 500 mg PO Q6HR PRN tab 06/20/19 Apixaban [Eliquis] 5 mg PO BID #60 tab 06/20/19 Aspirin 81 mg PO DAILY #30 chew 06/20/19 Fludrocortisone [Florinef] 0.2 mg PO BID #120 tab 06/20/19 Furosemide [Lasix] 40 mg PO DAILY #30 tab 06/20/19 Gabapentin [Neurontin] 100 mg PO TID #90 cap 06/20/19 Glimepiride [Amaryl] 2 mg PO BID #60 tab 06/20/19 Lactulose [Cephulac] 10 gm PO DAILY #450 ml 06/20/19 Magnesium Oxide [Mag-Ox] 400 mg PO DAILY #10 tab 06/20/19 Metoprolol Tartrate [Lopressor] 12.5 mg PO BID #60 tab 06/20/19 Nitroglycerin Sl Tabs [Nitrostat] 0.4 mg SUBLINGUAL Q5M PRN #30 tab 06/20/19 Pantoprazole [Protonix] 40 mg PO AC-BRKFST #30 tablet. 06/20/19 Spironolactone [Aldactone] 50 mg PO BID #120 tab 06/20/19 Allergies Allergy/AdvReac Type Severity Reaction Status Date / Time No Known Allergies Allergy Verified 06/10/19 10:16 Review of Systems ROS Statement: Those systems with pertinent positive or pertinent negative responses have been documented in the HPI. ROS Other: All systems not noted in ROS Statement are negative. Past Medical History Past Medical History: Cancer, Diabetes Mellitus, Hypertension, Liver Disease Additional Past Medical History / Comment(s): Pt recently admitted to [facility] on 05/21/19 with symptomatic ascities/had paracentesis 5 L removed, thrombocytopenia 2ndary to cirrhosis/splenic sequestration and portal HTN. Other: Nonalcoholic cirrhosis-thought d/t rx, ascities/paracentesis, L breast cancer with lumpectomy, NIDDM type II, neuropathy bilateral legs/feet, History of Any Multi-Drug Resistant Organisms: None Reported Past Surgical History: Breast Surgery, Cholecystectomy Additional Past Surgical History / Comment(s): L breast lumpectomy for cancer, right breast lump removal-benign, paracentesis-several, Past Anesthesia/Blood Transfusion Reactions: No Reported Reaction Past Psychological History: Depression Smoking Status: Never smoker Past Alcohol Use History: None Reported Past Drug Use History: None Reported - Past Family History Father Family Medical History: Cancer Additional Family Medical History / Comment(s): Colon cancer Brother(s) Family Medical History: Myocardial Infarction ([place]) Additional Family Medical History / Comment(s): One brother with stents, another brother from an [place] Mother Family Medical History: Neurologic Disorder Additional Family Medical History / Comment(s): Parkinsons General Exam - General Exam Comments Initial Comments: This a well-developed obese female who is awake alert oriented 3 male Jennifer Coma Scale of 15 Limitations: no limitations General appearance: alert Head exam: Present: normocephalic (Orbital ecchymosis bilaterally no definite step-off or crepitation) Eye exam: Present: normal appearance, PERRL, EOMI. Absent: scleral icterus, conjunctival injection, periorbital swelling ENT exam: Present: mucous membranes dry Neck exam: Present: normal inspection, other (No stridor JVD or bruits) Respiratory exam: Present: chest wall tenderness, decreased breath sounds Cardiovascular Exam: Present: regular rate, normal rhythm, other (Occasional PVCs) GI/Abdominal exam: Present: distended Rectal exam: Present: deferred Extremities exam: Present: pedal edema (Edema to the knees with healing scabs over both knees.) Skin exam: Present: warm, dry, normal color Course Vital Signs 07/01/19 07:34 Temperature 97.8 F Pulse Rate 85 Respiratory 18 Rate Blood Pressure 138/65 O2 Sat by Pulse 97 Oximetry - Reevaluation(s) Reevaluation #1: 07/01/19 09:50 Reevaluation the patient reveals no change in her mental status. EKG Findings - EKG Results: EKG: interpreted by GELACIO (Sinus rhythm with occasional PVCs rate 85. Interval 164 QRS 72 QT since QTC 372/442 low-voltage QRS nonspecific anterior configuration) Medical Decision Making - Medical Decision Making Patient is feeling no change I did discuss findings with her as well as with Dr. Garibay. Patient demonstrates evidence of CHF no she does appear to be intravascularly dehydrated additionally weakness with frequent falls. She will require rehab. She is admitted - Lab Data Result diagrams: 07/01/19 07:40 07/01/19 07:40 Lab Results 07/01/19 07/01/19 07/01/19 Range/Units 07:40 07:40 07:40 WBC 6.9 (3.8-10.6) k/uL RBC 4.03 (3.80-5.40) m/uL Hgb 10.2 L (11.4-16.0) gm/dL Hct 32.4 L (34.0-46.0) % MCV 80.5 (80.0-100.0) fL MCH 25.3 (25.0-35.0) pg MCHC 31.5 (31.0-37.0) g/dL RDW 18.1 H (11.5-15.5) % Plt Count 50 L (150-450) k/uL Neutrophils % 80 % Lymphocytes % 11 % Monocytes % 5 % Eosinophils % 2 % Basophils % 0 % Neutrophils # 5.5 (1.3-7.7) k/uL Lymphocytes # 0.7 L (1.0-4.8) k/uL Monocytes # 0.3 (0-1.0) k/uL Eosinophils # 0.1 (0-0.7) k/uL Basophils # 0.0 (0-0.2) k/uL Manual Slide Review Performed Hypochromasia Slight Anisocytosis Slight Microcytosis Slight PT 12.6 H (9.0-12.0) sec INR 1.3 H (<1.2) APTT 25.9 (22.0-30.0) sec Sodium 138 (137-145) mmol/L Potassium 3.9 (3.5-5.1) mmol/L Chloride 107 (98-107) mmol/L Carbon Dioxide 24 (22-30) mmol/L Anion Gap 7 mmol/L BUN 32 H (7-17) mg/dL Creatinine 1.05 H (0.52-1.04) mg/dL Est GFR (CKD-EPI)AfAm 59 (>60 ml/min/1.73 sqM) Est GFR (CKD-EPI)NonAf 51 (>60 ml/min/1.73 sqM) Glucose 208 H (74-99) mg/dL Plasma Lactic Acid Magnus (0.7-2.0) mmol/L Calcium 8.5 (8.4-10.2) mg/dL Magnesium 1.5 L (1.6-2.3) mg/dL Total Bilirubin 1.2 (0.2-1.3) mg/dL AST 37 H (14-36) U/L ALT 21 (4-34) U/L Alkaline Phosphatase 73 (38-126) U/L Creatine Kinase 37 (30-135) U/L Troponin I (0.000-0.034) ng/mL NT-Pro-B Natriuret Pep pg/mL Total Protein 5.2 L (6.3-8.2) g/dL Albumin 2.6 L (3.5-5.0) g/dL Urine Color Urine Appearance (Clear) Urine pH (5.0-8.0) Ur Specific [place] (1.001-1.035) Urine Protein (Negative) Urine Glucose (UA) (Negative) Urine Ketones (Negative) Urine Blood (Negative) Urine Nitrite (Negative) Urine Bilirubin (Negative) Urine Urobilinogen (<2.0) mg/dL Ur Leukocyte Esterase (Negative) Urine RBC (0-5) /hpf Urine WBC (0-5) /hpf Ur Squamous Epith Cells (0-4) /hpf Amorphous Sediment (None) /hpf Urine Bacteria (None) /hpf Hyaline Casts (0-2) /lpf Urine Mucus (None) /hpf 07/01/19 07/01/19 07/01/19 Range/Units 07:40 07:40 07:40 WBC (3.8-10.6) k/uL RBC (3.80-5.40) m/uL Hgb (11.4-16.0) gm/dL Hct (34.0-46.0) % MCV (80.0-100.0) fL MCH (25.0-35.0) pg MCHC (31.0-37.0) g/dL RDW (11.5-15.5) % Plt Count (150-450) k/uL Neutrophils % % Lymphocytes % % Monocytes % % Eosinophils % % Basophils % % Neutrophils # (1.3-7.7) k/uL Lymphocytes # (1.0-4.8) k/uL Monocytes # (0-1.0) k/uL Eosinophils # (0-0.7) k/uL Basophils # (0-0.2) k/uL Manual Slide Review Hypochromasia Anisocytosis Microcytosis PT (9.0-12.0) sec INR (<1.2) APTT (22.0-30.0) sec Sodium (137-145) mmol/L Potassium (3.5-5.1) mmol/L Chloride (98-107) mmol/L Carbon Dioxide (22-30) mmol/L Anion Gap mmol/L BUN (7-17) mg/dL Creatinine (0.52-1.04) mg/dL Est GFR (CKD-EPI)AfAm (>60 ml/min/1.73 sqM) Est GFR (CKD-EPI)NonAf (>60 ml/min/1.73 sqM) Glucose (74-99) mg/dL Plasma Lactic Acid Magnus 1.4 (0.7-2.0) mmol/L Calcium (8.4-10.2) mg/dL Magnesium (1.6-2.3) mg/dL Total Bilirubin (0.2-1.3) mg/dL AST (14-36) U/L ALT (4-34) U/L Alkaline Phosphatase (38-126) U/L Creatine Kinase (30-135) U/L Troponin I <0.012 (0.000-0.034) ng/mL NT-Pro-B Natriuret Pep 3850 pg/mL Total Protein (6.3-8.2) g/dL Albumin (3.5-5.0) g/dL Urine Color Urine Appearance (Clear) Urine pH (5.0-8.0) Ur Specific [place] (1.001-1.035) Urine Protein (Negative) Urine Glucose (UA) (Negative) Urine Ketones (Negative) Urine Blood (Negative) Urine Nitrite (Negative) Urine Bilirubin (Negative) Urine Urobilinogen (<2.0) mg/dL Ur Leukocyte Esterase (Negative) Urine RBC (0-5) /hpf Urine WBC (0-5) /hpf Ur Squamous Epith Cells (0-4) /hpf Amorphous Sediment (None) /hpf Urine Bacteria (None) /hpf Hyaline Casts (0-2) /lpf Urine Mucus (None) /hpf 07/01/19 Range/Units 08:20 WBC (3.8-10.6) k/uL RBC (3.80-5.40) m/uL Hgb (11.4-16.0) gm/dL Hct (34.0-46.0) % MCV (80.0-100.0) fL MCH (25.0-35.0) pg MCHC (31.0-37.0) g/dL RDW (11.5-15.5) % Plt Count (150-450) k/uL Neutrophils % % Lymphocytes % % Monocytes % % Eosinophils % % Basophils % % Neutrophils # (1.3-7.7) k/uL Lymphocytes # (1.0-4.8) k/uL Monocytes # (0-1.0) k/uL Eosinophils # (0-0.7) k/uL Basophils # (0-0.2) k/uL Manual Slide Review Hypochromasia Anisocytosis Microcytosis PT (9.0-12.0) sec INR (<1.2) APTT (22.0-30.0) sec Sodium (137-145) mmol/L Potassium (3.5-5.1) mmol/L Chloride (98-107) mmol/L Carbon Dioxide (22-30) mmol/L Anion Gap mmol/L BUN (7-17) mg/dL Creatinine (0.52-1.04) mg/dL Est GFR (CKD-EPI)AfAm (>60 ml/min/1.73 sqM) Est GFR (CKD-EPI)NonAf (>60 ml/min/1.73 sqM) Glucose (74-99) mg/dL Plasma Lactic Acid Magnus (0.7-2.0) mmol/L Calcium (8.4-10.2) mg/dL Magnesium (1.6-2.3) mg/dL Total Bilirubin (0.2-1.3) mg/dL AST (14-36) U/L ALT (4-34) U/L Alkaline Phosphatase (38-126) U/L Creatine Kinase (30-135) U/L Troponin I (0.000-0.034) ng/mL NT-Pro-B Natriuret Pep pg/mL Total Protein (6.3-8.2) g/dL Albumin (3.5-5.0) g/dL Urine Color Yellow Urine Appearance Cloudy H (Clear) Urine pH 5.5 (5.0-8.0) Ur Specific [place] 1.017 (1.001-1.035) Urine Protein Trace H (Negative) Urine Glucose (UA) 1+ H (Negative) Urine Ketones Negative (Negative) Urine Blood Moderate H (Negative) Urine Nitrite Negative (Negative) Urine Bilirubin Negative (Negative) Urine Urobilinogen <2.0 (<2.0) mg/dL Ur Leukocyte Esterase Large H (Negative) Urine RBC 9 H (0-5) /hpf Urine WBC 34 H (0-5) /hpf Ur Squamous Epith Cells 20 H (0-4) /hpf Amorphous Sediment Rare H (None) /hpf Urine Bacteria Occasional H (None) /hpf Hyaline Casts 14 H (0-2) /lpf Urine Mucus Rare H (None) /hpf - Radiology Data Radiology results: report reviewed (I did review the imaging and report evidence a left lower lobe infiltrate versus effusion), image reviewed Disposition Clinical Impression: Congestive heart failure (CHF), Frequent falls, Facial contusion, Failure to thrive Disposition: ADMITTED IP TO THIS [facility] Condition: Fair Referrals: Paola Duckworth MD [Primary Care Provider] - 1-2 days
[2019-07-01 07:58] LABS: Anisocytosis Slight; Basophils % (A) 0 %; Eosinophils # (A) 0.1 k/uL (0-0.7); Eosinophils % (A) 2 %; HCT 32.4 % (34.0-46.0); HGB 10.2 gm/dL (11.4-16.0); Hypochromasia Slight; Lymphocytes # (A) 0.7 k/uL (1.0-4.8); Lymphocytes % (A) 11 %; MCH 25.3 pg (25.0-35.0); MCHC 31.5 g/dL (31.0-37.0); MCV 80.5 fL (80.0-100.0); Microcytosis Slight; Monocytes # (A) 0.3 k/uL (0-1.0); Monocytes % (A) 5 %; Neutrophils # (A) 5.5 k/uL (1.3-7.7); Neutrophils % (A) 80 %; RBC 4.03 m/uL (3.80-5.40); RDW 18.1 % (11.5-15.5); WBC 6.9 k/uL (3.8-10.6)
[2019-07-01 08:02] LABS: Albumin 2.6 g/dL (3.5-5.0); Calcium 8.5 mg/dL (8.4-10.2); Magnesium 1.5 mg/dL (1.6-2.3); Potassium 3.9 mmol/L (3.5-5.1); Total Bilirubin 1.2 mg/dL (0.2-1.3); Total Protein 5.2 g/dL (6.3-8.2)
[2019-07-01 08:08] LABS: INR 1.3 (<1.2); Partial Thromboplastin Time 25.9 sec (22.0-30.0); Prothrombin Time 12.6 sec (9.0-12.0)
[2019-07-01 08:30] LABS: Platelet Count 50 k/uL (150-450)
--- NOTE | 2019-07-01 08:36 | CT ---
EXAMINATION TYPE: CT brain wo con DATE OF EXAM: 07/01/2019 COMPARISON: INDICATION: Head trauma, minor, normal mental status DLP: 1054.4 mGycm, Automated exposure control for dose reduction was used. CONTRAST: None CT of the brain is performed utilizing 3 mm thick sections through the posterior fossa and 3 mm thick sections through the remaining calvarium. Study is performed within 24 hours of arrival to the hosp ital. No abnormal hyperdensity is present to suggest an acute intracranial hemorrhage. No mass lesion is evident. Physiologic basal ganglion calcification is present. No acute infarcts are evident. There is mild periventricular white matter hypodensity, likely on the basis of chronic white matter ischemic change. Ventricles and sulci are appropriate for the patient age. Vascular calcifications in the distal internal carotid arteries. Paranasal sinuses and mastoid air cells within the [id number] are clear. IMPRESSIONS: 1. Minimal chronic appearing periventricular white matter ischemic changes. 2. No acute intracranial process.
--- NOTE | 2019-07-01 08:37 | XR ---
EXAMINATION TYPE: XR chest 2V DATE OF EXAM: 07/01/2019 COMPARISON: 06/18/2019 INDICATION: Weakness TECHNIQUE: Frontal and lateral views of the chest are obtained. FINDINGS: The heart size is enlarged. The pulmonary vasculature is upper limits normal slightly more prominent than comparison. Left lower lobe infiltrate is present. A small left pleural effusion may be present.. IMPRESSION: 1. Left lower lobe infiltrate and/or pleural effusion
[2019-07-01 08:46] LABS: Amorphous Sediment,Urine Rare /hpf; Appearance,Urine Cloudy (Clear); Bacteria,Urine Occasional /hpf; Bilirubin,Urine Negative (Negative); Blood,Urine Moderate (Negative); Color,Urine Yellow; Glucose,Urine (UA) 1+ (Negative); Hyaline Casts,Urine 14 /lpf (0-2); Ketones,Urine Negative (Negative); Leukocyte Esterase,Urine Large (Negative); Mucus,Urine Rare /hpf; Nitrite,Urine Negative (Negative); PH, Urine 5.5 (5.0-8.0); Protein,Urine Trace (Negative); RBC,Urine 9 /hpf (0-5); Specific Gravity,Urine 1.017 (1.001-1.035); Squamous Epithelial Cell,Urine 20 /hpf (0-4); Urobilinogen,Urine <2.0 mg/dL (<2.0); WBC,Urine 34 /hpf (0-5)
[2019-07-01] MEDS ORDERED: NALOXONE 0.4 MG/ML 1 ML VIAL IV PRN (09:55)
[2019-07-01] MEDS ORDERED: ACETAMINOPHEN TAB 500 MG TAB PO PRN (09:57)
[2019-07-01] MEDS ORDERED: NITROGLYCERIN SL TABS 0.4 MG TAB SUBLINGUAL PRN (09:57)
[2019-07-01] MEDS: SODIUM CHLORIDE 0.9% 1,000 ML IV SCH (10:31)
--- NOTE | 2019-07-01 12:28 | P.HPIM ---
History of Present Illness Patient is a pleasant 79-year-old female was discharged about 10 days ago came back because of multiple falls it appears like patient family declined the subacute rehabilitation. Patient denied any shunt significant tremors of breath up but upon are regular evaluation patient appears to have right-sided pleural effusion and infiltrate patient denied any fever chills patient denied any cough patient is not a great historian. I'll obtain ultrasound of the right chest for any possible pleural effusion. Patient denied orthopnea paroxysmal nocturnal dyspnea and cannot really appreciate a JVD because of the contour patient does have elevated BNP visit with is a possibility of diastolic dysfunction patient had a normal ejection fraction the past patient will be started on IV Lasix IV fluids will be discontinued physical therapy occupational therapy evaluated the patient patient has bruises in multiple areas including ice patient has multiple falls since since the last discharge this is secondary to generalized weakness from hospitalization and age related. Patient does have history of cirrhosis but doesn't have any significant ascites. Review of Systems REVIEW OF SYSTEMS: CONSTITUTIONAL: No fever, no malaise, no fatigue. HEENT: No recent visual problems or hearing problems. Denied any sore throat. CARDIOVASCULAR: No chest pain, orthopnea, PND, no palpitations, no syncope. PULMONARY: No shortness of breath, no cough, no hemoptysis. GASTROINTESTINAL: No diarrhea, no nausea, no vomiting, no abdominal pain. NEUROLOGICAL: No headaches, no weakness, no numbness. HEMATOLOGICAL: Denies any bleeding or petechiae. GENITOURINARY: Denies any burning micturition, frequency, or urgency. MUSCULOSKELETAL/RHEUMATOLOGICAL: Denies any joint pain, swelling, or any muscle pain. ENDOCRINE: Denies any polyuria or polydipsia. The rest of the 14-point review of systems is negative. Past Medical History Past Medical History: Atrial Fibrillation, Cancer, Heart Failure, Diabetes Mellitus, Hypertension, Liver Disease Additional Past Medical History / Comment(s): Pt recently admitted to [facility] on 06/11/19 with possible NSTEMI, paroxysmal Afib/RVR, hypovolemia 2ndary to large volume paracentesis, acute UTI, acute renal failure. Other hx: Nonalcoholic cirrhosis-thought d/t rx, recurrent ascities/paracentesis, thromb ocytopenia, portal htn, L breast cancer with lumpectomy, NIDDM type II, neuropathy bilateral legs/feet, History of Any Multi-Drug Resistant Organisms: None Reported Past Surgical History: Breast Surgery, Cholecystectomy Additional Past Surgical History / Comment(s): L breast lumpectomy for cancer, right breast lump removal-benign, paracentesis-several, Past Anesthesia/Blood Transfusion Reactions: No Reported Reaction Smoking Status: Never smoker - Past Family History Father Family Medical History: Cancer Additional Family Medical History / Comment(s): Colon cancer Brother(s) Family Medical History: Myocardial Infarction ([place]) Additional Family Medical History / Comment(s): One brother with stents, another brother from an [place] Mother Family Medical History: Neurologic Disorder Additional Family Medical History / Comment(s): Parkinsons Medications and Allergies Home Medications Medication Instructions Recorded Confirmed Type Cholecalciferol (Vitamin D3) 2,000 unit PO DAILY 02/08/19 07/01/19 History [Vitamin D3] Pioglitazone [Actos] 30 mg PO DAILY 02/08/19 07/01/19 History Sertraline [Zoloft] 50 mg PO DAILY 02/08/19 07/01/19 History sitaGLIPtin PHOSPHATE [Januvia] 100 mg PO DAILY 02/08/19 07/01/19 History Cyanocobalamin [Vitamin B-12] 1,000 mcg PO DAILY #60 tab 02/11/19 07/01/19 Rx Niacin 2,000 mg PO DAILY 06/10/19 07/01/19 History Acetaminophen Tab [Tylenol] 500 mg PO Q6HR PRN tab 06/20/19 07/01/19 Rx Apixaban [Eliquis] 5 mg PO BID #60 tab 06/20/19 07/01/19 Rx Aspirin 81 mg PO DAILY #30 chew 06/20/19 07/01/19 Rx Fludrocortisone [Florinef] 0.2 mg PO BID #120 tab 06/20/19 07/01/19 Rx Gabapentin [Neurontin] 100 mg PO TID #90 cap 06/20/19 07/01/19 Rx Glimepiride [Amaryl] 2 mg PO BID #60 tab 06/20/19 07/01/19 Rx Lactulose [Cephulac] 10 gm PO DAILY #450 ml 06/20/19 07/01/19 Rx Magnesium Oxide [Mag-Ox] 400 mg PO DAILY #10 tab 06/20/19 07/01/19 Rx Metoprolol Tartrate [Lopressor] 12.5 mg PO BID #60 tab 06/20/19 07/01/19 Rx Nitroglycerin Sl Tabs [Nitrostat] 0.4 mg SUBLINGUAL Q5M PRN #30 tab 06/20/19 07/01/19 Rx Pantoprazole [Protonix] 40 mg PO AC-BRKFST #30 tablet.dr 06/20/19 07/01/19 Rx Spironolactone [Aldactone] 50 mg PO BID #120 tab 06/20/19 07/01/19 Rx Furosemide [Lasix] 40 mg PO BID 07/01/19 07/01/19 History Allergies Allergy/AdvReac Type Severity Reaction Status Date / Time No Known Allergies Allergy Verified 07/01/19 11:14 Physical Exam Vitals: Vital Signs Temp Pulse Pulse Resp BP BP Pulse Ox 07/01/19 11:43 98.3 F 82 17 104/64 96 07/01/19 10:31 98.1 F 80 18 122/55 98 07/01/19 09:00 80 18 112/51 98 07/01/19 07:34 97.8 F 85 18 138/65 97 Intake and Output 06/30/19 07/01/19 07/01/19 22:59 06:59 14:59 Other: Weight 90.718 kg PHYSICAL EXAMINATION: GENERAL: The patient is alert and oriented x3, not in any acute distress. Obese HEENT: Pupils are round and equally reacting to light. EOMI. No scleral icterus. No conjunctival pallor. Normocephalic, . No pharyngeal erythema. No thyromegaly. CARDIOVASCULAR: S1 and S2 present. No murmurs, rubs, or gallops. PULMONARY: Chest is clear to auscultation, no wheezing or crackles. ABDOMEN: Soft, nontender, nondistended, normoactive bowel sounds. No palpable organomegaly. No clear evidence of any fluid shift MUSCULOSKELETAL: No joint swelling or deformity. EXTREMITIES: No cyanosis, clubbing, mild 1+ pitting pedal edema in both lower extremities NEUROLOGICAL: Gross neurological examination did not reveal any focal deficits. SKIN: No bruises including bruising around the eyes Results CBC & Chem 7: 07/01/19 07:40 07/01/19 07:40 Labs: Abnormal Lab Results - Last 24 Hours (Table) 07/01/19 07/01/19 07/01/19 Range/Units 07:40 07:40 07:40 Hgb 10.2 L (11.4-16.0) gm/dL Hct 32.4 L (34.0-46.0) % RDW 18.1 H (11.5-15.5) % Plt Count 50 L (150-450) k/uL Lymphocytes # 0.7 L (1.0-4.8) k/uL PT 12.6 H (9.0-12.0) sec INR 1.3 H (<1.2) BUN 32 H (7-17) mg/dL Creatinine 1.05 H (0.52-1.04) mg/dL Glucose 208 H (74-99) mg/dL Magnesium 1.5 L (1.6-2.3) mg/dL AST 37 H (14-36) U/L Total Protein 5.2 L (6.3-8.2) g/dL Albumin 2.6 L (3.5-5.0) g/dL Urine Appearance (Clear) Urine Protein (Negative) Urine Glucose (UA) (Negative) Urine Blood (Negative) Ur Leukocyte Esterase (Negative) Urine RBC (0-5) /hpf Urine WBC (0-5) /hpf Ur Squamous Epith Cells (0-4) /hpf Amorphous Sediment (None) /hpf Urine Bacteria (None) /hpf Hyaline Casts (0-2) /lpf Urine Mucus (None) /hpf 07/01/19 Range/Units 08:20 Hgb (11.4-16.0) gm/dL Hct (34.0-46.0) % RDW (11.5-15.5) % Plt Count (150-450) k/uL Lymphocytes # (1.0-4.8) k/uL PT (9.0-12.0) sec INR (<1.2) BUN (7-17) mg/dL Creatinine (0.52-1.04) mg/dL Glucose (74-99) mg/dL Magnesium (1.6-2.3) mg/dL AST (14-36) U/L Total Protein (6.3-8.2) g/dL Albumin (3.5-5.0) g/dL Urine Appearance Cloudy H (Clear) Urine Protein Trace H (Negative) Urine Glucose (UA) 1+ H (Negative) Urine Blood Moderate H (Negative) Ur Leukocyte Esterase Large H (Negative) Urine RBC 9 H (0-5) /hpf Urine WBC 34 H (0-5) /hpf Ur Squamous Epith Cells 20 H (0-4) /hpf Amorphous Sediment Rare H (None) /hpf Urine Bacteria Occasional H (None) /hpf Hyaline Casts 14 H (0-2) /lpf Urine Mucus Rare H (None) /hpf Thrombosis Risk Factor Assmnt - Choose All That Apply Any of the Below Risk Factors Present?: Yes Each Factor Represents 1 point: Heart failure (<1month), Obesity (BMI >25) Other Risk Factors: Yes Each Risk Factor Represents 2 Points: Malignancy Each Risk Factor Represents 3 Points: Age 75 years or older Other congenital or acquired thrombophilia - If yes, enter type in comment: No Thrombosis Risk Factor Assessment Total Risk Factor Score: 7 Thrombosis Risk Factor Assessment Level: High Risk Assessment and Plan Plan: -Multiple falls: Secondary to recent hospitalization generalized weakness age- related muscle atrophy: Physical occupational therapy will be consulted patient will need the placement with a subacute rehabilitation -Pleural effusion etiology of pleural effusion is not care patient may have diastolic dysfunction with acute exacerbation we'll obtain ultrasound as unsure whether this is a pleural effusion or infiltrate patient doesn't have any clinical evidence of pneumonia patient will not be started on any antibiotics patient will be started on Pfeiffer Lasix patient had a normal ejection fraction the past -Proximal A. fib atrial fibrillation patient is on anti-coagulation will be temporally held until we know if she had a pleural effusion are not as there is a chance that need to be drained for diagnostic purposes. 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
--- NOTE | 2019-07-01 12:55 | US ---
EXAMINATION TYPE: US chest DATE OF EXAM: 07/01/2019 COMPARISON: NONE CLINICAL HISTORY: possible pleural effusion. TECHNIQUE: Targeted ultrasound of the posterior lower chest EXAM MEASUREMENTS: Right Pleural Effusion pocket size: not visualized Left Pleural Effusion pocket size: 2.6 cm Left skin surface to fluid distance: 3.7 cm Right side not marked for possible thoracentesis outside the dept. Left side marked for possible thoracentesis outside the dept. Pulmonologists are able to review the images in the patient?s EMR. IMPRESSIONS: As above
[2019-07-01] MEDS: FUROSEMIDE 10 MG/ML 4 ML VIAL IV SCH ×2 (13:48→20:42)
[2019-07-01] MEDS ORDERED: Magnesium Replacement Protocol 1 EACH MISC MISCELLANE PRN (13:54)
--- NOTE | 2019-07-01 14:09 | P.CRDCN ---
History of Present Illness History of present illness: HISTORY OF PRESENTING ILLNESS This is a pleasant 79-year-old female past medical history significant for paroxysmal atrial fibrillation on long-term anticoagulation, diabetes gregorioi tus, hypertension, non-alcoholic cirrhosis and underlying coronary artery disease with an abnormal stress test in June 2019 was performed secondary to abnormal troponins during that admission. She was scheduled to undergo a cardiac catheterization however she became medically unstable and this was postponed. She was supposed to have her follow-up appointment with Dr. Ugarte today. However she was brought to the hospital by family secondary to increased weakness and frequent falls. She states she has fallen lately due to feeling too weak, no syncope, dizziness, chest pain or palpitations. She has not had loss of consciousness. She does describe increased shortness of breath and orthopnea si nce being discharged 06/20/2019. She is also feeling some right upper quadrant abdominal discomfort with movement or on palpation. Most recent echocardiogram obtained in June 2019 revealed preserved LV systolic function with ejection fraction 55-60%, normal diastolic filling pattern, mild aortic stenosis with a mean gradient of 11 mmHg, mild MR, mild TR and mild pulmonary hypertension with an RVSP of 43 mmHg. Lexiscan stress test performed June 2019 revealed pharmacologically-induced LV myocardial ischemia, with prior infarct along the lateral wall associated with allan-infarct ischemia. She has been initiated on IV diuresis per primary care team and eliquis has been held. DIAGNOSTICS EKG reveals sinus mechanism with poor R-wave progression and PVC noted. Chest xray reveals left lower love infiltrate vs pleural effusion. Ultrasound of the left chest revealed effusion size of 2.6 cm. Laboratory reviewed, WBC 6.9, hgb 10.2, plt 50, INR 1.3, sodium 138, potassium 3.9, creatinine 1.05, magnesium 1.5, troponin negative x1, NTproBNP 3850. Current cardiac medications include aldactone 50 mg BID, lopressor 12.5 mg BID, lasix 40 mg BID, aspirin 81 mg daily, eliquis 5 mg BID and florinef 0.2 mg BID. REVIEW OF SYSTEMS At the time of my exam: CONSTITUTIONAL: Denies fever or chills. CARDIOVASCULAR: Complains of shortness of breath and orthopnea. Denies chest pain, PND or palpitations. RESPIRATORY: Denies cough. GASTROINTESTINAL: Denies abdominal pain, diarrhea, constipation, nausea or vomiting. MUSCULOSKELETAL: Complains of overall generalized weakness and fatigue. Denies myalgias. NEUROLOGIC: Denies numbness, tingling or weakness. ENDOCRINE: Denies fatigue, weight change, polydipsia or polyurina. GENITOURINARY: Denies burning, hematuria or urgency with micturation. HEMATOLOGIC: Denies history of anemia or bleeding. PHYSICAL EXAMINATION Blood pressure 104/64 heart rate 82 afebrile and maintaining oxygen saturation on room air. CONSTITUTIONAL: No apparent distress. HEENT: Head is normocephalic. Pupils are equal, round. Sclerae anicteric. Mucous membranes of the mouth are moist. No JVD. No carotid bruit. CHEST EXAMINATION: Lungs are clear to auscultation. No chest wall tenderness is noted on palpation or with deep breathing. HEART EXAMINATION: Regular rate and rhythm. S1, S2 heard. Systolic ejection murmur at the base, no gallops or rub. ABDOMEN: Soft, mildly tender right upper quadrant. Positive bowel sounds. EXTREMITIES: 2+ peripheral pulses, 2+ bilateral lower extremity pitting edema up to the mid-calf and no calf tenderness. NEUROLOGIC EXAMINATION: Patient is awake, alert and oriented x3. ASSESSMENT Frequent falls secondary to increased weakness Pleural effusion, likely related to fluid overload from cirrhosis. Normal LV function and diastolic filling pattern on recent echo. Paroxysmal atrial fibrillation, currently maintaining sinus mechanism. Eliquis held due to frequent falls and thrombocytopenia Thrombocytopenia Non-alcoholic cirrhosis Diabetes mellitus Hypertension PLAN Continue to diurese with IV lasix. Agree with holding anti-coagulation given the frequent falls and profound thrombocytopenia. Replace magnesium per protocol. Follow renal function and electrolytes in the morning along with daily weights. Thank you kindly for this consultation. Nurse Practitioner note has been reviewed, I agree with a documented findings an d plan of care. Patient was seen and examined. Past Medical History Past Medical History: Atrial Fibrillation, Cancer, Heart Failure, Diabetes Mellitus, Hypertension, Liver Disease Additional Past Medical History / Comment(s): Pt recently admitted to [facility] on 06/11/19 with possible NSTEMI, paroxysmal Afib/RVR, hypovolemia 2ndary to large volume paracentesis, acute UTI, acute renal failure. Other hx: Nonalcoholic cirrhosis-thought d/t rx, recurrent ascities/paracentesis, thrombocytopenia, portal htn, L breast cancer with lumpectomy, NIDDM type II, neuropathy bilateral legs/feet, History of Any Multi-Drug Resistant Organisms: None Reported Past Surgical History: Breast Surgery, Cholecystectomy Additional Past Surgical History / Comment(s): L breast lumpectomy for cancer, right breast lump removal-benign, paracentesis-several, Past Anesthesia/Blood Transfusion Reactions: No Reported Reaction Smoking Status: Never smoker - Past Family History Father Family Medical History: Cancer Additional Family Medical History / Comment(s): Colon cancer Brother(s) Family Medical History: Myocardial Infarction ([place]) Additional Family Medical History / Comment(s): One brother with stents, another brother from an [place] Mother Family Medical History: Neurologic Disorder Additional Family Medical History / Comment(s): Parkinsons Medications and Allergies Home Medications Medication Instructions Recorded Confirmed Type Cholecalciferol (Vitamin D3) 2,000 unit PO DAILY 02/08/19 07/01/19 History [Vitamin D3] Pioglitazone [Actos] 30 mg PO DAILY 02/08/19 07/01/19 History Sertraline [Zoloft] 50 mg PO DAILY 02/08/19 07/01/19 History sitaGLIPtin PHOSPHATE [Januvia] 100 mg PO DAILY 02/08/19 07/01/19 History Cyanocobalamin [Vitamin B-12] 1,000 mcg PO DAILY #60 tab 02/11/19 07/01/19 Rx Niacin 2,000 mg PO DAILY 06/10/19 07/01/19 History Acetaminophen Tab [Tylenol] 500 mg PO Q6HR PRN tab 06/20/19 07/01/19 Rx Apixaban [Eliquis] 5 mg PO BID #60 tab 06/20/19 07/01/19 Rx Aspirin 81 mg PO DAILY #30 chew 06/20/19 07/01/19 Rx Fludrocortisone [Florinef] 0.2 mg PO BID #120 tab 06/20/19 07/01/19 Rx Gabapentin [Neurontin] 100 mg PO TID #90 cap 06/20/19 07/01/19 Rx Glimepiride [Amaryl] 2 mg PO BID #60 tab 06/20/19 07/01/19 Rx Lactulose [Cephulac] 10 gm PO DAILY #450 ml 06/20/19 07/01/19 Rx Magnesium Oxide [Mag-Ox] 400 mg PO DAILY #10 tab 06/20/19 07/01/19 Rx Metoprolol Tartrate [Lopressor] 12.5 mg PO BID #60 tab 06/20/19 07/01/19 Rx Nitroglycerin Sl Tabs [Nitrostat] 0.4 mg SUBLINGUAL Q5M PRN #30 tab 06/20/19 07/01/19 Rx Pantoprazole [Protonix] 40 mg PO AC-BRKFST #30 tablet.dr 06/20/19 07/01/19 Rx Spironolactone [Aldactone] 50 mg PO BID #120 tab 06/20/19 07/01/19 Rx Furosemide [Lasix] 40 mg PO BID 07/01/19 07/01/19 History Allergies Allergy/AdvReac Type Severity Reaction Status Date / Time No Known Allergies Allergy Verified 07/01/19 11:14 Physical Exam Vitals: Vital Signs Temp Pulse Pulse Resp BP BP Pulse Ox 07/01/19 11:43 98.3 F 82 17 104/64 96 07/01/19 10:31 98.1 F 80 18 122/55 98 07/01/19 09:00 80 18 112/51 98 07/01/19 07:34 97.8 F 85 18 138/65 97 Intake and Output 06/30/19 07/01/19 07/01/19 22:59 06:59 14:59 Other: Weight 90.718 kg Results 07/01/19 07:40 07/01/19 07:40 Cardiac Enzymes 07/01/19 07/01/19 Range/Units 07:40 07:40 AST 37 H (14-36) U/L Troponin I <0.012 (0.000-0.034) ng/mL Coagulation 07/01/19 Range/Units 07:40 PT 12.6 H (9.0-12.0) sec APTT 25.9 (22.0-30.0) sec CBC 07/01/19 Range/Units 07:40 WBC 6.9 (3.8-10.6) k/uL RBC 4.03 (3.80-5.40) m/uL Hgb 10.2 L (11.4-16.0) gm/dL Hct 32.4 L (34.0-46.0) % Plt Count 50 L (150-450) k/uL Comprehensive Metabolic Panel 07/01/19 Range/Units 07:40 Sodium 138 (137-145) mmol/L Potassium 3.9 (3.5-5.1) mmol/L Chloride 107 (98-107) mmol/L Carbon Dioxide 24 (22-30) mmol/L BUN 32 H (7-17) mg/dL Creatinine 1.05 H (0.52-1.04) mg/dL Glucose 208 H (74-99) mg/dL Calcium 8.5 (8.4-10.2) mg/dL AST 37 H (14-36) U/L ALT 21 (4-34) U/L Alkaline Phosphatase 73 (38-126) U/L Total Protein 5.2 L (6.3-8.2) g/dL Albumin 2.6 L (3.5-5.0) g/dL Current Medications Generic Name Dose Route Start Last Admin Trade Name Freq PRN Reason Stop Dose Admin Acetaminophen 500 mg 07/01/19 09:57 Tylenol Tab PO Q6HR PRN Fever and/ or Pain Aspirin 81 mg 07/02/19 09:00 Aspirin PO DAILY [facility] Cholecalciferol 2,000 unit 07/02/19 09:00 Vitamin D3 (25 Mcg = 1000 Iu) PO DAILY [facility] Cyanocobalamin 1,000 mcg 07/02/19 09:00 Vitamin B-12 PO DAILY [facility] Fludrocortisone Acetate 0.2 mg 07/01/19 21:00 Florinef PO BID [facility] Furosemide 40 mg 07/01/19 12:15 Lasix IV Q12HR [facility] Gabapentin 100 mg 07/01/19 16:00 Neurontin PO TID [facility] Glimepiride 2 mg 07/01/19 17:30 Amaryl PO AC-BID [facility] Sodium Chloride 1,000 mls @ 20 mls/hr 07/01/19 10:00 07/01/19 10:31 Saline 0.9% IV 20 mls/hr .Q24H [facility]UPAM Administration Lactulose 10 gm 07/02/19 09:00 Cephulac PO DAILY [facility] Linagliptin 5 mg 07/02/19 09:00 Tradjenta PO DAILY [facility] Magnesium Oxide 400 mg 07/02/19 09:00 Mag-Ox PO DAILY [facility] Metoprolol Tartrate 12.5 mg 07/01/19 21:00 Lopressor PO BID [facility] Naloxone HCl 0.2 mg 07/01/19 09:55 Narcan IV Q2M PRN Opioid Reversal Niacin 2,000 mg 07/02/19 09:00 Niacin Tr PO DAILY [facility] Nitroglycerin 0.4 mg 07/01/19 09:57 Nitrostat SUBLINGUAL Q5M PRN Chest Pain Pantoprazole Sodium 40 mg 07/02/19 07:30 Protonix PO AC-BRKFST [facility] Pioglitazone HCl 30 mg 07/02/19 09:00 Actos PO DAILY [facility] Sertraline HCl 50 mg 07/02/19 09:00 Zoloft PO DAILY [facility] Spironolactone 50 mg 07/02/19 09:00 Aldactone PO DAILY [facility] Intake and Output 06/30/19 07/01/19 07/01/19 22:59 06:59 14:59 Other: Weight 90.718 kg Patient Weight 07/02/19 06:59 Weight 90.718 kg 07/01/19 07:40 07/01/19 07:40
[2019-07-01] MEDS: GABAPENTIN 100 MG CAP PO SCH ×2 (15:55→21:13)
[2019-07-01] MEDS: MAGNESIUM SULFATE-D5W PMX 1 GM in DEXTROSE/WATER 1 100ML.BAG IVPB SCH ×2 (15:55→17:17)
[2019-07-01] MEDS: GLIMEPIRIDE 2 MG TAB PO SCH (17:17)
[2019-07-01 19:58] LABS: Glucose,Whole Blood 239 mg/dL (75-99)
[2019-07-01] MEDS: METOPROLOL TARTRATE 12.5 MG TAB PO SCH (20:41)
[2019-07-01] MEDS: FLUDROCORTISONE 0.1 MG TAB PO SCH (20:41)
[2019-07-01] MEDS ORDERED: APIXABAN 5 MG TAB PO SCH (21:00)
[2019-07-02 06:53] LABS: Glucose,Whole Blood 190 mg/dL (75-99)
[2019-07-02 07:12] LABS: Calcium 7.9 mg/dL (8.4-10.2); Magnesium 1.7 mg/dL (1.6-2.3); Potassium 3.5 mmol/L (3.5-5.1)
[2019-07-02] MEDS: PANTOPRAZOLE 40 MG TABLET PO SCH (08:38)
[2019-07-02] MEDS: GLIMEPIRIDE 2 MG TAB PO SCH ×2 (08:38→17:35)
[2019-07-02] MEDS: ASPIRIN 81 MG PO SCH (08:38)
[2019-07-02] MEDS: CYANOCOBALAMIN 500 MCG TAB PO SCH (08:39)
[2019-07-02] MEDS: FLUDROCORTISONE 0.1 MG TAB PO SCH ×2 (08:40→21:45)
[2019-07-02] MEDS: GABAPENTIN 100 MG CAP PO SCH ×3 (08:40→21:45)
[2019-07-02] MEDS: LACTULOSE 20 GM/30 ML CUP PO SCH (08:40)
[2019-07-02] MEDS: FUROSEMIDE 10 MG/ML 4 ML VIAL IV SCH ×2 (08:40→22:03)
[2019-07-02] MEDS: NIACIN TR 500 MG CAPLET PO SCH (08:41)
[2019-07-02] MEDS: SERTRALINE 50 MG TAB PO SCH (08:41)
[2019-07-02] MEDS: PIOGLITAZONE 30 MG TAB PO SCH (08:41)
[2019-07-02] MEDS: CHOLECALCIFEROL 1,000 UNIT TAB PO SCH (08:41)
[2019-07-02] MEDS: METOPROLOL TARTRATE 12.5 MG TAB PO SCH ×2 (08:41→21:45)
[2019-07-02] MEDS: MAGNESIUM OXIDE 400 MG TAB PO SCH (08:41)
[2019-07-02] MEDS: SPIRONOLACTONE 25 MG TAB PO SCH (08:41)
[2019-07-02] MEDS: LINAGLIPTIN 5 MG TABLET PO SCH (08:41)
[2019-07-02] MEDS ORDERED: FUROSEMIDE 40 MG TAB PO SCH (09:00)
--- NOTE | 2019-07-02 12:14 | P.DS ---
Providers Date of admission: 07/01/19 09:55 Expected date of discharge: 07/02/19 Attending physician: Fab Garibay Consults: 07/01/19 12:14 Consult Physician Routine Consulting Provider: Garrett Gonsalves Consult Reason/Comments: possible CHF Do you want consulting provider notified?: Yes Primary care physician: Gucci [facility] Course: Final diagnosis -Multiple falls: Secondary to recent hospitalization generalized weakness age- related muscle atrophy -Pleural effusion etiology of pleural effusion is not clear patient may have diastolic dysfunction with acute exacerbation -Proximal A. 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 Total time taken is 35 minutes. History of present illness This is a 79-year-old female who was recently admitted for multiple falls and is requiring physical therapy for strengthening mobility. Patient was recently just admitted and discharged less than 2 weeks ago and refusing rehab at that time. Family and patient are now agreeable to rehab as she has continued to be weak and family cannot take care of her at this time. Patient does have right- sided pleural effusion and will continue on Lasix for diuresis. No reports of chest pain, shortness of breath, or palpitations. Patient is afebrile. No reports of nausea or vomiting and patient is tolerating diet. Patient denies any cough, shortness of breath, or recent fevers. Patient does have multiple bruises noted on the face of bilateral orbital areas status post fall a few days ago. Will continue to hold anticoagulation due to thrombocytopenia and history of recent frequent falls. Patient does have a history of cirrhosis with no significant ascites at this time. Patient states she feels better today and would like to go to rehab today. Patient will be going to [facility] for continued PT/OT therapy. On exam vital signs are stable. Temp is 97.4F, pulse is 67, respirations are 16, blood pressure is 136/72, oxygen saturation is 99% on room air. Cardio S1, S2 are muffled. Respiratory shows diminished breath sounds at the bases with no wheezing or rhonchi noted. Abdomen is soft, obese, nontender. Nervous system shows mild diffuse weakness. Please refer to medication reconciliation sheet for a list of medications. Patient Condition at Discharge: Fair Plan - Discharge Summary Discharge Rx Participant: No New Discharge Prescriptions: New Spironolactone [Aldactone] 50 mg PO DAILY tab Continue sitaGLIPtin PHOSPHATE [Januvia] 100 mg PO DAILY Sertraline [Zoloft] 50 mg PO DAILY Pioglitazone [Actos] 30 mg PO DAILY Cholecalciferol (Vitamin D3) [Vitamin D3] 2,000 unit PO DAILY Cyanocobalamin [Vitamin B-12] 1,000 mcg PO DAILY #60 tab Niacin 2,000 mg PO DAILY Glimepiride [Amaryl] 2 mg PO BID #60 tab Aspirin 81 mg PO DAILY #30 chew Lactulose [Cephulac] 10 gm PO DAILY #450 ml Fludrocortisone [Florinef] 0.2 mg PO BID #120 tab Metoprolol Tartrate [Lopressor] 12.5 mg PO BID #60 tab Magnesium Oxide [Mag-Ox] 400 mg PO DAILY #10 tab Nitroglycerin Sl Tabs [Nitrostat] 0.4 mg SUBLINGUAL Q5M PRN #30 tab PRN Reason: Chest Pain Pantoprazole [Protonix] 40 mg PO AC-BRKFST #30 tablet. Acetaminophen Tab [Tylenol] 500 mg PO Q6HR PRN tab PRN Reason: Fever And/ Or Pain Furosemide [Lasix] 40 mg PO BID Gabapentin [Neurontin] 100 mg PO TID #6 cap Discontinued Spironolactone [Aldactone] 50 mg PO BID #120 tab Apixaban [Eliquis] 5 mg PO BID #60 tab Discharge Medication List Cholecalciferol (Vitamin D3) [Vitamin D3] 2,000 unit PO DAILY 02/08/19 [History] Pioglitazone [Actos] 30 mg PO DAILY 02/08/19 [History] Sertraline [Zoloft] 50 mg PO DAILY 02/08/19 [History] sitaGLIPtin PHOSPHATE [Januvia] 100 mg PO DAILY 02/08/19 [History] Cyanocobalamin [Vitamin B-12] 1,000 mcg PO DAILY #60 tab 02/11/19 [Rx] Niacin 2,000 mg PO DAILY 06/10/19 [History] Acetaminophen Tab [Tylenol] 500 mg PO Q6HR PRN tab 06/20/19 [Rx] Aspirin 81 mg PO DAILY #30 chew 06/20/19 [Rx] Fludrocortisone [Florinef] 0.2 mg PO BID #120 tab 06/20/19 [Rx] Glimepiride [Amaryl] 2 mg PO BID #60 tab 06/20/19 [Rx] Lactulose [Cephulac] 10 gm PO DAILY #450 ml 06/20/19 [Rx] Magnesium Oxide [Mag-Ox] 400 mg PO DAILY #10 tab 06/20/19 [Rx] Metoprolol Tartrate [Lopressor] 12.5 mg PO BID #60 tab 06/20/19 [Rx] Nitroglycerin Sl Tabs [Nitrostat] 0.4 mg SUBLINGUAL Q5M PRN #30 tab 06/20/19 [Rx] Pantoprazole [Protonix] 40 mg PO AC-BRKFST #30 tablet.dr 06/20/19 [Rx] Furosemide [Lasix] 40 mg PO BID 07/01/19 [History] Gabapentin [Neurontin] 100 mg PO TID #6 cap 07/02/19 [Rx] Spironolactone [Aldactone] 50 mg PO DAILY tab 07/02/19 [Rx] Follow up Appointment(s)/Referral(s): Paola Duckworth MD [Primary Care Provider] - 1-2 days Activity/Diet/Wound Care/Special Instructions: Patient is going to [facility] Activity as tolerated Continue current diet Continue to hold anticoagulation until follow-up Follow-up with primary care provider upon discharge Continue with physical therapy Discharge Disposition: TRANSFER TO SNF/ECF
--- NOTE | 2019-07-02 13:09 | P.PN ---
Subjective HISTORY OF PRESENTING ILLNESS This is a pleasant 79-year-old female past medical history significant for paroxysmal atrial fibrillation on long-term anticoagulation, diabetes mellitus, hypertension, non-alcoholic cirrhosis and underlying coronary artery disease with an abnormal stress test in June 2019 was performed secondary to abnormal troponins during that admission. She is seen and examined sitting up in bed with ongoing weakness. She has mild shortness of breath. No chest pain, dizziness or palpitations. Blood pressure 136/72 heart rate 67 afebrile and maintaining oxygen saturation on room air. Laboratory data reviewed, sodium 137, potassium 3.5, creatinine 1. PHYSICAL EXAMINATION CONSTITUTIONAL: No apparent distress. HEENT: Head is normocephalic. Pupils are equal, round. Sclerae anicteric. Mucous membranes of the mouth are moist. No JVD. No carotid bruit. CHEST EXAMINATION: Lungs are clear to auscultation. No chest wall tenderness is noted on palpation or with deep breathing. HEART EXAMINATION: Regular rate and rhythm. S1, S2 heard. Systolic ejection murmur at the base, no gallops or rub. EXTREMITIES: 2+ peripheral pulses, 2+ bilateral lower extremity pitting edema up to the mid-calf and no calf tenderness. ASSESSMENT Frequent falls secondary to increased weakness Pleural effusion, likely related to fluid overload from cirrhosis. Normal LV function and diastolic filling pattern on recent echo. Paroxysmal atrial fibrillation, currently maintaining sinus mechanism. Eliquis held due to frequent falls and thrombocytopenia Thrombocytopenia Non-alcoholic cirrhosis Diabetes mellitus Hypertension PLAN Discontinue eliquis. Stable from a cardiac perspective. Nurse Practitioner note has been reviewed, I agree with a documented findings and plan of care. Patient was seen and examined. Objective - Vital Signs Vital signs: Vital Signs Temp 97.4 F L 07/02/19 11:25 Pulse 67 07/02/19 11:25 Resp 16 07/02/19 11:25 BP 136/72 07/02/19 11:25 Pulse Ox 99 07/02/19 11:25 Intake & Output 07/01/19 07/02/19 07/02/19 18:59 06:59 18:59 Weight 85.5 kg 89.5 kg Other: Voiding Method Bedside Commode Bedside Commode Bedside Commode Bedpan Bedpan Bedpan Diaper Diaper Diaper # Voids 1 # Bowel Movements 1 - Labs CBC & Chem 7: 07/01/19 07:40 07/02/19 05:56 Labs: Abnormal Lab Results - Last 24 Hours (Table) 07/01/19 07/02/19 07/02/19 Range/Units 19:56 05:56 06:52 BUN 28 H (7-17) mg/dL Glucose 171 H (74-99) mg/dL POC Glucose (mg/dL) 239 H 190 H (75-99) mg/dL Calcium 7.9 L (8.4-10.2) mg/dL Microbiology - Last 24 Hours (Table) 07/01/19 08:20 Urine Culture - Preliminary Urine,Voided Group D Enterococcus
[2019-07-02] MEDS: SODIUM CHLORIDE 0.9% 1,000 ML IV SCH (13:59)
[2019-07-02 20:12] LABS: Anisocytosis Slight; Basophils % (A) 0 %; Eosinophils # (A) 0.1 k/uL (0-0.7); Eosinophils % (A) 1 %; HCT 32.1 % (34.0-46.0); Hypochromasia Marked; Lymphocytes # (A) 0.6 k/uL (1.0-4.8); Lymphocytes % (A) 8 %; MCH 26.1 pg (25.0-35.0); MCHC 31.1 g/dL (31.0-37.0); MCV 83.9 fL (80.0-100.0); Mean Platelet Volume 8.6; Monocytes # (A) 0.6 k/uL (0-1.0); Monocytes % (A) 7 %; Neutrophils # (A) 6.2 k/uL (1.3-7.7); Neutrophils % (A) 80 %; Platelet Count 33 k/uL (150-450); RBC 3.83 m/uL (3.80-5.40); RDW 17.9 % (11.5-15.5); WBC 7.7 k/uL (3.8-10.6)
[2019-07-03] MEDS: SPIRONOLACTONE 25 MG TAB PO SCH (07:07)
[2019-07-03] MEDS: PANTOPRAZOLE 40 MG TABLET PO SCH (07:08)
[2019-07-03] MEDS: ASPIRIN 81 MG PO SCH (07:08)
[2019-07-03] MEDS: GABAPENTIN 100 MG CAP PO SCH ×2 (07:08→15:40)
[2019-07-03] MEDS: CHOLECALCIFEROL 1,000 UNIT TAB PO SCH (07:08)
[2019-07-03] MEDS: CYANOCOBALAMIN 500 MCG TAB PO SCH (07:08)
[2019-07-03] MEDS: MAGNESIUM OXIDE 400 MG TAB PO SCH (07:08)
[2019-07-03] MEDS: METOPROLOL TARTRATE 12.5 MG TAB PO SCH (07:08)
[2019-07-03] MEDS: SERTRALINE 50 MG TAB PO SCH (07:09)
[2019-07-03] MEDS: GLIMEPIRIDE 2 MG TAB PO SCH (07:09)
[2019-07-03] MEDS: FLUDROCORTISONE 0.1 MG TAB PO SCH (07:09)
[2019-07-03] MEDS: PIOGLITAZONE 30 MG TAB PO SCH (07:10)
[2019-07-03] MEDS: LINAGLIPTIN 5 MG TABLET PO SCH (07:10)
[2019-07-03] MEDS: FUROSEMIDE 10 MG/ML 4 ML VIAL IV SCH (07:10)
[2019-07-03] MEDS: LACTULOSE 20 GM/30 ML CUP PO SCH (07:10)
[2019-07-03] MEDS: NIACIN TR 500 MG CAPLET PO SCH (07:11)
[2019-07-03] MEDS: SODIUM CHLORIDE 0.9% 1,000 ML IV SCH (08:57)
[2019-07-03] MEDS ORDERED: FUROSEMIDE 40 MG TAB PO SCH (09:00)
[2019-07-03 09:48] LABS: Calcium 8.2 mg/dL (8.4-10.2)
[2019-07-03 11:50] VITALS: BP 105/53; PULSE 82; RESP 17; TEMP 98.6
[2019-07-03 13:14] LABS: Appearance,Urine Clear (Clear); Bilirubin,Urine Negative (Negative); Blood,Urine Negative (Negative); Color,Urine Yellow; Glucose,Urine (UA) Negative (Negative); Ketones,Urine Negative (Negative); Leukocyte Esterase,Urine Negative (Negative); Nitrite,Urine Negative (Negative); Protein,Urine Negative (Negative); Urobilinogen,Urine <2.0 mg/dL (<2.0)
[2019-07-03 13:27] VITALS: BMI 33.5
--- NOTE | 2019-07-03 15:54 | CONS ---
CONSULTATION DATE OF SERVICE: 07/03/2019 REASON FOR CONSULTATION: VRE urinary tract infection and discharge. HISTORY OF PRESENT ILLNESS: The patient is a 79-year-old female presenting to the ER at [facility] on June 30 after apparently the patient did have a fall. The patient did fall down, face down. She was trying to get up in the bed and did not have the strain to hold her walker and fell down. The patient has been complaining of pain mostly in the periorbital area, did have significant bruise there. Denies losing consciousness. Denies having any chest pain. No shortness of breath or cough. No nausea, vomiting. No abdominal pain or any diarrhea. With these symptoms, the patient was evaluated by the ER physician. On arrival to the ER, the patient has been afebrile and no temperature has been recorded since the patient has been here. The patient did have a normal white count. The patient did have positive UA which was cloudy, large leukocyte esterases with 34 WBC. The patient has been treated with no antibiotics. Urine is now coming back positive with VRE, which is more than 100,000 colonies. Infectious Disease has been consulted for discharge antibiotic recommendation. Patient currently denies having any burning or frequency of urine and no suprapubic or flank pain. REVIEW OF SYSTEMS: Positive points have been mentioned in HPI. Rest of systems are negative. PAST MEDICAL HISTORY: Diabetes mellitus, hypertension, clear fluid, nonalcoholic cirrhosis, neuropathy, left breast cancer. PAST SURGICAL HISTORY: Left breast lumpectomy, cholecystectomy. SOCIAL HISTORY: No history of smoking, drinking or drug use. FAMILY HISTORY: Father with history of colon cancer. Mother with history of Parkinson's disease. ALLERGIES: No known drug allergies. MEDICATIONS: The patient is currently on Tylenol, aspirin, vitamin D3, B12, Florinef, Lasix, Neurontin, Amaryl, lactulose, Tradjenta, vanc oxide, Lopressor, Narcan, Niacin, Nitrostat, Protonix, Actos, Zoloft. PHYSICAL EXAMINATION: Blood pressure 135/53 with a pulse of 82, temperature is 98.3, she is 97% on room air. General description is an elderly female, lying in bed in no distress. No tachypnea or accessory muscle for respiration use. HEENT: Shows slight pallor. No scleral icterus. The patient did have significant bilateral periorbital bruise. No redness. LUNGS: Unlabored breathing, clear to auscultation anteriorly. HEART: S1, S2. Regular rate and rhythm. ABDOMEN: Soft. There is no tenderness. EXTREMITIES: No edema of the feet. SKIN: Examination no rash or mass palpable. NEUROLOGIC: The patient is awake, alert, oriented, mood and affect normal. LABS: Hemoglobin is 10 with white count 7.7, BUN of 35, creatinine 1.12. White count has been normal, urine mentioned above. Urine culture with VRE. DIAGNOSTIC IMPRESSION AND PLAN: Patient with a positive urine culture with VRE more than 100,000 colonies in this patient admitted to the hospital where she did have a fall with significant periorbital bruise. This patient did not have any urinary symptoms of burning or frequency with concern for possible contamination versus colonization. PLAN: We will obtain a clean-catch UA which if negative, there is no need for any antibiotic on discharge. This has been explained in detail to the patient as well. The nurse practitioner working on discharge. MMODL / IJN: [id number] /
--- NOTE | 2019-07-03 16:02 | CDI ---
Documentation Clarification Form Date: 07/03/2019 03:18:08 PM From: Saray Savage RN, CCDS Admit Date: 07/01/2019 09:55:00 AM Patient Name: Paula Gordon Visit Number: [id number] Discharge Date: ATTENTION: The Clinical Documentation Specialists (CDI) and [facility] Coding Staff appreciate your assistance in clarifying documentation. Please respond to the clarification below the line at the bottom and electronically sign. The CDI & [facility] Coding staff will review the response and follow-up if needed. Please note: Queries are made part of the Legal Health Record. If you have any questions, please contact the author of this message via ITS. Dr. Fab Garibay A pressure ulcer, coccyx was documented in the Nursing wound assessment on 07/01, and in the dietary consult on 07/02 additional information is requested to confirm stage and present on admission indicators. History/Risk Factors: Nonalcoholic cirrhosis, Diabetes Mellitus, Neuropathy bilateral legs/feet Clinical Indicators: 79-year-old female who present to ED on 06/30 via EMS because of frequent falls, and fell on day admit and was unable to get herself up. 06/30 Labs on admission WBC 6.9, HGB 10.2 HCT 32.4, BUN 32, CR 1.05, Glucose 208, Total Protein 5.2, Albumin 2.6, Lactic acid 1.4 Vital signs on admission: 138/65 85 18 97.8 97 % RA 06/30 ER Rectal exam: deferred, 07/01 Nursing wound assessment: Pressure injury Stage II Location: Coccyx Wound description: No drainage, stage II Treatment: Dietary Consult Skin Integrity monitoring Monitor I/O Glucerna BID, Carbohydrate -Fat modified diet Monitor and control blood sugar Elements for accurate and compliant documentation of an ulcer: *The location/laterality of the ulcer *Etiology (decubitus/pressure, diabetic, PVD) *Stage I-IV, Unstageable, Suspected Deep Tissue Injury (To the deepest stage) *If the ulcer was present at admission (POA) or occurred after admission In your professional opinion, can you please clarify the diagnosis, location, laterality and whether present on admission (POA): Stage 1 Pressure/Decubitus Ulcer (intact skin, non-blanching redness of local area) Stage 2 Pressure/Decubitus Ulcer (Partial thickness, loss of dermis, pink wound bed) Stage 3 Pressure/Decubitus Ulcer (Full thickness tissue loss) Stage 4 Pressure/Decubitus Ulcer (Full thickness tissue loss with exposed bone, tendon, or muscle. May have slough or eschar present) Unstageable Other condition, please specify Unable to determine Please indicate etiology of pressure ulcer (if known). (Last Revision: December 2016) Stage 2 Pressure/Decubitus Ulcer (Partial thickness, loss of dermis, pink wound bed) present on admission MTDD
== END 2019-07-03 16:29 | DRG 557 ==
LOC: EC 07:30 → 5NMEDONC 09:55
PROVIDERS: ADMIT Internal Medicine; ATTEND Internal Medicine
DX: M62.58 Muscle wasting and atrophy, not elsewhere classified, other site (principal); I50.33 Acute on chronic diastolic (congestive) heart failure; K76.6 Portal hypertension; I11.0 Hypertensive heart disease with heart failure; E11.41 Type 2 diabetes mellitus with diabetic mononeuropathy; K74.60 Unspecified cirrhosis of liver; I48.0 Paroxysmal atrial fibrillation; I27.20 Pulmonary hypertension, unspecified; I25.10 Atherosclerotic heart disease of native coronary artery without angina pectoris; R53.1 Weakness; F32.9 Major depressive disorder, single episode, unspecified; S00.83XA Contusion of other part of head, initial encounter; R62.7 Adult failure to thrive; L89.152 Pressure ulcer of sacral region, stage 2; D69.59 Other secondary thrombocytopenia; E66.9 Obesity, unspecified; R29.6 Repeated falls; W19.XXXA Unspecified fall, initial encounter; Z68.33 Body mass index [BMI] 33.0-33.9, adult; Z90.49 Acquired absence of other specified parts of digestive tract; Z98.890 Other specified postprocedural states; Z80.0 Family history of malignant neoplasm of digestive organs; Z79.899 Other long term (current) drug therapy; Z79.84 Long term (current) use of oral hypoglycemic drugs; Z79.82 Long term (current) use of aspirin; Z79.01 Long term (current) use of anticoagulants; Z85.3 Personal history of malignant neoplasm of breast; Z82.49 Family history of ischemic heart disease and other diseases of the circulatory system; Z82.0 Family history of epilepsy and other diseases of the nervous system
CPT/HCPCS: 36415; 70450; 71046; 76604; 80048; 80053; 81001; 81003; 82550; 83605; 83735; 83880; 84484; 85025; 85610; 85730; 87077; 87086; 87186; 93005; 94760; 96360; 96361; 99285

== ENCOUNTER 2019-07-29 14:40 | Inpatient (IN) | payer MEDICARE ==
[2019-07-29] MEDS ORDERED: SODIUM CHLORIDE 0.9% 500 ML 500 ML IV STA ×2 (15:01→16:30)
--- NOTE | 2019-07-29 15:12 | ED ---
General Adult HPI - General Chief complaint: Shortness of Breath Stated complaint: LOUISA Source: patient Mode of arrival: ambulatory Limitations: no limitations - History of Present Illness Initial comments: Dictation was produced using [employer] dictation software. please excuse any grammatical, word or spelling errors. This patient was cared for during a federal and state declared state of emergency secondary to Covid 19 Chief Complaint: 79-year-old female past medical history atrial fibrillation, heart failure diabetes presents with shortness of breath History of Present Illness: 79-year-old female she is brought to the emergency department from home. According to EMS patient was recently admitted to many large assisted. Couple of days ago patient was discharged from assisted and sent home. Patient was short of breath for the last 24-48 hours. She denies any pain complaints at this time. She does report having history of atrial fibrillation and heart failure. She states that she is not currently on any blood thinner medications. She reports she used to be on blood thinners. She is unable to explain why she is not currently on blood thinners. She does take metoprolol. Denies any fever, chills or night sweats. The ROS documented in this emergency department record has been reviewed and confirmed by me. Those systems with pertinent positive or negative responses have been documented in the HPI. All other systems are other negative and/or noncontributory. PHYSICAL EXAM: General Impression: Alert and oriented x3, not in acute distress HEENT: Normocephalic atraumatic, extra-ocular movements intact, pupils equal and reactive to light bilaterally, mucous membranes moist. Cardiovascular: Irregularly irregular Chest: Able to complete full sentences, no retractions, no tachypnea Abdomen: abdomen soft, non-tender, non-distended, no organomegaly Musculoskeletal: Pulses present and equal in all extremities, 2+ pitting edema to bilateral lower extremities Motor: no focal deficits noted Neurological: CN II-XII grossly intact, no focal motor or sensory deficits noted Skin: Intact with no visualized rashes Psych: Normal affect and mood ED course: 79-year-old female with multiple comorbidities presents with dyspnea. Upon arrival shows heart rate of 132, worse vital signs within acceptable limits. Patient was satting 100% on nonrebreather 15 L. Her oxygen was weaned to 5 L nasal cannula. Patient able to complete full sentences she's not showing signs of significant respiratory distress. She does appear to be in atrial fibrillation with rapid ventricular rate. Chart review was performed. Patient was last seen by cardiology on July 01. It appears that patient was concerning for frequent falls. Her glucose was discontinued by cardiology on July 01. Patient converted spontaneously on her own. Repeat EKG shows sinus rhythm. Laboratory evaluation obtained. Mild leukocytosis of 12.6. Slightly secondary to stress reaction. Hemoglobin 10.0 which appears to be patient's baseline. Rest of CBC is within acceptable limits. Coag panel is unremarkable. Metabolic panel shows elevated renal markers were creatinine of 2.19 and BUN of 83. Lactic acidosis of 2.8, troponin 0.069, prematurity peptide of 13,800. Coronavirus test is negative. Chest x-ray shows diffuse patchy infiltrates concerning for possible atypical pneumonia. There is also cardiomegaly concern for heart failure. At this point I believe patient's shortness of breath was from H fibrillation with rapid ventricular rate. She appeared to have converted spontaneously. Considering her lab abnormalities patient given 1 L normal saline bolus. Considering patient's x-ray there is concern for hospital- acquired pneumonia because she was recently admitted and was at a assisted. Vancomycin and cefepime as ordered. Pending urine studies and blood culture. The patient's coronavirus test was negative according to infection control there is only 70% specificity. There is 30% false negative rate. Patient be remained on droplet precautions. Discussed patient case with Dr. Joel's went except patient's care. EKG interpretation: Ventricular rate 140, A. fib with RVR, QRS 74, QTC 467. No KS prolongation, no QTC prolongation, no ST or T-wave changes noted. EKG compared to July 01 2019 showing no changes. Overall, this EKG is unremarkable - Related Data Home Medications Medication Instructions Recorded Confirmed Cholecalciferol (Vitamin D3) 2,000 unit PO DAILY 02/08/19 07/01/19 [Vitamin D3] Pioglitazone [Actos] 30 mg PO DAILY 02/08/19 07/01/19 Sertraline [Zoloft] 50 mg PO DAILY 02/08/19 07/01/19 sitaGLIPtin PHOSPHATE [Januvia] 100 mg PO DAILY 02/08/19 07/01/19 Niacin 2,000 mg PO DAILY 06/10/19 07/01/19 Furosemide [Lasix] 40 mg PO BID 07/01/19 07/01/19 Previous Rx's Medication Instructions Recorded Cyanocobalamin [Vitamin B-12] 1,000 mcg PO DAILY #60 tab 02/11/19 Acetaminophen Tab [Tylenol] 500 mg PO Q6HR PRN tab 06/20/19 Aspirin 81 mg PO DAILY #30 chew 06/20/19 Fludrocortisone [Florinef] 0.2 mg PO BID #120 tab 06/20/19 Glimepiride [Amaryl] 2 mg PO BID #60 tab 06/20/19 Lactulose [Cephulac] 10 gm PO DAILY #450 ml 06/20/19 Magnesium Oxide [Mag-Ox] 400 mg PO DAILY #10 tab 06/20/19 Metoprolol Tartrate [Lopressor] 12.5 mg PO BID #60 tab 06/20/19 Nitroglycerin Sl Tabs [Nitrostat] 0.4 mg SUBLINGUAL Q5M PRN #30 tab 06/20/19 Pantoprazole [Protonix] 40 mg PO AC-BRKFST #30 tablet.dr 06/20/19 Gabapentin [Neurontin] 100 mg PO TID #6 cap 07/02/19 Spironolactone [Aldactone] 50 mg PO DAILY tab 07/02/19 Allergies Allergy/AdvReac Type Severity Reaction Status Date / Time No Known Allergies Allergy Verified 07/01/19 11:14 Review of Systems ROS Statement: Those systems with pertinent positive or pertinent negative responses have been documented in the HPI. ROS Other: All systems not noted in ROS Statement are negative. Past Medical History Past Medical History: Atrial Fibrillation, Cancer, Heart Failure, Diabetes Mellitus, Hypertension, Liver Disease Additional Past Medical History / Comment(s): Pt recently admitted to [facility] on 06/11/19 with possible NSTEMI, paroxysmal Afib/RVR, hypovolemia 2ndary to large v olume paracentesis, acute UTI, acute renal failure. Other hx: Nonalcoholic cirrhosis-thought d/t rx, recurrent ascities/paracentesis, thrombocytopenia, portal htn, L breast cancer with lumpectomy, NIDDM type II, neuropathy bilateral legs/feet, History of Any Multi-Drug Resistant Organisms: VRE Date of last positivie culture/infection: 07/01/19 MDRO Source:: VRE URINE Past Surgical History: Breast Surgery, Cholecystectomy Additional Past Surgical History / Comment(s): L breast lumpectomy for cancer, right breast lump removal-benign, paracentesis-several, Past Anesthesia/Blood Transfusion Reactions: No Reported Reaction Past Psychological History: Depression Smoking Status: Never smoker Past Alcohol Use History: None Reported Past Drug Use History: None Reported - Past Family History Father Family Medical History: Cancer Additional Family Medical History / Comment(s): Colon cancer Brother(s) Family Medical History: Myocardial Infarction (ME) Additional Family Medical History / Comment(s): One brother with stents, another brother from an ME Mother Family Medical History: Neurologic Disorder Additional Family Medical History / Comment(s): Parkinsons General Exam Limitations: no limitations Course Vital Signs 07/29/19 07/29/19 07/29/19 14:44 15:17 15:59 Temperature 98.1 F Pulse Rate 132 H 80 80 Respiratory 22 18 Rate Blood Pressure 113/78 118/63 O2 Sat by Pulse 100 95 Oximetry Medical Decision Making - Lab Data Result diagrams: 07/29/19 14:52 07/29/19 14:52 Lab Results 07/29/19 07/29/19 07/29/19 Range/Units 14:52 14:52 14:52 WBC 12.6 H (3.8-10.6) k/uL RBC 4.10 (3.80-5.40) m/uL Hgb 10.0 L (11.4-16.0) gm/dL Hct 33.6 L (34.0-46.0) % MCV 81.9 (80.0-100.0) fL MCH 24.5 L (25.0-35.0) pg MCHC 29.9 L (31.0-37.0) g/dL RDW 17.7 H (11.5-15.5) % Plt Count 153 D (150-450) k/uL Neutrophils % 82 % Lymphocytes % 8 % Monocytes % 7 % Eosinophils % 2 % Basophils % 0 % Neutrophils # 10.3 H (1.3-7.7) k/uL Lymphocytes # 1.0 (1.0-4.8) k/uL Monocytes # 0.8 (0-1.0) k/uL Eosinophils # 0.2 (0-0.7) k/uL Basophils # 0.0 (0-0.2) k/uL Hypochromasia Marked Poikilocytosis Slight Anisocytosis Slight PT 13.3 H (9.0-12.0) sec INR 1.3 H (<1.2) APTT 26.2 (22.0-30.0) sec Sodium 136 L (137-145) mmol/L Potassium 4.6 (3.5-5.1) mmol/L Chloride 103 (98-107) mmol/L Carbon Dioxide 24 (22-30) mmol/L Anion Gap 9 mmol/L BUN 83 H (7-17) mg/dL Creatinine 2.19 H (0.52-1.04) mg/dL Est GFR (CKD-EPI)AfAm 24 (>60 ml/min/1.73 sqM) Est GFR (CKD-EPI)NonAf 21 (>60 ml/min/1.73 sqM) Glucose 153 H (74-99) mg/dL Plasma Lactic Acid Magnus (0.7-2.0) mmol/L Calcium 9.0 (8.4-10.2) mg/dL Total Bilirubin 1.0 (0.2-1.3) mg/dL AST 33 (14-36) U/L ALT 21 (4-34) U/L Alkaline Phosphatase 88 (38-126) U/L Troponin I (0.000-0.034) ng/mL NT-Pro-B Natriuret Pep pg/mL Total Protein 5.7 L (6.3-8.2) g/dL Albumin 2.8 L (3.5-5.0) g/dL Coronavirus (PCR) (Not Detectd) 07/29/19 07/29/19 07/29/19 Range/Units 14:52 14:52 14:52 WBC (3.8-10.6) k/uL RBC (3.80-5.40) m/uL Hgb (11.4-16.0) gm/dL Hct (34.0-46.0) % MCV (80.0-100.0) fL MCH (25.0-35.0) pg MCHC (31.0-37.0) g/dL RDW (11.5-15.5) % Plt Count (150-450) k/uL Neutrophils % % Lymphocytes % % Monocytes % % Eosinophils % % Basophils % % Neutrophils # (1.3-7.7) k/uL Lymphocytes # (1.0-4.8) k/uL Monocytes # (0-1.0) k/uL Eosinophils # (0-0.7) k/uL Basophils # (0-0.2) k/uL Hypochromasia Poikilocytosis Anisocytosis PT (9.0-12.0) sec INR (<1.2) APTT (22.0-30.0) sec Sodium (137-145) mmol/L Potassium (3.5-5.1) mmol/L Chloride (98-107) mmol/L Carbon Dioxide (22-30) mmol/L Anion Gap mmol/L BUN (7-17) mg/dL Creatinine (0.52-1.04) mg/dL Est GFR (CKD-EPI)AfAm (>60 ml/min/1.73 sqM) Est GFR (CKD-EPI)NonAf (>60 ml/min/1.73 sqM) Glucose (74-99) mg/dL Plasma Lactic Acid Magnus 2.8 H* (0.7-2.0) mmol/L Calcium (8.4-10.2) mg/dL Total Bilirubin (0.2-1.3) mg/dL AST (14-36) U/L ALT (4-34) U/L Alkaline Phosphatase (38-126) U/L Troponin I 0.069 H* (0.000-0.034) ng/mL NT-Pro-B Natriuret Pep 88066 pg/mL Total Protein (6.3-8.2) g/dL Albumin (3.5-5.0) g/dL Coronavirus (PCR) (Not Detectd) 07/29/19 Range/Units 15:54 WBC (3.8-10.6) k/uL RBC (3.80-5.40) m/uL Hgb (11.4-16.0) gm/dL Hct (34.0-46.0) % MCV (80.0-100.0) fL MCH (25.0-35.0) pg MCHC (31.0-37.0) g/dL RDW (11.5-15.5) % Plt Count (150-450) k/uL Neutrophils % % Lymphocytes % % Monocytes % % Eosinophils % % Basophils % % Neutrophils # (1.3-7.7) k/uL Lymphocytes # (1.0-4.8) k/uL Monocytes # (0-1.0) k/uL Eosinophils # (0-0.7) k/uL Basophils # (0-0.2) k/uL Hypochromasia Poikilocytosis Anisocytosis PT (9.0-12.0) sec INR (<1.2) APTT (22.0-30.0) sec Sodium (137-145) mmol/L Potassium (3.5-5.1) mmol/L Chloride (98-107) mmol/L Carbon Dioxide (22-30) mmol/L Anion Gap mmol/L BUN (7-17) mg/dL Creatinine (0.52-1.04) mg/dL Est GFR (CKD-EPI)AfAm (>60 ml/min/1.73 sqM) Est GFR (CKD-EPI)NonAf (>60 ml/min/1.73 sqM) Glucose (74-99) mg/dL Plasma Lactic Acid Magnus (0.7-2.0) mmol/L Calcium (8.4-10.2) mg/dL Total Bilirubin (0.2-1.3) mg/dL AST (14-36) U/L ALT (4-34) U/L Alkaline Phosphatase (38-126) U/L Troponin I (0.000-0.034) ng/mL NT-Pro-B Natriuret Pep pg/mL Total Protein (6.3-8.2) g/dL Albumin (3.5-5.0) g/dL Coronavirus (PCR) Not Detected (Not Detectd) Critical Care Time Critical Care Time: Yes Total Critical Care Time: 33 Disposition Clinical Impression: Dyspnea Disposition: ADMITTED IP TO THIS [facility] Condition: Fair Referrals: Paola Duckworth MD [Primary Care Provider] - 1-2 days Decision Time: 16:41
[2019-07-29 15:15] LABS: Anisocytosis Slight; Basophils % (A) 0 %; Eosinophils # (A) 0.2 k/uL (0-0.7); Eosinophils % (A) 2 %; HCT 33.6 % (34.0-46.0); Hypochromasia Marked; Lymphocytes % (A) 8 %; MCH 24.5 pg (25.0-35.0); MCHC 29.9 g/dL (31.0-37.0); MCV 81.9 fL (80.0-100.0); Mean Platelet Volume 7.8; Monocytes # (A) 0.8 k/uL (0-1.0); Monocytes % (A) 7 %; Neutrophils # (A) 10.3 k/uL (1.3-7.7); Neutrophils % (A) 82 %; Poikilocytosis Slight; RDW 17.7 % (11.5-15.5); WBC 12.6 k/uL (3.8-10.6)
[2019-07-29] MEDS ORDERED: DILTIAZEM 125 MG in SODIUM CHLORIDE 0.9% 100 ML IV SCH (15:15)
[2019-07-29] MEDS ORDERED: METOPROLOL TARTRATE 25 MG TAB PO STA (15:22)
[2019-07-29 15:23] LABS: INR 1.3 (<1.2); Partial Thromboplastin Time 26.2 sec (22.0-30.0); Prothrombin Time 13.3 sec (9.0-12.0)
[2019-07-29 15:25] LABS: Albumin 2.8 g/dL (3.5-5.0); Platelet Count 153 k/uL (150-450); Potassium 4.6 mmol/L (3.5-5.1); Total Protein 5.7 g/dL (6.3-8.2)
--- NOTE | 2019-07-29 15:54 | XR ---
EXAMINATION TYPE: XR chest 1V portable DATE OF EXAM: 07/29/2019 COMPARISON: 07/01/2019 INDICATION: Dyspnea TECHNIQUE: Single frontal view of the chest is obtained. FINDINGS: The heart size is enlarged. The pulmonary vasculature is prominent. Degree of inspiration is somewhat limited. There are patchy infiltrates within the left perihilar reg ion and in the right lower lobe and periphery of the right upper lung field. Correlate for atypical p neumonia. IMPRESSION: 1. Diffuse patchy infiltrates in the periphery right lower lobe and left perihilar regions. Correlate for atypical pneumonia. 2. Cardiomegaly. Some vascular prominence may be present and congestive heart failure could be consid ered within the differential.
[2019-07-29] MEDS ORDERED: HEPARIN SODIUM,PORCINE 5,000 UNIT/ML 1 ML VIAL IV PRN (16:31)
[2019-07-29] MEDS ORDERED: ASPIRIN 81 MG PO STA (16:31)
[2019-07-29] MEDS ORDERED: HEPARIN SODIUM,PORCINE 5,000 UNIT/ML 1 ML VIAL IV ONE (16:31)
[2019-07-29] MEDS ORDERED: VANCOMYCIN IV PER PHARMACY 1 EACH MISC MISCELLANE PRN (16:37)
[2019-07-29] MEDS ORDERED: CEFEPIME 2 GM in SODIUM CHLORIDE 0.9% 100 ML IVPB STA (16:37)
[2019-07-29] MEDS ORDERED: NALOXONE 0.4 MG/ML 1 ML VIAL IV PRN (16:41)
[2019-07-29] MEDS ORDERED: HEPARIN SOD,PORK IN 0.45% NACL 25,000 UNIT in 0.45% NACL 1 250ML.BAG IV SCH (16:45)
[2019-07-29] MEDS ORDERED: ALPRAZolam 0.25 MG TAB PO PRN (17:05)
[2019-07-29] MEDS ORDERED: HYDROcodone/APAP 5-325MG 1 EACH TAB PO PRN (17:05)
[2019-07-29] MEDS ORDERED: ACETAMINOPHEN TAB 500 MG TAB PO PRN (17:05)
[2019-07-29] MEDS ORDERED: VANCOMYCIN 1,500 MG in SODIUM CHLORIDE 0.9% 250 ML IVPB ONE (17:30)
--- NOTE | 2019-07-29 19:01 | HP ---
HISTORY AND PHYSICAL DATE OF SERVICE: 07/29/2019 CHIEF COMPLAINTS: Shortness of breath and weakness. HISTORY OF PRESENT ILLNESS: This 79-year-old woman with a past medical history of multiple medical problems, including atrial fibrillation, CHF, diabetes, hypertension, cirrhosis of the liver, was recently admitted with falls and weakness. The patient also had atrial fibrillation with rapid ventricular rate during that time. [facility]. While in rehab the patient became increasingly weak and short of breath and the patient came to [facility] and was found to have bilateral pneumonia, admitted for further evaluation and treatment. The patient had multiple clinical abnormalities and COVID-19 was suspected, even though the test was negative. The patient also had multiple skin lesions also with patient is drowsy and unable to give a coherent history. Most of the history is from my discussion with staff and the ER physician as well as review of the chart. The patient apparently was taken off Eliquis, also, by Cardiology. The patient is followed by Dr. Duckworth in the outpatient setting. PAST MEDICAL HISTORY: Atrial fibrillation, history of CHF, diabetes mellitus, hypertension, liver disease. HOME MEDICATIONS: Medications are to be confirmed: 1. Januvia 100 mg p.o. daily. 2. Aldactone 50 mg p.o. daily. 3. Zoloft 50 mg p.o. daily. 4. Actos 30 mg p.o. daily. 5. Protonix 40 mg with breakfast. 6. Nitrostat 0.4 sublingually p.r.n. 7. Niacin 2000 mg p.o. daily. 8. Lopressor 12.5 mg p.o. b.i.d. 9. Magnesium oxide 400 mg p.o. daily. 10.Lactulose 10 mg p.o. daily. 11.Amaryl 2 mg p.o. b.i.d. 12.Neurontin 100 mg p.o. t.i.d. 13.Lasix 40 mg p.o. b.i.d. 14.Florinef 0.2 b.i.d. 15.Vitamin B12 1000 mcg p.o. daily. 16.Vitamin D3 2000 daily. 17.Aspirin 81 mg p.o. daily. 18.Tylenol 500 mg q.6 p.r.n. ALLERGIES: NONE. Family history, social history, review of systems could not be taken because of the patient's mentation. No smoking or alcohol per chart. PHYSICAL EXAMINATION: Patient is arousable, confused. Pulse 80, blood pressure 118/60, respiration 18, temperature 98.1, pulse ox 94% on 5 L. HEENT: Conjunctivae normal. Oral mucosa dry. NECK: No jugular venous distention. No carotid bruit. No lymph node enlargement. CARDIOVASCULAR SYSTEM: S1, S2 muffled. RESPIRATORY SYSTEM: Breath sounds diminished at the bases. Bilateral scattered rhonchi and crackles. Expiratory wheezing also present, especially at the base. ABDOMEN: Soft, obese, non-tender. LEGS: Bilateral leg edema. Bilateral leg ulcers also present. NERVOUS SYSTEM: Higher functions as mentioned earlier. Moves all 4 limbs. No focal motor or sensory deficit. LYMPHATICS: No lymph node palpable in neck, axillae or groin. SKIN: No ulcer, rash, bleeding. JOINTS: No active deforming arthropathy. LABS: WBC 12.6, hemoglobin 10. INR is 1.3. Creatinine is 2.19. Baseline creatinine is 1.12. Plasma lactic acid 2.8. Troponin 0.069. Albumin is 2.8. ASSESSMENT: 1. Shortness of breath, possible bilateral pneumonia, possibly community- acquired, possibly [id number] pneumonia. 2. Suspected COVID-19; tested negative. 3. Acute on chronic renal failure with chronic renal failure, stage III baseline, possibly prerenal acute tubular necrosis. 4. Elevated lactic acid, possibly secondary to sepsis secondary to pneumonia. 5. Troponin 0.069, indeterminate. Rule out acute [id number]-elevation myocardial infarction. 6. Hypoalbuminemia. 7. Hyponatremia. 8. Change in mental status, metabolic encephalopathy, acute on chronic. 9. Generalized gait dysfunction. 10.Increased white count. 11.Anemia, normocytic. 12.History of multiple falls recently. 13.History of atrial fibrillation. 14.History of congestive heart failure. 15.Diabetes mellitus, type 2. 16.Hypertension. 17.History of chronic liver disease and non-alcoholic cirrhosis of the liver. 18.History of urinary tract infections. 19.History of recurrent ascites and paracentesis. 20.History of thrombocytopenia. 21.History of left breast cancer with lumpectomy. 22.History of vancomycin-resistant Enterococcus. 23.History of depression. 24.History of cholecystectomy. 25.Obesity with body mass index 32.3. 26.FULL CODE. RECOMMENDATIONS AND DISCUSSION: In this 79-year-old woman who presented with multiple complex medical issues, we will monitor the patient closely, continue the current medications, continue with symptomatic treatment. IV heparin has been initiated. Cardiology will be consulted. We will initiate broad-spectrum IV antibiotics. I would also recommend pulmonary and infectious disease consultations for possible COVID-19 infection. Otherwise, continue to monitor. Resume the home medication once it is reconciled. Prognosis is extremely guarded. Further recommendations to follow. A copy of this dictation is being forwarded to Dr. Duckworth, who is the primary physician. MMODL / IJN: [id number] / MTDJus
[2019-07-29 20:38] LABS: Glucose,Whole Blood 158 mg/dL (75-99)
[2019-07-29] MEDS: SODIUM CHLORIDE 0.9% 1,000 ML IV SCH (21:36)
[2019-07-30 05:57] LABS: Glucose,Whole Blood 108 mg/dL (75-99)
[2019-07-30] MEDS: SODIUM CHLORIDE 0.9% 1,000 ML IV SCH (06:24)
[2019-07-30] MEDS: CEFEPIME 2 GM in SODIUM CHLORIDE 0.9% 100 ML IVPB SCH ×2 (06:25→08:08)
[2019-07-30 07:06] LABS: Anisocytosis Slight; Basophils # (A) 0.1 k/uL (0-0.2); Basophils % (A) 0 %; Eosinophils # (A) 0.3 k/uL (0-0.7); Eosinophils % (A) 2 %; HCT 31.5 % (34.0-46.0); HGB 9.5 gm/dL (11.4-16.0); Hypochromasia Marked; Lymphocytes % (A) 8 %; MCH 24.5 pg (25.0-35.0); MCV 81.6 fL (80.0-100.0); Mean Platelet Volume 8.7; Monocytes % (A) 8 %; Neutrophils # (A) 10.2 k/uL (1.3-7.7); Neutrophils % (A) 79 %; Platelet Count 146 k/uL (150-450); Poikilocytosis Slight; RBC 3.87 m/uL (3.80-5.40); RDW 17.8 % (11.5-15.5); WBC 12.9 k/uL (3.8-10.6)
[2019-07-30 07:11] LABS: Calcium 8.9 mg/dL (8.4-10.2); Potassium 4.7 mmol/L (3.5-5.1)
--- NOTE | 2019-07-30 07:36 | XR ---
EXAMINATION TYPE: XR chest 1V portable DATE OF EXAM: 07/30/2019 COMPARISON: 07/29/2019 INDICATION: CHF TECHNIQUE: Single frontal view of the chest is obtained. FINDINGS: The heart size is mildly prominent. The pulmonary vasculature is prominent. Mild diffuse increased opacities within the lungs. There is elevation of the right diaphragm. Some at electasis may be along the minor fissure on the right. This appears improving from comparison. IMPRESSION: 1. Findings be compatible with CHF in the proper clinical setting. Continued follow-up is recommended
[2019-07-30 07:56] LABS: Vancomycin,Random 16.3 ug/mL
[2019-07-30] MEDS ORDERED: VANCOMYCIN 1,500 MG in SODIUM CHLORIDE 0.9% 250 ML IVPB ONE (09:00)
[2019-07-30 11:30] LABS: Glucose,Whole Blood 106 mg/dL (75-99)
[2019-07-30] MEDS: FLUDROCORTISONE 0.1 MG TAB PO SCH ×2 (11:55→19:59)
[2019-07-30] MEDS: ASPIRIN 81 MG PO SCH (11:55)
[2019-07-30] MEDS: CHOLECALCIFEROL 1,000 UNIT TAB PO SCH (11:55)
[2019-07-30] MEDS: MAGNESIUM OXIDE 400 MG TAB PO SCH (11:56)
[2019-07-30] MEDS: SERTRALINE 50 MG TAB PO SCH (11:56)
[2019-07-30] MEDS: METOPROLOL TARTRATE 12.5 MG TAB PO SCH ×2 (11:56→19:59)
[2019-07-30] MEDS: LACTULOSE 20 GM/30 ML CUP PO SCH (11:56)
[2019-07-30] MEDS: CYANOCOBALAMIN 500 MCG TAB PO SCH (11:57)
--- NOTE | 2019-07-30 13:31 | P.CNPUL ---
History of Present Illness Consult date: 07/30/19 Requesting physician: Bean Joel Reason for consult: pneumonia Chief complaint: Shortness of breath and weakness History of present illness: This is a 79-year-old female, familiar to my service, I have seen this patient before for ascites, congestive heart failure, liver cirrhosis, mental status changes related to hyperammonemia, related to underlying nonalcoholic liver cirrhosis. Patient is also known to have history of diabetes, hypertension, seen few weeks ago for falls and weakness, and at the time she had significant ascites and significantly elevated ammonia level, underwent large-volume paracentesis, developed hypotension, treated mostly with volume replacement, and she went on to develop fluid overload and diastolic congestive heart failure. Patient also had history of paroxysmal atrial fibrillation. Patient was eventually discharged to [facility] [place] [facility], and apparently over the last few days the patient has been generally weak, complaining of shortness of breath, se nt back to [facility], and her chest x-ray is showing bilateral infiltrates. It is not clear whether the findings are findings of pneumonia or findings of diastolic congestive heart failure. Patient was placed on antibiotics empirically, her covid 19 screening was negative, however it is not entirely ruled out. During my evaluation, patient was noted to be on room air, O2 saturation is 92% on room air. She was noted to be in no form of distress. And she was already started empirically on antibiotics by the admitting physician. Patient was also placed on heparin for paroxysmal atrial fibrillation. On physical examination, patient was noted to have significant enlargement of her abdominal girth, and I recommended ultrasound of the abdomen patient may require repeat paracentesis. In the meantime I recommended that we continue antibiotics, consider a trial of diuretics. And I have ordered a serum pro calcitonin, and I have noticed that her BNP level is significantly elevated. Her pro calcitonin is not suggestive of underlying bacterial pneumonia. It is minimally elevated. Patient is not the greatest historian. Could not tell me exactly why she was sent to the hospital. Review of Systems Patient is not a great historian. Constitutional: Reports fatigue, Reports weakness Eyes: Negative. Cardiovascular: Reports decreased exercise tolerance, Reports dyspnea on exertion, Denies chest pain, Denies shortness of breath Respiratory: Slight dyspnea, no cough, no wheezing, no fever, no chills Gastrointestinal: Increased abdominal girth. Genitourinary: Denies any dysuria frequency or urgency. Psychiatric: Denies any symptoms of active depression. Or anxiety. Endocrine: Denies any heat or cold intolerance. Hematologic/Lymphatic: Denies any clotting bleeding or bruising. Skin: No rashes. Past Medical History Past Medical History: Atrial Fibrillation, Cancer, Heart Failure, Diabetes Afua itus, Hypertension, Liver Disease Additional Past Medical History / Comment(s): Pt recently admitted to [facility] on 06/11/19 with possible NSTEMI, paroxysmal Afib/RVR, hypovolemia 2ndary to large volume paracentesis, acute UTI, acute renal failure. Other hx: Nonalcoholic cirrhosis-thought d/t rx, recurrent ascities/paracentesis, thrombocytopenia, portal htn, L breast cancer with lumpectomy, NIDDM type II, neuropathy bilateral legs/feet, History of Any Multi-Drug Resistant Organisms: VRE Date of last positivie culture/infection: 07/01/19 MDRO Source:: VRE URINE Past Surgical History: Breast Surgery, Cholecystectomy Additional Past Surgical History / Comment(s): L breast lumpectomy for cancer, right breast lump removal-benign, paracentesis-several, Past Anesthesia/Blood Transfusion Reactions: No Reported Reaction Past Psychological History: Depression Additional Psychological History / Comment(s): Pt resides with her spouse. She states she is receiving home care but cannot recall name of company. She has a walker/glucometer/scale and grab rail. Smoking Status: Never smoker Past Alcohol Use History: None Reported Past Drug Use History: None Reported - Past Family History Father Family Medical History: Cancer Additional Family Medical History / Comment(s): Colon cancer Brother(s) Family Medical History: Myocardial Infarction ([place]) Additional Family Medical History / Comment(s): One brother with stents, another brother from an [place] Mother Family Medical History: Neurologic Disorder Additional Family Medical History / Comment(s): Parkinsons Medications and Allergies Home Medications Medication Instructions Recorded Confirmed Type Cholecalciferol (Vitamin D3) 2,000 unit PO DAILY 02/08/19 07/29/19 History [Vitamin D3] Pioglitazone [Actos] 30 mg PO DAILY 02/08/19 07/29/19 History Sertraline [Zoloft] 50 mg PO DAILY 02/08/19 07/29/19 History Cyanocobalamin [Vitamin B-12] 1,000 mcg PO DAILY #60 tab 02/11/19 07/29/19 Rx Niacin 2,000 mg PO DAILY 06/10/19 07/29/19 History Acetaminophen Tab [Tylenol] 500 mg PO Q6HR PRN tab 06/20/19 07/29/19 Rx Aspirin 81 mg PO DAILY #30 chew 06/20/19 07/29/19 Rx Fludrocortisone [Florinef] 0.2 mg PO BID #120 tab 06/20/19 07/29/19 Rx Glimepiride [Amaryl] 2 mg PO BID #60 tab 06/20/19 07/29/19 Rx Lactulose [Cephulac] 10 gm PO DAILY #450 ml 06/20/19 07/29/19 Rx Magnesium Oxide [Mag-Ox] 400 mg PO DAILY #10 tab 06/20/19 07/29/19 Rx Nitroglycerin Sl Tabs [Nitrostat] 0.4 mg SUBLINGUAL Q5M PRN #30 tab 06/20/19 07/29/19 Rx Pantoprazole [Protonix] 40 mg PO AC-BRKFST #30 tablet.dr 06/20/19 07/29/19 Rx Furosemide [Lasix] 40 mg PO BID 07/01/19 07/29/19 History Spironolactone [Aldactone] 50 mg PO DAILY tab 07/02/19 07/29/19 Rx Gabapentin [Neurontin] 100 mg PO HS 07/29/19 07/29/19 History Metoprolol Tartrate 12.5 mg PO BID 07/29/19 07/29/19 History Sulfamethox-Tmp 200-40Mg/5Ml 20 ml PO Q12HR 07/29/19 07/29/19 History [Bactrim Suspension] Allergies Allergy/AdvReac Type Severity Reaction Status Date / Time No Known Allergies Allergy Verified 07/01/19 11:14 Physical Exam Vitals: Vital Signs Temp Pulse Pulse Resp BP BP Pulse Ox 07/30/19 11:45 97.8 F 86 18 134/65 92 L 07/30/19 08:00 97.7 F 72 18 115/56 99 07/30/19 04:00 97.7 F 77 16 128/58 99 07/30/19 00:00 70 16 07/29/19 20:00 97.8 F 70 16 122/57 97 07/29/19 19:20 97.7 F 74 20 112/58 96 07/29/19 17:30 75 8 L 120/68 100 07/29/19 15:59 80 18 118/63 95 07/29/19 15:17 80 07/29/19 14:44 98.1 F 132 H 22 113/78 100 Intake and Output 07/29/19 07/30/19 07/30/19 22:59 06:59 14:59 Intake Total 69.146 120 Balance 69.146 120 Intake: Intake, IV Titration 69.146 Amount Heparin Sod,Pork in 0.45% 69.146 NaCl 25,000 unit In 0.45 % NaCl 1 250ml.bag @ 11. 02 UNITS/KG/HR 9.997 mls/ hr IV .Q24H [facility] Rx#: [id number] Oral 120 Other: Voiding Method Bedpan Diaper # Voids 1 Weight 103 kg 103 kg Physical Exam: Revealed 79-year-old female in no distress, not a great historian. Head: Atraumatic, normocephalic. HEENT:[Neck is supple.] [No neck masses.] [No thyromegaly.] [No JVD.] Chest: [Diminished breath sounds at the bases no crackles or rhonchi or wheezes.] Cardiac Exam: [Normal S1 and S2, no S3 gallop, no murmur.] Abdomen: [Large abdomen, suspect ascites, no tenderness, abdominal wall edema is noted.] Extremities: [No clubbing, 1+ bipedal edema, no cyanosis.] Chronic venous s tasis changes. Neurological Exam: Confused, oriented 2. Psychiatric: Depressed mood, blunt affect, poor mental status. Skin: No rashes. Chronic venous stasis changes noted in lower extremities. Results - Laboratory Findings CBC and BMP: 07/30/19 05:25 07/30/19 05:25 PT/INR, D-dimer PT 13.3 sec (9.0-12.0) H 07/29/19 14:52 INR 1.3 (<1.2) H 07/29/19 14:52 Abnormal lab findings: Abnormal Labs 07/29/19 07/29/19 07/29/19 14:52 14:52 14:52 WBC 12.6 H Hgb 10.0 L Hct 33.6 L MCH 24.5 L MCHC 29.9 L RDW 17.7 H Plt Count Neutrophils # 10.3 H PT 13.3 H INR 1.3 H APTT Sodium 136 L BUN 83 H Creatinine 2.19 H Glucose 153 H POC Glucose (mg/dL) Plasma Lactic Acid Magnus Troponin I Total Protein 5.7 L Albumin 2.8 L Procalcitonin 07/29/19 07/29/19 07/29/19 14:52 14:52 14:52 WBC Hgb Hct MCH MCHC RDW Plt Count Neutrophils # PT INR APTT Sodium BUN Creatinine Glucose POC Glucose (mg/dL) Plasma Lactic Acid Magnus 2.8 H* Troponin I 0.069 H* Total Protein Albumin Procalcitonin 0.38 H 07/29/19 07/29/19 07/30/19 20:37 23:34 05:25 WBC Hgb Hct MCH MCHC RDW Plt Count Neutrophils # PT INR APTT 90.3 H Sodium BUN 84 H Creatinine 2.11 H Glucose POC Glucose (mg/dL) 158 H Plasma Lactic Acid Magnus Troponin I Total Protein Albumin Procalcitonin 07/30/19 07/30/19 07/30/19 05:25 05:55 06:46 WBC 12.9 H Hgb 9.5 L Hct 31.5 L MCH 24.5 L MCHC 30.0 L RDW 17.8 H Plt Count 146 L Neutrophils # 10.2 H PT INR APTT 70.4 H Sodium BUN Creatinine Glucose POC Glucose (mg/dL) 108 H Plasma Lactic Acid Magnus Troponin I Total Protein Albumin Procalcitonin 07/30/19 11:28 WBC Hgb Hct MCH MCHC RDW Plt Count Neutrophils # PT INR APTT Sodium BUN Creatinine Glucose POC Glucose (mg/dL) 106 H Plasma Lactic Acid Magnus Troponin I Total Protein Albumin Procalcitonin - Diagnostic Findings Chest x-ray: image reviewed (Chest x-ray showed small bilateral pleural effusions, cardiomegaly, bibasilar infiltrates, interstitial pattern type of e ghazal, it is not clear whether this is pneumonia or congestive heart failure, clinically I believe the findings are more consistent with congestive heart failure.) Assessment and Plan Assessment: Impression: Shortness of breath secondary to diastolic congestive heart failure, doubt bacterial pneumonia. Pro calcitonin level is not significantly enlarged. H owever her BNP level is significantly high. Bilateral infiltrates, negative covid 19, but I don't believe is entirely ruled out. Acute on chronic renal failure Suspect ongoing ascites, doubt spontaneous bacterial peritonitis, physical examination of the abdomen is rather benign and abdomen is nontender. Suspect ongoing metabolic encephalopathy related mostly to her underlying nonalcoholic liver cirrhosis, doubt sepsis at this point. Again that is not entirely ruled out. Paroxysmal atrial fibrillation History of chronic liver disease and nonalcoholic cirrhosis of the liver History of recurrent ascites History of vancomycin-resistant enterococcal infection History of depression Obesity with body index of 32.3. History of recurrent urinary tract infections. Recommendation: Continue present supportive care measures Arrange for ultrasound of the abdomen, May have to consider paracentesis again. Gentle diuresis and assess chest x-ray findings on a daily basis. Empiric antibiotics although clinically I strongly doubt bacterial pneumonia in this patient. Suspected Covid 19, based on the chest x-ray findings but clinically the patient does not fit the picture. We'll continue to follow. Time with Patient: Greater than 30
--- NOTE | 2019-07-30 13:45 | US ---
EXAMINATION TYPE: US abdomen limited DATE OF EXAM: 07/30/2019 COMPARISON: NONE CLINICAL HISTORY: 79-year-old female Ascites check, exam done portable. Technique: Multiple sonographic images of the 4 abdominal quadrants were obtained. FINDINGS: Moderate abdominal ascites particularly in the right side of the abdomen, Largest pocket of fluid in RLQ measuring 7 cm deep. IMPRESSION: Moderate abdominal ascites especially in the right side of the abdomen.
--- NOTE | 2019-07-30 14:10 | P.CRDCN ---
History of Present Illness Consult date: 07/30/19 Consult reason: congestive heart failure Chief complaint: Shortness of breath History of present illness: This is a 79-year-old female with past medical history significant for paroxysmal atrial fibrillation, on long-term anticoagulation, hypertension, hyperlipidemia, diabetes, nonalcoholic cirrhosis, coronary artery disease. Patient had an abnormal stress test in May of this year and at that time was recommended to undergo cardiac catheterization. Unfortunately she became medically unstable and therefore the cardiac catheterization had not been performed. She follows with Dr. Ugarte in the office. Echocardiogram with Doppler study performed in May of this year revealed a normal left ventricular systolic function. Patient presents to the hospital on this occasion with symptoms of 2-3 day duration of progressively worsening shortness of breath. Her EKG on admission showed atrial fibrillation with a rapid ventricular response, heart rate 148, subsequent EKG showed normal sinus rhythm. Patient remains in a normal sinus rhythm this morning. Subsequent chest x-ray was also performed, which revealed congestive heart failure. Her initial chest x-ray showed diffuse patchy infiltrates in the right lower lobe. Temperature 97.7, blood pressure 128/58 with a heart rate in the 70s, 99% on 2 L of oxygen. White blood cell count 12.9, hemoglobin 10.0, platelet count 153. Sodium 136, potass ium 4.6, BUN 83, and creatinine 2.1 yesterday, 84 and 2.1 today. Coronavirus testing and negative, pro calcitonin 0.38, BNP level 13,800, troponin 0.069.At the time of her examination by Dr. Schmid, patient was not in any acute distress, still complaining of some mild shortness of breath however. Past Medical History Past Medical History: Atrial Fibrillation, Cancer, Heart Failure, Diabetes Mellitus, Hypertension, Liver Disease Additional Past Medical History / Comment(s): Pt recently admitted to [facility] on 06/11/19 with possible NSTEMI, paroxysmal Afib/RVR, hypovolemia 2ndary to large volume paracentesis, acute UTI, acute renal failure. Other hx: Nonalcoholic cirrhosis-thought d/t rx, recurrent ascities/paracentesis, thr ombocytopenia, portal htn, L breast cancer with lumpectomy, NIDDM type II, neuropathy bilateral legs/feet, History of Any Multi-Drug Resistant Organisms: VRE Date of last positivie culture/infection: 07/01/19 MDRO Source:: VRE URINE Past Surgical History: Breast Surgery, Cholecystectomy Additional Past Surgical History / Comment(s): L breast lumpectomy for cancer, right breast lump removal-benign, paracentesis-several, Past Anesthesia/Blood Transfusion Reactions: No Reported Reaction Past Psychological History: Depression Additional Psychological History / Comment(s): Pt resides with her spouse. She states she is receiving home care but cannot recall name of company. She has a walker/glucometer/scale and grab rail. Smoking Status: Never smoker Past Alcohol Use History: None Reported Past Drug Use History: None Reported - Past Family History Father Family Medical History: Cancer Additional Family Medical History / Comment(s): Colon cancer Brother(s) Family Medical History: Myocardial Infarction ([place]) Additional Family Medical History / Comment(s): One brother with stents, another brother from an [place] Mother Family Medical History: Neurologic Disorder Additional Family Medical History / Comment(s): Parkinsons Medications and Allergies Home Medications Medication Instructions Recorded Confirmed Type Cholecalciferol (Vitamin D3) 2,000 unit PO DAILY 02/08/19 07/29/19 History [Vitamin D3] Pioglitazone [Actos] 30 mg PO DAILY 02/08/19 07/29/19 History Sertraline [Zoloft] 50 mg PO DAILY 02/08/19 07/29/19 History Cyanocobalamin [Vitamin B-12] 1,000 mcg PO DAILY #60 tab 02/11/19 07/29/19 Rx Niacin 2,000 mg PO DAILY 06/10/19 07/29/19 History Acetaminophen Tab [Tylenol] 500 mg PO Q6HR PRN tab 06/20/19 07/29/19 Rx Aspirin 81 mg PO DAILY #30 chew 06/20/19 07/29/19 Rx Fludrocortisone [Florinef] 0.2 mg PO BID #120 tab 06/20/19 07/29/19 Rx Glimepiride [Amaryl] 2 mg PO BID #60 tab 06/20/19 07/29/19 Rx Lactulose [Cephulac] 10 gm PO DAILY #450 ml 06/20/19 07/29/19 Rx Magnesium Oxide [Mag-Ox] 400 mg PO DAILY #10 tab 06/20/19 07/29/19 Rx Nitroglycerin Sl Tabs [Nitrostat] 0.4 mg SUBLINGUAL Q5M PRN #30 tab 06/20/19 07/29/19 Rx Pantoprazole [Protonix] 40 mg PO AC-BRKFST #30 tablet.dr 06/20/19 07/29/19 Rx Furosemide [Lasix] 40 mg PO BID 07/01/19 07/29/19 History Spironolactone [Aldactone] 50 mg PO DAILY tab 07/02/19 07/29/19 Rx Gabapentin [Neurontin] 100 mg PO HS 07/29/19 07/29/19 History Metoprolol Tartrate 12.5 mg PO BID 07/29/19 07/29/19 History Sulfamethox-Tmp 200-40Mg/5Ml 20 ml PO Q12HR 07/29/19 07/29/19 History [Bactrim Suspension] Allergies Allergy/AdvReac Type Severity Reaction Status Date / Time No Known Allergies Allergy Verified 07/01/19 11:14 Physical Exam Vitals: Vital Signs Temp Pulse Pulse Resp BP BP Pulse Ox 07/30/19 11:45 97.8 F 86 18 134/65 92 L 07/30/19 08:00 97.7 F 72 18 115/56 99 07/30/19 04:00 97.7 F 77 16 128/58 99 07/30/19 00:00 70 16 07/29/19 20:00 97.8 F 70 16 122/57 97 07/29/19 19:20 97.7 F 74 20 112/58 96 07/29/19 17:30 75 8 L 120/68 100 07/29/19 15:59 80 18 118/63 95 07/29/19 15:17 80 07/29/19 14:44 98.1 F 132 H 22 113/78 100 Intake and Output 07/29/19 07/30/19 07/30/19 22:59 06:59 14:59 Intake Total 69.146 120 Balance 69.146 120 Intake: Intake, IV Titration 69.146 Amount Heparin Sod,Pork in 0.45% 69.146 NaCl 25,000 unit In 0.45 % NaCl 1 250ml.bag @ 11. 02 UNITS/KG/HR 9.997 mls/ hr IV .Q24H [facility] Rx#: [id number] Oral 120 Other: Voiding Method Bedpan Diaper # Voids 1 Weight 103 kg 103 kg Physical Exam: Revealed 79-year-old female in no distress, not a great historian. Head: Atraumatic, normocephalic. HEENT:Neck is supple.] [No neck masses.No thyromegaly.No JVD. Chest: [Diminished breath sounds at the bases w crackles ,no rhonchi or wh eezes.] Cardiac Exam: [Normal S1 and S2, no S3 gallop, no murmur.] Abdomen: [Large abdomen, suspect ascites, no tenderness, abdominal wall edema is noted.] Extremities: [No clubbing, 1+ bipedal edema, no cyanosis.] Chronic venous stasis changes. Neurological Exam: Confused, oriented 2. Psychiatric: Depressed mood, blunt affect, poor mental status. Skin: No rashes. Chronic venous stasis changes noted in lower extremities. Results 07/30/19 05:25 07/30/19 05:25 Cardiac Enzymes 07/29/19 07/29/19 Range/Units 14:52 14:52 AST 33 (14-36) U/L Troponin I 0.069 H* (0.000-0.034) ng/mL Coagulation 07/29/19 07/29/19 07/30/19 Range/Units 14:52 23:34 06:46 PT 13.3 H (9.0-12.0) sec APTT 26.2 90.3 H 70.4 H (22.0-30.0) sec CBC 07/29/19 07/30/19 Range/Units 14:52 05:25 WBC 12.6 H 12.9 H (3.8-10.6) k/uL RBC 4.10 3.87 (3.80-5.40) m/uL Hgb 10.0 L 9.5 L (11.4-16.0) gm/dL Hct 33.6 L 31.5 L (34.0-46.0) % Plt Count 153 D 146 L (150-450) k/uL Comprehensive Metabolic Panel 07/29/19 07/30/19 Range/Units 14:52 05:25 Sodium 136 L 139 (137-145) mmol/L Potassium 4.6 4.7 (3.5-5.1) mmol/L Chloride 103 106 (98-107) mmol/L Carbon Dioxide 24 25 (22-30) mmol/L BUN 83 H 84 H (7-17) mg/dL Creatinine 2.19 H 2.11 H (0.52-1.04) mg/dL Glucose 153 H 95 (74-99) mg/dL Calcium 9.0 8.9 (8.4-10.2) mg/dL AST 33 (14-36) U/L ALT 21 (4-34) U/L Alkaline Phosphatase 88 (38-126) U/L Total Protein 5.7 L (6.3-8.2) g/dL Albumin 2.8 L (3.5-5.0) g/dL Current Medications Generic Name Dose Route Start Last Admin Trade Name Freq PRN Reason Stop Dose Admin Acetaminophen 500 mg 07/29/19 17:05 Tylenol Tab PO Q6HR PRN Fever and/ or Mild Pain Hydrocodone Bitart/Acetaminophen 1 each 07/29/19 17:05 [place] 5-325 PO Q6HR PRN Moderate Pain Alprazolam 0.25 mg 07/29/19 17:05 Xanax PO TID PRN Anxiety Aspirin 81 mg 07/30/19 09:00 07/30/19 11:55 Aspirin PO 81 mg DAILY ANUPAM Administration Cholecalciferol 2,000 unit 07/30/19 09:00 07/30/19 11:55 Vitamin D3 (25 Mcg = 1000 Iu) PO 2,000 unit DAILY ANUPAM Administration Cyanocobalamin 1,000 mcg 07/30/19 09:00 07/30/19 11:57 Vitamin B-12 PO 1,000 mcg DAILY ANUPAM Administration Fludrocortisone Acetate 0.2 mg 07/30/19 09:00 07/30/19 11:55 Florinef PO 0.2 mg BID ANUPAM Administration Furosemide 40 mg 07/30/19 16:00 Lasix PO BID@0900,1600 ANUPAM Gabapentin 100 mg 07/30/19 21:00 Neurontin PO HS [facility]AM Heparin Sodium (Porcine) 0 unit 07/29/19 16:31 Heparin IV PER PROTOCOL PRN Low PTT Protocol Heparin Sodium/Sodium Chloride 250 mls @ 9.997 mls/hr 07/29/19 16:45 07/30/19 00:30 25,000 unit/ Sodium Chloride IV 8.82 units/kg/hr .Q24H [facility] 7.997 mls/hr Titration Protocol 11.02 UNITS/KG/HR Sodium Chloride 1,000 mls @ 50 mls/hr 07/29/19 16:45 07/30/19 06:24 Saline 0.9% IV 50 mls/hr .Q20H [facility] Administration Cefepime HCl 2 gm/ Sodium 100 mls @ 200 mls/hr 07/31/19 06:00 Chloride IVPB Q24H [facility] Lactulose 10 gm 07/30/19 09:00 07/30/19 11:56 Cephulac PO 10 gm DAILY [facility] Administration Magnesium Oxide 400 mg 07/30/19 09:00 07/30/19 11:56 Mag-Ox PO 400 mg DAILY [facility] Administration Metoprolol Tartrate 12.5 mg 07/30/19 09:00 07/30/19 11:56 Lopressor PO 12.5 mg BID [facility] Administration Miscellaneous Information 1 each 07/29/19 16:37 Pharmacy To Dose Iv Vancomycin MISCELLANE DIRECTED PRN Per Protocol Protocol Naloxone HCl 0.2 mg 07/29/19 16:41 Narcan IV Q2M PRN Opioid Reversal Pantoprazole Sodium 40 mg 07/30/19 09:00 Protonix PO AC-BRKFST [facility] Sertraline HCl 50 mg 07/30/19 09:00 07/30/19 11:56 Zoloft PO 50 mg DAILY [facility] Administration Intake and Output 07/29/19 07/30/19 07/30/19 22:59 06:59 14:59 Intake Total 69.146 120 Balance 69.146 120 Intake: Intake, IV Titration 69.146 Amount Heparin Sod,Pork in 0.45% 69.146 NaCl 25,000 unit In 0.45 % NaCl 1 250ml.bag @ 11. 02 UNITS/KG/HR 9.997 mls/ hr IV .Q24H [facility] Rx#: [id number] Oral 120 Other: Voiding Method Bedpan Diaper # Voids 1 Weight 103 kg 103 kg 07/30/19 05:25 07/30/19 05:25 EKG Interpretations (text) Initial EKG shows atrial fibrillation with a rapid ventricular response, subsequent EKG shows normal sinus rhythm. Assessment and Plan Plan: Impression and plan: #1 Shortness of breath secondary to diastolic congestive heart failure, acute on chronic, possible pneumonia. Pro calcitonin level is 0.38. BNP level 13,800. Bilateral infiltrates, negative covid 19, although this cannot be completely ruled out. #2 Acute on chronic renal failure #3 Ongoing ascites #4 Metabolic encephalopathy related mostly to her underlying nonalcoholic liver cirrhosis, possible sepsis #5 Paroxysmal atrial fibrillation #6 History of chronic liver disease and nonalcoholic cirrhosis of the liver #7History of recurrent ascites #8 History of vancomycin-resistant enterococcal infection #9 History of depression #10Obesity with body index of 32.3. #11 History of recurrent urinary tract infections. #12 diabetes #13 hypertension #14 hyperlipidemia #15 abnormal stress test in May of this year, suggesting possible underlying coronary artery disease and plan Plan Patient recently had an echo cardiogram with Doppler study performed in May of this year which revealed a normal left ventricular systolic function. We will give the patient a one-time dose of IV Lasix now, reevaluate on a daily basis. We will also start the patient on oral anticoagulation. Continue baby aspirin. Further recommendations to follow. DNP note has been reviewed, I agree with a documented findings and plan of care. Patient was seen and examined.
[2019-07-30] MEDS ORDERED: FUROSEMIDE 10 MG/ML 4 ML VIAL IV STA (14:11)
[2019-07-30] MEDS: PANTOPRAZOLE 40 MG TABLET PO SCH (15:45)
[2019-07-30] MEDS: FUROSEMIDE 40 MG TAB PO SCH (15:52)
[2019-07-30] MEDS ORDERED: HEPARIN SODIUM,PORCINE 5,000 UNIT/ML 1 ML VIAL IV PRN (16:31)
[2019-07-30] MEDS ORDERED: NITROGLYCERIN SL TABS 0.4 MG TAB SUBLINGUAL PRN (16:34)
[2019-07-30 16:47] LABS: Glucose,Whole Blood 147 mg/dL (75-99)
[2019-07-30] MEDS: HEPARIN SOD,PORK IN 0.45% NACL 25,000 UNIT in 0.45% NACL 1 250ML.BAG IV SCH (17:17)
--- NOTE | 2019-07-30 18:35 | PN ---
PROGRESS NOTE DATE OF SERVICE: 07/30/2019 This 79-year-old woman who was admitted with significant shortness of breath and weakness also had pneumonia and COVID-19 was suspected, even though the testing was negative. The patient also has cirrhosis of the liver and abdominal distention. The most recent chest x-ray, which was done today and reviewed by me, showed evidence of bilateral lesions. The patient is on empiric antibiotics. Abdominal ultrasound was also done which showed moderate abdominal ascites. Cardiology has also seen the patient for possible CHF and possible pneumonia. Patient is being closely monitored as well. The patient had an abnormal stress test earlier this year suggestive of coronary artery disease. Past medical history reviewed. Review of systems could not be taken, as the patient is confused. CURRENT MEDICATIONS: Reviewed. They include: 1. Tylenol p.r.n. 2. [place] 5 mg q.6 p.r.n. 3. Xanax 0.25 t.i.d. 4. Eliquis 2.5 mg b.i.d. 5. Aspirin 81 mg p.o. daily. 6. Cefepime 2 grams daily. 7. Vitamin D3. 8. Vitamin B12. 9. Florinef 0.2 b.i.d. 10.Lasix 40 mg b.i.d. 11.Neurontin. 12.Cephulac. 13.Magnesium oxide. 14.Lopressor. 15.Narcan. 16.Protonix. 17.Zoloft. PHYSICAL EXAMINATION: Patient is alert and oriented 3. Pulse 86, blood pressure 134/65, respiration 18, temperature 97.8, pulse ox 92% on room air. HEENT: Conjunctivae normal. NECK: No jugular venous distention. CARDIOVASCULAR SYSTEM: S1, S2 muffled. RESPIRATORY SYSTEM: Breath sounds diminished at the bases. A few scattered rhonchi and crackles. ABDOMEN: Soft, non-tender. Mild distention. LEGS: Bilateral leg edema. NERVOUS SYSTEM: Diffusely weak. Examination of the face shows bilateral ecchymosis present. LABS: WBC 12.9, hemoglobin 9.5, and creatinine is 2.11. ASSESSMENT: 1. Shortness of breath, possibly bilateral pneumonia, possibly community- acquired, possible [id number] pneumonia. 2. Congestive heart failure, acute exacerbation, with acute on chronic diastolic dysfunction, ejection fraction 55% to 60%. 3. Suspected COVID-19. Test negative. 4. Acute on chronic renal failure with chronic kidney disease, stage III baseline as well as possible acute tubular necrosis. 5. Elevated lactic acid, possibly secondary to sepsis secondary to pneumonia. 6. Troponin 0.069, indeterminate. 7. Hypoalbuminemia. 8. Hyponatremia. 9. Change in mental status, metabolic encephalopathy, acute on chronic. 10.Generalized gait dysfunction. 11.Increased white count. 12.Anemia, normocytic. 13.History of multiple falls recently. 14.History of atrial fibrillation. 15.History of congestive heart failure. 16.History of diabetes mellitus, type 2. 17.Hypertension. 18.History of chronic liver disease and nonalcoholic cirrhosis of the liver and history of abdominal paracentesis multiple times. 19.History of urinary tract infection. 20.History of recurrent ascites and paracenteses. 21.History of thrombocytopenia. 22.History of left breast cancer with lumpectomy. 23.History of vancomycin-resistant Enterococcus. 24.History of depression. 25.History of cholecystectomy. 26.History of obesity with body mass index 32.6. 27.FULL CODE. RECOMMENDATIONS AND DISCUSSION: I recommend to continue current medications, continue with symptomatic treatment. Otherwise, continue with the antibiotics. Continue the bronchodilators. Closely follow with Cardiology and Pulmonology. The patient is currently on cautious diuresis also. I would also recommend PT/OT evaluation, possible ECF rehab. I would also recommend a CT scan of the head without IV contrast to complete the workup. Otherwise, guarded prognosis. Recommended Interventional Radiology to evaluate the patient for possible abdominal paracentesis. Further recommendations to follow. MMODL / IJN: [id number] / MTDD
[2019-07-30] MEDS: GABAPENTIN 100 MG CAP PO SCH (19:59)
[2019-07-30 20:24] LABS: Glucose,Whole Blood 135 mg/dL (75-99)
[2019-07-30] MEDS ORDERED: APIXABAN 2.5 MG TABLET PO SCH (21:00)
[2019-07-31 02:52] LABS: Anisocytosis Slight; Basophils % (A) 0 %; Eosinophils # (A) 0.2 k/uL (0-0.7); Eosinophils % (A) 2 %; HCT 30.6 % (34.0-46.0); HGB 9.2 gm/dL (11.4-16.0); Hypochromasia Marked; Lymphocytes # (A) 1.1 k/uL (1.0-4.8); Lymphocytes % (A) 10 %; MCH 25.2 pg (25.0-35.0); MCHC 30.1 g/dL (31.0-37.0); MCV 83.7 fL (80.0-100.0); Mean Platelet Volume 8.4; Monocytes # (A) 0.7 k/uL (0-1.0); Monocytes % (A) 7 %; Neutrophils # (A) 9.1 k/uL (1.3-7.7); Neutrophils % (A) 80 %; Platelet Count 132 k/uL (150-450); Poikilocytosis Slight; RBC 3.66 m/uL (3.80-5.40); RDW 17.8 % (11.5-15.5); WBC 11.4 k/uL (3.8-10.6)
[2019-07-31 03:27] LABS: Calcium 8.8 mg/dL (8.4-10.2); Potassium 4.6 mmol/L (3.5-5.1)
[2019-07-31 03:32] LABS: Vancomycin,Random 17.6 ug/mL
[2019-07-31 06:08] LABS: Glucose,Whole Blood 104 mg/dL (75-99)
[2019-07-31] MEDS: PANTOPRAZOLE 40 MG TABLET PO SCH (06:38)
[2019-07-31] MEDS: CEFEPIME 2 GM in SODIUM CHLORIDE 0.9% 100 ML IVPB SCH (06:46)
[2019-07-31] MEDS: SODIUM CHLORIDE 0.9% 1,000 ML IV SCH ×2 (06:46→20:27)
[2019-07-31 08:47] LABS: Glucose,Whole Blood 99 mg/dL (75-99)
[2019-07-31] MEDS ORDERED: VANCOMYCIN 1,500 MG in SODIUM CHLORIDE 0.9% 250 ML IVPB ONE (11:00)
[2019-07-31] MEDS ORDERED: FUROSEMIDE 10 MG/ML 4 ML VIAL IV STA (11:15)
--- NOTE | 2019-07-31 11:15 | P.PN ---
Subjective Progress Note Date: 07/31/19 This is a 79-year-old female with past medical history significant for paroxysmal atrial fibrillation, on long-term anticoagulation, hypertension, hyperlipidemia, diabetes, nonalcoholic cirrhosis, coronary artery disease. Patient had an abnormal stress test in May of this year and at that time was recommended to undergo cardiac catheterization. Unfortunately she became medically unstable and therefore the cardiac catheterization had not been performed. She follows with Dr. Ugarte in the office. Echocardiogram with Doppler study performed in May of this year revealed a normal left ventricular systolic function. Patient presents to the hospital on this occasion with symptoms of 2-3 day duration of progressively worsening shortness of breath. Her EKG on admission showed atrial fibrillation with a rapid ventricular response, heart rate 148, subsequent EKG showed normal sinus rhythm. Patient remains in a normal sinus rhythm this morning. Subsequent chest x-ray was also performed, which revealed congestive heart failure. Her initial chest x-ray showed diffuse patchy infiltrates in the right lower lobe. Temperature 97.7, blood pressure 128/58 with a heart rate in the 70s, 99% on 2 L of oxygen. White blood cell count 12.9, hemoglobin 10.0, platelet count 153. Sodium 136, potassium 4.6, BUN 83, and creatinine 2.1 yesterday, 84 and 2.1 today. Coronavirus testing and negative, pro calcitonin 0.38, BNP level 13,800, troponin 0.069.At the time of her examination by Dr. Schmid, patient was not in any acute distress, still complaining of some mild shortness of breath however. 07/31/2019 Patient was seen and examined this morning, she does feel as though her breathi ng is improving, her weight is down 3 kg today. Blood pressure 126/40 with a heart rate in the 70s, 95% on 3 L of oxygen. White blood cell count 11.4, hemoglobin 9.2, platelet count 132. Sodium 138, potassium 4.6, BUN 81, creatinine 2.0. Patient is currently on oral diuretics. We will give her one time dose of additional 40 mg IV Lasix today. Check her labs in the morning. Objective - Vital Signs Vital signs: Vital Signs Temp 98.3 F 07/31/19 08:35 Pulse 76 07/31/19 08:35 Resp 16 07/31/19 08:35 BP 127/44 07/31/19 08:35 Pulse Ox 95 07/31/19 08:35 Intake & Output 07/30/19 07/31/19 07/31/19 18:59 06:59 18:59 Intake Total 720 73.706 29.072 Balance 720 73.706 29.072 Weight 100 kg Intake: Intake, IV Titration 73.706 29.072 Amount Heparin Sod,Pork in 0.45% 73.706 29.072 NaCl 25,000 unit In 0.45 % NaCl 1 250ml.bag @ 9 UNITS/KG/HR 9.27 mls/hr IV .Q24H [facility] Rx#: [id number] Oral 720 Other: Voiding Method Bedpan Bedpan Bedpan Diaper Diaper Diaper # Voids 2 22 - Exam Physical Exam: Revealed 79-year-old female in no distress, not a great historian. Head: Atraumatic, normocephalic. HEENT:Neck is supple.] [No neck masses.No thyromegaly.No JVD. Chest: [Diminished breath sounds at the bases w crackles ,no rhonchi or wheezes.] Cardiac Exam: [Normal S1 and S2, no S3 gallop, no murmur.] Abdomen: [Large abdomen, ascites, no tenderness, abdominal wall edema is noted.] Extremities: [No clubbing, 1+ bipedal edema, no cyanosis.] Chronic venous stasis changes. Neurological Exam: Confused, oriented 2. Psychiatric: Depressed mood, blunt affect, poor mental status. Skin: No rashes. Chronic venous stasis changes noted in lower extremities. - Labs CBC & Chem 7: 07/31/19 02:19 07/31/19 02:19 Labs: Abnormal Lab Results - Last 24 Hours (Table) 07/30/19 07/30/19 07/30/19 Range/Units 11:28 16:45 20:21 WBC (3.8-10.6) k/uL RBC (3.80-5.40) m/uL Hgb (11.4-16.0) gm/dL Hct (34.0-46.0) % MCHC (31.0-37.0) g/dL RDW (11.5-15.5) % Plt Count (150-450) k/uL Neutrophils # (1.3-7.7) k/uL APTT (22.0-30.0) sec BUN (7-17) mg/dL Creatinine (0.52-1.04) mg/dL Glucose (74-99) mg/dL POC Glucose (mg/dL) 106 H 147 H 135 H (75-99) mg/dL 07/31/19 07/31/19 07/31/19 Range/Units 02:19 02:19 02:19 WBC 11.4 H (3.8-10.6) k/uL RBC 3.66 L (3.80-5.40) m/uL Hgb 9.2 L (11.4-16.0) gm/dL Hct 30.6 L (34.0-46.0) % MCHC 30.1 L (31.0-37.0) g/dL RDW 17.8 H (11.5-15.5) % Plt Count 132 L (150-450) k/uL Neutrophils # 9.1 H (1.3-7.7) k/uL APTT 73.2 H (22.0-30.0) sec BUN 81 H (7-17) mg/dL Creatinine 2.08 H (0.52-1.04) mg/dL Glucose 112 H (74-99) mg/dL POC Glucose (mg/dL) (75-99) mg/dL 07/31/19 Range/Units 05:55 WBC (3.8-10.6) k/uL RBC (3.80-5.40) m/uL Hgb (11.4-16.0) gm/dL Hct (34.0-46.0) % MCHC (31.0-37.0) g/dL RDW (11.5-15.5) % Plt Count (150-450) k/uL Neutrophils # (1.3-7.7) k/uL APTT (22.0-30.0) sec BUN (7-17) mg/dL Creatinine (0.52-1.04) mg/dL Glucose (74-99) mg/dL POC Glucose (mg/dL) 104 H (75-99) mg/dL Microbiology - Last 24 Hours (Table) 07/29/19 19:10 Blood Culture - Preliminary Blood No Growth after 24 hours Assessment and Plan Plan: Impression and plan: #1 Shortness of breath secondary to diastolic congestive heart failure, acute on chronic, possible pneumonia. Pro calcitonin level is 0.38. BNP level 13,800. Bilateral infiltrates, negative covid 19, although this cannot be completely ruled out. #2 Acute on chronic renal failure #3 Ongoing ascites #4 Metabolic encephalopathy related mostly to her underlying nonalcoholic liver cirrhosis, possible sepsis #5 Paroxysmal atrial fibrillation #6 History of chronic liver disease and nonalcoholic cirrhosis of the liver #7History of recurrent ascites #8 History of vancomycin-resistant enterococcal infection #9 History of depression #10Obesity with body index of 32.3. #11 History of recurrent urinary tract infections. #12 diabetes #13 hypertension #14 hyperlipidemia #15 abnormal stress test in May of this year, suggesting possible underlying coronary artery disease and plan Plan Patient recently had an echo cardiogram with Doppler study performed in May of this year which revealed a normal left ventricular systolic function. We will give the patient a one-time dose of IV Lasix now, reevaluate on a daily basis. Continue the rest of the patient's medications. DNP note has been reviewed, I agree with a documented findings and plan of care. Patient was seen and examined.
[2019-07-31 11:39] LABS: Glucose,Whole Blood 92 mg/dL (75-99)
--- NOTE | 2019-07-31 13:51 | P.PN ---
Subjective Progress Note Date: 07/31/19 Principal diagnosis: Shortness of breath, weakness This is a 79-year-old female, familiar to my service, I have seen this patient before for ascites, congestive heart failure, liver cirrhosis, mental status changes related to hyperammonemia, related to underlying nonalcoholic liver cirrhosis. Patient is also known to have history of diabetes, hypertension, seen few weeks ago for falls and weakness, and at the time she had significant ascites and significantly elevated ammonia level, underwent large-volume paracentesis, developed hypotension, treated mostly with volume replacement, and she went on to develop fluid overload and diastolic congestive heart failure. Patient also had history of paroxysmal atrial fibrillation. Patient was eventually discharged to medical [facility], and apparently over the last few days the patient has been generally weak, complaining of shortness of breath, sent back to [facility], and her chest x-ray is showing bila teral infiltrates. It is not clear whether the findings are findings of pneumonia or findings of diastolic congestive heart failure. Patient was placed on antibiotics empirically, her covid 19 screening was negative, however it is not entirely ruled out. During my evaluation, patient was noted to be on room air, O2 saturation is 92% on room air. She was noted to be in no form of distress. And she was already started empirically on antibiotics by the admitting physician. Patient was also placed on heparin for paroxysmal atrial fibrillation. On physical examination, patient was noted to have significant enlargement of her abdominal girth, and I recommended ultrasound of the abdomen patient may require repeat paracentesis. In the meantime I recommended that we continue antibiotics, consider a trial of diuretics. And I have ordered a serum pro calcitonin, and I have noticed that her BNP level is significantly elevated. Her pro calcitonin is not suggestive of underlying bacterial pneumonia. It is minimally elevated. Patient is not the greatest historian. Could not tell me exactly why she was sent to the hospital. On 07/31/2019 patient seen in follow-up on selective care unit, is lethargic, but no acute distress, she is on 4 L of oxygen the pulse ox 100%, afebrile, hemodynamically stable. We requested to have interventional radiology do a paracentesis on her, and ascites fluid will be sent for cultures, cell count with differential. She is on empiric antibiotics in the form of cefepime and vancomycin. he was given a dose of IV Lasix and she is maintained on oral Lasix of 40 mg twice daily. Blood culture has been negative. Today's labs have been reviewed showing white blood cell count of 11.4, hemoglobin of 9.2, electrolytes were within normal limits, profile relatively stable with BUN of 81 creatinine is 2.08. She is on heparin infusion for history of atrial fibrillation which is currently on hold for paracentesis. Lung sounds are diminished at the bases, abdomen significantly distended suspect large amount of ascites Objective - Vital Signs Vital signs: Vital Signs Temp 98.3 F 07/31/19 08:35 Pulse 82 07/31/19 13:20 Resp 20 07/31/19 13:20 BP 129/63 07/31/19 13:20 Pulse Ox 100 07/31/19 13:20 Intake & Output 07/30/19 07/31/19 07/31/19 18:59 06:59 18:59 Intake Total 720 73.706 29.072 Balance 720 73.706 29.072 Weight 100 kg Intake: Intake, IV Titration 73.706 29.072 Amount Heparin Sod,Pork in 0.45% 73.706 29.072 NaCl 25,000 unit In 0.45 % NaCl 1 250ml.bag @ 9 UNITS/KG/HR 9.27 mls/hr IV .Q24H COUNTS INCLUDE 234 BEDS AT THE [facility] Rx#: [id number] Oral 720 Other: Voiding Method Bedpan Bedpan Bedpan Diaper Diaper Diaper # Voids 2 22 - Exam GENERAL EXAM: pleasant, 79-year-old lethargic white female, on 4 L of oxygen with pulse ox 100% comfortable in no apparent distress. HEAD: Normocephalic/atraumatic. EYES: Normal reaction of pupils, equal size. Conjunctiva pink, sclera white. NOSE: Clear with pink turbinates. THROAT: No erythema or exudates. NECK: No masses, no JVD, no thyroid enlargement, no adenopathy. CHEST: No chest wall deformity. Symmetrical expansion. LUNGS: Equal air entry with no crackles, wheeze, rhonchi or dullness. CVS: Regular rate and rhythm, normal S1 and S2, no gallops, no murmurs, no rubs ABDOMEN: Soft, large distended. No hepatosplenomegaly, normal bowel sounds, no guarding or rigidity. EXTREMITIES: No clubbing, no edema, no cyanosis, 2+ pulses and upper and lower extremities. MUSCULOSKELETAL: Muscle strength and tone normal. SPINE: No scoliosis or deformity SKIN: No rashes CENTRAL NERVOUS SYSTEM: Alert and oriented -1. No focal deficits, tone is normal in all 4 extremities. PSYCHIATRIC: Alert and oriented -1. Appropriate affect. Intact judgment and insight. - Labs CBC & Chem 7: 07/31/19 02:19 07/31/19 02:19 Labs: Abnormal Lab Results - Last 24 Hours (Table) 07/30/19 07/30/19 07/31/19 Range/Units 16:45 20:21 02:19 WBC (3.8-10.6) k/uL RBC (3.80-5.40) m/uL Hgb (11.4-16.0) gm/dL Hct (34.0-46.0) % MCHC (31.0-37.0) g/dL RDW (11.5-15.5) % Plt Count (150-450) k/uL Neutrophils # (1.3-7.7) k/uL APTT (22.0-30.0) sec BUN 81 H (7-17) mg/dL Creatinine 2.08 H (0.52-1.04) mg/dL Glucose 112 H (74-99) mg/dL POC Glucose (mg/dL) 147 H 135 H (75-99) mg/dL 07/31/19 07/31/19 07/31/19 Range/Units 02:19 02:19 05:55 WBC 11.4 H (3.8-10.6) k/uL RBC 3.66 L (3.80-5.40) m/uL Hgb 9.2 L (11.4-16.0) gm/dL Hct 30.6 L (34.0-46.0) % MCHC 30.1 L (31.0-37.0) g/dL RDW 17.8 H (11.5-15.5) % Plt Count 132 L (150-450) k/uL Neutrophils # 9.1 H (1.3-7.7) k/uL APTT 73.2 H (22.0-30.0) sec BUN (7-17) mg/dL Creatinine (0.52-1.04) mg/dL Glucose (74-99) mg/dL POC Glucose (mg/dL) 104 H (75-99) mg/dL Microbiology - Last 24 Hours (Table) 07/29/19 19:10 Blood Culture - Preliminary Blood No Growth after 24 hours Assessment and Plan Plan: Assessment: Shortness of breath secondary to diastolic congestive heart failure, doubt bacterial pneumonia. Pro calcitonin level is not significantly enlarged. However her BNP level is significantly high. Bilateral infiltrates, negative covid 19, but I don't believe is entirely ruled out. Acute on chronic renal failure Suspect ongoing ascites, doubt spontaneous bacterial peritonitis, physical examination of the abdomen is rather benign and abdomen is nontender. Suspect ongoing metabolic encephalopathy related mostly to her underlying non alcoholic liver cirrhosis, doubt sepsis at this point. Again that is not entirely ruled out. Paroxysmal atrial fibrillation History of chronic liver disease and nonalcoholic cirrhosis of the liver History of recurrent ascites History of vancomycin-resistant enterococcal infection History of depression Obesity with body index of 32.3. History of recurrent urinary tract infections. Plan: Patient is going for paracentesis today, send ascites fluid for Gram stain, cultures, cell count and differential. Continue with empiric antibiotics. monitor renal profile, follow-up electrolytes BUN and creatinine in the morning. follow-up chest x-ray in the morning. I performed a history & physical examination of the patient and discussed their management with my nurse practitioner, Virgen Villalpando. I reviewed the nurse practitioner's note and agree with the documented findings and plan of care. Lung sounds are positive for diffuse wheezes throughoNP statement Time with Patient: Less than 30
--- NOTE | 2019-07-31 14:29 | CT ---
EXAMINATION TYPE: CT brain wo con DATE OF EXAM: 07/31/2019 HISTORY: Change in mental status. CT DLP: 1057.2 mGycm. Automated Exposure Control for Dose Reduction was Utilized. TECHNIQUE: CT scan of the head is performed without contrast. COMPARISON: CT brain July 01, 2019. FINDINGS: There is no acute intracranial hemorrhage or midline shift identified. There is diffuse v entricular and sulcal prominence consistent with diffuse age-related cerebral atrophy. There is low- attenuation in the periventricular white matter consistent with chronic small vessel ischemic change. Mild to moderate mucosal thickening in the right maxillary and minimal mucosal thickening in left ma xillary sinus noted on current study. IMPRESSION: No acute intracranial hemorrhage or midline shift. There is mild to moderate diffuse ce rebral atrophy and chronic small vessel ischemic change redemonstrated. No significant change from m ost recent prior CT.
[2019-07-31] MEDS: FLUDROCORTISONE 0.1 MG TAB PO SCH ×2 (15:07→20:26)
[2019-07-31] MEDS: CYANOCOBALAMIN 500 MCG TAB PO SCH (15:07)
[2019-07-31] MEDS: CHOLECALCIFEROL 1,000 UNIT TAB PO SCH (15:07)
[2019-07-31] MEDS: FUROSEMIDE 40 MG TAB PO SCH ×2 (15:07→17:04)
[2019-07-31] MEDS: MAGNESIUM OXIDE 400 MG TAB PO SCH (15:08)
[2019-07-31 15:11] LABS: Appearance,BF Clear; Color,BF Yellow; Nucleated Cells, Body Fluid 178 /uL; RBC, Body Fluid 30 /uL
[2019-07-31 15:13] LABS: Mononuclear WBC,Body Fluid 90 %; Polynuclear WBC,Body Fluid 10 %; Total Cells Counted,Body Fluid 100
--- NOTE | 2019-07-31 15:18 | PN ---
PROGRESS NOTE DATE OF SERVICE: 07/31/2019 This 79-year-old woman was admitted with significant shortness of breath, suspected to have some pneumonia. The patient also had change in mental status. Patient also has ascites related to cirrhosis liver. Abdominal paracentesis has been recommended. A CAT scan of the brain was also recommended at this time. Neurology evaluation underway. The patient was also thought to have seen CHF. The abdominal ultrasound showed enough fluid yesterday. Serum ammonia at the time of admission was normal. COVID was negative. The renal function is worse but stable at 2.08. The platelets are 132. PAST MEDICAL HISTORY, REVIEW OF SYSTEMS: Could not be taken as the patient is drowsy, barely arousable, unable to give a coherent history. CURRENT MEDICATIONS: Reviewed and include: 1. Tylenol 500 mg q.6 p.r.n. 2. [place] 5 mg q.6 p.r.n. 3. Xanax 0.5 t.i.d. 4. Aspirin 81 mg p.o. daily. 5. Cefepime 2 g IV b.i.d. 6. Vitamin D3 two thousand daily. 7. Vitamin B12 one thousand mg daily. 8. Florinef 0.2 b.i.d. 9. Lasix 40 mg p.o. b.i.d. 10.Heparin. 11.Lactulose, magnesium oxide. 12.Lopressor. 13.Narcan. 14.Nitrostat. 15.Protonix. 16.Zoloft. PHYSICAL EXAM: Patient is alert, oriented x3. Pulse 82, blood pressure 120/66, respiration 20, temperature normal, pulse ox 100% on 4 L. HEENT: Conjunctivae normal. Oral mucosa moist. NECK: No jugular venous distention. No lymph node enlargement. CARDIOVASCULAR SYSTEMS: S1, S2, muffled. RESPIRATION: Breath sounds diminished at the bases, a few scattered rhonchi, no crackles. ABDOMEN: Soft, nontender. No mass palpable. LEGS: No edema. No swelling. NERVOUS SYSTEM: No focal deficits. LABS: WBC is 11.2, hemoglobin is 9.2, platelets 132. Creatinine is 2.08. ASSESSMENT: 1. Shortness of breath, possible bilateral pneumonia, possibly community-acquired, with possible COVID-19 associated pneumonia. 2. Congestive heart failure acute exacerbation with acute on chronic diastolic dysfunction, ejection fraction 50% to 60%. 3. Suspected COVID-19; however, test negative. 4. Change in mental status, metabolic encephalopathy, acute on chronic. 5. Acute on chronic renal failure with chronic kidney disease stage III baseline, as well as possible acute tubular necrosis. 6. Elevated lactic acid possibly secondary to sepsis, present on admission, secondary to pneumonia. 7. Troponin 0.069, indeterminate. 8. Hypoalbuminemia. 9. Hyponatremia. 10.Change in mental status, as mentioned earlier. 11.Acute on chronic. 12.Generalized gait dysfunction. 13.Increased WBC. 14.Anemia, normocytic. 15.History of multiple falls recently. 16.History of atrial fibrillation. 17.History of congestive heart failure. 18.History of diabetes mellitus type 2. 19.Hypertension. 20.History of chronic liver disease and nonalcoholic cirrhosis of liver with a history of abdominal paracentesis multiple times. 21.History of urinary tract infection. 22.History of recurrent ascites and paracentesis. 23.History of thrombocytopenia. 24.History of left breast cancer with lumpectomy. 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 26.History of depression. 27.History of cholecystectomy. 28.Obesity with a body mass index of 32.6. 29.FULL CODE. RECOMMENDATION: Recommend to continue to monitor, symptomatic treatment. Otherwise abdominal paracentesis. I would also recommend a CT scan of the brain, neuro checks, neurology evaluation. The patient is slightly more confused today. Continue with antibiotics. I would sedatives with IV pain medications. Guarded prognosis because of multiple complex medical issues. Further recommendations to follow. Follow closely with multiple consultants. Prognosis guarded. MMODL / IJN: [id number] /
[2019-07-31] MEDS: NIACIN TR 500 MG CAPLET PO SCH (17:03)
[2019-07-31] MEDS: METOPROLOL TARTRATE 12.5 MG TAB PO SCH ×2 (17:03→20:27)
[2019-07-31] MEDS: ASPIRIN 81 MG PO SCH (17:03)
[2019-07-31] MEDS: SERTRALINE 50 MG TAB PO SCH (17:03)
[2019-07-31] MEDS: LACTULOSE 20 GM/30 ML CUP PO SCH (17:04)
[2019-07-31 18:20] LABS: Glucose, BF Source Ascites; Glucose, Body Fluid 108 mg/dL; LDH, Body Fluid Source Ascites
[2019-07-31 18:21] LABS: Appearance,Urine Cloudy (Clear); Bilirubin,Urine Negative (Negative); Blood,Urine Negative (Negative); Color,Urine Yellow; Glucose,Urine (UA) Negative (Negative); Hyaline Casts,Urine 3 /lpf (0-2); Ketones,Urine Negative (Negative); Leukocyte Esterase,Urine Negative (Negative); Mucus,Urine Rare /hpf; Nitrite,Urine Negative (Negative); Protein,Urine Negative (Negative); RBC,Urine 1 /hpf (0-5); Specific Gravity,Urine 1.015 (1.001-1.035); Squamous Epithelial Cell,Urine <1 /hpf (0-4); Uric Acid Crystals,Urine Occasional /hpf; Urobilinogen,Urine <2.0 mg/dL (<2.0); WBC,Urine <1 /hpf (0-5)
[2019-07-31] MEDS: HEPARIN SOD,PORK IN 0.45% NACL 25,000 UNIT in 0.45% NACL 1 250ML.BAG IV SCH (19:26)
[2019-07-31] MEDS: GABAPENTIN 100 MG CAP PO SCH (20:26)
[2019-07-31] MEDS: APIXABAN 2.5 MG TABLET PO SCH (20:27)
--- NOTE | 2019-07-31 22:09 | CONS ---
CONSULTATION DATE OF SERVICE: 07/31/2019. REASON FOR CONSULTATION: Altered mental status. HISTORY OF PRESENT ILLNESS: This is a 79-year-old female who was admitted from the emergency room on July 28. She lives at home with her and was brought in after recently being admitted to a [facility]. According to the record, she was only in the [facility] for short period time but once at home, within 24 to 48 hours, she became quite short of breath. In the emergency room, the patient was found to have tachycardia, heart rate of 132, and on a non-rebreather at 15 L she was able to saturate at 100%. Her workup indicated she was in acute renal failure, atrial fibrillation, and had pneumonia. Now on hospital day 3, this morning she had acute altered mental status according to Nursing. She became nonsensical, could not speak clearly and was not oriented to time, place and person and she had been prior. Her mental status was so much affected that the staff had to get consent for paracentesis that she underwent. By mid afternoon, the patient began to clear and became more oriented back to her baseline. My evaluation of her was close to 6 p.m., upon which she seemed quite tired, but was oriented to time, place and person. The patient, however, at times appeared to be easily distracted. When I would ask her what she was thinking, she would look sad and say she just wants to go home. Review of her labs over her admission indicates increased risk for metabolic encephalopathy with a BUN on admission of 83, creatinine 2.19. White count was elevated with a left shift. BNP was also elevated at 13,800, and the patient did have hyperammonemia, which is now resolved. Vital signs: pulse rate 82, respiratory rate 20, blood pressure 129/63. The patient is on nasal cannula at 4 L/minute. Her past medical history is significant for atrial fibrillation, cancer, heart failure, diabetes, hypertension and liver disease. Review of her chart indicates that she was admitted to [facility] on June 11, 2019, with possible non-STEMI, paroxysmal atrial fibrillation, hypovolemia secondary to large- volume paracentesis, acute UTI, acute renal failure. This patient also has nonalcoholic cirrhosis, recurrent ascites, prior paracentesis, thrombocytopenia, portal hypertension. This is thought to have been brought on by medication related. The patient's history of cancer is related to breast cancer. 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 Family history is significant for cancer as well as colon cancer. Cardiac disease (her brother has a history of DC with stents and another brother from DC). Her mother suffered from Parkinson's disease. Social history: The patient lives with her but prior to that was briefly in a [facility]. Review of systems: The patient was able to provide some information with this. A 10- point review of systems was obtained with positive pertinents and negatives related in the history of present illness. The patient reports overall her general health has declined in the past year. She suffers from difficulty with sleep continuity. General physical examination: The patient is awake in bed. No acute distress. HEENT: Clear sclerae. Clear oropharynx. Neck appears supple. PULSES: Radial and pedal pulses appear equal and symmetric. EXTREMITIES: Severe peripheral vascular disease in both lower extremities bilaterally. No swelling noted in the hands. No clubbing of the digits noted. Neurological examination: MENTAL STATUS: Patient is awake. She is able to follow commands and answer questions appropriately, but overall her affect is slow and depressed. Pupils: 2 mm, reactive to light and accommodation. Cranial nerves: The patient tracks well. No evidence of nystagmus noted on vertical or horizontal gaze. There is some restriction on upgaze. Face appears symmetric. Cranial nerve 8 appears intact by clinical observation. Palate elevates symmetrically. Tongue appears midline without fasciculations or deviation. Motor exam: This exam was limited due to the patient's overall fatigue. She is able to move her upper extremities without difficulty. Pronator drift is negative. The patient is able to provide -5/5 strength over deltoids, triceps, biceps bilaterally. There is notable give-way weakness. Tone appears normal in the upper extremities. No fasciculations or tremor noted. Lower extremity testing: This was difficult due to the patient's legs with wound and pain and infection. The patient was not able to lift either leg off the bed but was able to flex and extend with discomfort. She was also able to flex and extend the feet bilaterally. Coordination testing: Patient was able to perform the [id number] testing with eyes open and eyes closed. This was slow, but no overt dysmetria noted. [id number]-dx-[id number] maneuver was deferred due to the patient's leg infections. Sensory examination: Grossly intact to light touch throughout. Deep tendon reflexes: Trace over biceps, brachioradialis bilaterally. Patellar reflexes are absent. Plantar responses are withdrawal bilaterally. Unable to elicit ankle jerks. Gait examination deferred. This is a 79-year-old female with very complicated medical history of heart disease, acute on chronic renal failure, and now with pneumonia, peripheral vascular disease due to poor wound healing. This patient's mental status abrupt change morning is unclear, but now has resolved to some extent. She is oriented to time, place, person. This patient does have significant stroke risk factors. Would recommend neuro imaging studies to rule out possible acute ischemic infarct. The patient also had what appears to be mental status involving an expressive aphasia. Therefore I would obtain an EEG, as this patient does have significant systemic infection that could lower her seizure threshold. RECOMMENDATIONS: 1. MRI of the brain without contrast. 2. EEG in the morning. 3. Continue with neuro checks q.2 hours while awake. 4. Aggressive management of glucose, electrolytes and ammonia levels. 5. PT, OT and Speech to evaluate patient. Thank you for this consult. Neurology will follow closely. Please note that there will not be a neurologist available this weekend. If any acute changes occur, please consider transfer to higher level of care for neurological assessment. Dr. Espino will be back on Sunday morning for neurology service for the next 2 weeks. MMSHALAL / IJN: [id number] / MTDD
--- NOTE | 2019-07-31 22:39 | PN ---
PROGRESS NOTE DATE OF SERVICE: 07/31/2019 REASON FOR FOLLOWUP: Abnormal x-ray and a question of pneumonia. INTERVAL HISTORY: The patient is currently afebrile. The patient is breathing comfortably. The patient denies having any chest pain or shortness of breath. Minimal cough. No abdominal pain or any diarrhea. The patient is status post paracentesis today, which the patient has tolerated. PHYSICAL EXAMINATION: Blood pressure 108/47 with a pulse of 120, temperature 98.2. She is 90% on 4 L nasal cannula. General description is an elderly female lying in bed in no distress. HEENT EXAMINATION: Slight pallor. No scleral icterus. Oral mucosa membrane is dry. LUNGS: Unlabored breathing. Decreased breath sounds in the base. No wheeze. HEART: S1, S2. Regular rate and rhythm. ABDOMEN: Soft. No tenderness. EXTREMITIES: No edema of the feet. LABS: Hemoglobin 9.1, white count 11.4, BUN of 81, creatinine 2.08. The ascitic fluid white count of only 178 was clear. COVID-19 testing is negative. Blood culture has been negative. No sputum has been collected. DIAGNOSTIC IMPRESSION AND PLAN: Patient admitted to hospital with shortness of breath, more likely related to underlying fluid overload, chronic obstructive pulmonary disease or congestive heart failure exacerbation. Clinically not behaving as pneumonia in this patient with borderline kidney function, high risk of nephrotoxicity. We will discontinue the vancomycin. Continue Rocephin while waiting for the culture to finalize and monitor her clinical course closely. MMODL / IJN: [id number] /
--- NOTE | 2019-07-31 22:47 | P.CONS ---
History of Present Illness - Reason for Consult Consult date: 07/30/19 pneumonia Requesting physician: Bean Joel - Chief Complaint shortness of breath x few days - History of Present Illness Patient is a 79-year-old female with a past medical history for atrial fibrillation congestive heart failure diabetes presenting to the ER at [facility] yesterday with chief complaints of increasing shortness of breath patient symptom has been going on for few days before she presented to hospital patient denies having any chest pain he did have very minimal cough no sputum denies having any URI symptoms no nausea no vomiting no abdominal pain and no diarrhea on arrival to the ER patient has been afebrile patient did have my evaluation of 12,000 repeat is 12.9 urine is negative sr PCR was negative patient did have a chest x-ray which did shows diffuse patchy infiltrate in the periphery right lower lobe and left perihilar region correlate for atypical pneumonia patient has been started on cefepime and vancomycin infectious was consulted for further recommendation about antibiotic therapy patient herself is not a very good historian so most information has been extracted from review of the chart. Review of Systems Positive point has been mentioned in HPI rest of the systems are negative Past Medical History Past Medical History: Atrial Fibrillation, Cancer, Heart Failure, Diabetes Mellitus, Hypertension, Liver Disease Additional Past Medical History / Comment(s): Pt recently admitted to [facility] on 06/11/19 with possible NSTEMI, paroxysmal Afib/RVR, hypovolemia 2ndary to large volume paracentesis, acute UTI, acute renal failure. 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 She states she is receiving home care but cannot recall name of company. She has a walker/glucometer/scale and grab rail. Smoking Status: Never smoker Past Alcohol Use History: None Reported Past Drug Use History: None Reported - Past Family History Father Family Medical History: Cancer Additional Family Medical History / Comment(s): Colon cancer Brother(s) Family Medical History: Myocardial Infarction (SD) Additional Family Medical History / Comment(s): One brother with stents, another brother from an SD Mother Family Medical History: Neurologic Disorder Additional Family Medical History / Comment(s): Parkinsons Medications and Allergies Home Medications Medication Instructions Recorded Confirmed Type Cholecalciferol (Vitamin D3) 2,000 unit PO DAILY 02/08/19 07/29/19 History [Vitamin D3] Pioglitazone [Actos] 30 mg PO DAILY 02/08/19 07/29/19 History Sertraline [Zoloft] 50 mg PO DAILY 02/08/19 07/29/19 History Cyanocobalamin [Vitamin B-12] 1,000 mcg PO DAILY #60 tab 02/11/19 07/29/19 Rx Niacin 2,000 mg PO DAILY 06/10/19 07/29/19 History Acetaminophen Tab [Tylenol] 500 mg PO Q6HR PRN tab 06/20/19 07/29/19 Rx Aspirin 81 mg PO DAILY #30 chew 06/20/19 07/29/19 Rx Fludrocortisone [Florinef] 0.2 mg PO BID #120 tab 06/20/19 07/29/19 Rx Glimepiride [Amaryl] 2 mg PO BID #60 tab 06/20/19 07/29/19 Rx Lactulose [Cephulac] 10 gm PO DAILY #450 ml 06/20/19 07/29/19 Rx Magnesium Oxide [Mag-Ox] 400 mg PO DAILY #10 tab 06/20/19 07/29/19 Rx Nitroglycerin Sl Tabs [Nitrostat] 0.4 mg SUBLINGUAL Q5M PRN #30 tab 06/20/19 07/29/19 Rx Pantoprazole [Protonix] 40 mg PO AC-BRKFST #30 tablet.dr 06/20/19 07/29/19 Rx Furosemide [Lasix] 40 mg PO BID 07/01/19 07/29/19 History Spironolactone [Aldactone] 50 mg PO DAILY tab 07/02/19 07/29/19 Rx Gabapentin [Neurontin] 100 mg PO HS 07/29/19 07/29/19 History Metoprolol Tartrate 12.5 mg PO BID 07/29/19 07/29/19 History Sulfamethox-Tmp 200-40Mg/5Ml 20 ml PO Q12HR 07/29/19 07/29/19 History [Bactrim Suspension] Allergies Allergy/AdvReac Type Severity Reaction Status Date / Time No Known Allergies Allergy Verified 07/01/19 11:14 Physical Exam Vitals: Vital Signs Temp Pulse Pulse Resp BP BP Pulse Ox 07/30/19 11:45 97.8 F 86 18 134/65 92 L 07/30/19 08:00 97.7 F 72 18 115/56 99 07/30/19 04:00 97.7 F 77 16 128/58 99 07/30/19 00:00 70 16 07/29/19 20:00 97.8 F 70 16 122/57 97 07/29/19 19:20 97.7 F 74 20 112/58 96 07/29/19 17:30 75 8 L 120/68 100 07/29/19 15:59 80 18 118/63 95 07/29/19 15:17 80 Intake and Output 07/30/19 07/30/19 07/30/19 06:59 14:59 22:59 Intake Total 69.146 480 Balance 69.146 480 Intake: Intake, IV Titration 69.146 Amount Heparin Sod,Pork in 0.45% 69.146 NaCl 25,000 unit In 0.45 % NaCl 1 250ml.bag @ 11. 02 UNITS/KG/HR 9.997 mls/ hr IV .Q24H [facility] Rx#: [id number] Oral 480 Other: Voiding Method Bedpan Diaper # Voids 1 Weight 103 kg GENERAL DESCRIPTION: Elderly female lying in bed, no distress. No tachypnea or accessory muscle of respiration use. HEENT: Shows Pallor , no scleral icterus. Oral mucous membrane is dry. NECK: Trachea central, no thyromegaly. LUNGS: Unlabored breathing. Decreased breath sounds at bases. No wheeze or crackle. HEART: S1, S2, regular rate and rhythm. ABDOMEN: Soft, no tenderness , guarding or rigidity EXTREMITIES: No edema of feet. SKIN: No rash, no masses palpable. NEUROLOGICAL: The patient is awake, alert, oriented x2, mood and affect normal. Results CBC & Chem 7: 07/31/19 02:19 07/31/19 02:19 Labs: Abnormal Lab Results - Last 24 Hours (Table) 07/29/19 07/29/19 07/29/19 Range/Units 14:52 14:52 14:52 WBC 12.6 H (3.8-10.6) k/uL Hgb 10.0 L (11.4-16.0) gm/dL Hct 33.6 L (34.0-46.0) % MCH 24.5 L (25.0-35.0) pg MCHC 29.9 L (31.0-37.0) g/dL RDW 17.7 H (11.5-15.5) % Plt Count (150-450) k/uL Neutrophils # 10.3 H (1.3-7.7) k/uL PT 13.3 H (9.0-12.0) sec INR 1.3 H (<1.2) APTT (22.0-30.0) sec Sodium 136 L (137-145) mmol/L BUN 83 H (7-17) mg/dL Creatinine 2.19 H (0.52-1.04) mg/dL Glucose 153 H (74-99) mg/dL POC Glucose (mg/dL) (75-99) mg/dL Plasma Lactic Acid Magnus (0.7-2.0) mmol/L Troponin I (0.000-0.034) ng/mL Total Protein 5.7 L (6.3-8.2) g/dL Albumin 2.8 L (3.5-5.0) g/dL Procalcitonin (0.02-0.09) ng/mL 07/29/19 07/29/19 07/29/19 Range/Units 14:52 14:52 14:52 WBC (3.8-10.6) k/uL Hgb (11.4-16.0) gm/dL Hct (34.0-46.0) % MCH (25.0-35.0) pg MCHC (31.0-37.0) g/dL RDW (11.5-15.5) % Plt Count (150-450) k/uL Neutrophils # (1.3-7.7) k/uL PT (9.0-12.0) sec INR (<1.2) APTT (22.0-30.0) sec Sodium (137-145) mmol/L BUN (7-17) mg/dL Creatinine (0.52-1.04) mg/dL Glucose (74-99) mg/dL POC Glucose (mg/dL) (75-99) mg/dL Plasma Lactic Acid Magnus 2.8 H* (0.7-2.0) mmol/L Troponin I 0.069 H* (0.000-0.034) ng/mL Total Protein (6.3-8.2) g/dL Albumin (3.5-5.0) g/dL Procalcitonin 0.38 H (0.02-0.09) ng/mL 07/29/19 07/29/19 07/30/19 Range/Units 20:37 23:34 05:25 WBC (3.8-10.6) k/uL Hgb (11.4-16.0) gm/dL Hct (34.0-46.0) % MCH (25.0-35.0) pg MCHC (31.0-37.0) g/dL RDW (11.5-15.5) % Plt Count (150-450) k/uL Neutrophils # (1.3-7.7) k/uL PT (9.0-12.0) sec INR (<1.2) APTT 90.3 H (22.0-30.0) sec Sodium (137-145) mmol/L BUN 84 H (7-17) mg/dL Creatinine 2.11 H (0.52-1.04) mg/dL Glucose (74-99) mg/dL POC Glucose (mg/dL) 158 H (75-99) mg/dL Plasma Lactic Acid Magnus (0.7-2.0) mmol/L Troponin I (0.000-0.034) ng/mL Total Protein (6.3-8.2) g/dL Albumin (3.5-5.0) g/dL Procalcitonin (0.02-0.09) ng/mL 07/30/19 07/30/19 07/30/19 Range/Units 05:25 05:55 06:46 WBC 12.9 H (3.8-10.6) k/uL Hgb 9.5 L (11.4-16.0) gm/dL Hct 31.5 L (34.0-46.0) % MCH 24.5 L (25.0-35.0) pg MCHC 30.0 L (31.0-37.0) g/dL RDW 17.8 H (11.5-15.5) % Plt Count 146 L (150-450) k/uL Neutrophils # 10.2 H (1.3-7.7) k/uL PT (9.0-12.0) sec INR (<1.2) APTT 70.4 H (22.0-30.0) sec Sodium (137-145) mmol/L BUN (7-17) mg/dL Creatinine (0.52-1.04) mg/dL Glucose (74-99) mg/dL POC Glucose (mg/dL) 108 H (75-99) mg/dL Plasma Lactic Acid Magnus (0.7-2.0) mmol/L Troponin I (0.000-0.034) ng/mL Total Protein (6.3-8.2) g/dL Albumin (3.5-5.0) g/dL Procalcitonin (0.02-0.09) ng/mL 07/30/19 Range/Units 11:28 WBC (3.8-10.6) k/uL Hgb (11.4-16.0) gm/dL Hct (34.0-46.0) % MCH (25.0-35.0) pg MCHC (31.0-37.0) g/dL RDW (11.5-15.5) % Plt Count (150-450) k/uL Neutrophils # (1.3-7.7) k/uL PT (9.0-12.0) sec INR (<1.2) APTT (22.0-30.0) sec Sodium (137-145) mmol/L BUN (7-17) mg/dL Creatinine (0.52-1.04) mg/dL Glucose (74-99) mg/dL POC Glucose (mg/dL) 106 H (75-99) mg/dL Plasma Lactic Acid Magnus (0.7-2.0) mmol/L Troponin I (0.000-0.034) ng/mL Total Protein (6.3-8.2) g/dL Albumin (3.5-5.0) g/dL Procalcitonin (0.02-0.09) ng/mL Assessment and Plan Assessment: Patient presented to the hospital with increasing shortness of breath of few days duration in this patient currently do not have any fever mildly elevated white count, with abnormal chest x-ray finding question of fluid related pneumonia less likely but not entirely excluded in view of the patient in and out of the hospital agree with covering for resistant gram-positive and gram-neg ative while waiting for the culture to finalize (1) Pneumonia Current Visit: Yes Status: Acute Code(s): J18.9 - PNEUMONIA, UNSPECIFIED ORGANISM SNOMED Code(s): 927402108 Plan: 1-we will obtain a sputum for Gram stain and culture 2-vancomycin pharmacy to dose her with a target trough of 15 while watching her kidney function and Vanco trough closely. And cefepime to continue for now. 3- check procalcitoin level We will follow on clinical condition and cultures to further adjust medication if needed Thank you for this consultation we will follow the patient along with you Time with Patient: Greater than 30
[2019-08-01] MEDS: PANTOPRAZOLE 40 MG TABLET PO SCH (06:38)
[2019-08-01] MEDS: CEFEPIME 2 GM in SODIUM CHLORIDE 0.9% 100 ML IVPB SCH (06:38)
[2019-08-01 07:50] LABS: Glucose,Whole Blood 77 mg/dL (75-99)
[2019-08-01 07:55] LABS: Calcium 8.6 mg/dL (8.4-10.2)
[2019-08-01 08:03] LABS: Glucose,Whole Blood 117 mg/dL (75-99)
[2019-08-01 08:03] LABS: Glucose,Whole Blood 91 mg/dL (75-99)
[2019-08-01 08:27] LABS: Potassium 5.8 mmol/L (3.5-5.1)
[2019-08-01 09:01] LABS: Anisocytosis Slight; Basophils % (A) 0 %; Eosinophils # (A) 0.1 k/uL (0-0.7); Eosinophils % (A) 1 %; HCT 32.4 % (34.0-46.0); HGB 9.5 gm/dL (11.4-16.0); Hypochromasia Marked; Lymphocytes # (A) 0.7 k/uL (1.0-4.8); Lymphocytes % (A) 6 %; MCH 25.3 pg (25.0-35.0); MCHC 29.2 g/dL (31.0-37.0); MCV 86.4 fL (80.0-100.0); Mean Platelet Volume 9.1; Monocytes # (A) 0.5 k/uL (0-1.0); Monocytes % (A) 5 %; Neutrophils # (A) 9.9 k/uL (1.3-7.7); Neutrophils % (A) 87 %; Poikilocytosis Slight; RBC 3.75 m/uL (3.80-5.40); RDW 17.2 % (11.5-15.5); WBC 11.4 k/uL (3.8-10.6)
[2019-08-01] MEDS: FUROSEMIDE 40 MG TAB PO SCH (09:07)
[2019-08-01] MEDS: MAGNESIUM OXIDE 400 MG TAB PO SCH (09:07)
[2019-08-01] MEDS: APIXABAN 2.5 MG TABLET PO SCH ×2 (09:07→21:51)
[2019-08-01] MEDS: ASPIRIN 81 MG PO SCH (09:07)
[2019-08-01] MEDS: SERTRALINE 50 MG TAB PO SCH (09:07)
[2019-08-01] MEDS: CYANOCOBALAMIN 500 MCG TAB PO SCH (09:07)
[2019-08-01] MEDS: CHOLECALCIFEROL 1,000 UNIT TAB PO SCH (09:07)
[2019-08-01] MEDS: METOPROLOL TARTRATE 12.5 MG TAB PO SCH ×2 (09:07→21:50)
[2019-08-01] MEDS: NIACIN TR 500 MG CAPLET PO SCH (09:08)
[2019-08-01] MEDS: FLUDROCORTISONE 0.1 MG TAB PO SCH ×2 (09:08→21:50)
[2019-08-01] MEDS: LACTULOSE 20 GM/30 ML CUP PO SCH (09:08)
[2019-08-01 09:22] LABS: Platelet Count 77 k/uL (150-450)
--- NOTE | 2019-08-01 09:37 | US ---
Ultrasound-guided paracentesis. DATE OF EXAM: 07/31/2019 CLINICAL HISTORY: Ascites The procedure was discussed with the patient. The risks, complications, benefits, and alternatives we re discussed and any questions were answered. Informed consent was obtained. The patient was placed s upine on the ultrasound table and prepped and draped in the usual sterile fashion. All elements of maximal barrier technique were utilized. Under ultrasound guidance, access into the right lower quadrant was obtained, via the paracentesis catheter system and direct ultrasound guidanc e. Approximately 2.5 liters of straw-colored fluid was removed. The patient was stable throughout the pr ocedure and remained stable upon discharge from Department of Radiology. IMPRESSION: Successful paracentesis under ultrasound guidance.
--- NOTE | 2019-08-01 10:20 | P.PN ---
Subjective Progress Note Date: 08/01/19 This is a 79-year-old female with past medical history significant for paroxysmal atrial fibrillation, on long-term anticoagulation, hypertension, hyperlipidemia, diabetes, nonalcoholic cirrhosis, coronary artery disease. Patient had an abnormal stress test in May of this year and at that time was recommended to undergo cardiac catheterization. Unfortunately she became medically unstable and therefore the cardiac catheterization had not been performed. She follows with Dr. Ugarte in the office. Echocardiogram with Doppler study performed in May of this year revealed a normal left ventricular systolic function. Patient presents to the hospital on this occasion with symptoms of 2-3 day duration of progressively worsening shortness of breath. Her EKG on admission showed atrial fibrillation with a rapid ventricular response, heart rate 148, subsequent EKG showed normal sinus rhythm. Patient remains in a normal sinus rhythm this morning. Subsequent chest x-ray was also performed, which revealed congestive heart failure. Her initial chest x-ray showed diffuse patchy infiltrates in the right lower lobe. Temperature 97.7, blood pressure 128/58 with a heart rate in the 70s, 99% on 2 L of oxygen. White blood cell count 12.9, hemoglobin 10.0, platelet count 153. Sodium 136, potassium 4.6, BUN 83, and creatinine 2.1 yesterday, 84 and 2.1 today. Coronavirus testing and negative, pro calcitonin 0.38, BNP level 13,800, troponin 0.069.At the time of her examination by Dr. Schmid, patient was not in any acute distress, still complaining of some mild shortness of breath however. 07/31/2019 Patient was seen and examined this morning, she does feel as though her breathi ng is improving, her weight is down 3 kg today. Blood pressure 126/40 with a heart rate in the 70s, 95% on 3 L of oxygen. White blood cell count 11.4, hemoglobin 9.2, platelet count 132. Sodium 138, potassium 4.6, BUN 81, creatinine 2.0. Patient is currently on oral diuretics. We will give her one time dose of additional 40 mg IV Lasix today. Check her labs in the morning. 08/01/2019 Patient was seen and examined this morning by Dr. Schmid, continues to feel short of breath. Blood pressure 102/50 with a heart rate in the 60s, 94% on 4 L of oxygen. A repeat chest x-ray was performed this morning and continues to be pending. Patient again underwent successful paracentesis under ultrasound guidance this morning, for 2.5 L of straw-colored fluid. White blood cell count 11.4, hemoglobin 9.5, platelet count 77. Sodium 140, potassium 5.8, BUN 81 and creatinine 2.0. We will start the patient today on a twice a day dose of IV Lasix, hold the oral diuretics for now. Check lytes BUN and creatinine in the morning. Objective - Vital Signs Vital signs: Vital Signs Temp 98 F 08/01/19 03:26 Pulse 60 08/01/19 08:00 Resp 20 08/01/19 08:00 BP 102/50 08/01/19 08:00 Pulse Ox 94 L 08/01/19 08:00 Intake & Output 07/31/19 08/01/19 08/01/19 18:59 06:59 18:59 Intake Total 29.072 Output Total 700 250 Balance -670.928 -250 Weight 100 kg 92 kg Intake: Intake, IV Titration 29.072 Amount Heparin Sod,Pork in 0.45% 29.072 NaCl 25,000 unit In 0.45 % NaCl 1 250ml.bag @ 9 UNITS/KG/HR 9.27 mls/hr IV .Q24H [facility] Rx#: [id number] Output: Urine 700 250 Other: Voiding Method Bedpan Bedpan Diaper Diaper # Bowel Movements 1 - Exam Physical Exam: Revealed 79-year-old female in no distress, not a great historian. Head: Atraumatic, normocephalic. HEENT:Neck is supple.] [No neck masses.No thyromegaly.No JVD. Chest: [Diminished breath sounds at the bases bilaterally ,no rhonchi or wheezes.] Cardiac Exam: [Normal S1 and S2, no S3 gallop, no murmur.] Abdomen: [Large abdomen, ascites, no tenderness, abdominal wall edema is noted.] Extremities: [No clubbing, 1+ bipedal edema, no cyanosis.] Chronic venous stasis changes. Neurological Exam: Confused, oriented 2. Psychiatric: Depressed mood, blunt affect, poor mental status. Skin: No rashes. Chronic venous stasis changes noted in lower extremities. - Labs CBC & Chem 7: 08/01/19 08:24 08/01/19 06:38 Labs: Abnormal Lab Results - Last 24 Hours (Table) 07/31/19 07/31/19 08/01/19 Range/Units 16:30 20:27 06:38 WBC (3.8-10.6) k/uL RBC (3.80-5.40) m/uL Hgb (11.4-16.0) gm/dL Hct (34.0-46.0) % MCHC (31.0-37.0) g/dL RDW (11.5-15.5) % Plt Count (150-450) k/uL Neutrophils # (1.3-7.7) k/uL Lymphocytes # (1.0-4.8) k/uL Potassium 5.8 H (3.5-5.1) mmol/L BUN 81 H (7-17) mg/dL Creatinine 2.08 H (0.52-1.04) mg/dL POC Glucose (mg/dL) 117 H (75-99) mg/dL HDL Cholesterol 22 L (40-60) mg/dL Urine Appearance Cloudy H (Clear) Uric Acid Crystals Occasional H (None) /hpf Hyaline Casts 3 H (0-2) /lpf Urine Mucus Rare H (None) /hpf 08/01/19 Range/Units 08:24 WBC 11.4 H (3.8-10.6) k/uL RBC 3.75 L (3.80-5.40) m/uL Hgb 9.5 L (11.4-16.0) gm/dL Hct 32.4 L (34.0-46.0) % MCHC 29.2 L (31.0-37.0) g/dL RDW 17.2 H (11.5-15.5) % Plt Count 77 L (150-450) k/uL Neutrophils # 9.9 H (1.3-7.7) k/uL Lymphocytes # 0.7 L (1.0-4.8) k/uL Potassium (3.5-5.1) mmol/L BUN (7-17) mg/dL Creatinine (0.52-1.04) mg/dL POC Glucose (mg/dL) (75-99) mg/dL HDL Cholesterol (40-60) mg/dL Urine Appearance (Clear) Uric Acid Crystals (None) /hpf Hyaline Casts (0-2) /lpf Urine Mucus (None) /hpf Microbiology - Last 24 Hours (Table) 07/31/19 14:07 Gram Stain - Preliminary Ascites Fluid Body Fluid Culture - Preliminary 07/31/19 12:55 Anaerobic Culture - Preliminary Paracentesis Fluid 07/29/19 19:10 Blood Culture - Preliminary Blood No Growth after 48 hours Assessment and Plan Plan: Impression and plan: #1 Shortness of breath secondary to diastolic congestive heart failure, acute on chronic, possible pneumonia. Bilateral infiltrates, negative covid 19, although this cannot be completely ruled out. #2 Acute on chronic renal failure #3 Ongoing ascites #4 Metabolic encephalopathy related mostly to her underlying nonalcoholic liver cirrhosis, possible sepsis #5 Paroxysmal atrial fibrillation #6 History of chronic liver disease and nonalcoholic cirrhosis of the liver #7History of recurrent ascites #8 History of vancomycin-resistant enterococcal infection #9 History of depression #10Obesity with body index of 32.3. #11 History of recurrent urinary tract infections. #12 diabetes #13 hypertension #14 hyperlipidemia #15 abnormal stress test in May of this year, suggesting possible underlying coronary artery disease and plan Plan Patient again underwent a successful paracentesis this morning under ultrasound guidance, 2.5 L of straw-colored fluid removed. We will discontinue her oral diuretics and start her on IV diuretics 3 times a day today. Continue to monitor her intake and output along with daily weights and daily lytes BUN and creatinine. We will also review her chest x-ray which was performed today. DNP note has been reviewed, I agree with a documented findings and plan of care. Patient was seen and examined.
--- NOTE | 2019-08-01 10:48 | XR ---
EXAMINATION TYPE: XR chest 1V portable DATE OF EXAM: 08/01/2019 COMPARISON: 07/30/2019 HISTORY: Shortness of breath TECHNIQUE: Single frontal view of the chest is obtained. FINDINGS: New multifocal opacities are scattered throughout the right lung with bibasilar opacities remaining. Enlarged cardiac mediastinal silhouette. Mild pulmonary vascular congestion. Probable trac e right pleural effusion. IMPRESSION: New multifocal patchy opacities. Consider multifocal pneumonia. Mild pulmonary vascular congestion and probable trace pleural effusion remaining.
[2019-08-01] MEDS ORDERED: SODIUM POLYSTYRENE SULFONATE 15 GM/60 ML BOTTLE PO ONE (11:38)
[2019-08-01 11:51] LABS: Glucose,Whole Blood 114 mg/dL (75-99)
--- NOTE | 2019-08-01 12:31 | P.PN ---
Subjective Progress Note Date: 08/01/19 Principal diagnosis: Shortness of breath, weakness This is a 79-year-old female, familiar to my service, I have seen this patient before for ascites, congestive heart failure, liver cirrhosis, mental status changes related to hyperammonemia, related to underlying nonalcoholic liver cirrhosis. Patient is also known to have history of diabetes, hypertension, seen few weeks ago for falls and weakness, and at the time she had significant ascites and significantly elevated ammonia level, underwent large-volume paracentesis, developed hypotension, treated mostly with volume replacement, and she went on to develop fluid overload and diastolic congestive heart failure. Patient also had history of paroxysmal atrial fibrillation. Patient was eventually discharged to [facility], and apparently over the last few days the patient has been generally weak, complaining of shortness of breath, sent back to [facility], and her chest x-ray is showing bila teral infiltrates. It is not clear whether the findings are findings of pneumonia or findings of diastolic congestive heart failure. Patient was placed on antibiotics empirically, her covid 19 screening was negative, however it is not entirely ruled out. During my evaluation, patient was noted to be on room air, O2 saturation is 92% on room air. She was noted to be in no form of distress. And she was already started empirically on antibiotics by the admitting physician. Patient was also placed on heparin for paroxysmal atrial fibrillation. On physical examination, patient was noted to have significant enlargement of her abdominal girth, and I recommended ultrasound of the abdomen patient may require repeat paracentesis. In the meantime I recommended that we continue antibiotics, consider a trial of diuretics. And I have ordered a serum pro calcitonin, and I have noticed that her BNP level is significantly elevated. Her pro calcitonin is not suggestive of underlying bacterial pneumonia. It is minimally elevated. Patient is not the greatest historian. Could not tell me exactly why she was sent to the hospital. On 07/31/2019 patient seen in follow-up on selective care unit, is lethargic, but no acute distress, she is on 4 L of oxygen the pulse ox 100%, afebrile, hemodynamically stable. We requested to have interventional radiology do a paracentesis on her, and ascites fluid will be sent for cultures, cell count with differential. She is on empiric antibiotics in the form of cefepime and vancomycin. he was given a dose of IV Lasix and she is maintained on oral Lasix of 40 mg twice daily. Blood culture has been negative. Today's labs have been reviewed showing white blood cell count of 11.4, hemoglobin of 9.2, electrolytes were within normal limits, profile relatively stable with BUN of 81 creatinine is 2.08. She is on heparin infusion for history of atrial fibrillation which is currently on hold for paracentesis. Lung sounds are diminished at the bases, abdomen significantly distended suspect large amount of ascites On 08/01/2019 patient seen in follow-up on selective care unit, she is status post paracentesis with removal of 2.5 liters of ascitic fluid. Ascites fluid cultures are pending at this time, cell count showed LVH of 65, glucose of 108, fluid Alice nuclear WBCs were 10, and fluid mononuclear WBCs were 90. More consistent with a picture of CHF, liver cirrhosis, and not infection. Patient remains on combination of antibiotics of cefepime and vancomycin. She is more awake and alert on today's exam. She is going for brain MRI today she was seen by neurology in consultation for episode of altered mental status, with alterati on in her speech and confusion. Brain CT was obtained yesterday showing no acute intracranial process, mild to moderate diffuse cerebral atrophy and chronic small vessel ischemic changes. Signs are stable, no worsening dyspnea, she is on 4 L of oxygen the pulse ox of 94-100%. She's been afebrile. Today's chest x-ray reviewed showing new multifocal patchy opacities likely related to mild pulmonary vascular congestion and possibility of pneumonia is not excluded. Objective - Vital Signs Vital signs: Vital Signs Temp 98 F 08/01/19 03:26 Pulse 60 08/01/19 08:00 Resp 20 08/01/19 08:00 BP 102/50 08/01/19 08:00 Pulse Ox 94 L 08/01/19 08:00 Intake & Output 07/31/19 08/01/19 08/01/19 18:59 06:59 18:59 Intake Total 29.072 Output Total 700 250 Balance -670.928 -250 Weight 100 kg 92 kg Intake: Intake, IV Titration 29.072 Amount Heparin Sod,Pork in 0.45% 29.072 NaCl 25,000 unit In 0.45 % NaCl 1 250ml.bag @ 9 UNITS/KG/HR 9.27 mls/hr IV .Q24H [facility] Rx#: [id number] Output: Urine 700 250 Other: Voiding Method Bedpan Bedpan Diaper Diaper # Bowel Movements 1 - Exam GENERAL EXAM: pleasant, 79-year-old much more awake and today's exam white female, on 4 L of oxygen with pulse ox 94% comfortable in no apparent distress. HEAD: Normocephalic/atraumatic. EYES: Normal reaction of pupils, equal size. Conjunctiva pink, sclera white. NOSE: Clear with pink turbinates. THROAT: No erythema or exudates. NECK: No masses, no JVD, no thyroid enlargement, no adenopathy. CHEST: No chest wall deformity. Symmetrical expansion. LUNGS: Equal air entry with no crackles, wheeze, rhonchi or dullness. CVS: Regular rate and rhythm, normal S1 and S2, no gallops, no murmurs, no rubs ABDOMEN: Soft, large distended. No hepatosplenomegaly, normal bowel sounds, no guarding or rigidity. EXTREMITIES: No clubbing, no edema, no cyanosis, 2+ pulses and upper and lower extremities. MUSCULOSKELETAL: Muscle strength and tone normal. SPINE: No scoliosis or deformity SKIN: No rashes CENTRAL NERVOUS SYSTEM: Alert and oriented -2. No focal deficits, tone is normal in all 4 extremities. PSYCHIATRIC: Alert and oriented -2. Appropriate affect. Intact judgment and insight. - Labs CBC & Chem 7: 08/01/19 08:24 08/01/19 06:38 Labs: Abnormal Lab Results - Last 24 Hours (Table) 07/31/19 07/31/19 08/01/19 Range/Units 16:30 20:27 06:38 WBC (3.8-10.6) k/uL RBC (3.80-5.40) m/uL Hgb (11.4-16.0) gm/dL Hct (34.0-46.0) % MCHC (31.0-37.0) g/dL RDW (11.5-15.5) % Plt Count (150-450) k/uL Neutrophils # (1.3-7.7) k/uL Lymphocytes # (1.0-4.8) k/uL Potassium 5.8 H (3.5-5.1) mmol/L BUN 81 H (7-17) mg/dL Creatinine 2.08 H (0.52-1.04) mg/dL POC Glucose (mg/dL) 117 H (75-99) mg/dL HDL Cholesterol 22 L (40-60) mg/dL Urine Appearance Cloudy H (Clear) Uric Acid Crystals Occasional H (None) /hpf Hyaline Casts 3 H (0-2) /lpf Urine Mucus Rare H (None) /hpf 08/01/19 08/01/19 Range/Units 08:24 11:50 WBC 11.4 H (3.8-10.6) k/uL RBC 3.75 L (3.80-5.40) m/uL Hgb 9.5 L (11.4-16.0) gm/dL Hct 32.4 L (34.0-46.0) % MCHC 29.2 L (31.0-37.0) g/dL RDW 17.2 H (11.5-15.5) % Plt Count 77 L (150-450) k/uL Neutrophils # 9.9 H (1.3-7.7) k/uL Lymphocytes # 0.7 L (1.0-4.8) k/uL Potassium (3.5-5.1) mmol/L BUN (7-17) mg/dL Creatinine (0.52-1.04) mg/dL POC Glucose (mg/dL) 114 H (75-99) mg/dL HDL Cholesterol (40-60) mg/dL Urine Appearance (Clear) Uric Acid Crystals (None) /hpf Hyaline Casts (0-2) /lpf Urine Mucus (None) /hpf Microbiology - Last 24 Hours (Table) 07/31/19 14:07 Gram Stain - Preliminary Ascites Fluid Body Fluid Culture - Preliminary 07/31/19 12:55 Anaerobic Culture - Preliminary Paracentesis Fluid 07/29/19 19:10 Blood Culture - Preliminary Blood No Growth after 48 hours Assessment and Plan Plan: Assessment: Shortness of breath secondary to diastolic congestive heart failure, doubt bacterial pneumonia. Pro calcitonin level is not significantly enlarged. However her BNP level is significantly high. Bilateral infiltrates, negative covid 19, but I don't believe is entirely ruled out. Acute on chronic renal failure Suspect ongoing ascites, doubt spontaneous bacterial peritonitis, physical examination of the abdomen is rather benign and abdomen is nontender. Suspect ongoing metabolic encephalopathy related mostly to her underlying nonalcoholic liver cirrhosis, doubt sepsis at this point. Again that is not entirely ruled out. Paroxysmal atrial fibrillation History of chronic liver disease and nonalcoholic cirrhosis of the liver History of recurrent ascites History of vancomycin-resistant enterococcal infection History of depression Obesity with body index of 32.3. History of recurrent urinary tract infections. Altered mental status, rule out possibility of acute ischemic infarct, brain CT showed no acute intracranial process, brain MRI is pending, EEGs pending. Neurology service is following Plan: Continue same antibiotics, ascites fluid analysis is not consistent with infection, will await final cultures. Patient denies any worsening dyspnea, more awake and today's exam. Today's chest x-ray has been reviewed showing new multifocal patchy opacities the possibility of multifocal pneumonia. Patient is afebrile, she is having episodes of altered mental status and neurology workup is underway. Brain MRI is pending. Continue with cefepime and vancomycin, continue with IV Lasix. Daily labs, electrolytes and renal profile. Will continue to follow I performed a history & physical examination of the patient and discussed their management with my nurse practitioner, Virgen Villalpando. I reviewed the nurse practitioner's note and agree with the documented findings and plan of care. Lung sounds are positive for diffuse wheezes throughoNP statement Time with Patient: Less than 30
--- NOTE | 2019-08-01 13:24 | MR ---
EXAMINATION TYPE: MR brain wo con DATE OF EXAM: 08/01/2019 COMPARISON: CT brain dated 07/31/2019 HISTORY: Acute AMS. Fast brain protocol used as there is some patient motion, limiting the exam. TECHNIQUE: Multiplanar, multisequence images of the brain and brainstem is performed without intravenous contras t. FINDINGS: Diffusion weighted images demonstrate no evidence of a recent infarct or other diffusion ab normality. There is no extra-axial fluid collection. There are scattered foci of T2/FLAIR hyperinten sity in the periventricular and subcortical white matter, overall moderate burden for the patient's a ge. The ventricular system and cisternal spaces are nearly symmetrically prominent compatible with ag e-related volume loss. Additionally there is thinning of the corpus callosum within a degenerative ba sis. Midline structures demonstrate normal morphology. Incidentally noted partially empty sella turcica. The craniocervical junction appears within normal limits. The dural venous sinuses appear patent. Th e visualized sinuses demonstrate mild mucosal thickening of the maxillary sinuses bilaterally and min imal mucosal thickening in the ethmoid sinuses. Remaining paranasal sinuses are well aerated. Partial opacification of the right mastoid air cells. IMPRESSION: 1. No acute infarct, midline shift or mass effect. Moderate burden nonspecific white matter change mo st commonly on the microangiopathy and generalized diffuse cerebral atrophy, most commonly age relate d. 2. Mild paranasal sinus disease and partial opacification of the right mastoid air cells. Correlate w ith point tenderness to exclude mastoiditis.
--- NOTE | 2019-08-01 14:18 | PN ---
PROGRESS NOTE DATE OF SERVICE: 08/01/2019 This 79 woman was admitted with multiple medical issues including shortness of breath with possible CHF and pneumonia, is being closely monitored. Patient also has some change in mental status. Patient also had abdominal ascites and acute paracentesis done about 2.5 L. Patient had bilateral ecchymoses on the face. Brain MRI was done per neurology recommendations. Otherwise, the final report is pending at this time. The most recent chest x-ray which was personally reviewed by me showed bilateral lesions, right more than the left, suggestive of pneumonia. The patient is currently on cefepime at this time. A combination cefepime and vancomycin which was discontinued. The cultures are negative so far. WBC 11.4, potassium is 5.8. PAST MEDICAL HISTORY: Reviewed. REVIEW OF SYSTEMS: CARDIOVASCULAR SYSTEM: No angina. RESPIRATION: As mentioned earlier. GI: As mentioned earlier. : As mentioned earlier. NERVOUS SYSTEM: Slight improvement in the mentation today. CURRENT MEDICATIONS: 1. Tylenol p.r.n. 2. [place] 5 mg q.6h p.r.n. 3. Xanax 0.5 t.i.d. p.r.n. 4. Eliquis 2.5 mg b.i.d. 5. Aspirin 81 mg daily. 6. Cefepime 2 g IV daily. 7. Vitamin B2. 8. Florinef 0.2 b.i.d. 9. Lasix 40 mg b.i.d. 10.Neurontin. 11.Cephulac. 12.Magnesium oxide. 13.Lopressor. 14.Niacin. 15.Nitrostat. 16.Protonix. 17.Zoloft. 18.All obtained doses reviewed. PHYSICAL EXAM: Patient is alert, oriented x1. Pulse 65, blood pressure 102/50, respiration 20, temperature 98 degrees, pulse ox 94% on 4 L. HEENT: Conjunctivae normal. NECK: No jugular venous distension. CARDIOVASCULAR: S1, S2, muffled. RESPIRATORY: Breath sounds diminished at the bases, a few scattered rhonchi, no crackles. ABDOMEN: Soft. Diffuse ascites present. Some leaking at the ascitic tap site on the right side of the abdomen also present. LEGS: Bilateral leg edema. NERVOUS SYSTEM: Diffusely weak. LABS: WBC 7.5, hemoglobin IS 10.5, potassium 5.8, creatinine is 2.08. ASSESSMENT: 1. Shortness of breath, multifactorial, possible bilateral pneumonia, possibly community-acquired, possibly COVID-19 associated pneumonia. 2. Congestive heart failure acute exacerbation with acute on chronic diastolic dysfunction, ejection fraction 50% to 60%. 3. Suspected COVID-19 but; however, test negative. 4. Change in mental status, metabolic encephalopathy, acute on chronic. 5. Hyperkalemia. 6. Acute renal failure with acute tubular necrosis on baseline, chronic kidney disease stage III. 7. Elevated lactic acid possibly secondary to sepsis present on admission, secondary to pneumonia. 8. Troponin 0.069, indeterminate. 9. Hypoalbuminemia. 10.Hyponatremia. 11.Change in mental status, as mentioned earlier. 12.Paroxysmal atrial fibrillation, on Eliquis. 13.Generalized gait dysfunction. 14.Increased WBC. 15.Anemia, normocytic. 16.History of multiple falls recently. 17.History of congestive heart failure. 18.History of diabetes mellitus type 2. 19.Hypertension. 20.History of chronic liver disease and nonalcoholic cirrhosis liver with history of multiple abdominal paracentesis. 21.History of urinary tract infection. 22.History of recurrent ascites and paracentesis. 23.History of thrombocytopenia. 24.History of left breast cancer with lumpectomy. 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 26.History of depression. 27.History of cholecystectomy. 28.History of obesity with body mass index of 32.6. 29.FULL CODE. RECOMMENDATION: In this 79-year-old woman who presented with multiple complex medical issues, will monitor the patient closely, continue with the current management and symptomatic treatment. Otherwise, at this time I would recommend continue with empiric antibiotics, bronchodilators. Otherwise, continue with anticoagulation. Follow the cultures, PT, OT evaluation, possible ECF rehab in the next few days once the patient's sensorium is stabilized. Will follow the patient closely. Prognosis guarded because of multiple consultants. I would also recommend Kayexalate for the hyperkalemia and monitor lytes closely. MMODL / IJN: [id number] /
[2019-08-01 15:51] LABS: Folate, Serum 9.8 ng/mL
[2019-08-01 16:34] LABS: Glucose,Whole Blood 210 mg/dL (75-99)
[2019-08-01] MEDS: SODIUM CHLORIDE 0.9% 1,000 ML IV SCH (17:31)
[2019-08-01 20:12] LABS: Glucose,Whole Blood 239 mg/dL (75-99)
[2019-08-01] MEDS: FUROSEMIDE 10 MG/ML 4 ML VIAL IV SCH (21:50)
[2019-08-01] MEDS: GABAPENTIN 100 MG CAP PO SCH (21:50)
--- NOTE | 2019-08-01 22:47 | EEG ---
ELECTROENCEPHALOGRAM REPORT DATE OF SERVICE: 08/01/2019. HISTORY: This is an inpatient EEG performed on a 79-year-old female with a multitude of medical problems such as liver disease, cardiac disease. This EEG is being performed due to questionable altered mental status, possible seizure activity. On the second day of admission she was found to have some brief episodes of altered mental status and speech arrest. No prior EEG is available for comparison. TECHNICAL REPORT: This is an inpatient EEG performed on the [employer] EEG monitor with electrodes placed according to the international 10-20 system and a single EKG channel. Simultaneous video EEG monitoring was performed. This EEG was reviewed in both longitudinal bipolar, common average referential and transverse montages. Photic stimulation was performed. Hyperventilation was not performed due to the patient's medical conditions. Throughout this recording it was technically difficult due to excessive EMG artifact contaminating the tracing. The patient frequently was biting down, grinding teeth. When the patient would relax and open her mouth, this resolved. The recording begins with the patient somewhat lethargic and unable to respond to simple questions. There is increased muscle artifact noted in the bifrontal temporal head region. At 18:28:23 the patient spontaneously opens her eyes looking to the right. This is only associated with motion and movement artifact. Eye opening and frequent eye blinking occurs at 18:29:23. This is associated with a very suppressed background with rhythms ranging in the 7 to 8 Hz range. At 18:30:35 the technologist asks the patient questions. She has no response, and the background continues to remain low voltage and suppressed. No epileptiform activity is noted. Photic stimulation was performed at various flash frequencies and failed to elicit a consistent driving response. During photic there were intermittent bursts of excessive muscle artifact present. Even while the patient's eyes were closed, there was still excessive EMG artifact noted, often followed by 2-3 seconds of suppression in the background. This appeared to be related to the patient locking her jaw, then relaxing. At 18:46:26 the patient is asked to open her mouth. She is able to follow this command, and once this occurs the EMG artifact resolves. However, the background remains very suppressed of low amplitude ranging in 7 Hz consistent with drowsiness. As soon as the patient closes her mouth, the EMG artifact increases again in a generalized distribution, most likely consistent with the patient locking her jaw. IMPRESSION: This EEG was technically difficult to interpret. Overall it is considered abnormal due to the slow background for the patient's stated age. Despite appearing somewhat wakeful, the background is very slow, ranging at 7 Hz and rarely reaching a normal wake posterior-dominant rhythm of 8. The recording was considered technically difficult due to the patient constantly locking her jaw. This, however, was not associated with any clinical seizure activity or electrographic seizure or any focal slowing. CLINICAL CORRELATION: This EEG is consistent with generalized diffuse cerebral dysfunction, often seen with encephalopathic states. Serial EEGs are recommended and/or if clinically indicated a more prolonged overnight study. Neuro imaging studies are also recommended. MMODL / IJN: [id number] / CHALO
--- NOTE | 2019-08-01 23:27 | PN ---
PROGRESS NOTE DATE OF SERVICE: 08/01/2019 REASON FOR FOLLOWUP: Possible pneumonia. INTERVAL HISTORY: The patient is currently afebrile. The patient is breathing more comfortably. The patient denies having any chest pain. Minimal cough. No nausea, vomiting. Abdominal pain and distention have improved after paracentesis, and no diarrhea. PHYSICAL EXAMINATION: Blood pressure 117/55 with a pulse of 81, temperature 97.6. She is 98% on 3 L nasal cannula. General description is an elderly female lying in bed in no distress. RESPIRATORY SYSTEM: Unlabored breathing with decreased breath sounds at the base. No wheeze. HEART: S1, S2. Regular rate and rhythm. ABDOMEN: Soft. No tenderness. LABS: Hemoglobin is 9.4, white count 11.4, BUN of 21, creatinine 2.08. Blood culture negative. Abdominal fluid culture so far pending. DIAGNOSTIC IMPRESSION AND PLAN: Patient with an abnormal x-ray and slightly elevated white count, possibly related to fluid overload. Clinically not behaving as pneumonia. On empiric cefepime; to continue while waiting for the culture to finalize. Continue with supportive care. MMODL / IJN: [id number] / MTDJus
[2019-08-02 06:01] LABS: Glucose,Whole Blood 208 mg/dL (75-99)
[2019-08-02] MEDS: CEFEPIME 2 GM in SODIUM CHLORIDE 0.9% 100 ML IVPB SCH (06:14)
[2019-08-02] MEDS: PANTOPRAZOLE 40 MG TABLET PO SCH (06:15)
[2019-08-02] MEDS: METOPROLOL TARTRATE 12.5 MG TAB PO SCH ×2 (06:41→21:56)
[2019-08-02] MEDS ORDERED: METOPROLOL TARTRATE 12.5 MG TAB PO STA (06:55)
[2019-08-02] MEDS ORDERED: DILTIAZEM DRIP BOLUS FROM BAG 1 MG SOLN IV STA (09:08)
[2019-08-02] MEDS: APIXABAN 2.5 MG TABLET PO SCH (09:16)
[2019-08-02] MEDS: CYANOCOBALAMIN 500 MCG TAB PO SCH (09:16)
[2019-08-02] MEDS: ASPIRIN 81 MG PO SCH (09:16)
[2019-08-02] MEDS: SERTRALINE 50 MG TAB PO SCH (09:16)
[2019-08-02] MEDS: FUROSEMIDE 10 MG/ML 4 ML VIAL IV SCH (09:16)
[2019-08-02] MEDS: LACTULOSE 20 GM/30 ML CUP PO SCH (09:17)
[2019-08-02] MEDS: NIACIN TR 500 MG CAPLET PO SCH (09:17)
[2019-08-02] MEDS: MAGNESIUM OXIDE 400 MG TAB PO SCH (09:17)
[2019-08-02] MEDS: CHOLECALCIFEROL 1,000 UNIT TAB PO SCH (09:17)
[2019-08-02] MEDS: FLUDROCORTISONE 0.1 MG TAB PO SCH ×2 (09:18→21:56)
[2019-08-02] MEDS: DILTIAZEM 125 MG in SODIUM CHLORIDE 0.9% 100 ML IV SCH (09:45)
[2019-08-02 10:09] LABS: Anisocytosis Slight; HCT 29.5 % (34.0-46.0); HGB 8.6 gm/dL (11.4-16.0); Hypochromasia Marked; MCH 24.6 pg (25.0-35.0); MCHC 29.1 g/dL (31.0-37.0); MCV 84.4 fL (80.0-100.0); Mean Platelet Volume 8.6; Poikilocytosis Slight; RBC 3.49 m/uL (3.80-5.40); RDW 17.4 % (11.5-15.5); WBC 13.6 k/uL (3.8-10.6)
[2019-08-02 10:13] LABS: Platelet Count 90 k/uL (150-450)
[2019-08-02 10:20] LABS: Calcium 8.3 mg/dL (8.4-10.2); Potassium 4.6 mmol/L (3.5-5.1)
[2019-08-02 11:14] LABS: Glucose,Whole Blood 140 mg/dL (75-99)
--- NOTE | 2019-08-02 13:46 | P.PN ---
Subjective Progress Note Date: 08/02/19 This is a 79-year-old female with past medical history significant for paroxysmal atrial fibrillation, on long-term anticoagulation, hypertension, hyperlipidemia, diabetes, nonalcoholic cirrhosis, coronary artery disease. Patient had an abnormal stress test in May of this year and at that time was recommended to undergo cardiac catheterization. Unfortunately she became medically unstable and therefore the cardiac catheterization had not been performed. She follows with Dr. Ugarte in the office. Echocardiogram with Doppler study performed in May of this year revealed a normal left ventricular systolic function. Patient presents to the hospital on this occasion with symptoms of 2-3 day duration of progressively worsening shortness of breath. Her EKG on admission showed atrial fibrillation with a rapid ventricular response, heart rate 148, subsequent EKG showed normal sinus rhythm. Patient remains in a normal sinus rhythm this morning. Subsequent chest x-ray was also performed, which revealed congestive heart failure. Her initial chest x-ray showed diffuse patchy infiltrates in the right lower lobe. Temperature 97.7, blood pressure 128/58 with a heart rate in the 70s, 99% on 2 L of oxygen. White blood cell count 12.9, hemoglobin 10.0, platelet count 153. Sodium 136, potassium 4.6, BUN 83, and creatinine 2.1 yesterday, 84 and 2.1 today. Coronavirus testing and negative, pro calcitonin 0.38, BNP level 13,800, troponin 0.069.At the time of her examination by Dr. Schmid, patient was not in any acute distress, still complaining of some mild shortness of breath however. 07/31/2019 Patient was seen and examined this morning, she does feel as though her breathi ng is improving, her weight is down 3 kg today. Blood pressure 126/40 with a heart rate in the 70s, 95% on 3 L of oxygen. White blood cell count 11.4, hemoglobin 9.2, platelet count 132. Sodium 138, potassium 4.6, BUN 81, creatinine 2.0. Patient is currently on oral diuretics. We will give her one time dose of additional 40 mg IV Lasix today. Check her labs in the morning. 08/01/2019 Patient was seen and examined this morning by Dr. Schmid, continues to feel short of breath. Blood pressure 102/50 with a heart rate in the 60s, 94% on 4 L of oxygen. A repeat chest x-ray was performed this morning and continues to be pending. Patient again underwent successful paracentesis under ultrasound guidance this morning, for 2.5 L of straw-colored fluid. White blood cell count 11.4, hemoglobin 9.5, platelet count 77. Sodium 140, potassium 5.8, BUN 81 and creatinine 2.0. We will start the patient today on a twice a day dose of IV Lasix, hold the oral diuretics for now. Check lytes BUN and creatinine in the morning. 08/02/2019 Patient seen and examined this morning, overall states that she feels her breathing is mildly improved. Blood pressure 100/60 with a heart rate in the 70s, earlier this morning patient went into a rapid A. fib with a heart rate in the 150 range, we did initiate an IV Cardizem bolus with subsequent drip. White blood cell count 13.6, hematoma and 8.6, platelet count 90. Sodium 137, potassium 4.6, BUN 77 and creatinine 2.3. Objective - Vital Signs Vital signs: Vital Signs Temp 97.5 F L 08/02/19 10:43 Pulse 74 08/02/19 10:43 Resp 20 08/02/19 10:43 BP 100/42 08/02/19 10:43 Pulse Ox 97 08/02/19 10:43 Intake & Output 08/01/19 08/02/19 08/02/19 18:59 06:59 18:59 Output Total 700 Balance -700 Weight 94 kg Output: Urine 700 Other: Voiding Method Bedpan Bedpan Diaper Diaper # Bowel Movements 1 - Exam Physical Exam: Revealed 79-year-old female in no distress, not a great hi storian. Head: Atraumatic, normocephalic. HEENT:Neck is supple.] [No neck masses.No thyromegaly.No JVD. Chest: [Diminished breath sounds at the bases bilaterally ,no rhonchi or wheezes.] Cardiac Exam: [Normal S1 and S2, no S3 gallop, no murmur.] Abdomen: [Large abdomen, ascites, no tenderness, abdominal wall edema is noted.] Extremities: [No clubbing, 1+ bipedal edema, no cyanosis.] Chronic venous stasis changes. Neurological Exam: Confused, oriented 2. Psychiatric: Depressed mood, blunt affect, poor mental status. Skin: No rashes. Chronic venous stasis changes noted in lower extremities. - Labs CBC & Chem 7: 08/02/19 10:00 08/02/19 10:00 Labs: Abnormal Lab Results - Last 24 Hours (Table) 08/01/19 08/01/19 08/01/19 Range/Units 06:38 16:33 20:10 WBC (3.8-10.6) k/uL RBC (3.80-5.40) m/uL Hgb (11.4-16.0) gm/dL Hct (34.0-46.0) % MCH (25.0-35.0) pg MCHC (31.0-37.0) g/dL RDW (11.5-15.5) % Plt Count (150-450) k/uL Carbon Dioxide (22-30) mmol/L BUN (7-17) mg/dL Creatinine (0.52-1.04) mg/dL Glucose (74-99) mg/dL POC Glucose (mg/dL) 210 H 239 H (75-99) mg/dL Calcium (8.4-10.2) mg/dL Vitamin B12 1611.0 H (200.0-944.0) pg/mL 08/02/19 08/02/19 08/02/19 Range/Units 05:59 10:00 10:00 WBC 13.6 H (3.8-10.6) k/uL RBC 3.49 L (3.80-5.40) m/uL Hgb 8.6 L (11.4-16.0) gm/dL Hct 29.5 L (34.0-46.0) % MCH 24.6 L (25.0-35.0) pg MCHC 29.1 L (31.0-37.0) g/dL RDW 17.4 H (11.5-15.5) % Plt Count 90 L (150-450) k/uL Carbon Dioxide 20 L (22-30) mmol/L BUN 77 H (7-17) mg/dL Creatinine 2.39 H (0.52-1.04) mg/dL Glucose 135 H (74-99) mg/dL POC Glucose (mg/dL) 208 H (75-99) mg/dL Calcium 8.3 L (8.4-10.2) mg/dL Vitamin B12 (200.0-944.0) pg/mL 08/02/19 Range/Units 11:12 WBC (3.8-10.6) k/uL RBC (3.80-5.40) m/uL Hgb (11.4-16.0) gm/dL Hct (34.0-46.0) % MCH (25.0-35.0) pg MCHC (31.0-37.0) g/dL RDW (11.5-15.5) % Plt Count (150-450) k/uL Carbon Dioxide (22-30) mmol/L BUN (7-17) mg/dL Creatinine (0.52-1.04) mg/dL Glucose (74-99) mg/dL POC Glucose (mg/dL) 140 H (75-99) mg/dL Calcium (8.4-10.2) mg/dL Vitamin B12 (200.0-944.0) pg/mL Microbiology - Last 24 Hours (Table) 07/29/19 19:10 Blood Culture - Preliminary Blood No Growth after 72 hours 07/31/19 14:07 Gram Stain - Preliminary Ascites Fluid Body Fluid Culture - Preliminary Assessment and Plan Plan: Impression and plan: #1 Shortness of breath secondary to diastolic congestive heart failure, acute on chronic, possible pneumonia. Bilateral infiltrates, negative covid 19, although this cannot be completely ruled out. #2 Acute on chronic renal failure #3 Ongoing ascites #4 Metabolic encephalopathy related mostly to her underlying nonalcoholic liver cirrhosis, possible sepsis #5 Paroxysmal atrial fibrillation #6 History of chronic liver disease and nonalcoholic cirrhosis of the liver #7History of recurrent ascites #8 History of vancomycin-resistant enterococcal infection #9 History of depression #10Obesity with body index of 32.3. #11 History of recurrent urinary tract infections. #12 diabetes #13 hypertension #14 hyperlipidemia #15 abnormal stress test in May of this year, suggesting possible underlying coronary artery disease and plan Plan We will continue the IV Cardizem drip for 24 hours, hopefully tomorrow we will be able to discontinue the drip, and continue her oral medications. DNP note has been reviewed, I agree with a documented findings and plan of care. Patient was seen and examined.
--- NOTE | 2019-08-02 14:26 | P.PN ---
Subjective Progress Note Date: 08/02/19 Principal diagnosis: Acute exacerbation of diastolic congestive heart failure This is a 79-year-old female, familiar to my service, I have seen this patient before for ascites, congestive heart failure, liver cirrhosis, mental status changes related to hyperammonemia, related to underlying nonalcoholic liver cirrhosis. Patient is also known to have history of diabetes, hypertension, seen few weeks ago for falls and weakness, and at the time she had significant ascites and significantly elevated ammonia level, underwent large-volume paracentesis, developed hypotension, treated mostly with volume replacement, and she went on to develop fluid overload and diastolic congestive heart failure. Patient also had history of paroxysmal atrial fibrillation. Patient was eventua lly discharged to [facility] [place] [facility], and apparently over the last few days the patient has been generally weak, complaining of shortness of breath, sent back to [facility], and her chest x-ray is showing bilateral infiltrates. It is not clear whether the findings are findings of pneumonia or findings of diastolic congestive heart failure. Patient was placed on antibiotics empirically, her covid 19 screening was negative, however it is not entirely ruled out. During my evaluation, patient was noted to be on room air, O2 saturation is 92% on room air. She was noted to be in no form of distress. And she was already started empirically on antibiotics by the admitting phys oumou. Patient was also placed on heparin for paroxysmal atrial fibrillation. On physical examination, patient was noted to have significant enlargement of her abdominal girth, and I recommended ultrasound of the abdomen patient may require repeat paracentesis. In the meantime I recommended that we continue antibiotics, consider a trial of diuretics. And I have ordered a serum pro calcitonin, and I have noticed that her BNP level is significantly elevated. Her pro calcitonin is not suggestive of underlying bacterial pneumonia. It is minimally elevated. Patient is not the greatest historian. Could not tell me exactly why she was sent to the hospital. On 07/31/2019 patient seen in follow-up on selective care unit, is lethargic, but no acute distress, she is on 4 L of oxygen the pulse ox 100%, afebrile, hemodynamically stable. We requested to have interventional radiology do a par acentesis on her, and ascites fluid will be sent for cultures, cell count with differential. She is on empiric antibiotics in the form of cefepime and vancomycin. he was given a dose of IV Lasix and she is maintained on oral Lasix of 40 mg twice daily. Blood culture has been negative. Today's labs have been reviewed showing white blood cell count of 11.4, hemoglobin of 9.2, electrolytes were within normal limits, profile relatively stable with BUN of 81 creatinine is 2.08. She is on heparin infusion for history of atrial fibrillation which is currently on hold for paracentesis. Lung sounds are diminished at the bases, abdomen significantly distended suspect large amount of ascites On 08/01/2019 patient seen in follow-up on selective care unit, she is status post paracentesis with removal of 2.5 liters of ascitic fluid. Ascites fluid cultures are pending at this time, cell count showed LVH of 65, glucose of 108, fluid Alice nuclear WBCs were 10, and fluid mononuclear WBCs were 90. More consistent with a picture of CHF, liver cirrhosis, and not infection. Patient remains on combination of antibiotics of cefepime and vancomycin. She is more awake and alert on today's exam. She is going for brain MRI today she was seen by neurology in consultation for episode of altered mental status, with alteration in her speech and confusion. Brain CT was obtained yesterday showing no acute intracranial process, mild to moderate diffuse cerebral atrophy and chronic small vessel ischemic changes. Signs are stable, no worsening dyspnea, she is on 4 L of oxygen the pulse ox of 94-100%. She's been afebrile. Today's chest x-ray reviewed showing new multifocal patchy opacities likely related to mild pulmonary vascular congestion and possibility of pneumonia is not excluded. The patient is seen today 08/02/2019 in follow-up on the selective care unit. She is currently resting comfortably in bed. Awake and alert in no acute distress. He is maintaining O2 saturations in the 90s on 3 L/m per nasal cannula. She's been afebrile. Hemodynamically stable. Blood culture reveals no growth. Paracentesis fluid at this preliminary no growth. White count 13.6. Hemoglobin 8.6. Platelet count 90,000. Sodium 137. Potassium 4.6. Bicarb 20. Creatinine 2.39. She is continued on cefepime. Cardizem drip at 5 mg per hour. IV Lasix 40 mg every 12 hours. No accurate I&O. Patient is incontinent. Weight 94 kg. MRI of the brain revealed no acute infarct, midline shift or mass effect. EEG is consistent with generalized diffuse cerebral dysfunction most often seen in encephalopathic states. Objective - Vital Signs Vital signs: Vital Signs Temp 97.5 F L 08/02/19 10:43 Pulse 74 08/02/19 10:43 Resp 20 08/02/19 10:43 BP 100/42 08/02/19 10:43 Pulse Ox 97 08/02/19 10:43 Intake & Output 08/01/19 08/02/19 08/02/19 18:59 06:59 18:59 Output Total 700 Balance -700 Weight 94 kg Output: Urine 700 Other: Voiding Method Bedpan Bedpan Diaper Diaper # Bowel Movements 1 - Exam GENERAL EXAM: pleasant, 79-year-old much more awake and today's exam white female, on 3 L of oxygen with pulse ox 97% comfortable in no apparent distress. HEAD: Normocephalic/atraumatic. EYES: Normal reaction of pupils, equal size. Conjunctiva pink, sclera white. NOSE: Clear with pink turbinates. THROAT: No erythema or exudates. NECK: No masses, no JVD, no thyroid enlargement, no adenopathy. CHEST: No chest wall deformity. Symmetrical expansion. LUNGS: Equal air entry with bilateral scattered rhonchi. CVS: Regular rate and rhythm, normal S1 and S2, no gallops, no murmurs, no rubs ABDOMEN: Soft, large distended. No hepatosplenomegaly, normal bowel sounds, no guarding or rigidity. EXTREMITIES: Cellulitis lower extremity, 1+ edema, 2+ pulses and upper and lower extremities. MUSCULOSKELETAL: Muscle strength and tone normal. SPINE: No scoliosis or deformity SKIN: No rashes CENTRAL NERVOUS SYSTEM: Alert and oriented -2. No focal deficits, tone is normal in all 4 extremities. PSYCHIATRIC: Alert and oriented -2. Appropriate affect. Intact judgment and insight. - Labs CBC & Chem 7: 08/02/19 10:00 08/02/19 10:00 Labs: Abnormal Lab Results - Last 24 Hours (Table) 08/01/19 08/01/19 08/01/19 Range/Units 06:38 16:33 20:10 WBC (3.8-10.6) k/uL RBC (3.80-5.40) m/uL Hgb (11.4-16.0) gm/dL Hct (34.0-46.0) % MCH (25.0-35.0) pg MCHC (31.0-37.0) g/dL RDW (11.5-15.5) % Plt Count (150-450) k/uL Carbon Dioxide (22-30) mmol/L BUN (7-17) mg/dL Creatinine (0.52-1.04) mg/dL Glucose (74-99) mg/dL POC Glucose (mg/dL) 210 H 239 H (75-99) mg/dL Calcium (8.4-10.2) mg/dL Vitamin B12 1611.0 H (200.0-944.0) pg/mL 08/02/19 08/02/19 08/02/19 Range/Units 05:59 10:00 10:00 WBC 13.6 H (3.8-10.6) k/uL RBC 3.49 L (3.80-5.40) m/uL Hgb 8.6 L (11.4-16.0) gm/dL Hct 29.5 L (34.0-46.0) % MCH 24.6 L (25.0-35.0) pg MCHC 29.1 L (31.0-37.0) g/dL RDW 17.4 H (11.5-15.5) % Plt Count 90 L (150-450) k/uL Carbon Dioxide 20 L (22-30) mmol/L BUN 77 H (7-17) mg/dL Creatinine 2.39 H (0.52-1.04) mg/dL Glucose 135 H (74-99) mg/dL POC Glucose (mg/dL) 208 H (75-99) mg/dL Calcium 8.3 L (8.4-10.2) mg/dL Vitamin B12 (200.0-944.0) pg/mL 08/02/19 Range/Units 11:12 WBC (3.8-10.6) k/uL RBC (3.80-5.40) m/uL Hgb (11.4-16.0) gm/dL Hct (34.0-46.0) % MCH (25.0-35.0) pg MCHC (31.0-37.0) g/dL RDW (11.5-15.5) % Plt Count (150-450) k/uL Carbon Dioxide (22-30) mmol/L BUN (7-17) mg/dL Creatinine (0.52-1.04) mg/dL Glucose (74-99) mg/dL POC Glucose (mg/dL) 140 H (75-99) mg/dL Calcium (8.4-10.2) mg/dL Vitamin B12 (200.0-944.0) pg/mL Microbiology - Last 24 Hours (Table) 07/29/19 19:10 Blood Culture - Preliminary Blood No Growth after 72 hours 07/31/19 14:07 Gram Stain - Preliminary Ascites Fluid Body Fluid Culture - Preliminary Assessment and Plan Assessment: Acute hypoxic respiratory failure secondary to an acute exacerbation of chronic diastolic congestive heart failure, doubt bacterial pneumonia. Pro calcitonin level is not significantly enlarged. However her BNP level is significantly high. Bilateral infiltrates, negative covid 19, but I don't believe is entirely ruled out. Acute on chronic renal failure Suspect ongoing ascites, doubt spontaneous bacterial peritonitis, physical examination of the abdomen is rather benign and abdomen is nontender. Suspect ongoing metabolic encephalopathy related mostly to her underlying nonalcoholic liver cirrhosis, doubt sepsis at this point. Again that is not entirely ruled out. Paroxysmal atrial fibrillation History of chronic liver disease and nonalcoholic cirrhosis of the liver History of recurrent ascites History of vancomycin-resistant enterococcal infection History of depression Obesity with body index of 32.3. History of recurrent urinary tract infections. Altered mental status, rule out possibility of acute ischemic infarct, brain CT showed no acute intracranial process, brain MRI is pending, EEGs pending. Neurology service is following Plan: The patient was seen and evaluated by Dr. Vizcaino. MRI of the brain and EEG reviewed Neurology is on the case Continue with cefepime Continue IV diuretics Repeat chest x-ray on 08/04/2019 Titrate down the FiO2 as tolerated We will continue to follow I, the cosigning physician, performed a history & physical examination of the patient. Lungs sounds with bilateral scattered rhonchi. Maintaining good O2 saturations in the 90s on 3 L/m per nasal cannula. I discussed the assessment and plan of care with my nurse practitioner, Yulisa Vicente. I attest to the above note as dictated by her.
[2019-08-02 15:26] LABS: Amorphous Sediment,Urine Rare /hpf; Appearance,Urine Turbid (Clear); Bilirubin,Urine Negative (Negative); Blood,Urine Large (Negative); Color,Urine Dark Brown; Glucose,Urine (UA) Negative (Negative); Hyaline Casts,Urine 30 /lpf (0-2); Ketones,Urine Negative (Negative); Leukocyte Esterase,Urine Moderate (Negative); Nitrite,Urine Negative (Negative); PH, Urine 5.5 (5.0-8.0); Protein,Urine 2+ (Negative); RBC,Urine >182 /hpf (0-5); Specific Gravity,Urine 1.018 (1.001-1.035); Squamous Epithelial Cell,Urine 2 /hpf (0-4); Urobilinogen,Urine <2.0 mg/dL (<2.0); WBC,Urine 64 /hpf (0-5)
[2019-08-02 16:29] LABS: Glucose,Whole Blood 201 mg/dL (75-99)
[2019-08-02] MEDS ORDERED: ALBUMIN HUMAN 25% 50 ML in EMPTY BAG 1 BAG IVPB SCH (17:30)
--- NOTE | 2019-08-02 17:31 | PN ---
PROGRESS NOTE DATE OF SERVICE: 08/02/2019 This 79-year-old woman is admitted with change in mental status, has got CHF also. The possibility of COVID-19 associated pneumonia is also suspected. The patient also had significant ascites which was tapped. The patient remains to be confused. Cultures are negative so far. WBC 13.6, hemoglobin is 8.6. Some leaking at the site of the ascitic tap is also noted. Creatinine is worsening 2.39 today. Sugars are monitored closely. The urine is slightly dark in the Recinos catheter. PAST MEDICAL HISTORY: Reviewed. REVIEW OF SYSTEMS: CARDIOVASCULAR: No angina or palpitations. RESPIRATORY: As mentioned earlier. GI: As mentioned earlier. : No dysuria. CENTRAL NERVOUS SYSTEM: No numbness or weakness. CURRENT MEDICATIONS: Reviewed and include: 1. Tylenol p.r.n. 2. [place] 5 mg q.6h. 3. Xanax 0.5 daily. 4. Eliquis 2.5 mg b.i.d. 5. Aspirin 81 mg. 6. Cefepime 2 g IV daily. 7. Vitamin D3. 8. Vitamin B12. 9. Cardizem drip previously. 10.Florinef 0.2 b.i.d. 11.Lasix 40 mg IV b.i.d. 13.Magnesium oxide. 14.Lopressor. 15.Narcan. 16.Nitrostat. 17.Zoloft. PHYSICAL EXAM: Patient is alert, oriented x3. Pulse is 74, blood pressure 140/82, respiration 20, temperature 97.4, pulse ox 97% on room air. HEENT: Conjunctivae normal. NECK: No JVD. CARDIOVASCULAR: S1, S2 muffled. RESPIRATION: Breath sounds diminished in the bases. A few scattered rhonchi and crackles. ABDOMEN: Soft, obese. Ascites present. Some leaking also noted on the right side as mentioned earlier. LEGS: There is bilateral leg edema. NERVOUS SYSTEM: Diffusely weak. Otherwise, ecchymoses around the face and periorbital area also present. The CT scan not show any obvious fractures. LABS: At this time shows WBC 13.2, hemoglobin is 8.6 and sodium 137, potassium 4.6. ASSESSMENT: 1. Shortness of breath, multifactorial, possible bilateral pneumonia possibly community-acquired, possibly Covid-19 associated pneumonia. 2. Congestive heart failure acute exacerbation with acute on chronic diastolic dysfunction ejection fraction 50% to 60% with suspected Covid-19 but however test is negative. 3. Change in mental status, metabolic encephalopathy, acute on chronic. 4. Hyperkalemia secondary to renal failure. 5. Acute renal failure with acute tubular necrosis. Baseline chronic kidney stage 3 possibly. 6. Elevated lactic acid possibly secondary sepsis, present on admission secondary to pneumonia. 7. Troponin 0.06 indeterminate. 8. Hypoalbuminemia. 9. Hyponatremia. 10.Change in mental status, as mentioned earlier. 11.Paroxysmal atrial fibrillation on Eliquis. 12.Generalized gait dysfunction. 13.Increased WBC. 14.Anemia, normocytic. 15.History of multiple falls recently. 16.History of congestive heart failure. 17.History of diabetes type 2. 18.Hypertension. 19.History of chronic liver disease and nonalcoholic cirrhosis of the liver with history of multiple abdominal paracentesis. 20.History of urinary tract infection. 21.History of recurrent ascites and paracentesis. 22.History of thrombocytopenia. 23.History of left breast cancer with lumpectomy. 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 25.History of depression. 26.History of cholecystectomy. 27.History of obesity with body mass index of 32.6. 28.FULL CODE. RECOMMENDATIONS AND DISCUSSION: I recommend to continue current medications, management and symptomatic treatment. White count is slightly elevated. The patient is on IV antibiotics. Infectious Disease following the patient closely. Creatinine has slightly worsened to 2.39. Recommend Nephrology evaluation. Continue to monitor. Otherwise, white count is 13.6, hemoglobin is 8.6. Continue the rest of medications. We will check a UA for the possibility of any hematuria or any infection. Once again, the prognosis guarded because of multiple complex medical issues. Further recommendations to follow. MMODL / IJN: [id number] / CHALO
[2019-08-02] MEDS: MIDODRINE 5 MG TAB PO SCH (18:09)
[2019-08-02] MEDS: ALBUMIN HUMAN 25% 50 ML in EMPTY BAG 1 BAG IVPB SCH ×7 (18:11→20:34)
[2019-08-02] MEDS: SODIUM CHLORIDE 0.9% 1,000 ML IV SCH ×2 (18:12→21:57)
--- NOTE | 2019-08-02 19:16 | PN ---
PROGRESS NOTE DATE OF SERVICE: 08/02/2019 REASON FOR FOLLOWUP: Possible pneumonia. INTERVAL HISTORY: The patient was noticed to have some changes in her mental status. She was noted to be slightly more weak and lethargic today. However, the patient is afebrile. The patient did respond to her name and open her eyes and try to mumble or communicate but hard to understand. Asked specifically for any headache, no response. No other changes reported. PHYSICAL EXAMINATION: Blood pressure 100/42 with a pulse of 74, temperature is 97.5. She is 97% on 3 L nasal cannula. General description is an elderly female lying in bed in no distress. Respiratory system: Unlabored breathing, decreased breath sounds in the base, no wheeze. Heart S1, S2. Regular rate and rhythm. Abdomen soft, no tenderness. LABS: Hemoglobin 8.8, white count of 8.3, BUN of 77, creatinine is 2.39. Peritoneal fluid culture so far negative. Blood culture negative. DIAGNOSTIC IMPRESSION AND PLAN: Patient admitted to the hospital with shortness of breath, multifactorial with abnormality on x-ray, could be fluid related. The patient did have evidence of fluid overload and ascites status post paracentesis. Fluid culture so far negative. Lethargic related to possible metabolic encephalopathy, clinically doubt or encephalitis in a patient with no fever or elevated white count. Continue empiric cefepime and monitor clinical course closely. MMODL / IJN: [id number] / MTDD
[2019-08-02 19:29] LABS: C Reactive Protein 49.8 mg/L (<10.0)
[2019-08-02 19:30] LABS: Glucose,Whole Blood 219 mg/dL (75-99)
--- NOTE | 2019-08-02 19:31 | CT ---
EXAMINATION TYPE: CT facial bones wo con DATE OF EXAM: 08/02/2019 COMPARISON: None HISTORY: FALL WITH FACIAL INJURY AND BRUISING CT DLP: 878.9 mGycm Automated exposure control for dose reduction was used. The orbital margins are intact. There is no evidence of a blowout fracture. There is some mild bilate ral mucosal thickening in the maxillary sinuses. There is bilateral patency of the ostiomeatal comple x. There is no evidence of retro-orbital mass. Maxilla is intact. The mandibular ring is intact. Neil ibular joints are intact. Zygomatic arches appear normal. Nasal bone is intact. The submandibular ryan ivary glands are symmetric. Parotid glands are symmetric. There is normal aeration of the temporal kehinde christa. IMPRESSION: No fracture seen. Minimal maxillary sinusitis.
[2019-08-02 20:49] LABS: Anisocytosis Slight; HCT 27.7 % (34.0-46.0); HGB 7.8 gm/dL (11.4-16.0); Hypochromasia Marked; MCH 24.1 pg (25.0-35.0); MCHC 28.2 g/dL (31.0-37.0); MCV 85.4 fL (80.0-100.0); Mean Platelet Volume 8.4; Poikilocytosis Slight; RBC 3.24 m/uL (3.80-5.40); RDW 17.7 % (11.5-15.5); WBC 12.8 k/uL (3.8-10.6)
[2019-08-02 20:56] LABS: Platelet Count 92 k/uL (150-450)
[2019-08-02 21:00] LABS: INR 2.2 (<1.2); Partial Thromboplastin Time 31.5 sec (22.0-30.0); Prothrombin Time 21.1 sec (9.0-12.0)
[2019-08-02] MEDS: GABAPENTIN 100 MG CAP PO SCH (21:56)
[2019-08-02 22:53] LABS: % Iron Saturation 5.79 (12.00-45.00)
[2019-08-02 23:42] LABS: Glucose,Whole Blood 213 mg/dL (75-99)
[2019-08-03] MEDS ORDERED: DOPamine DRIP 800 MG in WATER FOR INJECTION 1 250ML.BAG IV SCH
[2019-08-03] MEDS ORDERED: ONDANSETRON 4 MG/2 ML VIAL IVP PRN (01:15)
[2019-08-03] MEDS ORDERED: DILTIAZEM DRIP BOLUS FROM BAG 1 MG SOLN IV ONE ×2 (02:53→20:31)
[2019-08-03 03:09] LABS: Anisocytosis Slight; Basophils % (A) 0 %; Eosinophils # (A) 0.1 k/uL (0-0.7); Eosinophils % (A) 1 %; HCT 27.1 % (34.0-46.0); Hypochromasia Marked; Lymphocytes # (A) 0.9 k/uL (1.0-4.8); Lymphocytes % (A) 7 %; MCH 25.3 pg (25.0-35.0); MCHC 29.6 g/dL (31.0-37.0); MCV 85.6 fL (80.0-100.0); Mean Platelet Volume 8.8; Monocytes # (A) 0.5 k/uL (0-1.0); Monocytes % (A) 4 %; Neutrophils # (A) 11.6 k/uL (1.3-7.7); Neutrophils % (A) 88 %; Poikilocytosis Slight; RBC 3.16 m/uL (3.80-5.40); RDW 17.6 % (11.5-15.5); WBC 13.2 k/uL (3.8-10.6)
[2019-08-03 03:17] LABS: Potassium 5.2 mmol/L (3.5-5.1)
[2019-08-03 03:32] LABS: Platelet Count 96 k/uL (150-450); Polychromasia Present; Stomatocytes Present; Target Cells Present
[2019-08-03 03:50] LABS: Appearance,Urine Turbid (Clear); Bacteria,Urine Moderate /hpf; Bilirubin,Urine Negative (Negative); Blood,Urine Large (Negative); Color,Urine Dark Brown; Glucose,Urine (UA) Negative (Negative); Ketones,Urine Negative (Negative); Leukocyte Esterase,Urine Moderate (Negative); Nitrite,Urine Negative (Negative); PH, Urine 5.5 (5.0-8.0); Protein,Urine 2+ (Negative); RBC,Urine >182 /hpf (0-5); Specific Gravity,Urine 1.023 (1.001-1.035); Urobilinogen,Urine <2.0 mg/dL (<2.0); WBC,Urine >182 /hpf (0-5)
[2019-08-03 08:39] LABS: ABG Base Excess -7.9 mmol/L; ABG HCO3 18 mmol/L (21-25); ABG Oxygen Saturation 89.4 % (94-97); ABG PCO2 32 mmHg (35-45); ABG PH 7.35 (7.35-7.45); ABG TCO2 19 mmol/L (19-24); Allen Test Performed? Yes
[2019-08-03] MEDS: LACTULOSE 20 GM/30 ML CUP PO SCH (09:13)
[2019-08-03] MEDS: CEFEPIME 2 GM in SODIUM CHLORIDE 0.9% 100 ML IVPB SCH (09:13)
[2019-08-03] MEDS: MIDODRINE 5 MG TAB PO SCH ×3 (09:13→17:30)
[2019-08-03] MEDS: MAGNESIUM OXIDE 400 MG TAB PO SCH (09:14)
[2019-08-03] MEDS: CYANOCOBALAMIN 500 MCG TAB PO SCH (09:14)
[2019-08-03] MEDS: ASPIRIN 81 MG PO SCH (09:14)
[2019-08-03] MEDS: PANTOPRAZOLE 40 MG TABLET PO SCH (09:14)
[2019-08-03] MEDS: FLUDROCORTISONE 0.1 MG TAB PO SCH ×2 (09:14→21:11)
[2019-08-03] MEDS: CHOLECALCIFEROL 1,000 UNIT TAB PO SCH (09:14)
[2019-08-03] MEDS: METOPROLOL TARTRATE 12.5 MG TAB PO SCH ×2 (09:14→21:12)
[2019-08-03] MEDS: NIACIN TR 500 MG CAPLET PO SCH (09:15)
[2019-08-03] MEDS: methylPREDNISolone SOD SUCCI 125 MG/2 ML VIAL IV SCH ×3 (09:17→17:30)
[2019-08-03] MEDS: NOREPINEPHRINE 4 MG in SODIUM CHLORIDE 0.9% 250 ML IV SCH (10:00)
--- NOTE | 2019-08-03 10:11 | XR ---
EXAMINATION TYPE: XR chest 1V portable DATE OF EXAM: 08/03/2019 HISTORY: chf. REFERENCE: Previous study dated 08/01/2019. FINDINGS: There is multichamber cardiac enlargement. There is worsening right basilar pneumonia. Ther e is patchy pneumonia on the left. There are bilateral effusions, greater on the left. IMPRESSION: 1. CARDIOMEGALY. 2. WORSENING BILATERAL PNEUMONIAS.
--- NOTE | 2019-08-03 10:38 | P.PN ---
Subjective Progress Note Date: 08/03/19 This is a 79-year-old female with past medical history significant for paroxysmal atrial fibrillation, on long-term anticoagulation, hypertension, hyperlipidemia, diabetes, nonalcoholic cirrhosis, coronary artery disease. Patient had an abnormal stress test in May of this year and at that time was recommended to undergo cardiac catheterization. Unfortunately she became medically unstable and therefore the cardiac catheterization had not been performed. She follows with Dr. Ugarte in the office. Echocardiogram with Doppler study performed in May of this year revealed a normal left ventricular systolic function. Patient presents to the hospital on this occasion with symptoms of 2-3 day duration of progressively worsening shortness of breath. Her EKG on admission showed atrial fibrillation with a rapid ventricular response, heart rate 148, subsequent EKG showed normal sinus rhythm. Patient remains in a normal sinus rhythm this morning. Subsequent chest x-ray was also performed, which revealed congestive heart failure. Her initial chest x-ray showed diffuse patchy infiltrates in the right lower lobe. Temperature 97.7, blood pressure 128/58 with a heart rate in the 70s, 99% on 2 L of oxygen. White blood cell count 12.9, hemoglobin 10.0, platelet count 153. Sodium 136, potassium 4.6, BUN 83, and creatinine 2.1 yesterday, 84 and 2.1 today. Coronavirus testing and negative, pro calcitonin 0.38, BNP level 13,800, troponin 0.069.At the time of her examination by Dr. Schmid, patient was not in any acute distress, still complaining of some mild shortness of breath however. 07/31/2019 Patient was seen and examined this morning, she does feel as though her breathin g is improving, her weight is down 3 kg today. Blood pressure 126/40 with a heart rate in the 70s, 95% on 3 L of oxygen. White blood cell count 11.4, hemoglobin 9.2, platelet count 132. Sodium 138, potassium 4.6, BUN 81, creatinine 2.0. Patient is currently on oral diuretics. We will give her one time dose of additional 40 mg IV Lasix today. Check her labs in the morning. 08/01/2019 Patient was seen and examined this morning by Dr. Schmid, continues to feel short of breath. Blood pressure 102/50 with a heart rate in the 60s, 94% on 4 L of oxygen. A repeat chest x-ray was performed this morning and continues to be pending. Patient again underwent successful paracentesis under ultrasound guidance this morning, for 2.5 L of straw-colored fluid. White blood cell count 11.4, hemoglobin 9.5, platelet count 77. Sodium 140, potassium 5.8, BUN 81 and creatinine 2.0. We will start the patient today on a twice a day dose of IV Lasix, hold the oral diuretics for now. Check lytes BUN and creatinine in the morning. 08/02/2019 Patient seen and examined this morning, overall states that she feels her breathing is mildly improved. Blood pressure 100/60 with a heart rate in the 7 0s, earlier this morning patient went into a rapid A. fib with a heart rate in the 150 range, we did initiate an IV Cardizem bolus with subsequent drip. White blood cell count 13.6, hematoma and 8.6, platelet count 90. Sodium 137, potassium 4.6, BUN 77 and creatinine 2.3. 08/03/2019 Patient seen this morning in ICU, breathing is worse this morning. Pulmonary has been in to see the patient ABGs have been drawn. Staff is attempting to reach the family to discuss CODE STATUS. Chest x-ray this morning showed cardiomegaly and worsening bilateral pneumonias. morning show white blood cell count of 13,000, hemoglobin 8, hematocrit 27.1, platelet count 96, potassium 5.2, BUN 83, creatinine 2.7, plasma lactic acid 2.1. Objective - Vital Signs Vital signs: Vital Signs Temp 97.8 F 08/03/19 09:00 Pulse 109 H 08/03/19 09:00 Resp 17 08/03/19 09:00 BP 92/49 08/03/19 09:00 Pulse Ox 92 L 08/03/19 09:00 Intake & Output 08/02/19 08/03/19 08/03/19 18:59 06:59 18:59 Intake Total 665 1170 260 Output Total 100 70 25 Balance 565 1100 235 Intake: IV 770 260 9 350 Cefepime 2 gm In Sodium 100 Chloride 0.9% 100 ml @ 200 mls/hr IVPB Q24H ANUPAM Rx#:[id number] Sodium Chloride 0.9% 1, 420 160 000 ml @ 70 mls/hr IV . [id number] ANUPAM Rx#:[id number] Intake, IV Titration 415 400 Amount Albumin Human 25% 50 ml 400 In Empty Bag 1 bag @ 200 mls/hr IVPB Q15M ANUPAM Rx#: [id number] Diltiazem 125 mg In 15 Sodium Chloride 0.9% 100 ml @ 5 MG/HR 5 mls/hr IV .Q24H ANUPAM Rx#:[id number] Sodium Chloride 0.9% 1, 400 000 ml @ 50 mls/hr IV . Q20H ANUPAM Rx#:[id number] Oral 250 0 Output: Urine 100 70 25 Other: Voiding Method Indwelling Catheter Indwelling Catheter - Labs CBC & Chem 7: 08/03/19 02:53 08/03/19 02:53 Labs: Abnormal Lab Results - Last 24 Hours (Table) 08/02/19 08/02/19 08/02/19 Range/Units 11:12 15:00 16:27 WBC (3.8-10.6) k/uL RBC (3.80-5.40) m/uL Hgb (11.4-16.0) gm/dL Hct (34.0-46.0) % MCH (25.0-35.0) pg MCHC (31.0-37.0) g/dL RDW (11.5-15.5) % Plt Count (150-450) k/uL Neutrophils # (1.3-7.7) k/uL Lymphocytes # (1.0-4.8) k/uL PT (9.0-12.0) sec INR (<1.2) APTT (22.0-30.0) sec D-Dimer (<0.60) mg/L FEU ABG pCO2 (35-45) mmHg ABG pO2 (83-108) mmHg ABG HCO3 (21-25) mmol/L ABG O2 Saturation (94-97) % Potassium (3.5-5.1) mmol/L Carbon Dioxide (22-30) mmol/L BUN (7-17) mg/dL Creatinine (0.52-1.04) mg/dL Glucose (74-99) mg/dL POC Glucose (mg/dL) 140 H 201 H (75-99) mg/dL Plasma Lactic Acid Magnus (0.7-2.0) mmol/L Iron (50-170) ug/dL % Saturation (12.00-45.00) C-Reactive Protein (<10.0) mg/L Urine Appearance Turbid H (Clear) Urine Protein 2+ H (Negative) Urine Blood Large H (Negative) Ur Leukocyte Esterase Moderate H (Negative) Urine RBC >182 H (0-5) /hpf Urine WBC 64 H (0-5) /hpf Urine WBC Clumps (None) /hpf Amorphous Sediment Rare H (None) /hpf Urine Bacteria (None) /hpf Hyaline Casts 30 H (0-2) /lpf 08/02/19 08/02/19 08/02/19 Range/Units 19:03 19:03 19:03 WBC (3.8-10.6) k/uL RBC (3.80-5.40) m/uL Hgb (11.4-16.0) gm/dL Hct (34.0-46.0) % MCH (25.0-35.0) pg MCHC (31.0-37.0) g/dL RDW (11.5-15.5) % Plt Count (150-450) k/uL Neutrophils # (1.3-7.7) k/uL Lymphocytes # (1.0-4.8) k/uL PT (9.0-12.0) sec INR (<1.2) APTT (22.0-30.0) sec D-Dimer 6.80 H (<0.60) mg/L FEU ABG pCO2 (35-45) mmHg ABG pO2 (83-108) mmHg ABG HCO3 (21-25) mmol/L ABG O2 Saturation (94-97) % Potassium (3.5-5.1) mmol/L Carbon Dioxide (22-30) mmol/L BUN (7-17) mg/dL Creatinine (0.52-1.04) mg/dL Glucose (74-99) mg/dL POC Glucose (mg/dL) (75-99) mg/dL Plasma Lactic Acid Magnus 2.4 H* (0.7-2.0) mmol/L Iron 15 L (50-170) ug/dL % Saturation 5.79 L (12.00-45.00) C-Reactive Protein 49.8 H (<10.0) mg/L Urine Appearance (Clear) Urine Protein (Negative) Urine Blood (Negative) Ur Leukocyte Esterase (Negative) Urine RBC (0-5) /hpf Urine WBC (0-5) /hpf Urine WBC Clumps (None) /hpf Amorphous Sediment (None) /hpf Urine Bacteria (None) /hpf Hyaline Casts (0-2) /lpf 08/02/19 08/02/19 08/02/19 Range/Units 19:03 19:03 19:28 WBC 12.8 H (3.8-10.6) k/uL RBC 3.24 L (3.80-5.40) m/uL Hgb 7.8 L (11.4-16.0) gm/dL Hct 27.7 L (34.0-46.0) % MCH 24.1 L (25.0-35.0) pg MCHC 28.2 L (31.0-37.0) g/dL RDW 17.7 H (11.5-15.5) % Plt Count 92 L (150-450) k/uL Neutrophils # (1.3-7.7) k/uL Lymphocytes # (1.0-4.8) k/uL PT 21.1 H (9.0-12.0) sec INR 2.2 H (<1.2) APTT 31.5 H (22.0-30.0) sec D-Dimer (<0.60) mg/L FEU ABG pCO2 (35-45) mmHg ABG pO2 (83-108) mmHg ABG HCO3 (21-25) mmol/L ABG O2 Saturation (94-97) % Potassium (3.5-5.1) mmol/L Carbon Dioxide (22-30) mmol/L BUN (7-17) mg/dL Creatinine (0.52-1.04) mg/dL Glucose (74-99) mg/dL POC Glucose (mg/dL) 219 H (75-99) mg/dL Plasma Lactic Acid Magnus (0.7-2.0) mmol/L Iron (50-170) ug/dL % Saturation (12.00-45.00) C-Reactive Protein (<10.0) mg/L Urine Appearance (Clear) Urine Protein (Negative) Urine Blood (Negative) Ur Leukocyte Esterase (Negative) Urine RBC (0-5) /hpf Urine WBC (0-5) /hpf Urine WBC Clumps (None) /hpf Amorphous Sediment (None) /hpf Urine Bacteria (None) /hpf Hyaline Casts (0-2) /lpf 08/02/19 08/02/19 08/03/19 Range/Units 22:48 23:41 02:53 WBC (3.8-10.6) k/uL RBC (3.80-5.40) m/uL Hgb (11.4-16.0) gm/dL Hct (34.0-46.0) % MCH (25.0-35.0) pg MCHC (31.0-37.0) g/dL RDW (11.5-15.5) % Plt Count (150-450) k/uL Neutrophils # (1.3-7.7) k/uL Lymphocytes # (1.0-4.8) k/uL PT (9.0-12.0) sec INR (<1.2) APTT (22.0-30.0) sec D-Dimer (<0.60) mg/L FEU ABG pCO2 (35-45) mmHg ABG pO2 (83-108) mmHg ABG HCO3 (21-25) mmol/L ABG O2 Saturation (94-97) % Potassium 5.2 H (3.5-5.1) mmol/L Carbon Dioxide 18 L (22-30) mmol/L BUN 83 H (7-17) mg/dL Creatinine 2.70 H (0.52-1.04) mg/dL Glucose 211 H (74-99) mg/dL POC Glucose (mg/dL) 213 H (75-99) mg/dL Plasma Lactic Acid Magnus 2.3 H* (0.7-2.0) mmol/L Iron (50-170) ug/dL % Saturation (12.00-45.00) C-Reactive Protein (<10.0) mg/L Urine Appearance (Clear) Urine Protein (Negative) Urine Blood (Negative) Ur Leukocyte Esterase (Negative) Urine RBC (0-5) /hpf Urine WBC (0-5) /hpf Urine WBC Clumps (None) /hpf Amorphous Sediment (None) /hpf Urine Bacteria (None) /hpf Hyaline Casts (0-2) /lpf 08/03/19 08/03/19 08/03/19 Range/Units 02:53 02:53 03:15 WBC 13.2 H (3.8-10.6) k/uL RBC 3.16 L (3.80-5.40) m/uL Hgb 8.0 L (11.4-16.0) gm/dL Hct 27.1 L (34.0-46.0) % MCH (25.0-35.0) pg MCHC 29.6 L (31.0-37.0) g/dL RDW 17.6 H (11.5-15.5) % Plt Count 96 L (150-450) k/uL Neutrophils # 11.6 H (1.3-7.7) k/uL Lymphocytes # 0.9 L (1.0-4.8) k/uL PT (9.0-12.0) sec INR (<1.2) APTT (22.0-30.0) sec D-Dimer (<0.60) mg/L FEU ABG pCO2 (35-45) mmHg ABG pO2 (83-108) mmHg ABG HCO3 (21-25) mmol/L ABG O2 Saturation (94-97) % Potassium (3.5-5.1) mmol/L Carbon Dioxide (22-30) mmol/L BUN (7-17) mg/dL Creatinine (0.52-1.04) mg/dL Glucose (74-99) mg/dL POC Glucose (mg/dL) (75-99) mg/dL Plasma Lactic Acid Magnus 2.2 H* (0.7-2.0) mmol/L Iron (50-170) ug/dL % Saturation (12.00-45.00) C-Reactive Protein (<10.0) mg/L Urine Appearance Turbid H (Clear) Urine Protein 2+ H (Negative) Urine Blood Large H (Negative) Ur Leukocyte Esterase Moderate H (Negative) Urine RBC >182 H (0-5) /hpf Urine WBC >182 H (0-5) /hpf Urine WBC Clumps Many H (None) /hpf Amorphous Sediment (None) /hpf Urine Bacteria Moderate H (None) /hpf Hyaline Casts (0-2) /lpf 08/03/19 08/03/19 Range/Units 06:56 08:27 WBC (3.8-10.6) k/uL RBC (3.80-5.40) m/uL Hgb (11.4-16.0) gm/dL Hct (34.0-46.0) % MCH (25.0-35.0) pg MCHC (31.0-37.0) g/dL RDW (11.5-15.5) % Plt Count (150-450) k/uL Neutrophils # (1.3-7.7) k/uL Lymphocytes # (1.0-4.8) k/uL PT (9.0-12.0) sec INR (<1.2) APTT (22.0-30.0) sec D-Dimer (<0.60) mg/L FEU ABG pCO2 32 L (35-45) mmHg ABG pO2 58 L* (83-108) mmHg ABG HCO3 18 L (21-25) mmol/L ABG O2 Saturation 89.4 L (94-97) % Potassium (3.5-5.1) mmol/L Carbon Dioxide (22-30) mmol/L BUN (7-17) mg/dL Creatinine (0.52-1.04) mg/dL Glucose (74-99) mg/dL POC Glucose (mg/dL) (75-99) mg/dL Plasma Lactic Acid Magnus 2.1 H* (0.7-2.0) mmol/L Iron (50-170) ug/dL % Saturation (12.00-45.00) C-Reactive Protein (<10.0) mg/L Urine Appearance (Clear) Urine Protein (Negative) Urine Blood (Negative) Ur Leukocyte Esterase (Negative) Urine RBC (0-5) /hpf Urine WBC (0-5) /hpf Urine WBC Clumps (None) /hpf Amorphous Sediment (None) /hpf Urine Bacteria (None) /hpf Hyaline Casts (0-2) /lpf Microbiology - Last 24 Hours (Table) 08/02/19 15:00 Urine Culture - Preliminary Urine,Clean Catch 07/31/19 12:55 Anaerobic Culture - Preliminary Paracentesis Fluid 07/31/19 14:07 Gram Stain - Preliminary Ascites Fluid Body Fluid Culture - Preliminary 07/29/19 19:10 Blood Culture - Preliminary Blood No Growth after 96 hours Assessment and Plan Assessment: #1 Shortness of breath, worsening, secondary to diastolic congestive heart fa ilure, acute on chronic, pneumonia. Bilateral infiltrates, negative covid 19, although this cannot be completely ruled out. Chest x-ray today showed worsening infiltrate #2 Acute on chronic renal failure #3 Ongoing ascites #4 Metabolic encephalopathy related mostly to her underlying nonalcoholic liver cirrhosis, possible sepsis #5 Paroxysmal atrial fibrillation #6 History of chronic liver disease and nonalcoholic cirrhosis of the liver #7History of recurrent ascites #8 History of vancomycin-resistant enterococcal infection #9 History of depression #10Obesity with body index of 32.3. #11 History of recurrent urinary tract infections. #12 diabetes #13 hypertension #14 hyperlipidemia #15 abnormal stress test in May of this year, suggesting possible underlying coronary artery disease Plan: From cardiology's perspective, medications were reviewed and we will continue the same. We will continue to follow the patient and provide further recomm endations accordingly. [facility] [employer] note has been reviewed, I agree with a documented findings and plan of care. Patient was seen and examined.
[2019-08-03] MEDS ORDERED: FUROSEMIDE 10 MG/ML 10 ML VIAL IV STA (11:47)
--- NOTE | 2019-08-03 11:54 | P.PN ---
Subjective Progress Note Date: 08/03/19 Principal diagnosis: Acute exacerbation of diastolic congestive heart failure This is a 79-year-old female, familiar to my service, I have seen this patient before for ascites, congestive heart failure, liver cirrhosis, mental status changes related to hyperammonemia, related to underlying nonalcoholic liver cirrhosis. Patient is also known to have history of diabetes, hypertension, seen few weeks ago for falls and weakness, and at the time she had significant ascites and significantly elevated ammonia level, underwent large-volume paracentesis, developed hypotension, treated mostly with volume replacement, and she went on to develop fluid overload and diastolic congestive heart failure. Patient also had history of paroxysmal atrial fibrillation. Patient was eventua lly discharged to [facility], and apparently over the last few days the patient has been generally weak, complaining of shortness of breath, sent back to [facility], and her chest x-ray is showing bilateral infiltrates. It is not clear whether the findings are findings of pneumonia or findings of diastolic congestive heart failure. Patient was placed on antibiotics empirically, her covid 19 screening was negative, however it is not entirely ruled out. During my evaluation, patient was noted to be on room air, O2 saturation is 92% on room air. She was noted to be in no form of distress. And she was already started empirically on antibiotics by the admitting phys oumou. Patient was also placed on heparin for paroxysmal atrial fibrillation. On physical examination, patient was noted to have significant enlargement of her abdominal girth, and I recommended ultrasound of the abdomen patient may require repeat paracentesis. In the meantime I recommended that we continue antibiotics, consider a trial of diuretics. And I have ordered a serum pro calcitonin, and I have noticed that her BNP level is significantly elevated. Her pro calcitonin is not suggestive of underlying bacterial pneumonia. It is minimally elevated. Patient is not the greatest historian. Could not tell me exactly why she was sent to the hospital. On 07/31/2019 patient seen in follow-up on selective care unit, is lethargic, but no acute distress, she is on 4 L of oxygen the pulse ox 100%, afebrile, hemodynamically stable. We requested to have interventional radiology do a par acentesis on her, and ascites fluid will be sent for cultures, cell count with differential. She is on empiric antibiotics in the form of cefepime and vancomycin. he was given a dose of IV Lasix and she is maintained on oral Lasix of 40 mg twice daily. Blood culture has been negative. Today's labs have been reviewed showing white blood cell count of 11.4, hemoglobin of 9.2, electrolytes were within normal limits, profile relatively stable with BUN of 81 creatinine is 2.08. She is on heparin infusion for history of atrial fibrillation which is currently on hold for paracentesis. Lung sounds are diminished at the bases, abdomen significantly distended suspect large amount of ascites On 08/01/2019 patient seen in follow-up on selective care unit, she is status post paracentesis with removal of 2.5 liters of ascitic fluid. Ascites fluid cultures are pending at this time, cell count showed LVH of 65, glucose of 108, fluid Alice nuclear WBCs were 10, and fluid mononuclear WBCs were 90. More consistent with a picture of CHF, liver cirrhosis, and not infection. Patient remains on combination of antibiotics of cefepime and vancomycin. She is more awake and alert on today's exam. She is going for brain MRI today she was seen by neurology in consultation for episode of altered mental status, with alteration in her speech and confusion. Brain CT was obtained yesterday showing no acute intracranial process, mild to moderate diffuse cerebral atrophy and chronic small vessel ischemic changes. Signs are stable, no worsening dyspnea, she is on 4 L of oxygen the pulse ox of 94-100%. She's been afebrile. Today's chest x-ray reviewed showing new multifocal patchy opacities likely related to mild pulmonary vascular congestion and possibility of pneumonia is not excluded. The patient is seen today 08/02/2019 in follow-up on the selective care unit. She is currently resting comfortably in bed. Awake and alert in no acute distress. He is maintaining O2 saturations in the 90s on 3 L/m per nasal cannula. She's been afebrile. Hemodynamically stable. Blood culture reveals no growth. Paracentesis fluid at this preliminary no growth. White count 13.6. Hemoglobin 8.6. Platelet count 90,000. Sodium 137. Potassium 4.6. Bicarb 20. Creatinine 2.39. She is continued on cefepime. Cardizem drip at 5 mg per hour. IV Lasix 40 mg every 12 hours. No accurate I&O. Patient is incontinent. Weight 94 kg. MRI of the brain revealed no acute infarct, midline shift or mass effect. EEG is consistent with generalized diffuse cerebral dysfunction most often seen in encephalopathic states. Reevaluated today on 08/03/19, patient was transferred last night to the intensive care unit, she had issues related to low blood pressure, worsening shortness of breath, and worsening bilateral infiltrates/pulmonary edema. Patient is now on high flow nasal cannula, is also on dopamine which was started by cardiology for low blood pressure, and I have recommended switching the dopamine to norepinephrine. Patient is confused, she seems to be in moderate respiratory distress, and I was about to recommended intubation and mechanical ventilation, however family was approached by the nurse, and CODE STATUS was changed to DO NOT RESUSCITATE. Patient was given fluid boluses yesterday for low blood pressure, and now clearly her chest x-ray is showing worsening pulmonary edema. I will recommend diuretics, I will recommend norepinephrine, and may even consider placement of a central line in this patient, depending on her requirement for norepinephrine and depending on that low blood pressure. In the meantime I have recommended bronchodilators and steroids. Patient also had atrial fibrillation with RVR, and she is now on Cardizem drip along with dopamine. ABG on high flow nasal cannula showed a pO2 of 58 pCO2 of 32 pH of 7.35. Her lactic acid is 2.1. Objective - Vital Signs Vital signs: Vital Signs Temp 97.8 F 08/03/19 09:00 Pulse 109 H 08/03/19 09:00 Resp 17 08/03/19 09:00 BP 92/49 08/03/19 09:00 Pulse Ox 92 L 08/03/19 09:00 Intake & Output 08/02/19 08/03/19 08/03/19 18:59 06:59 18:59 Intake Total 665 1170 260 Output Total 100 70 25 Balance 565 1100 235 Intake: IV 770 260 9 350 Cefepime 2 gm In Sodium 100 Chloride 0.9% 100 ml @ 200 mls/hr IVPB Q24H [facility] Rx#:[id number] Sodium Chloride 0.9% 1, 420 160 000 ml @ 70 mls/hr IV . [id number] [facility] Rx#:[id number] Intake, IV Titration 415 400 Amount Albumin Human 25% 50 ml 400 In Empty Bag 1 bag @ 200 mls/hr IVPB Q15M [facility] Rx#: [id number] Diltiazem 125 mg In 15 Sodium Chloride 0.9% 100 ml @ 5 MG/HR 5 mls/hr IV .Q24H [facility] Rx#:[id number] Sodium Chloride 0.9% 1, 400 000 ml @ 50 mls/hr IV . Q20H [facility] Rx#:[id number] Oral 250 0 Output: Urine 100 70 25 Other: Voiding Method Indwelling Catheter Indwelling Catheter - Exam GENERAL EXAM: pleasant, 79-year-old white female, confused, in moderate respiratory distress. HEENT: PERRLA, EOMI, no neck masses, positive JVD. infraorbital ecchymosis is noted from recent fall. And facial trauma from fall CHEST: No chest wall deformity. Symmetrical expansion. LUNGS: Scattered crackles and rhonchi and wheezes bilaterally. CVS: Regular irregular rhythm, no S3 gallop. 2/6 systolic murmur thought the precordium. ABDOMEN: Soft, large distended. No hepatosplenomegaly, normal bowel sounds, no guarding or rigidity. Positive abdominal ascites. EXTREMITIES: Cellulitis lower extremity, 1+ edema, 2+ pulses and upper and lower extremities. MUSCULOSKELETAL: Muscle strength and tone normal. Skin: Facial ecchymosis is noted. CENTRAL NERVOUS SYSTEM: Confused, however able to follow simple instructions. - Labs CBC & Chem 7: 08/03/19 02:53 08/03/19 02:53 Labs: Abnormal Lab Results - Last 24 Hours (Table) 08/02/19 08/02/19 08/02/19 Range/Units 15:00 16:27 19:03 WBC (3.8-10.6) k/uL RBC (3.80-5.40) m/uL Hgb (11.4-16.0) gm/dL Hct (34.0-46.0) % MCH (25.0-35.0) pg MCHC (31.0-37.0) g/dL RDW (11.5-15.5) % Plt Count (150-450) k/uL Neutrophils # (1.3-7.7) k/uL Lymphocytes # (1.0-4.8) k/uL PT (9.0-12.0) sec INR (<1.2) APTT (22.0-30.0) sec D-Dimer (<0.60) mg/L FEU ABG pCO2 (35-45) mmHg ABG pO2 (83-108) mmHg ABG HCO3 (21-25) mmol/L ABG O2 Saturation (94-97) % Potassium (3.5-5.1) mmol/L Carbon Dioxide (22-30) mmol/L BUN (7-17) mg/dL Creatinine (0.52-1.04) mg/dL Glucose (74-99) mg/dL POC Glucose (mg/dL) 201 H (75-99) mg/dL Plasma Lactic Acid Magnus 2.4 H* (0.7-2.0) mmol/L Iron (50-170) ug/dL % Saturation (12.00-45.00) C-Reactive Protein (<10.0) mg/L Urine Appearance Turbid H (Clear) Urine Protein 2+ H (Negative) Urine Blood Large H (Negative) Ur Leukocyte Esterase Moderate H (Negative) Urine RBC >182 H (0-5) /hpf Urine WBC 64 H (0-5) /hpf Urine WBC Clumps (None) /hpf Amorphous Sediment Rare H (None) /hpf Urine Bacteria (None) /hpf Hyaline Casts 30 H (0-2) /lpf 08/02/19 08/02/19 08/02/19 Range/Units 19:03 19:03 19:03 WBC (3.8-10.6) k/uL RBC (3.80-5.40) m/uL Hgb (11.4-16.0) gm/dL Hct (34.0-46.0) % MCH (25.0-35.0) pg MCHC (31.0-37.0) g/dL RDW (11.5-15.5) % Plt Count (150-450) k/uL Neutrophils # (1.3-7.7) k/uL Lymphocytes # (1.0-4.8) k/uL PT 21.1 H (9.0-12.0) sec INR 2.2 H (<1.2) APTT 31.5 H (22.0-30.0) sec D-Dimer 6.80 H (<0.60) mg/L FEU ABG pCO2 (35-45) mmHg ABG pO2 (83-108) mmHg ABG HCO3 (21-25) mmol/L ABG O2 Saturation (94-97) % Potassium (3.5-5.1) mmol/L Carbon Dioxide (22-30) mmol/L BUN (7-17) mg/dL Creatinine (0.52-1.04) mg/dL Glucose (74-99) mg/dL POC Glucose (mg/dL) (75-99) mg/dL Plasma Lactic Acid Magnus (0.7-2.0) mmol/L Iron 15 L (50-170) ug/dL % Saturation 5.79 L (12.00-45.00) C-Reactive Protein 49.8 H (<10.0) mg/L Urine Appearance (Clear) Urine Protein (Negative) Urine Blood (Negative) Ur Leukocyte Esterase (Negative) Urine RBC (0-5) /hpf Urine WBC (0-5) /hpf Urine WBC Clumps (None) /hpf Amorphous Sediment (None) /hpf Urine Bacteria (None) /hpf Hyaline Casts (0-2) /lpf 08/02/19 08/02/19 08/02/19 Range/Units 19:03 19:28 22:48 WBC 12.8 H (3.8-10.6) k/uL RBC 3.24 L (3.80-5.40) m/uL Hgb 7.8 L (11.4-16.0) gm/dL Hct 27.7 L (34.0-46.0) % MCH 24.1 L (25.0-35.0) pg MCHC 28.2 L (31.0-37.0) g/dL RDW 17.7 H (11.5-15.5) % Plt Count 92 L (150-450) k/uL Neutrophils # (1.3-7.7) k/uL Lymphocytes # (1.0-4.8) k/uL PT (9.0-12.0) sec INR (<1.2) APTT (22.0-30.0) sec D-Dimer (<0.60) mg/L FEU ABG pCO2 (35-45) mmHg ABG pO2 (83-108) mmHg ABG HCO3 (21-25) mmol/L ABG O2 Saturation (94-97) % Potassium (3.5-5.1) mmol/L Carbon Dioxide (22-30) mmol/L BUN (7-17) mg/dL Creatinine (0.52-1.04) mg/dL Glucose (74-99) mg/dL POC Glucose (mg/dL) 219 H (75-99) mg/dL Plasma Lactic Acid Magnus 2.3 H* (0.7-2.0) mmol/L Iron (50-170) ug/dL % Saturation (12.00-45.00) C-Reactive Protein (<10.0) mg/L Urine Appearance (Clear) Urine Protein (Negative) Urine Blood (Negative) Ur Leukocyte Esterase (Negative) Urine RBC (0-5) /hpf Urine WBC (0-5) /hpf Urine WBC Clumps (None) /hpf Amorphous Sediment (None) /hpf Urine Bacteria (None) /hpf Hyaline Casts (0-2) /lpf 08/02/19 08/03/19 08/03/19 Range/Units 23:41 02:53 02:53 WBC 13.2 H (3.8-10.6) k/uL RBC 3.16 L (3.80-5.40) m/uL Hgb 8.0 L (11.4-16.0) gm/dL Hct 27.1 L (34.0-46.0) % MCH (25.0-35.0) pg MCHC 29.6 L (31.0-37.0) g/dL RDW 17.6 H (11.5-15.5) % Plt Count 96 L (150-450) k/uL Neutrophils # 11.6 H (1.3-7.7) k/uL Lymphocytes # 0.9 L (1.0-4.8) k/uL PT (9.0-12.0) sec INR (<1.2) APTT (22.0-30.0) sec D-Dimer (<0.60) mg/L FEU ABG pCO2 (35-45) mmHg ABG pO2 (83-108) mmHg ABG HCO3 (21-25) mmol/L ABG O2 Saturation (94-97) % Potassium 5.2 H (3.5-5.1) mmol/L Carbon Dioxide 18 L (22-30) mmol/L BUN 83 H (7-17) mg/dL Creatinine 2.70 H (0.52-1.04) mg/dL Glucose 211 H (74-99) mg/dL POC Glucose (mg/dL) 213 H (75-99) mg/dL Plasma Lactic Acid Magnus (0.7-2.0) mmol/L Iron (50-170) ug/dL % Saturation (12.00-45.00) C-Reactive Protein (<10.0) mg/L Urine Appearance (Clear) Urine Protein (Negative) Urine Blood (Negative) Ur Leukocyte Esterase (Negative) Urine RBC (0-5) /hpf Urine WBC (0-5) /hpf Urine WBC Clumps (None) /hpf Amorphous Sediment (None) /hpf Urine Bacteria (None) /hpf Hyaline Casts (0-2) /lpf 08/03/19 08/03/19 08/03/19 Range/Units 02:53 03:15 06:56 WBC (3.8-10.6) k/uL RBC (3.80-5.40) m/uL Hgb (11.4-16.0) gm/dL Hct (34.0-46.0) % MCH (25.0-35.0) pg MCHC (31.0-37.0) g/dL RDW (11.5-15.5) % Plt Count (150-450) k/uL Neutrophils # (1.3-7.7) k/uL Lymphocytes # (1.0-4.8) k/uL PT (9.0-12.0) sec INR (<1.2) APTT (22.0-30.0) sec D-Dimer (<0.60) mg/L FEU ABG pCO2 (35-45) mmHg ABG pO2 (83-108) mmHg ABG HCO3 (21-25) mmol/L ABG O2 Saturation (94-97) % Potassium (3.5-5.1) mmol/L Carbon Dioxide (22-30) mmol/L BUN (7-17) mg/dL Creatinine (0.52-1.04) mg/dL Glucose (74-99) mg/dL POC Glucose (mg/dL) (75-99) mg/dL Plasma Lactic Acid Magnus 2.2 H* 2.1 H* (0.7-2.0) mmol/L Iron (50-170) ug/dL % Saturation (12.00-45.00) C-Reactive Protein (<10.0) mg/L Urine Appearance Turbid H (Clear) Urine Protein 2+ H (Negative) Urine Blood Large H (Negative) Ur Leukocyte Esterase Moderate H (Negative) Urine RBC >182 H (0-5) /hpf Urine WBC >182 H (0-5) /hpf Urine WBC Clumps Many H (None) /hpf Amorphous Sediment (None) /hpf Urine Bacteria Moderate H (None) /hpf Hyaline Casts (0-2) /lpf 08/03/19 Range/Units 08:27 WBC (3.8-10.6) k/uL RBC (3.80-5.40) m/uL Hgb (11.4-16.0) gm/dL Hct (34.0-46.0) % MCH (25.0-35.0) pg MCHC (31.0-37.0) g/dL RDW (11.5-15.5) % Plt Count (150-450) k/uL Neutrophils # (1.3-7.7) k/uL Lymphocytes # (1.0-4.8) k/uL PT (9.0-12.0) sec INR (<1.2) APTT (22.0-30.0) sec D-Dimer (<0.60) mg/L FEU ABG pCO2 32 L (35-45) mmHg ABG pO2 58 L* (83-108) mmHg ABG HCO3 18 L (21-25) mmol/L ABG O2 Saturation 89.4 L (94-97) % Potassium (3.5-5.1) mmol/L Carbon Dioxide (22-30) mmol/L BUN (7-17) mg/dL Creatinine (0.52-1.04) mg/dL Glucose (74-99) mg/dL POC Glucose (mg/dL) (75-99) mg/dL Plasma Lactic Acid Magnus (0.7-2.0) mmol/L Iron (50-170) ug/dL % Saturation (12.00-45.00) C-Reactive Protein (<10.0) mg/L Urine Appearance (Clear) Urine Protein (Negative) Urine Blood (Negative) Ur Leukocyte Esterase (Negative) Urine RBC (0-5) /hpf Urine WBC (0-5) /hpf Urine WBC Clumps (None) /hpf Amorphous Sediment (None) /hpf Urine Bacteria (None) /hpf Hyaline Casts (0-2) /lpf Microbiology - Last 24 Hours (Table) 08/02/19 15:00 Urine Culture - Preliminary Urine,Clean Catch 07/31/19 12:55 Anaerobic Culture - Preliminary Paracentesis Fluid 07/31/19 14:07 Gram Stain - Preliminary Ascites Fluid Body Fluid Culture - Preliminary 07/29/19 19:10 Blood Culture - Preliminary Blood No Growth after 96 hours Assessment and Plan Assessment: Impression: Shortness of breath secondary to diastolic congestive heart failure, doubt bacterial pneumonia. Pro calcitonin level is not significantly enlarged. However her BNP level is significantly high. Patient will be given more diuretics today. Her chest x-ray worsened after she received fluid boluses for low blood pressure. Acute hypoxic respiratory failure secondary to above/diastolic congestive heart failure and pulmonary edema, underlying pneumonia or underlying Covid 19 pneumonitis is not entirely ruled out but felt to be less likely. Bilateral infiltrates, negative covid 19, but I don't believe is entirely ruled out. Acute on chronic renal failure Ongoing ascites, status post paracentesis and 2.5 L of fluid were drained. Acute metabolic encephalopathy secondary to hypoxemia and acute hypoxic respiratory failure. Paroxysmal atrial fibrillation History of chronic liver disease and nonalcoholic cirrhosis of the liver History of recurrent ascites History of vancomycin-resistant enterococcal infection History of depression Obesity with body index of 32.3. History of recurrent urinary tract infections. Recommendation: Continue to monitor the patient in the ICU. Give the patient diuretics. Cut down her IV fluid to KVO. Use norepinephrine for low blood pressure. And consider a central line placement today. Consider intubation however family clearly requested DO NOT RESUSCITATE CODE STATUS. Bronchodilators. IV Solu-Medrol. Empiric antibiotics. Prognosis is extremely poor and guarded. We'll continue to follow. Critical care time is 35 minutes. Time with Patient: Greater than 30
[2019-08-03] MEDS: SERTRALINE 50 MG TAB PO SCH (11:59)
[2019-08-03] MEDS ORDERED: IPRATROPIUM-ALBUTEROL 3 ML NEB INHALATION SCH (12:00)
[2019-08-03] MEDS: DILTIAZEM 125 MG in SODIUM CHLORIDE 0.9% 100 ML IV SCH ×2 (12:01→21:10)
[2019-08-03] MEDS: SODIUM CHLORIDE 0.9% 1,000 ML IV SCH (12:02)
--- NOTE | 2019-08-03 12:28 | P.NPCON ---
History of Present Illness - Reason for Consult Consult date: 08/03/19 acute renal failure - Chief Complaint shortness of breath - History of Present Illness admitted from [facility] with shortness of breath on 07/29/2019.nephrology was consulted for acute kidney injury.baseline creatinine is 1.0-1.1 MG per DL. On admission creatinine was 2.1 MG per DL was stable until yesterday, developed oliguria and creatinine started rising. Creatinine today is 2.7 MG per DL.she has history of chronic liver disease and had paracentesis done on 08/01/2019 and 2.5 L were removed. She was on broad- spectrum antibiotics for pneumonia developed hypotension and elevated lactic acid transferred to ICU currently on levofloxacin. Urine output still marginal. No NSAID use or recent contrast studies. She was on Cardizem drip for A. fib. Review of Systems ROS unobtainable: due to mental status Past Medical History Past Medical History: Atrial Fibrillation, Cancer, Heart Failure, Diabetes Mellitus, Hypertension, Liver Disease Additional Past Medical History / Comment(s): Pt recently admitted to [facility] on 06/11/19 with possible NSTEMI, paroxysmal Afib/RVR, hypovolemia 2ndary to large volume paracentesis, acute UTI, acute renal failure. Other hx: Nonalcoholic cirrhosis-thought d/t rx, recurrent ascities/paracentesis, thrombocytopenia, portal htn, L breast cancer with lumpectomy, NIDDM type II, neuropathy bilateral legs/feet, History of Any Multi-Drug Resistant Organisms: VRE Date of last positivie culture/infection: 07/01/19 MDRO Source:: VRE URINE Past Surgical History: Breast Surgery, Cholecystectomy Additional Past Surgical History / Comment(s): L breast lumpectomy for cancer, right breast lump removal-benign, paracentesis-several, Past Anesthesia/Blood Transfusion Reactions: No Reported Reaction Past Psychological History: Depression Additional Psychological History / Comment(s): Pt resides with her spouse. She states she is receiving home care but cannot recall name of company. She has a walker/glucometer/scale and grab rail. Smoking Status: Never smoker Past Alcohol Use History: None Reported Past Drug Use History: None Reported - Past Family History Father Family Medical History: Cancer Additional Family Medical History / Comment(s): Colon cancer Brother(s) Family Medical History: Myocardial Infarction ([place]) Additional Family Medical History / Comment(s): One brother with stents, another brother from an [place] Mother Family Medical History: Neurologic Disorder Additional Family Medical History / Comment(s): Parkinsons Medications and Allergies Home Medications Medication Instructions Recorded Confirmed Type Cholecalciferol (Vitamin D3) 2,000 unit PO DAILY 02/08/19 07/29/19 History [Vitamin D3] Pioglitazone [Actos] 30 mg PO DAILY 02/08/19 07/29/19 History Sertraline [Zoloft] 50 mg PO DAILY 02/08/19 07/29/19 History Cyanocobalamin [Vitamin B-12] 1,000 mcg PO DAILY #60 tab 02/11/19 07/29/19 Rx Niacin 2,000 mg PO DAILY 06/10/19 07/29/19 History Acetaminophen Tab [Tylenol] 500 mg PO Q6HR PRN tab 06/20/19 07/29/19 Rx Aspirin 81 mg PO DAILY #30 chew 06/20/19 07/29/19 Rx Fludrocortisone [Florinef] 0.2 mg PO BID #120 tab 06/20/19 07/29/19 Rx Glimepiride [Amaryl] 2 mg PO BID #60 tab 06/20/19 07/29/19 Rx Lactulose [Cephulac] 10 gm PO DAILY #450 ml 06/20/19 07/29/19 Rx Magnesium Oxide [Mag-Ox] 400 mg PO DAILY #10 tab 06/20/19 07/29/19 Rx Nitroglycerin Sl Tabs [Nitrostat] 0.4 mg SUBLINGUAL Q5M PRN #30 tab 06/20/19 07/29/19 Rx Pantoprazole [Protonix] 40 mg PO AC-BRKFST #30 tablet.dr 06/20/19 07/29/19 Rx Furosemide [Lasix] 40 mg PO BID 07/01/19 07/29/19 History Spironolactone [Aldactone] 50 mg PO DAILY tab 07/02/19 07/29/19 Rx Gabapentin [Neurontin] 100 mg PO HS 07/29/19 07/29/19 History Metoprolol Tartrate 12.5 mg PO BID 07/29/19 07/29/19 History Sulfamethox-Tmp 200-40Mg/5Ml 20 ml PO Q12HR 07/29/19 07/29/19 History [Bactrim Suspension] Allergies Allergy/AdvReac Type Severity Reaction Status Date / Time No Known Allergies Allergy Verified 07/01/19 11:14 Physical Exam Vitals: Vital Signs Temp Pulse Pulse Resp BP BP BP 08/03/19 11:30 65 17 111/75 08/03/19 11:00 64 15 102/73 08/03/19 10:00 69 7 L 93/52 08/03/19 09:00 97.8 F 109 H 17 92/49 08/03/19 08:30 80 21 98/52 08/03/19 08:00 80 13 117/47 08/03/19 07:30 80 18 101/44 08/03/19 07:00 79 30 H 114/44 08/03/19 06:30 80 21 108/66 08/03/19 06:00 80 20 93/51 08/03/19 05:30 80 17 98/55 08/03/19 05:00 82 9 L 94/47 08/03/19 04:30 83 17 99/46 08/03/19 04:00 96.5 F L 90 68 6 L 92/52 08/03/19 03:30 86 10 L 99/64 08/03/19 03:00 114 H 16 112/63 08/03/19 02:30 130 H 16 122/54 08/03/19 02:00 123 H 15 108/69 08/03/19 01:30 126 H 17 08/03/19 01:00 138 H 12 104/52 08/03/19 00:45 95 19 104/50 08/03/19 00:30 86 18 104/48 08/03/19 00:15 67 17 82/63 08/03/19 00:00 96.8 F L 63 16 107/44 08/02/19 23:45 66 27 H 101/45 08/02/19 23:10 102/37 08/02/19 23:05 91/38 08/02/19 23:00 66/45 08/02/19 22:55 77/37 78/40 08/02/19 20:00 97.6 F 68 18 111/49 08/02/19 19:10 103/42 08/02/19 19:00 85/38 08/02/19 18:40 106/42 08/02/19 15:32 98.3 F 67 16 96/45 Pulse Ox 08/03/19 11:30 96 08/03/19 11:00 93 L 08/03/19 10:00 92 L 08/03/19 09:00 92 L 08/03/19 08:30 76 L 08/03/19 08:00 94 L 08/03/19 07:30 82 L 08/03/19 07:00 92 L 08/03/19 06:30 92 L 08/03/19 06:00 92 L 08/03/19 05:30 92 L 08/03/19 05:00 93 L 08/03/19 04:30 93 L 08/03/19 04:00 95 08/03/19 03:30 95 08/03/19 03:00 08/03/19 02:30 97 08/03/19 02:00 08/03/19 01:30 85 L 08/03/19 01:00 95 08/03/19 00:45 91 L 08/03/19 00:30 99 08/03/19 00:15 100 08/03/19 00:00 98 08/02/19 23:45 99 08/02/19 23:10 08/02/19 23:05 08/02/19 23:00 08/02/19 22:55 08/02/19 20:00 96 08/02/19 19:10 08/02/19 19:00 08/02/19 18:40 08/02/19 15:32 98 Intake and Output 08/02/19 08/03/19 08/03/19 22:59 06:59 14:59 Intake Total 665 1170 401.25 Output Total 100 70 60 Balance 565 1100 341.25 Intake: IV 770 280 9 350 Cefepime 2 gm In Sodium 100 Chloride 0.9% 100 ml @ 200 mls/hr IVPB Q24H [facility] Rx#:[id number] Sodium Chloride 0.9% 1, 420 180 000 ml @ 20 mls/hr IV . Q24H [facility] Rx#:[id number] Intake, IV Titration 415 400 121.25 Amount Albumin Human 25% 50 ml 400 In Empty Bag 1 bag @ 200 mls/hr IVPB Q15M [facility] Rx#: [id number] Diltiazem 125 mg In 15 121.25 Sodium Chloride 0.9% 100 ml @ 5 MG/HR 5 mls/hr IV .Q24H [facility] Rx#:[id number] Sodium Chloride 0.9% 1, 400 000 ml @ 50 mls/hr IV . Q20H [facility] Rx#:[id number] Oral 250 0 Output: Urine 100 70 60 Other: Voiding Method Indwelling Catheter Indwelling Catheter limited exam secondary to COVID pandemic and to limit PPE Results - Lab Results Most recent lab results ABG pH 7.35 (7.35-7.45) 08/03/19 08:27 ABG pCO2 32 mmHg (35-45) L 08/03/19 08:27 ABG pO2 58 mmHg (83-108) L* 08/03/19 08:27 ABG HCO3 18 mmol/L (21-25) L 08/03/19 08:27 ABG O2 Saturation 89.4 % (94-97) L 08/03/19 08:27 Calcium 9.0 mg/dL (8.4-10.2) 08/03/19 02:53 08/03/19 02:53 08/03/19 02:53 Assessment and Plan Assessment: #1 oliguric acute kidney injury secondary to ischemic ATN. #2 pneumonia with septic shock #3 chronic liver disease status post paracentesis #4 atrial fibrillation with RVR #5 respiratory and metabolic acidosis #6 mild hyperkalemia #7 lactic acidosis Plan: #1 agree with holding Cardizem drip, levo fed to maintain systolic more than 120 or map of more than 65. #2 prognosis guarded with multiple comorbid condition. Not a candidate for dialysis if need arises. #3 avoid nephrotoxic agents and hypotensive episodes. #4 give albumin today with a concern for HRSmom already on midodrine and levo fed
[2019-08-03] MEDS: ALBUMIN HUMAN 25% 50 ML in EMPTY BAG 1 BAG IVPB SCH ×4 (12:53→16:28)
[2019-08-03] MEDS: FUROSEMIDE 100 MG in SODIUM CHLORIDE 0.9% 90 ML IV SCH ×2 (12:59→21:09)
[2019-08-03 13:00] LABS: ABG Base Excess -10.3 mmol/L; ABG HCO3 17 mmol/L (21-25); ABG Oxygen Saturation 94.9 % (94-97); ABG PCO2 37 mmHg (35-45); ABG PH 7.27 (7.35-7.45); ABG PO2 82 mmHg (83-108); ABG TCO2 18 mmol/L (19-24)
[2019-08-03 13:06] LABS: Allen Test Performed? no
--- NOTE | 2019-08-03 13:10 | XR ---
EXAMINATION TYPE: XR chest 1V portable DATE OF EXAM: 08/03/2019 HISTORY: central line placement. REFERENCE: Previous study dated 08/03/2019. FINDINGS: The heart is enlarged. There is extensive, bilateral airspace disease which may have worsen ed slightly from previous. Both CP angles are blunted and I cannot exclude small effusions. There has been interval placement of a left subclavian catheter. Its tip is in the superior vena cava. I do no t see evidence of pneumothorax. IMPRESSION: 1. SATISFACTORY CATHETER PLACEMENT. 2. WORSENING, BILATERAL PNEUMONIAS.
[2019-08-03] MEDS ORDERED: SODIUM BICARB 8.4% 50 ML SYR (1 MEQ/ML) ONE (13:16)
[2019-08-03] MEDS ORDERED: DEXTROSE 5% IN WATER 1,000 ML with SODIUM BICARB (1 MEQ/ML) 150 ML IV SCH (13:30)
[2019-08-03 15:15] VITALS: BP 102/70
[2019-08-03] MEDS: ALBUTEROL HFA INHALER INHALATION SCH ×2 (15:42→19:59)
--- NOTE | 2019-08-03 16:31 | PN ---
PROGRESS NOTE . DATE OF SERVICE: 08/03/2019 This 79-year-old woman who was admitted with change in mental status, also had CHF. The patient also had bilateral pneumonia. Last night, the patient took a turn for the worse and the patient had hypotension. Patient also had worsening shortness of breath. Worsening of the bilateral pneumonia was also noted. Patient on high-flow nasal cannula. Patient was also started on dopamine. The creatinine is also worsened. Urine output is diminished. Urine is high colored, possible indicative of old blood per Urology. The patient also had recent abdominal paracentesis. Neurology following the patient closely. The patient is NO CODE at this time. The patient also had some facial contusions, but however a face CT scan showed no fractures. PAST MEDICAL HISTORY: Reviewed. REVIEW OF SYSTEMS: Could not be taken, the patient is confused and drowsy at this time. CURRENT MEDICATIONS: Reviewed and include: 1. Tylenol 500 mg q.6h p.r.n. 2. [place] 5 mg q.6h. 3. Albumin. 4. Xanax 0.5 t.i.d. 5. Aspirin 81 mg. 6. Cefepime 2 grams IV daily. 7. Vitamin D3. 8. Diltiazem. 9. Fludrocortisone 0.2 mg b.i.d. 10.Lasix. 11.Cephulac. 12.Magnesium oxide. 13.Solu-Medrol 60 IV q.6. 14.Lopressor. 15.ProAmatine. 16.Narcan. 17.Niacin. 18.Norepinephrine. 19.Protonix. 20.Zoloft. PHYSICAL EXAM: Patient is alert and oriented x2. Pulse is 65. Blood pressure 86/53, respiration 16, temperature 97 degrees, pulse ox 98% on 15% high-flow nasal cannula. HEENT: Conjunctivae normal. NECK: No JVD. CARDIOVASCULAR: S1, S2 muffled. RESPIRATORY: Breath sounds diminished in the bases. Bilateral scattered rhonchi and crackles. ABDOMEN: Soft, obese, nontender. LEGS are no edema. CENTRAL NERVOUS SYSTEM: No focal deficits. LABS: ABGs showed pH of 7.27, otherwise WBC 13.2, hemoglobin is 8, sodium is 137, potassium 5.2. Creatinine is 2.7, which is worsened. ASSESSMENT: 1. Shortness of breath, multifactorial, possible bilateral pneumonia. Possibly community-acquired, possibly gram-negative, possible Covid-19 associated pneumonia with acute hypoxic respiratory failure with possible sepsis, severe sepsis, hypotension and septic shock. 2. Congestive heart failure acute exacerbation with acute on chronic diastolic dysfunction, ejection fraction 50% to 60% with suspected Covid-19 but however test is negative. 3. Change in mental status acute metabolic encephalopathy, acute on chronic. 4. Hyperkalemia secondary to renal failure. 5. Acute renal failure with acute tubular necrosis. 6. Baseline chronic kidney disease stage 3 possibly. 7. Elevated lactic acid, possibly secondary to sepsis, present on admission secondary to pneumonia. 8. Troponin 0.06 indeterminate. 9. Hypoalbuminemia. 10.Hyponatremia. 11.Change in mental status, as mentioned earlier. 12.Paroxysmal atrial fibrillation on Eliquis. 13.Generalized gait dysfunction. 14.Increased WBC. 15.Anemia, normocytic. 16.History of multiple falls recently. 17.History of congestive heart failure. 18.History of diabetes type 2. 19.Hypertension. 20.History of chronic liver disease and nonalcoholic cirrhosis of the liver with history of multiple abdominal paracentesis. 21.History of urinary tract infection. 22.History of recurrent ascites and paracentesis. 23.History of thrombocytopenia. 24.History of left breast cancer with lumpectomy. 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 26.History of depression. 27.History of cholecystectomy. 28.Obesity with body mass index of 32.6. 29.FULL CODE. RECOMMENDATIONS AND DISCUSSION: Recommend to continue current medication, continue to monitor. Symptomatic treatment. Otherwise at this time I would recommend continue with the pressor support. Continue the broad-spectrum IV antibiotics. Cultures are obtained and otherwise monitor closely with multiple consultants including Nephrology. Worsening renal function is a concern. Discussed with Nephrology. We will continue to monitor. The patient is currently NO CODE. Otherwise the patient also had hematuria which is rather old and the patient's ascitic fluid findings are also noted. Overall prognosis extremely guarded because of multiple complex medical issues. Many of them are life threatening as listed above. Dictation. MMSHALAL / IJN: [id number] /
[2019-08-03] MEDS: PIPERACILLIN-TAZOBACTAM 3.375 GM in SODIUM CHLORIDE 0.9% 100 ML IVPB SCH (17:28)
[2019-08-03 18:15] LABS: Glucose,Whole Blood 238 mg/dL (75-99)
--- NOTE | 2019-08-03 19:06 | P.GSCN ---
History of Present Illness Consult date: 08/03/19 History of present illness: 79yo female who has been in the hospital sevral days for CHF, pneumonia as well as multiple medical problems developed gross hematuria. She had a microscopically clear urine on admission.She has been on both heparin and asa. HEr urine looks inflamed. THere is no other urological history. She had an abdominal ct scan 01/2019 that did not show any urological issues. Review of Systems ROS unobtainable: due to mental status Past Medical History Past Medical History: Atrial Fibrillation, Cancer, Heart Failure, Diabetes Mellitus, Hypertension, Liver Disease Additional Past Medical History / Comment(s): Pt recently admitted to [facility] on 06/11/19 with possible NSTEMI, paroxysmal Afib/RVR, hypovolemia 2ndary to large volume paracentesis, acute UTI, acute renal failure. 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 She states she is receiving home care but cannot recall name of company. She has a walker/glucometer/scale and grab rail. Smoking Status: Never smoker Past Alcohol Use History: None Reported Past Drug Use History: None Reported - Past Family History Father Family Medical History: Cancer Additional Family Medical History / Comment(s): Colon cancer Brother(s) Family Medical History: Myocardial Infarction ([place]) Additional Family Medical History / Comment(s): One brother with stents, another brother from an [place] Mother Family Medical History: Neurologic Disorder Additional Family Medical History / Comment(s): Parkinsons Medications and Allergies Home Medications Medication Instructions Recorded Confirmed Type Cholecalciferol (Vitamin D3) 2,000 unit PO DAILY 02/08/19 07/29/19 History [Vitamin D3] Pioglitazone [Actos] 30 mg PO DAILY 02/08/19 07/29/19 History Sertraline [Zoloft] 50 mg PO DAILY 02/08/19 07/29/19 History Cyanocobalamin [Vitamin B-12] 1,000 mcg PO DAILY #60 tab 02/11/19 07/29/19 Rx Niacin 2,000 mg PO DAILY 06/10/19 07/29/19 History Acetaminophen Tab [Tylenol] 500 mg PO Q6HR PRN tab 06/20/19 07/29/19 Rx Aspirin 81 mg PO DAILY #30 chew 06/20/19 07/29/19 Rx Fludrocortisone [Florinef] 0.2 mg PO BID #120 tab 06/20/19 07/29/19 Rx Glimepiride [Amaryl] 2 mg PO BID #60 tab 06/20/19 07/29/19 Rx Lactulose [Cephulac] 10 gm PO DAILY #450 ml 06/20/19 07/29/19 Rx Magnesium Oxide [Mag-Ox] 400 mg PO DAILY #10 tab 06/20/19 07/29/19 Rx Nitroglycerin Sl Tabs [Nitrostat] 0.4 mg SUBLINGUAL Q5M PRN #30 tab 06/20/19 07/29/19 Rx Pantoprazole [Protonix] 40 mg PO AC-BRKFST #30 tablet.dr 06/20/19 07/29/19 Rx Furosemide [Lasix] 40 mg PO BID 07/01/19 07/29/19 History Spironolactone [Aldactone] 50 mg PO DAILY tab 07/02/19 07/29/19 Rx Gabapentin [Neurontin] 100 mg PO HS 07/29/19 07/29/19 History Metoprolol Tartrate 12.5 mg PO BID 07/29/19 07/29/19 History Sulfamethox-Tmp 200-40Mg/5Ml 20 ml PO Q12HR 07/29/19 07/29/19 History [Bactrim Suspension] Allergies Allergy/AdvReac Type Severity Reaction Status Date / Time No Known Allergies Allergy Verified 07/01/19 11:14 Surgical - Exam Vital Signs Temp Pulse Resp BP Pulse Ox 98.1 F 132 H 22 113/78 100 07/29/19 14:44 07/29/19 14:44 07/29/19 14:44 07/29/19 14:44 07/29/19 14:44 - General well developed, moderate distress - Eyes PERRL - Respiratory shortness of breath - Cardiovascular Rhythm: regular - Abdomen obese - Genitourinary catheter with clear to cloudy urine mixed with old bloody urine Results - Labs 08/03/19 02:53 08/03/19 02:53 Abnormal Lab Results - Last 24 Hours (Table) 08/02/19 08/02/19 08/02/19 Range/Units 19:03 19:03 19:03 WBC (3.8-10.6) k/uL RBC (3.80-5.40) m/uL Hgb (11.4-16.0) gm/dL Hct (34.0-46.0) % MCH (25.0-35.0) pg MCHC (31.0-37.0) g/dL RDW (11.5-15.5) % Plt Count (150-450) k/uL Neutrophils # (1.3-7.7) k/uL Lymphocytes # (1.0-4.8) k/uL PT (9.0-12.0) sec INR (<1.2) APTT (22.0-30.0) sec D-Dimer 6.80 H (<0.60) mg/L FEU ABG pH (7.35-7.45) ABG pCO2 (35-45) mmHg ABG pO2 (83-108) mmHg ABG HCO3 (21-25) mmol/L ABG Total CO2 (19-24) mmol/L ABG O2 Saturation (94-97) % Potassium (3.5-5.1) mmol/L Carbon Dioxide (22-30) mmol/L BUN (7-17) mg/dL Creatinine (0.52-1.04) mg/dL Glucose (74-99) mg/dL POC Glucose (mg/dL) (75-99) mg/dL Plasma Lactic Acid Magnus 2.4 H* (0.7-2.0) mmol/L Iron 15 L (50-170) ug/dL % Saturation 5.79 L (12.00-45.00) C-Reactive Protein 49.8 H (<10.0) mg/L Urine Appearance (Clear) Urine Protein (Negative) Urine Blood (Negative) Ur Leukocyte Esterase (Negative) Urine RBC (0-5) /hpf Urine WBC (0-5) /hpf Urine WBC Clumps (None) /hpf Urine Bacteria (None) /hpf 08/02/19 08/02/19 08/02/19 Range/Units 19:03 19:03 19:28 WBC 12.8 H (3.8-10.6) k/uL RBC 3.24 L (3.80-5.40) m/uL Hgb 7.8 L (11.4-16.0) gm/dL Hct 27.7 L (34.0-46.0) % MCH 24.1 L (25.0-35.0) pg MCHC 28.2 L (31.0-37.0) g/dL RDW 17.7 H (11.5-15.5) % Plt Count 92 L (150-450) k/uL Neutrophils # (1.3-7.7) k/uL Lymphocytes # (1.0-4.8) k/uL PT 21.1 H (9.0-12.0) sec INR 2.2 H (<1.2) APTT 31.5 H (22.0-30.0) sec D-Dimer (<0.60) mg/L FEU ABG pH (7.35-7.45) ABG pCO2 (35-45) mmHg ABG pO2 (83-108) mmHg ABG HCO3 (21-25) mmol/L ABG Total CO2 (19-24) mmol/L ABG O2 Saturation (94-97) % Potassium (3.5-5.1) mmol/L Carbon Dioxide (22-30) mmol/L BUN (7-17) mg/dL Creatinine (0.52-1.04) mg/dL Glucose (74-99) mg/dL POC Glucose (mg/dL) 219 H (75-99) mg/dL Plasma Lactic Acid Magnus (0.7-2.0) mmol/L Iron (50-170) ug/dL % Saturation (12.00-45.00) C-Reactive Protein (<10.0) mg/L Urine Appearance (Clear) Urine Protein (Negative) Urine Blood (Negative) Ur Leukocyte Esterase (Negative) Urine RBC (0-5) /hpf Urine WBC (0-5) /hpf Urine WBC Clumps (None) /hpf Urine Bacteria (None) /hpf 08/02/19 08/02/19 08/03/19 Range/Units 22:48 23:41 02:53 WBC (3.8-10.6) k/uL RBC (3.80-5.40) m/uL Hgb (11.4-16.0) gm/dL Hct (34.0-46.0) % MCH (25.0-35.0) pg MCHC (31.0-37.0) g/dL RDW (11.5-15.5) % Plt Count (150-450) k/uL Neutrophils # (1.3-7.7) k/uL Lymphocytes # (1.0-4.8) k/uL PT (9.0-12.0) sec INR (<1.2) APTT (22.0-30.0) sec D-Dimer (<0.60) mg/L FEU ABG pH (7.35-7.45) ABG pCO2 (35-45) mmHg ABG pO2 (83-108) mmHg ABG HCO3 (21-25) mmol/L ABG Total CO2 (19-24) mmol/L ABG O2 Saturation (94-97) % Potassium 5.2 H (3.5-5.1) mmol/L Carbon Dioxide 18 L (22-30) mmol/L BUN 83 H (7-17) mg/dL Creatinine 2.70 H (0.52-1.04) mg/dL Glucose 211 H (74-99) mg/dL POC Glucose (mg/dL) 213 H (75-99) mg/dL Plasma Lactic Acid Magnus 2.3 H* (0.7-2.0) mmol/L Iron (50-170) ug/dL % Saturation (12.00-45.00) C-Reactive Protein (<10.0) mg/L Urine Appearance (Clear) Urine Protein (Negative) Urine Blood (Negative) Ur Leukocyte Esterase (Negative) Urine RBC (0-5) /hpf Urine WBC (0-5) /hpf Urine WBC Clumps (None) /hpf Urine Bacteria (None) /hpf 08/03/19 08/03/19 08/03/19 Range/Units 02:53 02:53 03:15 WBC 13.2 H (3.8-10.6) k/uL RBC 3.16 L (3.80-5.40) m/uL Hgb 8.0 L (11.4-16.0) gm/dL Hct 27.1 L (34.0-46.0) % MCH (25.0-35.0) pg MCHC 29.6 L (31.0-37.0) g/dL RDW 17.6 H (11.5-15.5) % Plt Count 96 L (150-450) k/uL Neutrophils # 11.6 H (1.3-7.7) k/uL Lymphocytes # 0.9 L (1.0-4.8) k/uL PT (9.0-12.0) sec INR (<1.2) APTT (22.0-30.0) sec D-Dimer (<0.60) mg/L FEU ABG pH (7.35-7.45) ABG pCO2 (35-45) mmHg ABG pO2 (83-108) mmHg ABG HCO3 (21-25) mmol/L ABG Total CO2 (19-24) mmol/L ABG O2 Saturation (94-97) % Potassium (3.5-5.1) mmol/L Carbon Dioxide (22-30) mmol/L BUN (7-17) mg/dL Creatinine (0.52-1.04) mg/dL Glucose (74-99) mg/dL POC Glucose (mg/dL) (75-99) mg/dL Plasma Lactic Acid Magnus 2.2 H* (0.7-2.0) mmol/L Iron (50-170) ug/dL % Saturation (12.00-45.00) C-Reactive Protein (<10.0) mg/L Urine Appearance Turbid H (Clear) Urine Protein 2+ H (Negative) Urine Blood Large H (Negative) Ur Leukocyte Esterase Moderate H (Negative) Urine RBC >182 H (0-5) /hpf Urine WBC >182 H (0-5) /hpf Urine WBC Clumps Many H (None) /hpf Urine Bacteria Moderate H (None) /hpf 08/03/19 08/03/19 08/03/19 Range/Units 06:56 08:27 12:58 WBC (3.8-10.6) k/uL RBC (3.80-5.40) m/uL Hgb (11.4-16.0) gm/dL Hct (34.0-46.0) % MCH (25.0-35.0) pg MCHC (31.0-37.0) g/dL RDW (11.5-15.5) % Plt Count (150-450) k/uL Neutrophils # (1.3-7.7) k/uL Lymphocytes # (1.0-4.8) k/uL PT (9.0-12.0) sec INR (<1.2) APTT (22.0-30.0) sec D-Dimer (<0.60) mg/L FEU ABG pH 7.27 L (7.35-7.45) ABG pCO2 32 L (35-45) mmHg ABG pO2 58 L* 82 L (83-108) mmHg ABG HCO3 18 L 17 L (21-25) mmol/L ABG Total CO2 18 L (19-24) mmol/L ABG O2 Saturation 89.4 L (94-97) % Potassium (3.5-5.1) mmol/L Carbon Dioxide (22-30) mmol/L BUN (7-17) mg/dL Creatinine (0.52-1.04) mg/dL Glucose (74-99) mg/dL POC Glucose (mg/dL) (75-99) mg/dL Plasma Lactic Acid Magnus 2.1 H* (0.7-2.0) mmol/L Iron (50-170) ug/dL % Saturation (12.00-45.00) C-Reactive Protein (<10.0) mg/L Urine Appearance (Clear) Urine Protein (Negative) Urine Blood (Negative) Ur Leukocyte Esterase (Negative) Urine RBC (0-5) /hpf Urine WBC (0-5) /hpf Urine WBC Clumps (None) /hpf Urine Bacteria (None) /hpf 08/03/19 Range/Units 18:13 WBC (3.8-10.6) k/uL RBC (3.80-5.40) m/uL Hgb (11.4-16.0) gm/dL Hct (34.0-46.0) % MCH (25.0-35.0) pg MCHC (31.0-37.0) g/dL RDW (11.5-15.5) % Plt Count (150-450) k/uL Neutrophils # (1.3-7.7) k/uL Lymphocytes # (1.0-4.8) k/uL PT (9.0-12.0) sec INR (<1.2) APTT (22.0-30.0) sec D-Dimer (<0.60) mg/L FEU ABG pH (7.35-7.45) ABG pCO2 (35-45) mmHg ABG pO2 (83-108) mmHg ABG HCO3 (21-25) mmol/L ABG Total CO2 (19-24) mmol/L ABG O2 Saturation (94-97) % Potassium (3.5-5.1) mmol/L Carbon Dioxide (22-30) mmol/L BUN (7-17) mg/dL Creatinine (0.52-1.04) mg/dL Glucose (74-99) mg/dL POC Glucose (mg/dL) 238 H (75-99) mg/dL Plasma Lactic Acid Magnus (0.7-2.0) mmol/L Iron (50-170) ug/dL % Saturation (12.00-45.00) C-Reactive Protein (<10.0) mg/L Urine Appearance (Clear) Urine Protein (Negative) Urine Blood (Negative) Ur Leukocyte Esterase (Negative) Urine RBC (0-5) /hpf Urine WBC (0-5) /hpf Urine WBC Clumps (None) /hpf Urine Bacteria (None) /hpf Microbiology - Last 24 Hours (Table) 08/02/19 14:11 Blood Culture - Preliminary Blood No Growth after 24 hours 08/02/19 15:00 Urine Culture - Preliminary Urine,Clean Catch 07/31/19 12:55 Anaerobic Culture - Preliminary Paracentesis Fluid 07/31/19 14:07 Gram Stain - Preliminary Ascites Fluid Body Fluid Culture - Preliminary 07/29/19 19:10 Blood Culture - Preliminary Blood No Growth after 96 hours Diabetes panel 08/03/19 Range/Units 02:53 Sodium 137 (137-145) mmol/L Potassium 5.2 H (3.5-5.1) mmol/L Chloride 103 (98-107) mmol/L Carbon Dioxide 18 L (22-30) mmol/L BUN 83 H (7-17) mg/dL Creatinine 2.70 H (0.52-1.04) mg/dL Glucose 211 H (74-99) mg/dL Calcium 9.0 (8.4-10.2) mg/dL Calcium panel 08/03/19 Range/Units 02:53 Calcium 9.0 (8.4-10.2) mg/dL Pituitary panel 08/03/19 Range/Units 02:53 Sodium 137 (137-145) mmol/L Potassium 5.2 H (3.5-5.1) mmol/L Chloride 103 (98-107) mmol/L Carbon Dioxide 18 L (22-30) mmol/L BUN 83 H (7-17) mg/dL Creatinine 2.70 H (0.52-1.04) mg/dL Glucose 211 H (74-99) mg/dL Calcium 9.0 (8.4-10.2) mg/dL Adrenal panel 08/03/19 Range/Units 02:53 Sodium 137 (137-145) mmol/L Potassium 5.2 H (3.5-5.1) mmol/L Chloride 103 (98-107) mmol/L Carbon Dioxide 18 L (22-30) mmol/L BUN 83 H (7-17) mg/dL Creatinine 2.70 H (0.52-1.04) mg/dL Glucose 211 H (74-99) mg/dL Calcium 9.0 (8.4-10.2) mg/dL - Imaging CT scan - abdomen: report reviewed, image reviewed CT scan - pelvis: report reviewed, image reviewed Assessment and Plan Assessment: Impression: gross hematuria secondary to cath trauma aggravated by anticoagulation. Recommedations. Nothing urologicalneeds to be done as long as the urine clears as this is due to cath trauma as she had clear urine upon admission.
[2019-08-03 20:14] LABS: Glucose,Whole Blood 252 mg/dL (75-99)
[2019-08-03] MEDS: INSULIN ASPART (NovoLOG) 100 UNIT/ML VIAL SQ SCH (21:11)
[2019-08-03] MEDS: GABAPENTIN 100 MG CAP PO SCH (21:11)
--- NOTE | 2019-08-03 23:19 | PN ---
PROGRESS NOTE DATE OF SERVICE: 08/03/2019 REASON FOR FOLLOWUP: Pneumonia. INTERVAL HISTORY: The patient has been transferred to the ICU because of hypotension. The patient is currently requiring low-dose pressor support. However, the patient is more awake and alert. The patient mentioning she is not feeling that great. Has been complaining of nausea, been feeling nauseated but no vomiting has been reported. No significant abdominal pain or diarrhea. No chest pain. PHYSICAL EXAMINATION: Blood pressure 114/38 with a pulse of 68, temperature 97. She is 97% on 15 L high-flow oxygen. General description is an elderly female lying in bed in no distress. RESPIRATORY SYSTEM: Unlabored breathing, decreased breath sounds in the bases. No wheeze. HEART: S1, S2. Regular rate and rhythm. ABDOMEN: Soft, mildly distended. No guarding or rigidity. LABS: Hemoglobin is 8, white count 13.2, BUN is 83, creatinine 2.70. DIAGNOSTIC IMPRESSION AND PLAN: Patient with hypotension which is multifactorial. X-ray showing worsening pneumonia, questionably gram-negative or aspiration etiology. The patient is complaining of nausea. We will switch antibiotic to Zosyn. Blood cultures were done yesterday. We will get a UA and try to obtain a sputum and monitor clinical course closely. MMODL / IJN: [id number] /
[2019-08-04 00:08] LABS: Glucose,Whole Blood 242 mg/dL (75-99)
[2019-08-04] MEDS: methylPREDNISolone SOD SUCCI 125 MG/2 ML VIAL IV SCH ×2 (00:31→05:47)
[2019-08-04] MEDS: INSULIN ASPART (NovoLOG) 100 UNIT/ML VIAL SQ SCH ×2 (00:33→05:44)
[2019-08-04] MEDS: NOREPINEPHRINE 4 MG in SODIUM CHLORIDE 0.9% 250 ML IV SCH (00:38)
--- NOTE | 2019-08-04 00:57 | PCN ---
PROCEDURE NOTE OPERATIVE REPORT: Placement of the left subclavian triple-lumen catheter. PREOPERATIVE DIAGNOSIS: Acute hypoxic respiratory failure and pulmonary edema. POSTOPERATIVE DIAGNOSIS: Acute hypoxic respiratory failure and pulmonary edema. ANESTHESIA USED: 2 mL of 1% lidocaine. PROCEDURE: The patient was placed in a supine position, the left subclavian area was prepared in a sterile fashion. Drapes were applied. The area was locally anesthetized, then the left subclavian vein was cannulated easily using the infraclavicular approach. Guidewire was placed. The area around the guidewire was dilated and then a triple- lumen catheter was inserted over the guidewire, and the guidewire was removed. Good flow noted in the 3 different ports of the triple-lumen catheter. Procedure was well tolerated. No evidence of any immediate complications. Chest x-ray showed no evidence of complication. MMJAVI / IJN: [id number] /
--- NOTE | 2019-08-04 00:57 | PCN ---
PROCEDURE NOTE OPERATIVE REPORT: Placement of a right brachial arterial line. PREOPERATIVE DIAGNOSIS: Acute hypoxic respiratory failure and hypotension requiring norepinephrine. POSTOPERATIVE DIAGNOSIS: Acute hypoxic respiratory failure and hypotension requiring norepinephrine. ANESTHESIA USED: None deployed. PROCEDURE: The right brachial area was prepared in a sterile fashion and drapes were applied. The right brachial artery was palpated, cannulated, and a guidewire was placed. A Cook catheter was inserted over the guidewire, and the guidewire was removed. Good blood flow, good waveform noted. The line was secured using 3.0 silk sutures. No evidence of any complication. MMODL / IJN: [id number] /
[2019-08-04 04:05] LABS: Glucose,Whole Blood 264 mg/dL (75-99)
[2019-08-04] MEDS: FUROSEMIDE 100 MG in SODIUM CHLORIDE 0.9% 90 ML IV SCH (05:16)
[2019-08-04 05:32] VITALS: TEMP 97.5
[2019-08-04] MEDS: PIPERACILLIN-TAZOBACTAM 3.375 GM in SODIUM CHLORIDE 0.9% 100 ML IVPB SCH (05:44)
[2019-08-04 06:16] LABS: Anisocytosis Slight; Basophils % (A) 0 %; Eosinophils % (A) 0 %; HCT 25.4 % (34.0-46.0); HGB 7.3 gm/dL (11.4-16.0); Hypochromasia Marked; Lymphocytes # (A) 0.5 k/uL (1.0-4.8); Lymphocytes % (A) 4 %; MCH 24.7 pg (25.0-35.0); MCHC 28.6 g/dL (31.0-37.0); MCV 86.4 fL (80.0-100.0); Mean Platelet Volume 8.8; Monocytes # (A) 0.5 k/uL (0-1.0); Monocytes % (A) 4 %; Neutrophils # (A) 12.7 k/uL (1.3-7.7); Neutrophils % (A) 91 %; Platelet Count 129 k/uL (150-450); Poikilocytosis Slight; RBC 2.94 m/uL (3.80-5.40); RDW 17.9 % (11.5-15.5)
[2019-08-04 06:21] LABS: INR 3.8 (<1.2); Prothrombin Time 37.2 sec (9.0-12.0)
[2019-08-04 06:25] LABS: Albumin 3.5 g/dL (3.5-5.0); Calcium 8.6 mg/dL (8.4-10.2); Potassium 5.2 mmol/L (3.5-5.1); Total Bilirubin 1.9 mg/dL (0.2-1.3)
--- NOTE | 2019-08-04 07:22 | XR ---
EXAMINATION TYPE: XR chest 1V DATE OF EXAM: 08/04/2019 COMPARISON: 08/03/2019 HISTORY: Respiratory distress TECHNIQUE: Single frontal view of the chest is obtained. FINDINGS: Improving peripheral aspect of the bilateral patchy alveolar consolidations. Some improvem ent at the right lung base as well. Left-sided subclavian approach central venous catheter terminates in the right atrium. Cardiomediastinal silhouette is mildly enlarged. Surgical clips in the left axi lla are noted. Trace pleural effusions. IMPRESSION: Improving bilateral extensive multifocal consolidations likely on the basis of multifoca l pneumonia versus congestive heart failure
[2019-08-04] MEDS: ALBUTEROL HFA INHALER INHALATION SCH (07:32)
[2019-08-04 07:56] LABS: Glucose,Whole Blood 260 mg/dL (75-99)
[2019-08-04] MEDS ORDERED: LORazepam 2 MG/ML INJ IV PRN (09:29)
[2019-08-04] MEDS ORDERED: MORPHINE SULFATE 2 MG/ML SYRINGE IVP ONE (09:29)
[2019-08-04] MEDS ORDERED: ATROPINE OPHTH SOLN 1% 5ML BTL SUBLINGUAL PRN (09:29)
[2019-08-04] MEDS ORDERED: MORPHINE SULFATE (100 MG/2 ML) 100 MG in SODIUM CHLORIDE 0.9% 100 ML IV SCH (09:30)
[2019-08-04] MEDS ORDERED: SCOPOLAMINE 1.5MG/72HR PATCH TRANSDERM SCH (09:30)
[2019-08-04] MEDS: DILTIAZEM 125 MG in SODIUM CHLORIDE 0.9% 100 ML IV SCH (10:00)
[2019-08-04] MEDS: SODIUM CHLORIDE 0.9% 1,000 ML IV SCH (10:00)
[2019-08-04 10:30] VITALS: BMI 37.5
[2019-08-04 11:04] VITALS: PULSE 38; RESP 6
--- NOTE | 2019-08-04 12:29 | PN ---
PROGRESS NOTE PULMONARY/CRITICAL CARE PROGRESS NOTE: DATE OF SERVICE: 08/04/2019. CRITICAL CARE TIME: 32 minutes This is a 79-year-old female who was admitted back on July 28. She came in with a number of medical problems including non ST-segment elevation myocardial infarction, atrial fibrillation, mental status changes, hypercapnic respiratory failure, ascites, acute kidney injury, and nonalcoholic steatohepatitis. The patient is a NO CODE. Currently, she is on BiPAP at 11 and 4 at 90% with saturations in the high 80s, norepinephrine at 0.06 mcg/kg/per minute, Cardizem drip a 10 mg an hour, saline at 10 mL an hour and Lasix drip a 10 mg an hour. She is also getting D5W with 3 amps of sodium bicarbonate at 50 mL an hour. The patient was to have an LP and MRI today. I did have a conversation with the patient's . The patient's would like to make his comfort measures only. I think it is very appropriate. The patient otherwise is very lethargic and sleepy. She barely responds. Current vital signs are reviewed. Temperature 97.5 axillary, heart rate 104, respiratory rate 20, blood pressure 101/41 saturations are 87%. Appears quite tachypneic and dyspneic. BiPAP mask in place. HEENT: Examination is grossly unremarkable. The patient is very poorly responsive. He is almost not gasping respirations. BiPAP mask in place. NECK: Supple full range of motion. No adenopathy. Neck veins are flat. CARDIOVASCULAR: Examination reveals rate of 103 beats per minute. It is relatively substrate is the heart rate is regular. Heart rate about 103 beats per minute. S1, S2 normal. Heart sounds are distant. LUNGS: Reveal coarse bilateral rhonchi and crackles. Breath sounds equal but diminished throughout. ABDOMEN: Obese. He has weeping from the pre recent paracentesis site. Extremities reveals profound anasarca and edema. Her skin is weeping fluid. There are some chronic venous stasis changes. NEUROLOGIC: Examination could not be adequately assessed. The patient is very lethargic and somnolent. Barely respond. LAB DATA: Reviewed. White count 14, hemoglobin 7.3, hematocrit 25.4, platelet count 120 9 pounds and INR were 37.2 and 3.8. Sodium 138, potassium 5.6, chloride 104 CO2 15 anion gap is 19, BUN and creatinine were 93.21. AST 1.9. Albumin 3.5. Microbiology is negative including urine blood and ascitic fluid evaluation. Chest x-ray from August 03 shows bilateral extensive consolidations and bilateral effusions. Chest x-ray consistent with fluid overload and/or pneumonia. Medications are reviewed. In addition to norepinephrine, Cardizem drip and Lasix drip, as well as D5W with 3 amps of bicarb at 50 mL an hour, the patient is on her prior usual medications. ASSESSMENT: 1. Shortness of breath, multifactorial, in part related to diastolic congestive heart failure as well as cardiogenic pulmonary edema secondary to hypoalbuminemia and liver failure. 2. Acute hypoxemic respiratory failure requiring BiPAP therapy. 3. Negative COVID-19 status. 4. Acute on chronic renal failure. 5. Significant abdominal ascites, status post frequent paracentesis. 6. Acute metabolic encephalopathy. 7. Paroxysmal atrial fibrillation. 8. History of chronic liver disease and nonalcoholic cirrhosis. 9. History of recurrent ascites. 10.History of vancomycin-resistant enterococcal infection. 11.History of depression. 12.Obesity. 13.History of recurrent urinary tract infections. PLAN: The patient's overall prognosis is very poor. I will speak to the about code status and about comfort measures. She is already a NO CODE. The patient remains on norepinephrine at 0.06 mcg/kg per minutes and Cardizem drip at 10 mg an hours as well as Lasix drip a 10 mg an hour. The patient is receiving saline at 10 mL an hour D5W with 3 amps of bicarb at 50 mL an hour as per Nephrology. Overall prognosis is very poor. She has diffuse edema and anasarca. I will talk to the about comfort measures. Additional recommendations and suggestions are forthcoming. CRITICAL CARE TIME: 32 minutes. ANTHONYL / IJN: [id number] / MTDD
--- NOTE | 2019-08-04 12:32 | P.PN ---
Subjective This is Sabrina Ambrocio PA-C scribing on behalf of Dr. Schmid Chart review and observation only, Dr. Schmid did not examine the patient because the patient is thought to be a possible covid patient He did discuss the patient with the nurse HPI/interval history Patient is a 79-year-old female with a history of paroxysmal atrial fibrillation, hypertension, dyslipidemia, diabetes, nonalcoholic cirrhosis, CAD who presented with complaints of shortness of breath. She was found to be in atrial fibrillation with RVR. She was admitted for treatment of CHF and pneumonia. She remains in the ICU. Staff will be discussing code status and plan of care today, considering comfort care. She has an A. fib with rates in the 90s to 100s. EXAMINATION She is afebrile, rates in the low 100s, blood pressure in the 100s over 40s, oxygen saturation 90% BiPAP Patient was not examined, possible Covid patient REVIEW OF LABS, ECG CBC 14.0, hemoglobin 7.3, platelets 129, calcium 5.2, BUN 90, creatinine 3.21 IMPRESSION / ASSESSMENT: # Shortness of breath, multifactorial, secondary to diastolic congestive heart failure, acute on chronic, pneumonia, bilateral infiltrates, negative covid 19, although this cannot be completely ruled out #KAVITHA on CKD, BUN and creatinine rising nephrology following #Hyperkalemia # Metabolic encephalopathy related mostly to her underlying nonalcoholic liver cirrhosis #Paroxysmal atrial fibrillation, rates in the 90s to low 100s #History of chronic liver disease and nonalcoholic cirrhosis of the liver #History of recurrent ascites #diabetes # hypertension, currently hypotensive # dyslipidemia # abnormal stress test in May of this year, suggesting possible underlying coronary artery disease PLAN: continue current regimen for now, if patient is made comfort care then medical management per medical doctor Objective - Vital Signs Vital signs: Vital Signs Temp 97.5 F L 08/04/19 04:00 Pulse 98 08/04/19 07:00 Resp 16 08/04/19 07:00 BP 102/70 08/03/19 13:00 Pulse Ox 92 L 08/04/19 07:00 Intake & Output 08/03/19 08/04/19 08/04/19 18:59 06:59 18:59 Intake Total 2666.251 4496.130 92.5 Output Total 135 70 4 Balance 051.460 7608.130 88.5 Weight 105.6 kg Intake: IV 850 970 92.5 Albumin Human 25% 50 ml 200 In Empty Bag 1 bag @ 200 mls/hr IVPB Q[facility]M [facility] Rx#: [id number] Cardizem 100 10 Cefepime 2 gm In Sodium 100 Chloride 0.9% 100 ml @ 200 mls/hr IVPB Q24H [facility] Rx#:[id number] Dextrose 5% in Water 1, 200 550 50 000 ml @ 50 mls/hr IV . Q23H [facility] with Sodium Bicarb (1 Meq/ml) 150 ml Rx#:[id number] Furosemide 100 mg In 60 110 10 Sodium Chloride 0.9% 90 ml @ 10 MG/HR 10 mls/hr IV .Q10H [facility] Rx#: [id number] Sodium Chloride 0.9% 1, 290 110 10 000 ml @ 20 mls/hr IV . Q24H [facility] Rx#:[id number] Zosyn 100 12.5 Intake, IV Titration 228.692 357.130 Amount Diltiazem 125 mg In 121.25 Sodium Chloride 0.9% 100 ml @ 5 MG/HR 5 mls/hr IV .Q24H [facility] Rx#:[id number] Furosemide 100 mg In 162.834 Sodium Chloride 0.9% 90 ml @ 10 MG/HR 10 mls/hr IV .Q10H [facility] Rx#: [id number] Norepinephrine 4 mg In 107.442 194.296 Sodium Chloride 0.9% 250 ml @ 0.05 MCG/KG/MIN 17. 907 mls/hr IV .[id number] [facility] Rx#:[id number] Output: Urine 135 70 4 Other: Voiding Method Indwelling Catheter Indwelling Catheter # Voids 22 ABP, PAP, CO, CI - Last Documented Arterial Blood Pressure 107/43 - Labs CBC & Chem 7: 08/04/19 06:07 08/04/19 06:07 Labs: Abnormal Lab Results - Last 24 Hours (Table) 08/03/19 08/03/19 08/03/19 Range/Units 12:58 18:13 20:11 WBC (3.8-10.6) k/uL RBC (3.80-5.40) m/uL Hgb (11.4-16.0) gm/dL Hct (34.0-46.0) % MCH (25.0-35.0) pg MCHC (31.0-37.0) g/dL RDW (11.5-15.5) % Plt Count (150-450) k/uL Neutrophils # (1.3-7.7) k/uL Lymphocytes # (1.0-4.8) k/uL PT (9.0-12.0) sec INR (<1.2) ABG pH 7.27 L (7.35-7.45) ABG pO2 82 L (83-108) mmHg ABG HCO3 17 L (21-25) mmol/L ABG Total CO2 18 L (19-24) mmol/L Potassium (3.5-5.1) mmol/L Carbon Dioxide (22-30) mmol/L BUN (7-17) mg/dL Creatinine (0.52-1.04) mg/dL Glucose (74-99) mg/dL POC Glucose (mg/dL) 238 H 252 H (75-99) mg/dL Total Bilirubin (0.2-1.3) mg/dL AST (14-36) U/L Total Protein (6.3-8.2) g/dL 08/04/19 08/04/19 08/04/19 Range/Units 00:07 04:03 06:07 WBC 14.0 H (3.8-10.6) k/uL RBC 2.94 L (3.80-5.40) m/uL Hgb 7.3 L (11.4-16.0) gm/dL Hct 25.4 L (34.0-46.0) % MCH 24.7 L (25.0-35.0) pg MCHC 28.6 L (31.0-37.0) g/dL RDW 17.9 H (11.5-15.5) % Plt Count 129 L (150-450) k/uL Neutrophils # 12.7 H (1.3-7.7) k/uL Lymphocytes # 0.5 L (1.0-4.8) k/uL PT (9.0-12.0) sec INR (<1.2) ABG pH (7.35-7.45) ABG pO2 (83-108) mmHg ABG HCO3 (21-25) mmol/L ABG Total CO2 (19-24) mmol/L Potassium (3.5-5.1) mmol/L Carbon Dioxide (22-30) mmol/L BUN (7-17) mg/dL Creatinine (0.52-1.04) mg/dL Glucose (74-99) mg/dL POC Glucose (mg/dL) 242 H 264 H (75-99) mg/dL Total Bilirubin (0.2-1.3) mg/dL AST (14-36) U/L Total Protein (6.3-8.2) g/dL 08/04/19 08/04/19 08/04/19 Range/Units 06:07 06:07 07:55 WBC (3.8-10.6) k/uL RBC (3.80-5.40) m/uL Hgb (11.4-16.0) gm/dL Hct (34.0-46.0) % MCH (25.0-35.0) pg MCHC (31.0-37.0) g/dL RDW (11.5-15.5) % Plt Count (150-450) k/uL Neutrophils # (1.3-7.7) k/uL Lymphocytes # (1.0-4.8) k/uL PT 37.2 H (9.0-12.0) sec INR 3.8 H (<1.2) ABG pH (7.35-7.45) ABG pO2 (83-108) mmHg ABG HCO3 (21-25) mmol/L ABG Total CO2 (19-24) mmol/L Potassium 5.2 H (3.5-5.1) mmol/L Carbon Dioxide 15 L (22-30) mmol/L BUN 90 H (7-17) mg/dL Creatinine 3.21 H (0.52-1.04) mg/dL Glucose 246 H (74-99) mg/dL POC Glucose (mg/dL) 260 H (75-99) mg/dL Total Bilirubin 1.9 H (0.2-1.3) mg/dL AST 43 H (14-36) U/L Total Protein 6.0 L (6.3-8.2) g/dL Microbiology - Last 24 Hours (Table) 07/29/19 19:10 Blood Culture - Preliminary Blood No Growth after 120 hours 07/31/19 14:07 Gram Stain - Preliminary Ascites Fluid Body Fluid Culture - Preliminary 08/02/19 15:00 Urine Culture - Final Urine,Clean Catch 08/02/19 14:11 Blood Culture - Preliminary Blood No Growth after 24 hours
--- NOTE | 2019-08-04 20:14 | DS ---
DISCHARGE SUMMARY PRELIMINARY CAUSE OF : Congestive heart failure, acute exacerbation, with acute on chronic diastolic dysfunction, ejection fraction 50% to 60%. OTHER CONTRIBUTING FACTORS,: 1. Possible COVID-19 pneumonia, bilateral, with acute hypoxic respiratory failure with possible sepsis, hypotension, septic shock. 2. COVID test negative. Clinical suspicion noted. 3. Change in mental status, acute metabolic encephalopathy, acute on chronic. 4. Hyperkalemia secondary to renal failure. 5. Acute renal failure with acute tubular necrosis. 6. Baseline chronic kidney disease, stage III possibly. 7. Elevated lactic acid, possibly secondary to sepsis, present on admission, secondary to pneumonia. 8. Troponin 0.06, indeterminate. 9. Hypoalbuminemia. 10.Hyponatremia. 11.Change in mental status, as mentioned earlier. 12.Paroxysmal atrial fibrillation, on Eliquis. 13.Generalized gait dysfunction. 14.Increased white count. 15.Anemia, normocytic. 16.History of multiple falls recently. 17.History of congestive heart failure. 18.History of diabetes mellitus, type 2. 19.Hypertension. 20.History of chronic liver disease and nonalcoholic cirrhosis of the liver with multiple abdominal paracenteses. 21.History of urinary tract infection. 22.History of recurrent ascites and abdominal paracenteses. 23.History of thrombocytopenia. 24.History of left breast cancer with lumpectomy. 25.History of vancomycin-resistant Enterococcus. 26.History of depression. 27.History of cholecystectomy. 28.Obesity with body mass index of 32.6. 29.FULL CODE. HISTORY OF PRESENT ILLNESS: This 79-year-old woman with a past medical history of multiple medical problems was admitted with CHF, acute exacerbation. Patient also had bilateral lung lesions. The patient also had multiple complications with possible pneumonia and sepsis. COVID-19 test was negative, but clinical suspicion was noted, and the patient was treated accordingly. Despite medical treatment, the patient's condition got worse. The patient was on IV Lasix drip. Patient was transferred to ICU. Sensorium was fluctuating and the patient took a turn for the worse and subsequently the patient was made comfort measures. The patient because of the above-mentioned illnesses. Once again, the prognosis remained extremely guarded throughout the hospital stay. Please refer to multiple consultation and progress notes for further details. MMODL / IJN: [id number] /
[2019-08-05 05:42] LABS: ABG PO2 58 mmHg (83-108)
--- NOTE | 2019-08-08 08:28 | CDI ---
Documentation Clarification Form Date: 08/08/2019 08:01:27 AM From: Melyssa Crockett Phone: If you have a question about this query, please contact Neda Pickett [employer] at [phone] between 8am and 5pm. Admit Date: 07/29/2019 04:42:00 PM Patient Name: Paula Gordon Visit Number: [id number] Discharge Date: 08/04/2019 11:07:00 AM ATTENTION: The Clinical Documentation Specialists (CDI) and [facility] Coding Staff appreciate your assistance in clarifying documentation. Please respond to the clarification below the line at the bottom and electronically sign. The CDI & [facility] Coding staff will review the response and follow-up if needed. Please note: Queries are made part of the Legal Health Record. If you have any questions, please contact the author of this message via ITS. Dr. Bean Joel Myocardial infarction is documented in Dr. Jackson's 08/03 PN "Admitted with NSTEMI". DCS documents troponin intermediate. Please clarify if patient had a NSTEMI or was this ruled out. Patient History/Risk Factors: suspected Covid, septic shock, pneumonia, A fib on Coumadin with hematuria, elevated troponin, HTN A/C diastolic CHF HLD. Clinical Indicators: Troponin: 0.069 EKG Results: Atrial Fib anterior and inferior infarct age undetermined Consult: Cardiology possible [place] on 06/10 and abnormal stress possibly indicating CAD In order to capture the severity of condition and necessary documentation specificity, please clarify if patient had NSTEMI or was this ruled out: Type of Infarction: STEMI NSTEMI [place] ruled out Unable to determine Other Condition, please specify Unable to determine MTDD
--- NOTE | 2019-08-15 06:36 | CDI ---
Documentation Clarification Form Date: 08/15/2019 06:19:01 AM From: Melyssa Crockett Phone: To: Melyssa Crockett If you have a question about this query, please contact Neda Pickett Meteorological Technician at [phone] between 8am and 5pm. Admit Date: 07/29/2019 04:42:00 PM Patient Name: Paula Gordon Visit Number: [id number] Discharge Date: 08/04/2019 11:07:00 AM ATTENTION: The Clinical Documentation Specialists (CDI) and [facility] Coding Staff appreciate your assistance in clarifying documentation. Please respond to the clarification below the line at the bottom and electronically sign. The CDI & [facility] Coding staff will review the response and follow-up if needed. Please note: Queries are made part of the Legal Health Record. If you have any questions, please contact the author of this message via ITS. Dr. Madan Mack Your patient has the documented diagnosis of gross hematuria second to cath trauma aggravated by anticoagulat in your notes dated 08/03/19. Please clarify the cause of the cath trauma. Treatment: Nothing needs to be done as long as urine clears. Urine was clear on admission. Please clarify the cause of the catheter trauma causing the gross hematuria: Traumatic insertion of Recinos catheter Did patient pull catheter out Did catheter get caught on an object Other explanation of clinical findings (please specify) Unable to determine (no explanation for clinical fin the catheters presence can irritate the mucosa causing bleeding without obvious cause__ MTDD
--- NOTE | 2019-08-21 09:17 | CDI ---
Documentation Clarification Form Date: 08/21/2019 CDS: Allegra Narvaez, CCS, CCDS Admit Date: 07/29/2019 Patient Name: Paula Gordon Discharge/Expiration Date: 08/04/2019 ATTENTION: The Clinical Documentation Specialists (CDI) and [facility] Coding Staff appreciate your assistance in clarifying documentation. Please respond to the clarification below the line at the bottom and electronically sign. The CDI & [facility] Coding staff will review the response and follow-up if needed. Please note: Queries are made part of the Legal Health Record. If you have any questions, please contact the author of this message via ITS. Dear Dr. Joel: Coding guidelines do not allow coding professionals to code based on laboratory results; therefore, your input is requested. The COVID-19 test obtained on 07/29/2019 was reported as Negative on 07/29/2019. Per case summary: History & Physical 07/29/2019 and subsequent Progress Notes on 07/29, 07/30 & 07/31: "Shortness of breath, possible bilateral pneumonia, possibly community- acquired, possibly [id number] pneumonia. Suspected COVID-19; tested negative." Discharge Summary and Preliminary Cause of on 08/03: "Possible COVID-19 pneumonia, bilateral, with acute hypoxic respiratory failure with possible sepsis, hypotension, septic shock. COVID test negative. HISTORY OF PRESENT ILLNESS: COVID-19 test was negative, but clinical suspicion was noted, and the patient was treated accordingly." Patient history/risk factors: Multiple falls, Paroxysmal atrial fibrillation, Diastolic CHF, DM II, Hypertension, CKD II, Chronic non-alcoholic liver disease with recurrent ascites requiring paracentesis, UTIs, Thrombocytopenia, Left breast cancer, Depression, Obesity with BMI 32.3. Clinical Indicators: ED note 07/28: "79 yo female brought to the emergency department from home. According to EMS patient was recently admitted to a large alf. Couple of days ago patient was discharged from alf and sent home. Patient was short of breath for the last 24-48 hours." Patient developed acute respiratory failure on 08/03, put on BiPAP, made DNR, on 08/03. VS on admission: T 98.1, P 132^, R 22 (SOB), BP 113/78, PO 100 nrb CXR 4/28: Diffuse patchy infiltrates in the periphery right lower lobe and left perihilar regions. Correlate for atypical pneumonia. Cardiomegaly. Some vascular prominence may be present and congestive heart failure could be considered within the differential. 07/28 COVID TEST: Negative (test was not repeated during this admission) Treatment 07/28: IV fluid 500 mls @ 999 mls/hr x2, IV Heparin, IV Cefepime, IV fluid rate 1,000 mls @ 50 mls/hr, IV Vancomycin. IV antibiotics continued. 1: IV Lasix, Cardizem drip bolus. /2: IV Cardizem, IV Albumin. 5/3: IV Albumin, IV Lasix, IV NaBicarb, IV Dextrose, INH Albuterol, IV Zosyn, IV Cardizem. In order to capture the severity of condition, please clarify the COVID-19 status: COVID-19 ruled out False negative, treating for COVID-19 o Based on these clinical indicators: Other, please specify: (Last Form Revision: June 2019) False negative, treating for COVID-19 MTDD
== END 2019-08-04 11:07 | disposition expired | DRG 871 ==
LOC: EC 14:40 → 3SCARD 16:42 → 2SICU 08-02 23:41
PROVIDERS: ADMIT Hospitalist; ATTEND Hospitalist
PROC: 0W9G3ZZ Drainage of Peritoneal Cavity, Percutaneous Approach (ICD-10-PCS; 2019-08-01)
PROC: 03HY32Z Insertion of Monitoring Device into Upper Artery, Percutaneous Approach (ICD-10-PCS; principal; 2019-08-03)
PROC: 5A09357 Assistance with Respiratory Ventilation, Less than 24 Consecutive Hours, Continuous Positive Airway Pressure (ICD-10-PCS; principal; 2019-08-03)
PROC: 4A133J1 Monitoring of Arterial Pulse, Peripheral, Percutaneous Approach (ICD-10-PCS; principal; 2019-08-03)
PROC: 02HV33Z Insertion of Infusion Device into Superior Vena Cava, Percutaneous Approach (ICD-10-PCS; principal; 2019-08-03)
PROC: 4A133B1 Monitoring of Arterial Pressure, Peripheral, Percutaneous Approach (ICD-10-PCS; principal; 2019-08-03)
DX: A41.89 Other specified sepsis (principal); G93.41 Metabolic encephalopathy; I50.33 Acute on chronic diastolic (congestive) heart failure; J12.89 Other viral pneumonia; J96.01 Acute respiratory failure with hypoxia; J96.02 Acute respiratory failure with hypercapnia; N17.0 Acute kidney failure with tubular necrosis; R65.21 Severe sepsis with septic shock; U07.1 COVID-19; E87.1 Hypo-osmolality and hyponatremia; E87.4 Mixed disorder of acid-base balance; I13.0 Hypertensive heart and chronic kidney disease with heart failure and stage 1 through stage 4 chronic kidney disease, or unspecified chronic kidney disease; J44.0 Chronic obstructive pulmonary disease with (acute) lower respiratory infection; K76.6 Portal hypertension; R18.8 Other ascites; D68.32 Hemorrhagic disorder due to extrinsic circulating anticoagulants; K75.81 Nonalcoholic steatohepatitis (NASH); E11.22 Type 2 diabetes mellitus with diabetic chronic kidney disease; Z51.5 Encounter for palliative care; Z66 Do not resuscitate; K72.90 Hepatic failure, unspecified without coma; N18.3 Chronic kidney disease, stage 3 (moderate); E11.40 Type 2 diabetes mellitus with diabetic neuropathy, unspecified; D63.1 Anemia in chronic kidney disease; R40.2244 Coma scale, best verbal response, confused conversation, 24 hours or more after hospital admission; T45.515A Adverse effect of anticoagulants, initial encounter; I48.0 Paroxysmal atrial fibrillation; Z79.84 Long term (current) use of oral hypoglycemic drugs; E66.9 Obesity, unspecified; E78.5 Hyperlipidemia, unspecified; E87.5 Hyperkalemia; F43.9 Reaction to severe stress, unspecified; I25.10 Atherosclerotic heart disease of native coronary artery without angina pectoris; R26.9 Unspecified abnormalities of gait and mobility; I87.8 Other specified disorders of veins; R31.0 Gross hematuria; S00.83XA Contusion of other part of head, initial encounter; R40.2364 Coma scale, best motor response, obeys commands, 24 hours or more after hospital admission; R29.6 Repeated falls; I25.2 Old myocardial infarction; R40.2144 Coma scale, eyes open, spontaneous, 24 hours or more after hospital admission; Z68.32 Body mass index [BMI] 32.0-32.9, adult; Z79.01 Long term (current) use of anticoagulants; Z79.82 Long term (current) use of aspirin; Z79.899 Other long term (current) drug therapy; Z80.0 Family history of malignant neoplasm of digestive organs; Z82.0 Family history of epilepsy and other diseases of the nervous system; Z82.49 Family history of ischemic heart disease and other diseases of the circulatory system; Z85.3 Personal history of malignant neoplasm of breast; Z87.440 Personal history of urinary (tract) infections; Z90.49 Acquired absence of other specified parts of digestive tract; Z91.81 History of falling; R79.89 Other specified abnormal findings of blood chemistry; F32.9 Major depressive disorder, single episode, unspecified; K74.69 Other cirrhosis of liver
CPT/HCPCS: 36415; 36600; 49083; 70450; 70486; 70551; 71045; 76705; 80048; 80053; 80061; 80202; 81001; 82140; 82550; 82607; 82746; 82805; 82945; 83540; 83550; 83605; 83615; 83880; 84145; 84300; 84443; 84484; 85025; 85027; 85379; 85610; 85652; 85730; 86140; 87040; 87070; 87075; 87086; 87205; 87635; 89050; 93005; 94640; 94660; 95819; 96361; 96365; 96376; 99291